=== PATIENT | female | born 1945 | race Caucasian/White ===

== ENCOUNTER 2019-11-15 11:59 | Emergency (ER) | payer MEDICARE, BC, SELFPAY ==
--- NOTE | 2019-11-15 12:00 | ED.GENADULT ---
HPI - General Adult General Chief complaint: Upper Respiratory Infection Stated complaint: COUGH/CONGESTION Time Seen by Provider: 11/15/19 12:16 Source: patient and RN notes reviewed Mode of arrival: ambulatory Limitations: no limitations History of Present Illness HPI narrative: This patient had onset of a cough which is been nonproductive that began last night on 11/14/2019. She has had a slight sore throat. She has had purulent rhinorrhea postnasal drip sensation. She was around her nephew who had flu over the past weekend this was at a wedding. She like to be tested for influenza today. She has had the flu vaccine this season. She has seen her strand buncher fine wire on this past Monday 4 days ago when she was well at that time. She has not had any ear pain or drainage from the ears. She has had no chest pain no shortness of breath. There is been no nausea, no vomiting, no diarrhea. She has had no hematuria, no dysuria, no pyuria. She has had no rashes. No known exposure to anyone with strep throat, mono, influenza except her nephew, or bronchitis, pneumonia. Related Data Home Medications Medication Instructions Recorded Confirmed eszopiclone [Lunesta] 1 mg PO HS 11/15/19 11/15/19 Allergies Allergy/AdvReac Type Severity Reaction Status Date / Time Bumble Bee Allergy Intermediate Other Uncoded 06/18/19 08:21 Review of Systems Review of Systems: Narrative: CONSTITUTIONAL: Denies fever, chills, or sweats. Noncontributory except as pertains to the past medical history and history of present illness. EYES: Denies visual changes, redness, or discharge. ENT: Denies rhinorrhea, congestion, sore throat, or otalgia. CARDIOVASCULAR: Denies chest pain, palpitations, or edema. RESPIRATORY: Denies cough or dyspnea. GASTROINTESTINAL: Denies abdominal pain, nausea, vomiting, or diarrhea. GENITOURINARY: Denies dysuria or hematuria. SKIN: Denies rash or itching. MUSCULOSKELETAL: Denies back pain, joint pain, or myalgia. NEUROLOGIC: Denies headache, numbness, or weakness. PSYCHIATRIC: Denies anxiety or depression. PMFSH Comments At time of signature, I have reviewed and agree with nursing past medical, surgical, social, and family history.Please see nursing chart for further information. There is no relevant family history pertinent to the presenting complaint. Exam Narrative: Exam Narrative: GENERAL: Well-appearing, well-nourished, and in no acute distress. HEAD: Normocephalic, atraumatic. There is no palpation tenderness over the frontal, maxillary, mastoid sinus areas. EYES: PERRLA and EOMI. EARS: TM's clear bilaterally and the canals are clear. NOSE: Nares have edematous mucosa with purulent rhinorrhea and postnasal drip. THROAT:Mucous membranes moist.Oropharynx normal without erythema or exudates. NECK: Supple.No adenopathy of the neck, axillary, or inguinal areas. RESPIRATORY: No respiratory distress. Airway patent. Respirations non-labored. The lungs have rhonchi in the upper, but not the mid or lower lung archer. There are no wheezes, no rales, no retractions, and no use of accessory muscles of respirations. She is not dyspneic and not cyanotic. HEART: Regular rate and rhythm. No murmur heard. Normal peripheral pulses. ABDOMEN: Soft, nontender, nondistended, normal active bowel sounds.No masses. No rebound or guarding, No organomegaly.There is no CVA pain, no pain at McBurney's point. She has a negative celeste's and Rovsing's signs. There are no pulsatile masses or bruits. EXTREMITIES: No clubbing/cyanosis/ edema. Normal strength & range of motion. SKIN: Warm, dry.Normal color.No rashes or lesions. Patient is well nourished and well hydrated with moist mucous membranes and no tenting of the skin. NEURO: Alert and oriented. CN 2-12 grossly intact. No focal deficits. PSYCH: Normal mood and affect. Course Vital Signs Vital signs: Afebrile and the other vital signs are normal, except the blood pressure is elevated at 148/57 should be rechecke
[2019-11-15 12:04] VITALS: BP 148/57; PULSE 80; RESP 20; TEMP 37.2; O2SAT 99
== END 2019-11-15 12:34 | disposition home or self-care (01) ==
PROVIDERS: Emergency Provider Family Medicine; PCP Internal Medicine
DX: J40 Bronchitis, not specified as acute or chronic (principal); J01.10 Acute frontal sinusitis, unspecified
CPT/HCPCS: 87804; 99213; G0463

== ENCOUNTER 2020-01-03 14:01 | Outpatient (CLI) | payer MEDICARE, BC, SELFPAY ==
[2020-01-03 15:14] LABS: Add Urine Microscopic? YES; Appearance Urine Cloudy (Clear); Bacteria Urine Trace /hpf; Bilirubin Urine Negative (Negative); Blood Urine 3+ (Negative); Color Urine Red (Yellow); Glucose Urine UA Negative (Negative); Ketones Urine Negative (Negative); Leukocyte Esterase Ur Trace LEU/UL (NEGATIVE); Nitrate Urine Negative (Negative); Protein Urine 2+ mg/dL (Negative); RBC Urine >75 /hpf (0-2); Specific Grav Ur 1.012 (1.001-1.035); Squamous Epithelial Cell Urine Occasional /hpf (Few); Urobilinogen Urine Negative mg/dL (<2.0)
== END 2020-01-03 14:02 | disposition home or self-care (01) ==
LOC: ANHLAB 14:07
PROVIDERS: PCP Internal Medicine; Visit Provider Physician Assistant
DX: R30.0 Dysuria (principal)
CPT/HCPCS: 81001; 87086; 87088

== ENCOUNTER 2020-01-13 09:57 | Outpatient (CLI) | payer MEDICARE, BC, SELFPAY ==
--- NOTE | ~2020-01-13 | CT_ITS ---
EXAMINATION: CT abdomen pelvis wo/w con EXAM DATE: 01/13/2020 10:52 INDICATION: Bladder tumor. Hematuria. TECHNIQUE: Spiral CT of the abdomen and pelvis was performed without contrast. The patient was then injected with small bolus intravenous Omnipaque 350, followed by delay of approximately 10 minutes to allow collecting system to opacify. A post contrast scan abdomen and pelvis was performed during inj ection of remaining contrast. A total of 130 cc intravenous contrast was administered. The dose-rochelle th product (DLP) for this examination was 1256.42 mGy-cm. The exposure was tailored according to pat ient size (auto mA exposure control), and iterative reconstruction (ASIR) was used as additional dose reduction technique. There is no prior study for comparison. FINDINGS: There is no hydronephrosis or nephrolithiasis. There is a 3 cm left renal cyst, a 2 cm rig ht renal cyst and several smaller renal cysts The kidneys enhance symmetrically. There are no suspi cious renal lesions. The calyces and opacified portions of ureters are unremarkable, without filling defects or focal suspicious strictures. There is a focal masslike density along the right posterola teral bladder wall just above the UVJ measuring up to 1.6 cm. Region is actually better visualized on the noncontrast portion of exam, could be enhancing to same density as the surrounding contrast/urin e. Small focus of bladder gas could be from cystoscopy or other recent instrumentation. The uterus is not identified and has likely been surgically resected. The liver, spleen, adrenal glands and pancreas are unremarkable. Gallbladder not identified, patient likely has had cholecystectomy. There is no retroperitoneal or pelvic lymphadenopathy. There is m ild scattered arteriosclerotic disease. There are surgical changes consistent with appendectomy. The stomach and small bowel are unremarkab le. There is expected amount of colonic stool. There is mild sigmoid colonic diverticulosis. There is no adjacent inflammatory change to suggest diverticulitis. No free intraperitoneal gas. The hea rt is normal in size. There are no pericardial or pleural effusions. The lung bases are unremarkabl e. There are no osteoblastic or osteolytic lesions identified. IMPRESSION: 1. Small right posterolateral bladder mass. 2. Mild sigmoid predominant diverticulosis. Reviewed, dictated and finalized at location B.
[2020-01-13 10:39] LABS: Estimated Glomerular Filt Rate 40
== END 2020-01-13 09:58 | disposition home or self-care (01) ==
PROVIDERS: PCP Internal Medicine; Visit Provider Urology
DX: R31.0 Gross hematuria (principal); K57.30 Diverticulosis of large intestine without perforation or abscess without bleeding
CPT/HCPCS: 36415; 74178; Q9967

== ENCOUNTER 2020-01-16 02:27 | Day surgery (SDC) | payer MEDICARE, BC, SELFPAY ==
[2020-01-15 10:44] VITALS: BMI 32.8
--- NOTE | 2020-01-16 07:34 | WPDHPUPDATE1 ---
History and Physical Update Update Date/Time: 01/16/20 07:34 History and Physical has been reviewed, including an updated exam of the patient. There are NO changes in the patient's condition. Risks, benefits, and alternatives have been discussed and questions answered. Patient agrees to proceed with procedure.
[2020-01-16 13:55] VITALS: BP 145/87; PULSE 61; RESP 18; TEMP 37; O2SAT 97
--- NOTE | 2020-01-16 14:15 | ECG_ITS ---
Measurements Intervals [place] Rate: 62 P: 47 OK: 222 QRS: -17 QRSD: 119 T: 23 QT: 394 QTc: 402 Interpretive Statements SINUS RHYTHM WITH FIRST DEGREE AV BLOCK INCOMPLETE RIGHT BUNDLE BRANCH BLOCK ABNORMAL ECG Electronically Signed On 01-16-2020 16:47:52 CDT by Jesus Wilson D.O.
[2020-01-16] MEDS: LACTATED RINGERS 1,000 ML 30 ML IV CONT (15:00)
--- NOTE | 2020-01-16 15:11 | WPDANESEPPF ---
Anes - Initial Pre Proc Eval Procedure: Operation Date: 01/16/20 16:00 Proposed Procedures p Transurethral Resection Bladder Tumor - Herman Nur MD Date/Time: 01/16/20 15:11 Surgeon: Herman Nur MD Pre Op Diagnosis: Recurring Bladder Tumor/ Gross Hematuria Patient Data Age: 75 Gender: F Height: 1.6 m Weight: 84 kg Allergies Allergy/AdvReac Type Severity Reaction Status Date / Time Bumble Bee Allergy Mild Drowsy, Uncoded 01/15/20 10:58 nausea Home Medications Medication Instructions Recorded Confirmed Type olmesartan 40 mg tablet 40 mg PO DAILY #90 tablet 10/28/19 01/15/20 Rx hydrochlorothiazide 12.5 mg capsule 12.5 mg PO DAILY #90 cap 10/29/19 01/15/20 Rx multivitamin 1 tablet PO DAILY 01/03/20 01/15/20 History modafinil 200 mg PO QAM 01/15/20 01/15/20 History nabumetone 1,000 mg PO DAILY PRN 01/15/20 01/15/20 History omega-3 fatty acids-fish oil [Fish 1 cap PO DAILY 01/15/20 01/15/20 History Oil] Laboratory Tests 01/16/20 14:28 Sodium Pending Potassium Pending Chloride Pending Carbon Dioxide Pending BUN Pending Creatinine Pending Estim Creat Clear Calc Pending Estimated GFR Pending Glucose Pending Calcium Pending ECG: sr, 1st degree avb, incomplete rbbb Patient hx anesthesia problems: post op nausea/vomiting Family hx anesthesia problems: none PMFSH Past Medical History Medical History (Updated 01/16/20 @ 15:14 by Wally Ramesh MD) Bladder tumor Hematuria HTN (hypertension) Obesity LARA (obstructive sleep apnea) Family History Family History (System 12/17/19 @ 12:12 by Gayle Purcell) Father Family history of cardiovascular disease Cerebrovascular accident Mother Cerebrovascular accident Sibling Patient's sister is in good health Family history of malignant neoplasm of breast in first degree relative Social History Social History (System 12/17/19 @ 12:12 by Gayle Purcell) Smoking status: Former smoker Second hand tobacco smoke exposure: No Smoking end date: 10/09/72 Alcohol intake: current Anes - Eval Final PreProcedure Day of Procedure 01/16/20 15:11 Patient weight: obese Heart: regular rate and rhythm Lungs: clear to auscultation and normal air movement Airway: Mallampati scale class II Neurological: alert and oriented Last oral intake: >/= 8 hours ASA classification: III Emergent: no Anesthetic plan: proceed Anesthesia type and monitoring: general GIVS and LMA Informed Consent: The patient's anesthetic plan and its attendant risks and benefits were discussed with the patient/family/POA. Questions were solicited and answers provided to the satisfaction of the patient/family/POA.
[2020-01-16 15:16] LABS: Blood Urea Nitrogen 22 mg/dL (7-17); Calcium 9.5 mg/dL (8.4-10.2); Carbon Dioxide 25 mmol/L (22-30); Chloride 102 mmol/L (98-107); Estimated CRCL calculation 43 ml/min; Estimated Glomerular Filt Rate 54; Glucose 92 mg/dL (65-105); Potassium 4.3 mmol/L (3.4-5.0); Sodium 132 mmol/L (137-145)
[2020-01-16] MEDS: ceFAZolin 2 GM/D5W 50 ML 2 GM/50 ML BAG IVPB (15:48)
[2020-01-16 16:23] VITALS: BP 136/56; PULSE 88; RESP 15; TEMP 36.8; O2SAT 99
[2020-01-16 16:35] VITALS: BP 138/59; PULSE 75; RESP 18; O2SAT 96
[2020-01-16 16:50] VITALS: BP 132/74; PULSE 71; RESP 14; O2SAT 96
[2020-01-16 16:55] VITALS: BP 121/68; PULSE 67; RESP 16
--- NOTE | 2020-01-16 17:03 | PM.PROC ---
Procedure Note - Detailed Date of procedure: 01/16/20 Pre-op diagnosis: Recurring Bladder Tumor/ Gross Hematuria Post-op diagnosis: same Procedure performed: 1. TURBT (medium, 4cm). 2. Bladder biopsy. Description of procedure: The patient was brought to the operative suite where she is prepped and draped in a routine sterile fashion while in the dorsal lithotomy position. This is done after the uneventful administration of systemic sedation. 2% Xylocaine jelly is introduced intraurethrally and allowed to stand for an appropriate period of time. A 24F resectoscope sheath was placed in the bladder and the bladder is circumferentially inspected carefully. She has a a somewhat sessile-appearing neoplasm in the right posterior lateral bladder wall, just lateral to the ureteral orifice. This area is resected in its entirety with an attempt made to include detrusor muscle for pathological evaluation of invasion. I was able to avoid resecting the right urerteral orifice. The was also one minimally atypical spot in the tribone that I biopsies but think unlikely it's neoplastic. The remainder of the bladder was endoscopically normal. The base and periphery of this resected side is cauterized with a loop electrode. The bladder is emptied and the resectoscope was removed. The patient is taken to the recovery room having tolerated this procedure well. Anesthesia: GLMA Surgeon: Herman Nur MD Estimated blood loss (mL): 0 Drains: No Packing: No Pathology: yes (1. Bladder tumor 2. Bladder tumor base 3. Trigone bx. ) Complications: No immediate complications Condition: stable Disposition: PACU
[2020-01-16 17:25] VITALS: BP 157/66; PULSE 54; RESP 16
== END 2020-01-16 17:49 | disposition home or self-care (01) ==
PROVIDERS: Anesthesiology; PCP Internal Medicine; Visit Provider Urology
PROC: 0TBB8ZZ Excision of Bladder, Via Natural or Artificial Opening Endoscopic (ICD-10-PCS; CPT 52235; principal; 2020-01-16 16:00)
DX: C67.8 Malignant neoplasm of overlapping sites of bladder (principal); C67.0 Malignant neoplasm of trigone of bladder; I10 Essential (primary) hypertension; G47.33 Obstructive sleep apnea (adult) (pediatric); E66.9 Obesity, unspecified; Z68.34 Body mass index [BMI] 34.0-34.9, adult; Z87.891 Personal history of nicotine dependence
CPT/HCPCS: 52235; 52204; 36415; 80048; 88305; 88307; 93005; A9270; J0690; J1100; J2405; J2704; J3010; J7120

== ENCOUNTER 2020-02-18 05:37 | Outpatient (CLI) | payer MEDICARE, BC, SELFPAY ==
[2020-02-18 18:34] LABS: SARS-CoV-2 RNA PCR Negative
== END 2020-02-18 05:38 | disposition home or self-care (01) ==
LOC: ANHCOVIDDT 05:38
PROVIDERS: PCP Internal Medicine; Visit Provider Urology
DX: Z01.818 Encounter for other preprocedural examination (principal); D49.4 Neoplasm of unspecified behavior of bladder; Z11.59 Encounter for screening for other viral diseases
CPT/HCPCS: 87635; C9803; U0003

== ENCOUNTER 2020-02-20 02:31 | Day surgery (SDC) | payer MEDICARE, BC, SELFPAY ==
[2020-02-17 13:02] VITALS: BMI 32.8
--- NOTE | 2020-02-18 09:48 | P.HP_ITS ---
History of Present Illness History of Present Illness Consent: Risks, benefits, and alternatives have been discussed and questions answered. Patient agrees to proceed with procedure. Chief complaint: bladder tumor Narrative: Mariposa Brown is a 75 year old female originally evaluated for gross hematuria in January 2020. Upper tract imaging with CT scan abdomen and pelvis with and without contrast was normal but cystoscopy showed bladder neoplasm. In mid January she underwent TURBT showing high-grade T1 urothelial carcinoma. We discussed intravesical BCG but opted 1st to proceed with re-resection of bladder tumor base. She presents today for that procedure. Review of Systems Cardiovascular: Cardiovascular: Denies chest pain, Denies lightheadedness, Denies palpitations and Denies dyspnea Respiratory: Respiratory: Denies dyspnea Gastrointestinal: Gastrointestinal: Denies diarrhea, Denies nausea and Denies vomiting Genitourinary: Genitourinary: Denies hematuria and Denies dysuria Endocrine: Endocrine: Denies palpitations PMF Past Medical History Medical History Bladder tumor Hematuria HTN (hypertension) Obesity LARA (obstructive sleep apnea) Family History Family History Father Family history of cardiovascular disease Cerebrovascular accident Mother Cerebrovascular accident Sibling Patient's sister is in good health Family history of malignant neoplasm of breast in first degree relative Social History Social History (System 12/17/19 @ 12:12 by Gayle Purcell) Smoking status: Former smoker Second hand tobacco smoke exposure: No Smoking end date: 10/09/72 Alcohol intake: current Meds Home Medications and Allergies Home Medications Medication Instructions Recorded Confirmed Type olmesartan 40 mg tablet 40 mg PO DAILY #90 tablet 10/28/19 02/17/20 Rx hydrochlorothiazide 12.5 mg capsule 12.5 mg PO DAILY #90 cap 10/29/19 02/17/20 Rx multivitamin 1 tablet PO DAILY 01/03/20 02/17/20 History modafinil 200 mg PO QAM 01/15/20 02/17/20 History nabumetone 1,000 mg PO DAILY PRN 01/15/20 02/17/20 History omega-3 fatty acids-fish oil [Fish 1 cap PO DAILY 01/15/20 02/17/20 History Oil] hydrocodone-acetaminophen 1 - 2 tablet PO Q6H PRN #20 tablet 01/16/20 02/17/20 Rx Allergies Allergy/AdvReac Type Severity Reaction Status Date / Time Bumble Bee Allergy Mild Drowsy, Uncoded 02/17/20 12:45 nausea Exam Const: General: no acute distress Resp: Effort & Inspection: normal respiratory effort GI: Inspection: non-distended GI Palp: No abdominal tenderness and No Guarding due to palpation present (GI) Auscultation: normal bowel sounds Assessment and Plan Assessment and plan (1) Bladder tumor: Code(s): D49.4 - Neoplasm of unspecified behavior of bladder Status: Acute Assessment and Plan: * Recection 01/2020 initial bladder tumor -> T1, high-grade urothelial ca. * Presents for re-resection bladder tumor base.
[2020-02-20] VITALS (8 sets, daily range): BP systolic 121–147; BP diastolic 56–78; PULSE 51–78; RESP 12–20; TEMP 36.6–37.4; O2SAT 94–100
--- NOTE | 2020-02-20 07:05 | WPDHPUPDATE1 ---
History and Physical Update Update Date/Time: 02/20/20 07:05 History and Physical has been reviewed, including an updated exam of the patient. There are NO changes in the patient's condition. Risks, benefits, and alternatives have been discussed and questions answered. Patient agrees to proceed with procedure.
[2020-02-20] MEDS: LACTATED RINGERS 1,000 ML 30 ML IV CONT ×2 (07:10→09:10)
--- NOTE | 2020-02-20 07:57 | WPDANESEPPF ---
Anes - Initial Pre Proc Eval Procedure: Operation Date: 02/20/20 08:30 Proposed Procedures p Re-Resection Bladder Tumor at the Base - Herman Nur MD Date/Time: 02/20/20 07:57 Surgeon: Herman Nur MD Pre Op Diagnosis: bladder tumor Patient Data Age: 75 Gender: F Height: 5 ft 3 in Weight: 88.1 kg Last Vital Signs Temp 37.4 C 02/20/20 07:10 Pulse 78 02/20/20 07:10 Resp 16 02/20/20 07:10 BP 135/58 L 02/20/20 07:10 Pulse Ox 94 02/20/20 07:10 Allergies Allergy/AdvReac Type Severity Reaction Status Date / Time Bumble Bee Allergy Mild Drowsy, Uncoded 02/20/20 06:51 nausea Home Medications Medication Instructions Recorded Confirmed Type olmesartan 40 mg tablet 40 mg PO DAILY #90 tablet 10/28/19 02/20/20 Rx hydrochlorothiazide 12.5 mg capsule 12.5 mg PO DAILY #90 cap 10/29/19 02/20/20 Rx multivitamin 1 tablet PO DAILY 01/03/20 02/20/20 History modafinil 200 mg PO QAM 01/15/20 02/20/20 History nabumetone 1,000 mg PO DAILY PRN 01/15/20 02/20/20 History omega-3 fatty acids-fish oil [Fish 1 cap PO DAILY 01/15/20 02/20/20 History Oil] hydrocodone-acetaminophen 1 - 2 tablet PO Q6H PRN #20 tablet 01/16/20 02/20/20 Rx Patient hx anesthesia problems: post op nausea/vomiting Family hx anesthesia problems: none PMFSH Past Medical History Medical History Bladder tumor Hematuria HTN (hypertension) Obesity LARA (obstructive sleep apnea) Family History Family History Father Family history of cardiovascular disease Cerebrovascular accident Mother Cerebrovascular accident Sibling Patient's sister is in good health Family history of malignant neoplasm of breast in first degree relative Social History Social History Smoking status: Former smoker Second hand tobacco smoke exposure: No Smoking end date: 10/09/72 Alcohol intake: current Anes - Eval Final PreProcedure Day of Procedure 02/20/20 07:57 Patient weight: obese Heart: regular rate and rhythm Lungs: decreased breath sounds Airway: Mallampati scale class II Neurological: alert and oriented Last oral intake: >/= 8 hours ASA classification: III Emergent: no Anesthetic plan: proceed Anesthesia type and monitoring: general LMA and standard monitoring Informed Consent: The patient's anesthetic plan and its attendant risks and benefits were discussed with the patient/family/POA. Questions were solicited and answers provided to the satisfaction of the patient/family/POA.
[2020-02-20] MEDS: ceFAZolin 2 GM/D5W 50 ML 2 GM/50 ML BAG IVPB (08:20)
[2020-02-20] MEDS: LIDOCAINE HCL 2% GEL UROJET 10 ML PKG MUCOUS MEM (08:35)
--- NOTE | 2020-02-20 08:52 | PM.PROC ---
Procedure Note - Detailed Date of procedure: 02/20/20 Pre-op diagnosis: bladder tumor Post-op diagnosis: same Procedure performed: TURBT (medium, 4cm) / re-resection bladder tumor base Description of procedure: Patient is brought to the operative suite where she was prepped and draped in routine sterile fashion while in a dorsal lithotomy position. Cystoscopy was 1st undertaken with a 19 F rigid cystoscope. Urine was collected for cytology. I can clearly see the area of prior, recent resection in the right posterior lateral bladder wall, lateral to the right ureteral orifice. The remainder of the bladder mucosa appears unremarkable without worrisome hyperemia or kelvin neoplasm. Using a loop electrode and a 24 F resectoscope I resected the base and periphery of the prior resection site. This was done with great care to avoid injury to the right ureteral orifice. Resected site is cauterized with the loop for hemostasis. The bladder was emptied and patient was taken to recovery in good condition. Anesthesia: GLMA Surgeon: Herman Nur MD Estimated blood loss (mL): 0 Drains: No Packing: No Pathology: yes (Bladder tumor base) Complications: No immediate complications Condition: stable Disposition: PACU
--- NOTE | 2020-02-20 09:15 | SUR.PHASEI ---
0905; PT C/O URGE TO VOID. PLACED ON BEDPAN. UNABLE TO VOID. 0910; PT ANXIOUS. C/O PAIN TO BLADDER REGION, LOW, CENTER ABDOMEN, 10. ABDOMEN SOFT. FENTANYL GIVEN PRN
--- NOTE | 2020-02-20 09:31 | SUR.PHASEI ---
0920; PT AWAKE AND ALERT. STATES PAIN IMPROVING NOW. TALKATIVE. SMILING.
--- NOTE | 2020-02-20 09:41 | SUR.PHASEI ---
0940; PT AWAKE AND ALERT. TALKATIVE. STATES PAIN MUCH BETTER NOW AND MILD/TOLERABLE.
== END 2020-02-20 10:45 | disposition home or self-care (01) ==
PROVIDERS: PCP Internal Medicine; Visit Provider Urology
PROC: 0TBB8ZZ Excision of Bladder, Via Natural or Artificial Opening Endoscopic (ICD-10-PCS; CPT 52235; principal; 2020-02-20 08:30)
DX: C67.8 Malignant neoplasm of overlapping sites of bladder (principal); I10 Essential (primary) hypertension; G47.33 Obstructive sleep apnea (adult) (pediatric); E66.9 Obesity, unspecified; Z68.34 Body mass index [BMI] 34.0-34.9, adult; Z87.891 Personal history of nicotine dependence
CPT/HCPCS: 52235; 88104; 88108; 88305; 88307; A9270; J0690; J1100; J2405; J2704; J3010; J7120

== ENCOUNTER 2021-09-21 09:16 | Outpatient (CLI) | payer MEDICARE, BC, SELFPAY ==
[2021-09-21 10:19] LABS: Alanine Aminotransferase 56 U/L (4-35); Albumin Level 4.2 g/dL (3.5-5.1); Alkaline Phosphatase 84 U/L (38-126); Anion Gap 7 mmol/L (8-16); Aspartate Amino Transferase 42 U/L (14-36); Bilirubin,Total 0.7 mg/dL (0.2-1.3); Blood Urea Nitrogen 30 mg/dL (7-17); Calcium 10.9 mg/dL (8.4-10.2); Carbon Dioxide 28 mmol/L (22-30); Chloride 103 mmol/L (98-107); Cholesterol 157 mg/dL (0-200); Estimated Glomerular Filt Rate 36; Glucose 113 mg/dL (65-110); HDL Direct 58 mg/dL; Potassium 4.3 mmol/L (3.4-5.0); Sodium 138 mmol/L (137-145); Triglycerides 85 mg/dL (<150)
[2021-09-21 10:30] LABS: LDL Cholesterol Direct 68 mg/dL
[2021-09-21 10:31] LABS: Basophils Absolute Auto 0.1 K/mm3 (0.0-0.1); Eosinophils Absolute Auto 0.7 K/mm3 (0-0.3); Eosinophils Percent Auto 10.1 % (0-4.4); Hematocrit 37.7 % (37.0-47.0); Hemoglobin 12.2 g/dL (12.0-15.0); Immature Granulocyte Absolute 0.02 K/mm3 (0.00-0.031); Immature Granulocyte Percent A 0.3 % (0-0.5); Lymphocytes Absolute Auto 1.53 K/mm3 (0.9-3.2); Lymphocytes Percent Auto 22.6 % (18.3-44.2); Mean Corpuscular HGB Conc 32.4 g/dl (32-36); Mean Corpuscular Hemoglobin 33.5 pg (26-34); Mean Corpuscular Volume 103.6 fl (80-100); Mean Platelet Volume 10.2 fl (7.4-10.4); Monocytes Absolute Auto 0.5 K/mm3 (0.1-0.6); Monocytes Percent Auto 7.7 % (2.6-8.5); Neutrophils Absolute Auto 3.9 K/mm3 (1.3-6.7); Neutrophils Percent Auto 58.3 % (45.5-73.1); Platelet Count Result 255 k/mm3 (150-375); Red Blood Count 3.64 M/mm3 (4.2-5.4); Red Cell Distribution Width 12.2 % (11.5-14.5); White Blood Count 6.8 K/mm3 (4.5-10.0)
[2021-09-25 18:11] LABS: Folic Acid > 20.0 ng/mL (2.76->20)
== END 2021-09-21 09:17 | disposition home or self-care (01) ==
LOC: ANHLAB 09:19
PROVIDERS: PCP Internal Medicine; Visit Provider Internal Medicine
DX: R53.83 Other fatigue (principal); I10 Essential (primary) hypertension; R79.89 Other specified abnormal findings of blood chemistry
CPT/HCPCS: 36415; 80053; 80061; 82607; 82746; 84443; 85025

== ENCOUNTER 2021-11-16 10:43 | Inpatient (IN) | payer MEDICARE, BC, SELFPAY ==
[2021-11-16] VITALS (25 sets, daily range): BP systolic 97–137; BP diastolic 35–107; PULSE 54–110; RESP 9–20; TEMP 35.7–36.7; O2SAT 94–100; BMI 30.2
--- NOTE | ~2021-11-16 | XR_ITS ---
EXAMINATION: XR retrograde pyelo w/stent RT DATE: 11/16/2021 15:43 INDICATION: Right hydronephrosis. TECHNIQUE: 6 intraoperative fluoroscopic views of the abdomen and pelvis were obtained. I was not pre sent. Fluoroscopy exposure time was 33 seconds. COMPARISON: CT abdomen and pelvis 11/16/2021 FINDINGS: The right-sided retrograde pyelogram demonstrates moderate hydronephrosis and hydroureter. The final images demonstrate a right internal ureteral stent in expected position. There are changes of anterior and posterior fusion procedures in lumbosacral spine. Surgical clips in the right upper q uadrant are likely from cholecystectomy. IMPRESSION: 1. Moderate right hydronephrosis and hydroureter with right internal ureteral stent in expected posit ion. Reviewed, dictated and finalized at location A. E GENETICS RESEARCHER IMPRESSION: 1. Moderate right hydronephrosis and hydroureter with right internal ureteral s tent in expected position.
--- NOTE | ~2021-11-16 | XR_ITS ---
EXAMINATION: XR chest 1V portable EXAM DATE: 11/16/2021 11:33 INDICATION: Dizziness. TECHNIQUE: Portable AP frontal chest x-ray was obtained. Comparison is made to prior examination from 02/14/2019. FINDINGS: The lungs are clear. There are no pleural effusions. Cardiac silhouette is prominent but magnified on this AP technique. There is no pneumothorax suspected. Left shoulder replacement. Cer vical fusion hardware. IMPRESSION: No acute cardiopulmonary findings. Reviewed, dictated and finalized at location B. ORIAL ARTIST
--- NOTE | ~2021-11-16 | CT_ITS ---
EXAMINATION: CT abdomen pelvis wo con EXAM DATE: 11/16/2021 11:59 INDICATION: L abd pain. Known bladder cancer. TECHNIQUE: Spiral CT of the abdomen and pelvis was performed without contrast. Axial, coronal and s agittal images of the abdomen and pelvis were reviewed. The dose-length product (DLP) for this exami nation was 840.50 mGy-cm. The exposure was tailored according to patient size (auto mA exposure cont rol), and iterative reconstruction (ASIR) was used as additional dose reduction technique. Comparison is made to prior examination from 01/13/2020. FINDINGS: There is thickening of the right posterolateral aspect of the bladder including the region of the ureterovesicular junction. There is mild to moderate right-sided hydronephrosis. Appearance co nsistent with transitional cell cancer. The liver, spleen, adrenal glands and pancreas are unremarkab le. Gallbladder is unremarkable. No biliary obstruction. The uterus is not identified and has like ly been surgically resected. There is no retroperitoneal or pelvic lymphadenopathy. There is mil d scattered arteriosclerotic disease. The appendix is not positively visualized. There is no pericecal inflammatory change to suggest appe ndicitis. There is mild scattered colonic diverticulosis. There is no adjacent inflammatory change t o suggest diverticulitis. The stomach and small bowel are unremarkable. There is expected amount of colonic stool. No free intraperitoneal gas. The heart is normal in size. There are no pericardi al or pleural effusions. The lung bases are unremarkable. L3-L5 fusion hardware. L5 laminectomies, L4 laminotomies. Moderate to severe thoracolumbar spondylosis. IMPRESSION: 1. No acute intra-abdominal findings. 2. Bladder mass, probably causing mild to moderate right hydronephrosis. Reviewed, dictated and finalized at location B. RMATION ASSURANCE
--- NOTE | ~2021-11-16 | XR_ITS ---
EXAMINATION: XR barium swallow modified DATE: 11/18/2021 11:38 INDICATION: Dysphagia. TECHNIQUE: The patient was given barium-containing material of multiple consistencies to swallow by gonzález puga speech pathologist while I performed fluoroscopy. Dose-area product was 1.135 Gy-cm2. 2.5 minutes fluoroscopy time FINDINGS: Status post lower anterior cervical spine surgical fusion. Oral Stage: Within functional limits Pharyngeal Phase: Within functional limits Cervical/Esophageal Stage: Cricopharyngeus muscle dysfunction IMPRESSION: Modified esophagram findings as above. Please refer to the speech therapy report [facility]. Reviewed, dictated and finalized at Location A. Reviewed, dictated and finalized at location A. RCYCLE MECHANIC IMPRESSION: Modified esophagram findings as above. Please refer to the speech t herapy report for specific recommendations.
--- NOTE | ~2021-11-16 | CT_ITS ---
EXAMINATION: CT brain wo con EXAM DATE: 11/16/2021 11:59 INDICATION: Dizziness. Left-sided abdominal pain. His to bladder tumor. TECHNIQUE: Spiral CT of the head was performed without contrast. Axial, coronal and sagittal images were reviewed. The dose-length product (DLP) for this examination was 605.33 mGy-cm. The exposure w as tailored according to patient size, and iterative reconstruction (ASIR) was used as additional dos e reduction technique. There is no prior study for comparison. FINDINGS: There is no acute intraparenchymal hemorrhage. No evidence of intraparenchymal brain mass lesion. No evidence of acute infarction. Please note that initial head CT has limited sensitivity f or small or acute infarctions. There is mild periventricular and subcortical hypodensity, nonspecific but probably related to small vessel ischemic disease. There is mild prominence of the sulci and v entricles related to cerebral atrophy. There is intracranial carotid arteriosclerosis. There are n o extra-axial collections. There is no mass effect or midline shift. Patient has had bilateral ocul ar lens surgery. Soft tissue is unremarkable. The visualized sinuses and mastoid air cells are well aerated. IMPRESSION: 1. No acute intracranial findings. 2. Chronic age related findings. Reviewed, dictated and finalized at location B. ETED SPRING ASSEMBLER
--- NOTE | 2021-11-16 11:01 | ECG_ITS ---
Rate 93 MO 180 QRSd 108 QT 313 QTc 390 --[place]-- P 30 QRS -24 T 16 SINUS RHYTHM INCOMPLETE RIGHT BUNDLE BRANCH BLOCK DELAYED PRECORDIAL R/S TRANSITION BASELINE ARTIFACT- I, II, III, AVR, AVF, V2-V6 BORDERLINE ECG Electronically Signed On 11-17-2021 13:16:36 MOLD CAPPER by Jesus FERNANDEZ
[2021-11-16 11:12] LABS: Basophils Percent Auto 0.4 % (0.2-1.2); Eosinophils Absolute Auto 0.4 K/mm3 (0-0.3); Hematocrit 33.9 % (37.0-47.0); Hemoglobin 10.9 g/dL (12.0-15.0); Immature Granulocyte Absolute 0.02 K/mm3 (0.00-0.031); Immature Granulocyte Percent A 0.3 % (0-0.5); Lymphocytes Absolute Auto 0.84 K/mm3 (0.9-3.2); Lymphocytes Percent Auto 11.7 % (18.3-44.2); Mean Corpuscular HGB Conc 32.2 g/dl (32-36); Mean Corpuscular Hemoglobin 33.4 pg (26-34); Mean Platelet Volume 10.1 fl (7.4-10.4); Monocytes Absolute Auto 0.7 K/mm3 (0.1-0.6); Monocytes Percent Auto 9.2 % (2.6-8.5); Neutrophils Absolute Auto 5.3 K/mm3 (1.3-6.7); Neutrophils Percent Auto 73.4 % (45.5-73.1); Platelet Count Result 207 k/mm3 (150-375); Red Blood Count 3.26 M/mm3 (4.2-5.4); Red Cell Distribution Width 12.5 % (11.5-14.5); White Blood Count 7.2 K/mm3 (4.5-10.0)
[2021-11-16 11:23] LABS: Alanine Aminotransferase 12 U/L (4-35); Albumin Level 3.7 g/dL (3.5-5.1); Alkaline Phosphatase 60 U/L (38-126); Anion Gap 7 mmol/L (8-16); Aspartate Amino Transferase 21 U/L (14-36); Bilirubin,Total 0.5 mg/dL (0.2-1.3); Blood Urea Nitrogen 44 mg/dL (7-17); Calcium 10.8 mg/dL (8.4-10.2); Carbon Dioxide 19 mmol/L (22-30); Chloride 106 mmol/L (98-107); Estimated Glomerular Filt Rate 21; Glucose 115 mg/dL (65-110); Potassium 5.3 mmol/L (3.4-5.0); Sodium 132 mmol/L (137-145)
[2021-11-16] MEDS: SODIUM CHLORIDE 0.9% IV 1,000 ML 999 ML IV CONT (11:41)
[2021-11-16 11:46] LABS: Lactic Acid Reflex 1.3 mmol/L (0.7-2.1)
[2021-11-16 12:30] LABS: Lipase 133 U/L (23-300)
[2021-11-16 12:43] LABS: Troponin I < 0.012 ng/mL (0.000-0.034)
--- NOTE | 2021-11-16 12:59 | ED.DIZZY ---
HPI - Dizziness General Chief Complaint: Dizziness Stated Complaint: DIZZINESS Time Seen by Provider: 11/16/21 11:03 Source: RN notes reviewed History of Present Illness HPI Narrative: Patient presents emergency room from home for dizziness. Patient states that this morning she had dizziness that was worse with getting up and better with laying down she states that with that she had had increased lower back pain patient states she has been having some intermittent dizziness over the past week she she has been having increasing lower back pain over the past 1 month states that with this back pain she has been having increasing creatinine level is been seen by her PCP is post to be seen a kidney specialist she states she is having no definitive imaging of her abdomen she denies any fevers or chills vision changes, chest pain, shortness of breath, nausea vomiting diarrhea or any other symptoms. She denies any history of known kidney stones states she has been taking oral marijuana for the pain Related Data Home Medications Medication Instructions Recorded Confirmed multivitamin 1 tablet PO DAILY 01/03/20 11/08/21 modafinil 200 mg PO QAM 01/15/20 11/08/21 CBD 2.5 mg PO DAILY 11/05/21 11/09/21 Allergies Allergy/AdvReac Type Severity Reaction Status Date / Time cat dander Allergy Intermediate Sneezing Verified 11/05/21 14:54 Sulfa (Sulfonamide Allergy Hives Verified 11/05/21 14:54 Antibiotics) Bumble Bee Allergy Mild Drowsy, Uncoded 11/05/21 14:54 nausea Review of Systems Review of Systems: Gen.: Denies fevers or chills Eyes: Denies eye pain or visual change ENT: Denies congestion Respiratory: Denies shortness of breath or cough CV: Denies chest pain or palpitations GI: Reports less abdominal pain and flank pain denies vomiting or diarrhea denies burning, urgency, frequency or hematuria Musculoskeletal: Denies back pain or muscle pain Neuro: See HPI Skin: Denies rash Except as documented, all other systems reviewed and negative PMFSH Past Medical History Medical History Bladder tumor Hematuria HTN (hypertension) Obesity LARA (obstructive sleep apnea) Surgical History Surgical History History of hysterectomy History of knee replacement Family History Family History Father Family history of cardiovascular disease Cerebrovascular accident Mother Cerebrovascular accident Sibling Patient's sister is in good health Family history of malignant neoplasm of breast in first degree relative Social History Social History Years smoked: 3 Smoking status: Former smoker Tobacco type: cigarettes Second hand tobacco smoke exposure: No Smoking end date: 10/09/72 Alcohol intake: former Drinks per week: 1 Substance use: current Substance use type: marijuana Other substance usage details: THC/CBD gummies Spiritual care concerns: No Exam Narrative: APPEARANCE: No acute distress, nontoxic, resting in bed EYES: EOMI, PERRL HEENT: Normocephalic, atraumatic, OMM RESPIRATORY: No respiratory distress Clear to auscultation bilaterally with no rhonchi wheezing or rales. CARDIOVASCULAR: Regular rate and rhythm without murmurs rubs or gallops. ABDOMINAL: Soft, nondistended, diffusely tender to palpation no rebound or guarding tender palpation left flank with positive percussion tenderness MUSCULOSKELETAl: Moves all extremities. No clubbing, cyanosis or edema. NEURO: Awake and alert x 4. Following commands, speech normal, no focal deficits SKIN:: Warm, dry. No rashes lesions or abrasions PSYCHIATRIC: Normal affect/mood, Course Course Emergency Course: Called discussed with Dr. Lang patient with a cystoscopy showing no mass by Dr. Nur and Liborio vilchis
--- NOTE | 2021-11-16 13:00 | PM.IMHP ---
H&P: HPI History of Present Illness Date/Time: 11/16/21 13:00 Chief Complaint: Back pain and dizziness. Narrative: This is a very pleasant 76-year-old female with history of bladder cancer, hypertension, and sleep apnea who presented to the emergency department from home for evaluation of back pain and dizziness. She reports mid to low back and left flank pain for nearly 1 month that she has a difficult time describing. She initially had been taking nabumetone though she was told to stop taking that after she was found to have an increase in creatinine from baseline. Since then she has been taking THC/CBD cocktail which seems to help somewhat. The last 2 days her pain has been severe enough that she is unable to sleep much as she is constantly trying to find a position to make it feel better. Her appetite has not been great and she has not been eating or drinking well either. Additionally she has had episodes of dizziness over the past 1 week, further clarified as lightheadedness. Today her creatinine was approximately twice what it typically runs and a CT of the abdomen and pelvis showed findings of a bladder mass causing [id number] right hydronephrosis. After discussions with Urology, the patient is awaiting transport to OR for cystoscopy and stent placement. Of note the patient last had a surveillance cystoscopy in office on 08/16/2021 which was reportedly normal, with normal cytology as well. She denies fever, chills, sweats, syncope, chest pain, shortness of breath, pleuritic pain, nausea, vomiting, diarrhea, dysuria, and hematuria. Review of Systems Review of Systems: Twelve systems were reviewed and are negative except for as per HPI. 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 Surgical History Surgical History (Updated 11/16/21 @ 19:32 by Katarzyna Galvez PA-C) History of appendectomy History of bilateral knee replacement History of bladder surgery (01/2020) Transurethral resection bladder tumor. History of cataract extraction History of cholecystectomy History of cystoscopy History of hysterectomy History of left shoulder replacement History of spinal surgery Family History Family History Father Family history of cardiovascular disease Cerebrovascular accident Mother Cerebrovascular accident Sibling Patient's sister is in good health Family history of malignant neoplasm of breast in first degree relative Social History Social History (Updated 11/16/21 @ 19:21 by Katarzyna Galvez PA-C) Social History: Healthcare power of cafeteria clerk: Angelique Balta, niece. Code status: Full code. Smoking packs per day: 0.1 Smoking cigarettes per day: 2.0 Years smoked: 20 Smoking pack-years: 2.00 Smoking status: Former smoker Tobacco type: cigarettes Second hand tobacco smoke exposure: No Smoking end date: 10/09/72 Alcohol intake: current Drinks per week: 3 Substance use: current Substance use type: marijuana Other substance usage details: CBD/THC gummies, 1 to 2 times per day. Living arrangements: alone Occupation/Education: retired Meds Home Medications and Allergies Home Medications Medication Instructions Recorded Confirmed Type modafinil 200 mg PO QAM 01/15/20 11/16/21 History olmesartan 40 mg tablet 40 mg PO DAILY #90 tablet 11/09/20 11/16/21 Rx CBD 2.5 mg PO DAILY 11/05/21 11/16/21 History pantoprazole 40 mg tablet,delayed 40 mg PO QAM #90 tablet 11/05/21 11/16/21 Rx release Allergies Allergy/AdvReac Type Severity Reaction Status Date / Time cat dander Allergy Intermediate Sneezing Verified 11/16/21 17:47 Sulfa (Sulfonamide Allergy
[2021-11-16 13:07] LABS: Add Urine Microscopic? YES; Appearance Urine Clear (Clear); Bilirubin Urine Negative (Negative); Blood Urine Negative (Negative); Color Urine Yellow (Yellow); Glucose Urine UA Negative (Negative); Ketones Urine Negative (Negative); Leukocyte Esterase Ur 2+ LEU/UL (Negative); Mucus Urine Rare /lpf; Nitrate Urine Negative (Negative); Protein Urine Negative (Negative); Specific Grav Ur 1.011 (1.001-1.035); Squamous Epithelial Cell Urine Few /hpf (Few); Urobilinogen Urine Negative mg/dL (<2.0)
--- NOTE | 2021-11-16 13:52 | WPDANESEPPF ---
Anes - Initial Pre Proc Eval Procedure: Operation Date: 11/16/21 15:30 Proposed Procedures p Cystoscopy,Right Retrograde Pyelogram,Right Stent Placement - Lambert Lang MD s Trans Urethral Resection Bladder Tumor - Lambert Lang MD Date/Time: 11/16/21 13:52 Surgeon: Ray Pelletier MD Pre Op Diagnosis: Bladder CA w hydroephrosis/acute renal insufficien Patient Data Age: 76 Gender: F Height: Weight: 83 kg Last Vital Signs Temp 36.3 C L 11/16/21 10:43 Pulse 78 11/16/21 13:15 Resp 18 11/16/21 13:15 BP 136/107 H 11/16/21 11:38 Pulse Ox 96 11/16/21 13:15 Allergies Allergy/AdvReac Type Severity Reaction Status Date / Time cat dander Allergy Intermediate Sneezing Verified 11/16/21 14:07 Sulfa (Sulfonamide Allergy Hives Verified 11/16/21 14:07 Antibiotics) Bumble Bee Allergy Mild Drowsy, Uncoded 11/16/21 14:07 nausea Home Medications Medication Instructions Recorded Confirmed Type multivitamin 1 tablet PO DAILY 01/03/20 11/08/21 History modafinil 200 mg PO QAM 01/15/20 11/08/21 History olmesartan 40 mg tablet 40 mg PO DAILY #90 tablet 11/09/20 11/09/21 Rx fluticasone propionate 50 2 spray INTRANASAL DAILY #16 g 04/21/21 11/08/21 Rx mcg/actuation nasal spray,suspension hydrochlorothiazide 12.5 mg capsule 12.5 mg PO DAILY #90 cap 05/20/21 11/08/21 Rx CBD 2.5 mg PO DAILY 11/05/21 11/09/21 History pantoprazole 40 mg tablet,delayed 40 mg PO QAM #90 tablet 11/05/21 11/09/21 Rx release Laboratory Tests 11/16/21 11/16/21 11/16/21 11:03 11:03 11:25 WBC 7.2 K/mm3 K/mm3 (4.5-10.0) RBC 3.26 M/mm3 L M/mm3 (4.2-5.4) Hgb 10.9 g/dL L g/dL (12.0-15.0) Hct 33.9 % L % (37.0-47.0) MCV 104.0 fl H fl (80-100) MCH 33.4 pg pg (26-34) MCHC 32.2 g/dl g/dl (32-36) RDW 12.5 % % (11.5-14.5) Plt Count 207 k/mm3 k/mm3 (150-375) MPV 10.1 fl fl (7.4-10.4) Immature Gran % (Auto) 0.3 % % (0-0.5) Neut % (Auto) 73.4 % H % (45.5-73.1) Lymph % (Auto) 11.7 % L % (18.3-44.2) [place] % (Auto) 9.2 % H % (2.6-8.5) Eos % (Auto) 5.0 % H % (0-4.4) Baso % (Auto) 0.4 % % (0.2-1.2) Lymph # (Auto) 0.84 K/mm3 L K/mm3 (0.9-3.2) [place] # (Auto) 0.7 K/mm3 H K/mm3 (0.1-0.6) Eos # (Auto) 0.4 K/mm3 H K/mm3 (0-0.3) Baso # (Auto) 0.0 K/mm3 K/mm3 (0.0-0.1) Abs Immat Gran (auto) 0.02 K/mm3 K/mm3 (0.00-0.031) Absolute Neuts (auto) 5.3 K/mm3 K/mm3 (1.3-6.7) Absolute Nucleated RBC 0.0 K/mm3 K/mm3 (0.0-0.012) Nucleated RBC % 0.0 % % (0.0-0.2) Sodium 132 mmol/L L mmol/L (137-145) Potassium 5.3 mmol/L H mmol/L (3.4-5.0) Chloride 106 mmol/L mmol/L (98-107) Carbon Dioxide 19 mmol/L L mmol/L (22-30) Anion Gap 7 mmol/L L mmol/L (8-16) BUN 44 mg/dL H D mg/dL (7-17) Creatinine 2.30 mg/dL H mg/dL (0.7-1.0) Estim Creat Clear Calc Not Reportable Estimated GFR 21 L (59 - ) Glucose 115 mg/dL H mg/dL (65-110) Lactic Acid 1.3 mmol/L mmol/L (0.7-2.1) Calcium 10.8 mg/dL H mg/dL (8.4-10.2) Total Bilirubin 0.5 mg/dL mg/dL (0.2-1.3) AST 21 U/L U/L (14-36) ALT 12 U/L U/L (4-35) Alkaline Phosphatase 60 U/L U/L (38-126) Troponin I Total Protein 7.0 g/dL g/dL (6.3-8.2) Albumin 3.7 g/dL g/dL (3.5-5.1) Lipase Urine Color Urine Appearance Urine pH Ur Specific [place] Urine Protein Urine Glucose (UA) Urine Ketones Ur Blood (Man) Urine Nitrate Urine Bilirubin Urine Urobilinogen Leukocyte E
--- NOTE | 2021-11-16 13:57 | WPDURCON ---
Assessment and Plan Assessment and plan (1) Bladder cancer: Code(s): C67.9 - Malignant neoplasm of bladder, unspecified Status: Acute Assessment and Plan: History of: TURBT 01/2020 (2) Left flank pain: Code(s): R10.9 - Unspecified abdominal pain Status: Acute Assessment and Plan: Secondary to hydronephrosis, however it is referred pain to opposite side. (3) Hydronephrosis, right: Code(s): N13.30 - Unspecified hydronephrosis Status: Acute Assessment and Plan: Will plan to go to the OR today with Dr. Lang for Cysotscopy, right ureteroscopy with stent placement, right retrograde pyelogram possible TURBT. Keep NPO. Admit to medicine. (4) Bladder mass: Code(s): N32.89 - Other specified disorders of bladder Status: Acute Assessment and Plan: UA shows some leukocytes, WBC is normal, urine culture is pending. Dr. Lang to determine if TURBT will be done. Urology Consult Note HPI Date Seen: 11/16/21 Requesting Physician: Ray Pelletier MD Primary Care Provider: Justin Ramírez DO Consult Narrative Narrative: Mariposa Andrade is a 76 year old female who presents to the ER with worsening nausea, vomiting, LLQ pain, left flank pain that developed a month ago but worsened this morning. She denies dysuria, hematuria, frequency or urgency. She has a known history of bladder cancer and is a patient of Dr. Nur'. She initiallly had a TURBT in 01/2020 with a pathology showing high grade urothelial carcinoma invading subepithelial connective tissue. She was then treated with BCG in 03/2020 and has had normal surveillance cystoscopies since. Her most recent cysto in the office was 08/16/[address] Nur and was normal as well as a normal cytology. WBC is 7.2, creatinine is 2.[address] today shows a bladder mass with moderate right hydronephrosis secondary to thickening of the bladder wall near the UVJ. Review of Systems Cardiovascular: Cardiovascular: Denies chest pain Respiratory: Respiratory: Reports no additional respiratory complaints Gastrointestinal: Gastrointestinal: Reports abdominal pain, Reports nausea and Reports vomiting Genitourinary: Genitourinary: Denies hematuria, Denies dysuria, Denies pelvic pain, Reports flank pain and Denies urinary urgency PMF Past Medical History Medical History Bladder tumor Hematuria HTN (hypertension) Obesity LARA (obstructive sleep apnea) Surgical History Surgical History History of hysterectomy History of knee replacement Family History Family History Father Family history of cardiovascular disease Cerebrovascular accident Mother Cerebrovascular accident Sibling Patient's sister is in good health Family history of malignant neoplasm of breast in first degree relative Social History Social History Years smoked: 3 Smoking status: Former smoker Tobacco type: cigarettes Second hand tobacco smoke exposure: No Smoking end date: 10/09/72 Alcohol intake: former Drinks per week: 1 Substance use: current Substance use type: marijuana Other substance usage details: THC/CBD gummies Spiritual care concerns: No Meds Home Medications and Allergies Home Medications Medication Instructions Recorded Confirmed Type multivitamin 1 tablet PO DAILY 01/03/20 11/08/21 History modafinil 200 mg PO QAM 01/15/20 11/08/21 History olmesartan 40 mg tablet 40 mg PO DAILY #90 tablet 11/09/20 11/09/21 Rx fluticasone propionate 50 2 spray INTRANASAL DAILY #16 g 04/21/21 11/08/21 Rx mcg/actuation nasal spray,suspension hydrochlorothiazide 12.5 mg capsule 12.5 mg PO DAILY #90 cap 05/20/21 11/08/21 Rx CBD 2.5 mg PO DAILY 11/05/21
[2021-11-16] MEDS: LACTATED RINGERS 1,000 ML 30 ML IV CONT (14:00)
--- NOTE | 2021-11-16 15:40 | W.PM.PROC2 ---
Procedure Note - Detailed Date of Procedure 11/16/21 Pre-op Diagnosis Bladder CA w hydroephrosis/acute renal insufficien Post-op Diagnosis same Procedure Performed Cystoscopy, right retrograde pyelogram, right distal ureteroscopy, right ureteral stent placement 6 [place] contour stent Surgeon Lambert Lang MD Anesthesia general Findings Trauma prominent right brianna trigone was some mild irregularity of mucosa in the intramural ureter. No discrete papillary tumor noted. Description of Procedure Patient is taken the operative suite correctly identified. Once anesthesia was obtained she was placed in dorsal lithotomy position and prepped and draped usual sterile fashion. Twenty-two [place]e scope inserted in the bladder. There was no discrete papillary tumors noted. It is somewhat unusual as the right brianna trigone ureteral orifices very raised and prominent. It appears if there was been a prior resection along the right floor lateral wall just lateral and posterior to the right ureteral orifice. At this point time a guidewire was able to be manipulated into the orifice. It required angled guidewire to do this. We then dilated with an 810 dilator and placed a mini rigid ureteral scope into the intramural ureter. No discrete papillary tumors noted other than there is some mild irregularity of the mucosa. Given the possibility of her having infected urine we did not decide to resect any of this area. Pyelogram was then performed and a 6 [place]e contour stent was then placed with the proximal end coiled in the renal pelvis and the distal in the bladder. 2% viscous lidocaine was inserted urethra. She is taken recovery stable condition. She will need to get over her acute problems. Will notify Dr. Nur of for admission is he has operated on this patient for bladder cancer in the recent past Estimated Blood Loss 0 Drains Yes Packing No Pathology none sent Complications No immediate complications Condition stable Disposition PACU
[2021-11-16] MEDS: fentaNYL CITRATE INJ (*CRX) 100 MCG/2 ML VIAL 25 MCG IV PUSH ×2 (16:20→16:25)
[2021-11-16] MEDS: OXYBUTYNIN CHLORIDE 5 MG TABLET PO (17:05)
--- NOTE | 2021-11-16 17:20 | ADMGEN ---
This patient, Mariposa Andrade, was admitted to Medical Room 250-01. Patient/family oriented to hospital policies and general routines including ID bracelet, bed and alarms, visiting hours, pain management, procedures, bathroom and other care routines, personal items, smoking policy, room service/diet, and visiting hours. Information on how to activate the Rapid Response Team has been discussed. Patient/Family are encouraged to report perceived risks to care and to ask questions if they do not understand what they are told or what they should do.
[2021-11-16] MEDS: SODIUM CHLORIDE 0.9% IV 1,000 ML 80 ML IV CONT (18:11)
[2021-11-16 20:19] LABS: Anion Gap 4 mmol/L (8-16); Blood Urea Nitrogen 39 mg/dL (7-17); Carbon Dioxide 21 mmol/L (22-30); Chloride 109 mmol/L (98-107); Estimated CRCL calculation 21 ml/min; Estimated Glomerular Filt Rate 24; Glucose 106 mg/dL (65-110); Magnesium 1.7 mg/dL (1.6-2.3); Potassium 5.2 mmol/L (3.4-5.0); Sodium 134 mmol/L (137-145)
[2021-11-16] MEDS: MORPHINE SULFATE (*CRX) 2 MG/ML INJ IV PUSH (20:39)
[2021-11-16 20:54] LABS: Iron 26 ug/dL (37-170)
[2021-11-16 21:03] LABS: Percent Iron Saturation 14 % (20-50)
[2021-11-16 21:24] LABS: Folic Acid 10.5 ng/mL (2.76->20)
[2021-11-16] MEDS: traMADol HCL (*CRX) 25 MG TABLET PO (23:22)
[2021-11-17] VITALS (15 sets, daily range): BP systolic 108–120; BP diastolic 40–54; PULSE 66–92; RESP 12–20; TEMP 36.6–38.2; O2SAT 94–100; BMI 31.2
[2021-11-17] MEDS: HYOSCYAMINE SULFATE 0.125 MG TABLET PO (00:51)
[2021-11-17] MEDS: WATER FOR IRRIGATION, STERILE 1,000 ML BOTTLE 1000 ML (03:38)
[2021-11-17 05:41] LABS: Basophils Percent Auto 0.3 % (0.2-1.2); Eosinophils Absolute Auto 0.3 K/mm3 (0-0.3); Eosinophils Percent Auto 4.9 % (0-4.4); Hematocrit 28.5 % (37.0-47.0); Hemoglobin 9.1 g/dL (12.0-15.0); Immature Granulocyte Absolute 0.01 K/mm3 (0.00-0.031); Immature Granulocyte Percent A 0.2 % (0-0.5); Lymphocytes Absolute Auto 0.87 K/mm3 (0.9-3.2); Lymphocytes Percent Auto 15.2 % (18.3-44.2); Mean Corpuscular HGB Conc 31.9 g/dl (32-36); Mean Corpuscular Hemoglobin 32.9 pg (26-34); Mean Corpuscular Volume 102.9 fl (80-100); Mean Platelet Volume 10.2 fl (7.4-10.4); Monocytes Absolute Auto 0.6 K/mm3 (0.1-0.6); Monocytes Percent Auto 9.6 % (2.6-8.5); Neutrophils Percent Auto 69.8 % (45.5-73.1); Platelet Count Result 179 k/mm3 (150-375); Red Blood Count 2.77 M/mm3 (4.2-5.4); Red Cell Distribution Width 12.3 % (11.5-14.5); White Blood Count 5.7 K/mm3 (4.5-10.0)
[2021-11-17 05:54] LABS: Alanine Aminotransferase 9 U/L (4-35); Albumin Level 2.8 g/dL (3.5-5.1); Alkaline Phosphatase 45 U/L (38-126); Anion Gap 4 mmol/L (8-16); Aspartate Amino Transferase 17 U/L (14-36); Bilirubin,Total 0.3 mg/dL (0.2-1.3); Blood Urea Nitrogen 33 mg/dL (7-17); Calcium 9.7 mg/dL (8.4-10.2); Carbon Dioxide 22 mmol/L (22-30); Chloride 110 mmol/L (98-107); Estimated CRCL calculation 23 ml/min; Estimated Glomerular Filt Rate 27; Glucose 91 mg/dL (65-110); Potassium 5.9 mmol/L (3.4-5.0); Sodium 136 mmol/L (137-145)
[2021-11-17] MEDS: SODIUM CHLORIDE 0.9% IV 1,000 ML 80 ML IV CONT ×2 (06:02→20:07)
[2021-11-17] MEDS: HYOSCYAMINE SULFATE SOLN 0.125 MG/ML ORAL SYRINGE PO ×2 (07:38→20:09)
[2021-11-17] MEDS: traMADol HCL (*CRX) 25 MG TABLET PO ×2 (11:55→20:08)
--- NOTE | 2021-11-17 12:37 | PM.IMPN ---
Progress Note: A&P Assessment and Plan (1) Macrocytic anemia: Code(s): D53.9 - Nutritional anemia, unspecified Status: Acute (2) Obstructive sleep apnea: Code(s): G47.33 - Obstructive sleep apnea (adult) (pediatric) Status: Acute (3) HTN (hypertension): Code(s): I10 - Essential (primary) hypertension Status: Acute (4) Electrolyte abnormality: Code(s): E87.8 - Other disorders of electrolyte and fluid balance, not elsewhere classified Status: Acute (5) Hydronephrosis of right kidney: Code(s): N13.30 - Unspecified hydronephrosis Status: Acute (6) Acute kidney injury: Code(s): N17.9 - Acute kidney failure, unspecified Status: Acute (7) Bladder mass: Code(s): N32.89 - Other specified disorders of bladder Status: Acute (8) Urothelial carcinoma of bladder: Code(s): C67.9 - Malignant neoplasm of bladder, unspecified Status: Acute (9) Left flank pain: Code(s): R10.9 - Unspecified abdominal pain Status: Acute Assessment and Plan: 11/17/21 History of: TURBT 01/2020 s/p Cystoscopy, right retrograde pyelogram, right distal ureteroscopy, right ureteral stent placement POD1 elevated K and rising one dose of Kayexalate given dysphagia c/s ST MBS ordered tylenol rocephin urine culture Subjective Date/time seen: 11/17/21 12:37 pt doing ok complains of fever and pain and dysphagia has been putting her foods in a psychologist engineering at home for the last 2 weeks because unable to eat solids Exam Narrative: General: Well-developed female supine in bed in moderate pain. HEENT: Wearing glasses. EOMI. Sclerae anicteric. . Neck: Supple. Respiratory: Lungs are clear to auscultation bilaterally. Cardiovascular: Regular rate and rhythm with S1-S2. Gastrointestinal: Abdomen is soft and nondistended with positive bowel sounds. L CVA tenderness She is tender to palpation and the left flank and mid and lower quadrant. No guarding or rebound tenderness. Skin: Warm and dry. No rash or lesions on limited exam. Extremities: No cyanosis, clubbing, or significant edema. Neurological: Alert. Cranial nerves 2-12 are grossly intact. No gross focal deficits to casual conversation. Psychiatric: Appropriate mood and affect. Objective Data Vital Signs Vital Signs: Vital Signs - 24 hr 11/16/21 12:47 11/16/21 13:00 11/16/21 13:15 Temperature Pulse Rate 74 84 78 Respiratory Rate 13 19 18 Blood Pressure Pulse Oximetry 96 97 96 11/16/21 14:11 11/16/21 15:44 11/16/21 16:00 Temperature 97.8 F 97.7 F Pulse Rate 67 70 60 Respiratory Rate 16 12 12 Blood Pressure 109/39 L 97/38 L 109/44 L Pulse Oximetry 98 95 100 11/16/21 16:15 11/16/21 16:30 11/16/21 16:52 Temperature 98.1 F Pulse Rate 60 61 62 Respiratory Rate 10 L 12 12 Blood Pressure 120/40 L 116/93 H 124/75 Pulse Oximetry 95 99 94 11/16/21 17:15 11/16/21 17:30 11/16/21 17:31 Temperature 97.3 F L 97.2 F L Pulse Rate 65 54 L 59 L Respiratory Rate 14 14 Blood Pressure 124/60 120/60 Pulse Oximetry 97 99 11/16/21 18:00 11/16/21 19:00 11/16/21 20:00 Temperature 97.6 F 97.7 F Pulse Rate 56 L 54 L 67 Respiratory Rate 14 16 Blood Pressure 126/54 L 118/52 L Pulse Oximetry 99 100 11/16/21 21:04 11/17/21 00:00 11/17/21 03:21 Temperature 96.3 F L 98.9 F Pulse Rate 69 70 73 Respiratory Rate 20 20 Blood Pressure 110/56 L 120/52 L Pulse Oximetry 99 98 11/17/21 04:00 11/17/21 07:34 11/17/21 08:00 Temperature Pulse Rate 70 70 89 Respiratory Rate Blood Pressure Pulse Oximetry 97 11/17/21 10:25 Temperature 98.4 F Pulse Rate 69 Respiratory Rate 12 Blood Pressure 108/52 L Pulse Oximetry 96 Intake/Output Intake/Output: Intake & Output 11/14/21 11/15/21 11/16/21 11/17/21 23:59 23:59 23:59 23:59 Intake Total 2220 1650 Output Total 100 800 Balance 2120 850 Meds/Results Medications: Active Medications
[2021-11-17] MEDS: SODIUM POLYSTYRENE SULFONONATE 15 GM/60 ML BTL PO (13:10)
[2021-11-17] MEDS: ACETAMINOPHEN 325 MG TABLET 650 MG PO (15:39)
--- NOTE | 2021-11-17 16:25 | WPDUROPN2 ---
Progress Note: A&P Assessment and Plan (1) Left flank pain: Code(s): R10.9 - Unspecified abdominal pain Status: Acute Assessment and Plan: Improved s/p stent placement (2) Acute kidney injury: Code(s): N17.9 - Acute kidney failure, unspecified Status: Acute Assessment and Plan: Improved s/p stent placement from >3 to 1.80. (3) UTI (urinary tract infection): Code(s): N39.0 - Urinary tract infection, site not specified Status: Acute Assessment and Plan: Continue IV antibiotics, tailor to culture results. Culture pending. (4) Bladder mass: Code(s): N32.89 - Other specified disorders of bladder Status: Acute Assessment and Plan: Unable to remove yesterday d/t possible infection. Will plan to see Parres as an outpatient and determine a plan for outpatient TURBT. Stent will stay in until then. No further surgical planning at this time. Subjective Subjective Date/Time Seen: 11/17/21 16:25 POD #1 Cystoscopy with right stent placement, right retrograde pyelogram. DR. Lang was unable to do the TURBT d/t infected appearing urine. She is tolerating her diet today, stent and sitting up at the bedside eating lunch. She is aware that the bladder mass will need to be removed through another surgery at some point outpatient when urine is not infected or unlesss urine cutlure comes back negative. She is also febrile today. Flank pain is significantly improved. Review of Systems Cardiovascular: Cardiovascular: Denies chest pain Respiratory: Respiratory: Reports no additional respiratory complaints Gastrointestinal: Gastrointestinal: Denies abdominal pain, Denies nausea and Denies vomiting Genitourinary: Genitourinary: Denies hematuria, Denies dysuria, Denies pelvic pain and Reports flank pain Exam Resp: Effort & Inspection: normal respiratory effort Cardio: Rate: regular rate GI: GI Palp: Yes Soft to palpation and No Tenderness to palpation present (GI) : General: Yes no CVA tenderness Extrem: General: no edema Objective Data Vital Signs Vital Signs: Vital Signs - 24 hr 11/16/21 16:30 11/16/21 16:52 11/16/21 17:15 Temperature 98.1 F 97.3 F L Pulse Rate 61 62 65 Respiratory Rate 12 12 14 Blood Pressure 116/93 H 124/75 124/60 Pulse Oximetry 99 94 97 02/08/22 17:30 11/16/21 17:31 11/16/21 18:00 Temperature 97.2 F L 97.6 F Pulse Rate 54 L 59 L 56 L Respiratory Rate 14 14 Blood Pressure 120/60 126/54 L Pulse Oximetry 99 99 11/16/21 19:00 11/16/21 20:00 11/16/21 21:04 Temperature 97.7 F 96.3 F L Pulse Rate 54 L 67 69 Respiratory Rate 16 20 Blood Pressure 118/52 L 110/56 L Pulse Oximetry 100 99 11/17/21 00:00 11/17/21 03:21 11/17/21 04:00 Temperature 98.9 F Pulse Rate 70 73 70 Respiratory Rate 20 Blood Pressure 120/52 L Pulse Oximetry 98 11/17/21 07:34 11/17/21 08:00 11/17/21 10:25 Temperature 98.4 F Pulse Rate 70 89 69 Respiratory Rate 12 Blood Pressure 108/52 L Pulse Oximetry 97 96 11/17/21 12:00 11/17/21 15:10 11/17/21 15:39 Temperature 100.7 F H 100.7 F H Pulse Rate 80 82 Respiratory Rate 18 Blood Pressure 110/54 L Pulse Oximetry 100 Intake/Output Intake/Output: Intake & Output 11/14/21 11/15/21 11/16/21 11/17/21 23:59 23:59 23:59 23:59 Intake Total 2220 1820 Output Total 100 800 Balance 2120 1020 Meds/Results Medications: Active Medications Generic Name Dose Route Start Last Admin Trade Name Ismael PRN Reason Stop Dose Admin Acetaminophen 650 mg 11/16/21 19:36 11/17/21 15:39 Acetaminophen 325 Mg Tablet PO 650 mg Q6H PRN Administration Mild Pain (1-3) or Fever Albuterol 2.5 mg 11/17/21 16:00 Albuterol Sulfate Neb 2.5 Mg/0.5 Ml Inh INHALATION Q4HRT VIOLET Hyoscyamine 0.125 mg 11/17/21 00:57 11/17/21 07:38 Hyoscyamine Sulfate Soln 0.125 Mg/Ml Oral Syringe PO 0.125 mg Q6HR PRN Administration Bladder
--- NOTE | 2021-11-17 17:42 | PCSTNOTE ---
Please refer to the Bedside Swallow Evaluation in the EMR. Please note, silent aspiration cannot be ruled out at bedside.
[2021-11-17] MEDS: ALBUTEROL SULFATE NEB 2.5 MG/0.5 ML INH INHALATION ×2 (17:55→20:19)
--- NOTE | 2021-11-17 20:26 | PCRCNOTE ---
Pt states that she does wear CPAP at home but has not been wearing it lately because she has been feeling like she's suffocating when she wears it. She does not want to wear our CPAP while here. The machine is in the room and the pt was advised to let her nurse know if she changes her mind and wants to use it.
[2021-11-17] MEDS: MORPHINE SULFATE (*CRX) 2 MG/ML INJ IV PUSH (23:37)
[2021-11-18] VITALS (22 sets, daily range): BP systolic 110–120; BP diastolic 54–60; PULSE 67–101; RESP 12–18; TEMP 36.8–37.2; O2SAT 93–96
[2021-11-18] MEDS: ALBUTEROL SULFATE NEB 2.5 MG/0.5 ML INH INHALATION ×6 (00:30→20:02)
[2021-11-18] MEDS: HYOSCYAMINE SULFATE SOLN 0.125 MG/ML ORAL SYRINGE PO (02:58)
[2021-11-18] MEDS: traMADol HCL (*CRX) 25 MG TABLET PO (05:10)
[2021-11-18] MEDS: SODIUM CHLORIDE 0.9% IV 1,000 ML 80 ML IV CONT ×2 (09:01→22:59)
[2021-11-18 09:08] LABS: Anion Gap 1 mmol/L (8-16); Blood Urea Nitrogen 23 mg/dL (7-17); Calcium 9.6 mg/dL (8.4-10.2); Carbon Dioxide 24 mmol/L (22-30); Chloride 109 mmol/L (98-107); Estimated CRCL calculation 32 ml/min; Estimated Glomerular Filt Rate 40; Glucose 102 mg/dL (65-110); Magnesium 1.5 mg/dL (1.6-2.3); Potassium 4.8 mmol/L (3.4-5.0); Sodium 134 mmol/L (137-145)
[2021-11-18] MEDS: oxyCODONE/ACETAMINOPHEN (*CRX) 5-325 MG TABLET 1 TABLET PO ×2 (10:35→22:58)
[2021-11-18] MEDS: PANTOPRAZOLE 40 MG TABLET PO (12:55)
--- NOTE | 2021-11-18 14:43 | PM.IMPN ---
Progress Note: A&P Assessment and Plan (1) UTI (urinary tract infection): Code(s): N39.0 - Urinary tract infection, site not specified Status: Acute (2) Macrocytic anemia: Code(s): D53.9 - Nutritional anemia, unspecified Status: Acute (3) Electrolyte abnormality: Code(s): E87.8 - Other disorders of electrolyte and fluid balance, not elsewhere classified Status: Acute (4) Hydronephrosis of right kidney: Code(s): N13.30 - Unspecified hydronephrosis Status: Acute (5) Left flank pain: Code(s): R10.9 - Unspecified abdominal pain Status: Acute (6) Acute kidney injury: Code(s): N17.9 - Acute kidney failure, unspecified Status: Acute (7) Obstructive sleep apnea: Code(s): G47.33 - Obstructive sleep apnea (adult) (pediatric) Status: Acute (8) Hypertension: Code(s): I10 - Essential (primary) hypertension Status: Acute (9) Urothelial carcinoma of bladder: Code(s): C67.9 - Malignant neoplasm of bladder, unspecified Status: Acute (10) Bladder mass: Code(s): N32.89 - Other specified disorders of bladder Status: Acute (11) Hydronephrosis, right: Code(s): N13.30 - Unspecified hydronephrosis Status: Acute (12) Bladder cancer: Code(s): C67.9 - Malignant neoplasm of bladder, unspecified Status: Acute Additional Plan 11/17/21 History of: TURBT 01/2020 s/p Cystoscopy, right retrograde pyelogram, right distal ureteroscopy, right ureteral stent placement POD1 elevated K and rising one dose of Kayexalate given dysphagia c/s ST MBS ordered Tylenol Rocephin urine culture 11/18/21 pt doing ok morphine -> Percocet urine culture pending afebrile since yesterday 4pm cont Rocephin creatinine down trending hypomagnesemia MgSO4 ordered Subjective Date/time seen: 11/18/21 14:43 pt doing ok sitting up at side of bed states she is feeling a little better, change in morphine discussed w pt and she is in agreement to try control with PO Percocet and morphine discontinued Exam Narrative: General: Well-developed female sitting up at side of b ed HEENT: Wearing glasses. EOMI. Sclerae anicteric. . Neck: Supple. Respiratory: Lungs are clear to auscultation bilaterally. Cardiovascular: Regular rate and rhythm with S1-S2. Gastrointestinal: Abdomen is soft and nondistended with positive bowel sounds. No guarding or rebound tenderness. Skin: Warm and dry. No rash or lesions on limited exam. Extremities: No cyanosis, clubbing, or significant edema. Neurological: Alert. Cranial nerves 2-12 are grossly intact. No gross focal deficits to casual conversation. Psychiatric: Appropriate mood and affect. Objective Data Vital Signs Vital Signs: Vital Signs - 24 hr 11/17/21 15:10 11/17/21 15:39 11/17/21 16:00 Temperature 100.7 F H 100.7 F H Pulse Rate 82 80 Respiratory Rate 18 Blood Pressure 110/54 L Pulse Oximetry 100 11/17/21 16:39 11/17/21 20:00 11/17/21 20:22 Temperature 99.5 F Pulse Rate 92 68 Respiratory Rate 12 12 Blood Pressure Pulse Oximetry 96 96 11/17/21 20:30 11/17/21 22:00 11/18/21 00:00 Temperature 97.8 F Pulse Rate 66 75 69 Respiratory Rate 12 16 Blood Pressure 118/40 L Pulse Oximetry 94 11/18/21 00:30 11/18/21 00:39 11/18/21 04:00 Temperature Pulse Rate 72 70 76 Respiratory Rate 12 12 Blood Pressure Pulse Oximetry 11/18/21 04:50 11/18/21 05:02 11/18/21 06:00 Temperature 98.7 F Pulse Rate 67 70 83 Respiratory Rate 14 Blood Pressure 110/60 Pulse Oximetry 96 11/18/21 08:00 11/18/21 08:10 11/18/21 08:17 Temperature Pulse Rate 77 68 Respiratory Rate Blood Pressure Pulse Oximetry 96 11/18/21 08:22 11/18/21 12:00 11/18/21 12:20 Temperature Pulse Rate 72 83 70 Respiratory Rate Blood Pressure Pulse Oximetry 11/18/21 12:28 11/18/21 14:15 Temperature 98.3 F
[2021-11-18] MEDS: MAGNESIUM SULF 2 GM/WATER 50ML 2 GM/50 ML BAG IVPB (15:36)
[2021-11-18 21:02] LABS: Basophils Percent Auto 0.4 % (0.2-1.2); Eosinophils Absolute Auto 0.3 K/mm3 (0-0.3); Eosinophils Percent Auto 5.5 % (0-4.4); Hematocrit 29.2 % (37.0-47.0); Immature Granulocyte Absolute 0.02 K/mm3 (0.00-0.031); Immature Granulocyte Percent A 0.4 % (0-0.5); Lymphocytes Absolute Auto 0.69 K/mm3 (0.9-3.2); Lymphocytes Percent Auto 12.7 % (18.3-44.2); Mean Corpuscular HGB Conc 30.8 g/dl (32-36); Mean Corpuscular Hemoglobin 33.3 pg (26-34); Mean Corpuscular Volume 108.1 fl (80-100); Mean Platelet Volume 10.5 fl (7.4-10.4); Monocytes Absolute Auto 0.5 K/mm3 (0.1-0.6); Monocytes Percent Auto 9.8 % (2.6-8.5); Neutrophils Absolute Auto 3.9 K/mm3 (1.3-6.7); Neutrophils Percent Auto 71.2 % (45.5-73.1); Platelet Count Result 177 k/mm3 (150-375); Red Cell Distribution Width 12.5 % (11.5-14.5); White Blood Count 5.4 K/mm3 (4.5-10.0)
[2021-11-19] VITALS (20 sets, daily range): BP systolic 102–131; BP diastolic 40–80; PULSE 69–94; RESP 14–18; TEMP 36.2–36.6; O2SAT 94–100
[2021-11-19] MEDS: ALBUTEROL SULFATE NEB 2.5 MG/0.5 ML INH INHALATION ×5 (00:52→20:55)
[2021-11-19 06:11] LABS: Basophils Percent Auto 0.2 % (0.2-1.2); Eosinophils Absolute Auto 0.4 K/mm3 (0-0.3); Eosinophils Percent Auto 6.5 % (0-4.4); Hematocrit 25.8 % (37.0-47.0); Hemoglobin 8.1 g/dL (12.0-15.0); Immature Granulocyte Absolute 0.02 K/mm3 (0.00-0.031); Immature Granulocyte Percent A 0.4 % (0-0.5); Lymphocytes Absolute Auto 1.03 K/mm3 (0.9-3.2); Lymphocytes Percent Auto 18.7 % (18.3-44.2); Mean Corpuscular HGB Conc 31.4 g/dl (32-36); Mean Corpuscular Hemoglobin 32.8 pg (26-34); Mean Corpuscular Volume 104.5 fl (80-100); Mean Platelet Volume 10.1 fl (7.4-10.4); Monocytes Absolute Auto 0.5 K/mm3 (0.1-0.6); Monocytes Percent Auto 8.3 % (2.6-8.5); Neutrophils Absolute Auto 3.6 K/mm3 (1.3-6.7); Neutrophils Percent Auto 65.9 % (45.5-73.1); Platelet Count Result 168 k/mm3 (150-375); Red Blood Count 2.47 M/mm3 (4.2-5.4); Red Cell Distribution Width 12.2 % (11.5-14.5); White Blood Count 5.5 K/mm3 (4.5-10.0)
[2021-11-19 06:20] LABS: Anion Gap 3 mmol/L (8-16); Blood Urea Nitrogen 17 mg/dL (7-17); Calcium 8.8 mg/dL (8.4-10.2); Carbon Dioxide 22 mmol/L (22-30); Chloride 109 mmol/L (98-107); Estimated CRCL calculation 38 ml/min; Estimated Glomerular Filt Rate 48; Glucose 106 mg/dL (65-110); Magnesium 1.8 mg/dL (1.6-2.3); Potassium 4.6 mmol/L (3.4-5.0); Sodium 134 mmol/L (137-145)
[2021-11-19] MEDS: oxyCODONE/ACETAMINOPHEN (*CRX) 5-325 MG TABLET 1 TABLET PO ×3 (08:08→20:13)
[2021-11-19] MEDS: PANTOPRAZOLE 40 MG TABLET PO (08:09)
[2021-11-19] MEDS: SODIUM CHLORIDE 0.9% IV 1,000 ML 50 ML IV CONT ×2 (08:09→18:47)
--- NOTE | 2021-11-19 10:58 | PCNFU ---
Nutrition Follow-Up Complete: Inadequate Oral Intake as related to swallowing difficulties as evidenced by poor po intake reported and weight loss of 20 ibs in the past 1 month. goal; Adequate Intake of at least 75% of meals/supplements Patient is progress towards goal. We will continue current goal. Pt current nutrition is Regular with Ensure Compact BID. Last recorded weight is 81 kg, up from 80 kg on admit. Bowel Motility:+BM reported 11/19 Labs Reviewed:Cr 1.10,BUN 48, Na 134, Hct 25.8,Hgb 8.1 Meds Noted:Rocephin, Percocet, NS Skin: WNL Additional Notes: Patient remains on a regular diet with Ensure compact BID. She had MBS on 11/18-recommending a regular diet. Discussed soft foods today with patient. She is drinking her ensure at lunch and dinner meals, providing an additional 220 kcals and 9 gms protein. Agree with diet orders. Monitoring: RD will monitor every 5 days.
--- NOTE | 2021-11-19 11:30 | PM.IMPN ---
Progress Note: A&P Assessment and Plan (1) UTI (urinary tract infection): Code(s): N39.0 - Urinary tract infection, site not specified Status: Acute (2) Macrocytic anemia: Code(s): D53.9 - Nutritional anemia, unspecified Status: Acute (3) Electrolyte abnormality: Code(s): E87.8 - Other disorders of electrolyte and fluid balance, not elsewhere classified Status: Acute (4) Hydronephrosis of right kidney: Code(s): N13.30 - Unspecified hydronephrosis Status: Acute (5) Left flank pain: Code(s): R10.9 - Unspecified abdominal pain Status: Acute Assessment and Plan: (6) Acute kidney injury: Code(s): N17.9 - Acute kidney failure, unspecified Status: Acute (7) Obstructive sleep apnea: Code(s): G47.33 - Obstructive sleep apnea (adult) (pediatric) Status: Acute (8) Hypertension: Code(s): I10 - Essential (primary) hypertension Status: Acute (9) Urothelial carcinoma of bladder: Code(s): C67.9 - Malignant neoplasm of bladder, unspecified Status: Acute (10) Bladder mass: Code(s): N32.89 - Other specified disorders of bladder Status: Acute (11) Bladder cancer: Code(s): C67.9 - Malignant neoplasm of bladder, unspecified Status: Acute Additional Plan 11/17/21 History of: TURBT 01/2020 s/p Cystoscopy, right retrograde pyelogram, right distal ureteroscopy, right ureteral stent placement POD1 elevated K and rising one dose of Kayexalate given dysphagia c/s ST MBS ordered Tylenol Rocephin urine culture 11/18/21 pt doing ok morphine -> Percocet urine culture pending afebrile since yesterday 4pm cont Rocephin creatinine down trending hypomagnesemia MgSO4 ordered 11/19/21 final cx urine NGTD will cont empirical tx w 3 gen cephalosporin repeat UA renal fxn recovering pt lives alone does not feel safe to go home yet still to weak anticipate dc to SNF in 24-48hrs (PT at her facility) c/s care coordination for dc planning Subjective Date/time seen: 11/19/21 11:30 pt feeling better today, upset that she was diagnosed w kidney failure or kidney injury advised that this is common and her renal fxn is recovering Exam Narrative: General: Well-developed female sitting up at side of b ed HEENT: Wearing glasses. EOMI. Sclerae anicteric. . Neck: Supple. Respiratory: Lungs are clear to auscultation bilaterally. Cardiovascular: Regular rate and rhythm with S1-S2. Gastrointestinal: Abdomen is soft and nondistended with positive bowel sounds. No guarding or rebound tenderness. Skin: Warm and dry. No rash or lesions on limited exam. Extremities: No cyanosis, clubbing, or significant edema. Neurological: Alert. Cranial nerves 2-12 are grossly intact. No gross focal deficits to casual conversation. Psychiatric: Appropriate mood and affect. Objective Data Vital Signs Vital Signs: Vital Signs - 24 hr 11/18/21 12:00 11/18/21 12:20 11/18/21 12:28 Temperature Pulse Rate 83 70 73 Respiratory Rate Blood Pressure Pulse Oximetry 11/18/21 14:15 11/18/21 16:03 11/18/21 16:45 Temperature 98.3 F Pulse Rate 82 81 71 Respiratory Rate 16 Blood Pressure 118/54 L Pulse Oximetry 93 11/18/21 16:54 11/18/21 20:00 11/18/21 20:08 Temperature 99 F Pulse Rate 74 93 101 H Respiratory Rate 12 18 Blood Pressure 120/54 L Pulse Oximetry 96 94 11/18/21 20:15 11/18/21 20:26 11/19/21 00:00 Temperature Pulse Rate 86 74 94 Respiratory Rate 12 12 Blood Pressure Pulse Oximetry 96 11/19/21 00:53 11/19/21 01:04 11/19/21 03:54 Temperature 97.8 F Pulse Rate 76 78 79 Respiratory Rate 16 14 16 Blood Pressure 104/40 L Pulse Oximetry 94 11/19/21 04:23 11/19/21 04:30 11/19/21 09:04 Temperature Pulse Rate 75 75 69 Respiratory Rate 16 16 16 Blood Pressure Pulse Oximetry 11/19/21 09:09 11/19/21 09:17 Temperature Pul
[2021-11-19 14:22] LABS: Add Urine Microscopic? YES; Appearance Urine Clear (Clear); Bilirubin Urine Negative (Negative); Blood Urine 3+ (Negative); Color Urine Straw (Yellow); Glucose Urine UA Negative (Negative); Ketones Urine Negative (Negative); Leukocyte Esterase Ur Negative LEU/UL (NEGATIVE); Nitrate Urine Negative (Negative); Protein Urine 1+ mg/dL (Negative); RBC Urine >75 /hpf (0-2); Specific Grav Ur 1.005 (1.001-1.035); Squamous Epithelial Cell Urine Rare /hpf (Few); Urobilinogen Urine Negative mg/dL (<2.0)
--- NOTE | 2021-11-19 16:46 | PCRCNOTE ---
Window of time for administration has passed. See next scheduled administration.1200 [place]
[2021-11-20] VITALS (17 sets, daily range): BP systolic 126–136; BP diastolic 37–67; PULSE 72–93; RESP 17–20; TEMP 36.6–37; O2SAT 98
[2021-11-20] MEDS: ALBUTEROL SULFATE NEB 2.5 MG/0.5 ML INH INHALATION ×4 (00:53→12:32)
[2021-11-20] MEDS: oxyCODONE/ACETAMINOPHEN (*CRX) 5-325 MG TABLET 1 TABLET PO ×2 (02:35→09:07)
[2021-11-20] MEDS: PANTOPRAZOLE 40 MG TABLET PO (08:06)
[2021-11-20 10:54] LABS: Hematocrit 27.4 % (37.0-47.0); Hemoglobin 8.7 g/dL (12.0-15.0); Mean Corpuscular HGB Conc 31.8 g/dl (32-36); Mean Corpuscular Hemoglobin 33.2 pg (26-34); Mean Corpuscular Volume 104.6 fl (80-100); Mean Platelet Volume 9.7 fl (7.4-10.4); Platelet Count Result 186 k/mm3 (150-375); Red Blood Count 2.62 M/mm3 (4.2-5.4); Red Cell Distribution Width 12.3 % (11.5-14.5); White Blood Count 5.8 K/mm3 (4.5-10.0)
[2021-11-20 11:08] LABS: Sodium 133 mmol/L (137-145)
[2021-11-20 11:11] LABS: Anion Gap 7 mmol/L (8-16); Blood Urea Nitrogen 14 mg/dL (7-17); Calcium 9.7 mg/dL (8.4-10.2); Carbon Dioxide 24 mmol/L (22-30); Chloride 102 mmol/L (98-107); Estimated CRCL calculation 38 ml/min; Estimated Glomerular Filt Rate 48; Glucose 116 mg/dL (65-110); Magnesium 1.5 mg/dL (1.6-2.3); Potassium 4.3 mmol/L (3.4-5.0)
--- NOTE | 2021-11-20 11:39 | PCPTNOTE ---
Attempted to see patient for Physical Therapy. Patient declined at this time due to feeling dizzy and having pain. RN notified of patient's complaints.
[2021-11-20] MEDS: MAGNESIUM SULF 2 GM/WATER 50ML 2 GM/50 ML BAG IVPB (12:13)
--- NOTE | 2021-11-20 12:24 | PM.DS ---
DS: Admitting Diagnosis Discharge Date 11/20/21 Admitting Diagnosis (1) Left flank pain: Code(s): R10.9 - Unspecified abdominal pain Status: Acute Assessment and Plan: Likely due to referred pain from hydronephrosis though may have a musculoskeletal component. Analgesics available as needed. (2) Bladder tumor: Code(s): D49.4 - Neoplasm of unspecified behavior of bladder Status: Acute Assessment and Plan: Mass noted on CT causing [id number] right hydronephrosis. Awaiting transfer to OR for cystoscopy and stent placement. (3) Acute kidney injury: Code(s): N17.9 - Acute kidney failure, unspecified Status: Acute Assessment and Plan: Related to bladder tumor causing hydronephrosis and a component of dehydration as well. Hopefully this will improve was stent placement and cautious IV fluid rehydration. Avoid nephrotoxic agents. (4) Hydronephrosis of right kidney: Code(s): N13.30 - Unspecified hydronephrosis Status: Acute Assessment and Plan: Plan is as detailed above. (5) Electrolyte abnormality: Code(s): E87.8 - Other disorders of electrolyte and fluid balance, not elsewhere classified Status: Acute Assessment and Plan: Including hyponatremia (132), hyperkalemia (5.3, and hypercalcemia (10.8). Secondary to dehydration and acute kidney injury. Repeat BMP this evening to ensure these numbers are correcting appropriately. (6) Macrocytic anemia: Code(s): D53.9 - Nutritional anemia, unspecified Status: Acute Assessment and Plan: Check iron studies as well as B12 and folates. (7) Hypertension: Code(s): I10 - Essential (primary) hypertension Status: Acute Assessment and Plan: Blood pressures were reviewed. Olmesartan currently on hold given acute kidney injury. (8) Obstructive sleep apnea: Code(s): G47.33 - Obstructive sleep apnea (adult) (pediatric) Status: Acute Assessment and Plan: CPAP will be provided for the patient to use while hospitalized. DS: Discharge Diagnosis Discharge Diagnosis (1) UTI (urinary tract infection): Code(s): N39.0 - Urinary tract infection, site not specified Status: Acute (2) Macrocytic anemia: Code(s): D53.9 - Nutritional anemia, unspecified Status: Acute (3) Electrolyte abnormality: Code(s): E87.8 - Other disorders of electrolyte and fluid balance, not elsewhere classified Status: Acute (4) Hydronephrosis of right kidney: Code(s): N13.30 - Unspecified hydronephrosis Status: Acute (5) Acute kidney injury: Code(s): N17.9 - Acute kidney failure, unspecified Status: Acute (6) Left flank pain: Code(s): R10.9 - Unspecified abdominal pain Status: Acute (7) Obstructive sleep apnea: Code(s): G47.33 - Obstructive sleep apnea (adult) (pediatric) Status: Acute (8) Hypertension: Code(s): I10 - Essential (primary) hypertension Status: Acute (9) Urothelial carcinoma of bladder: Code(s): C67.9 - Malignant neoplasm of bladder, unspecified Status: Acute (10) Bladder mass: Code(s): N32.89 - Other specified disorders of bladder Status: Acute (11) Left flank pain: Code(s): R10.9 - Unspecified abdominal pain Status: Acute (12) Bladder cancer: Code(s): C67.9 - Malignant neoplasm of bladder, unspecified Status: Acute (13) Hydronephrosis, right: Code(s): N13.30 - Unspecified hydronephrosis Status: Acute (14) LARA (obstructive sleep apnea): Code(s): G47.33 - Obstructive sleep apnea (adult) (pediatric) Status: Acute (15) Obesity: Code(s): E66.9 - Obesity, unspecified Status: Acute (16) Bladder tumor: Code(s): D49.4 - Neoplasm of unspecified behavior of bladder Status: Acute (17) Bladder cancer: Code(s): C67.9 - Malignant neopla
== END 2021-11-20 15:45 | disposition home health service (06) | DRG 660 ==
LOC: ANHED 13:19 → ANH2MED 13:20
PROVIDERS: Nurse Practitioner; Physician Assistant; Urology; Admitting Provider Internal Medicine; Emergency Provider Emergency Medicine; PCP Internal Medicine; Visit Provider Hospitalist
PROC: 0T768DZ Dilation of Right Ureter with Intraluminal Device, Via Natural or Artificial Opening Endoscopic (ICD-10-PCS; CPT 52352; principal; 2021-11-16 15:30)
DX: N13.6 Pyonephrosis (principal); E87.1 Hypo-osmolality and hyponatremia; C67.9 Malignant neoplasm of bladder, unspecified; N17.9 Acute kidney failure, unspecified; N32.89 Other specified disorders of bladder; R10.9 Unspecified abdominal pain; R13.10 Dysphagia, unspecified; K21.9 Gastro-esophageal reflux disease without esophagitis; E87.5 Hyperkalemia; E83.52 Hypercalcemia; E86.0 Dehydration; E83.42 Hypomagnesemia; D53.9 Nutritional anemia, unspecified; I10 Essential (primary) hypertension; G47.33 Obstructive sleep apnea (adult) (pediatric); E66.9 Obesity, unspecified; Z68.30 Body mass index [BMI] 30.0-30.9, adult; Z87.891 Personal history of nicotine dependence
CPT/HCPCS: 36415; 70450; 71045; 74176; 74420; 80048; 80053; 81001; 82607; 82728; 82746; 83540; 83550; 83605; 83690; 83735; 84484; 85025; 85027; 87086; 87088; 92610; 92611; 93005; 94640; 96361; 96365; 96366; 96375; 97110; 97116; 97161; 97165; 97530; 99285; A9270; C1758; C1769; C2617; G0378; J0131; J0696; J2270; J2405; J2704; J3010; J3475; J7030; J7120; Q9966

== ENCOUNTER 2022-01-04 10:07 | Outpatient (CLI) | payer MEDICARE, BC, SELFPAY ==
--- NOTE | 2022-01-04 10:30 | ECG_ITS ---
Measurements Intervals [place] Rate: 83 P: 25 NE: 194 QRS: -9 QRSD: 116 T: 29 QT: 341 QTc: 401 Interpretive Statements SINUS RHYTHM LOW QRS VOLTAGE IN PRECORDIAL LEADS [QRS DEFLECTION < 1.0 mV IN CHEST LEADS] INCOMPLETE RIGHT BUNDLE BRANCH BLOCK [90+ ms QRS DURATION, TERMINAL R IN V1/V2, 40+ ms S IN I/aVL/V4/V5/V6] COMPARED TO ECG 11/16/2021 10:47:05 NO SIGNIFICANT CHANGES Electronically Signed On 01-04-2022 17:28:51 CDT by Roberto Wallis M.D.
== END 2022-01-04 10:08 | disposition home or self-care (01) ==
LOC: ANHSURGERY 10:13
PROVIDERS: PCP Internal Medicine; Visit Provider Urology
DX: I10 Essential (primary) hypertension (principal); Z01.818 Encounter for other preprocedural examination
CPT/HCPCS: 93005

== ENCOUNTER 2022-01-13 01:33 | Day surgery (SDC) | payer MEDICARE, BC, SELFPAY ==
--- NOTE | 2021-12-27 15:57 | PC.NURSE ---
Report to the Outpatient Waiting Room, entrance under the green pavilion located off [facility], at time _0600 on date __01/06/22 . OR Time: __729 . - You and your visitor will be asked a series of questions to screen for COVID 19 for your protection. - A mask is required within the hospital. Preoperative COVID Testing Requirements: No COVID Test needed if: (proof is required; if not received patient will have Rapid Test prior to entry) - Patient has received COVID Vaccine at least 14 days prior to procedure date or - Patient has positive COVID test result within last 90 days of surgery date. COVID Test needed if above criteria is not met If not COVID vaccinated a COVID test must be conducted within 72 hours of surgery and patient is asked to isolate self from time of testing until procedure. You will go to the [facility] for your COVID testing. The [facility] is located at the corner of [address] [facility]. You will only be called if COVID results are positive and your surgeon may reschedule your elective surgery date. Patients may have clear liquids (water, carbonated beverages, clear teas, apple juice) until 3 hours prior to surgery with a maximum of 20 ounces. - No food from midnight until time of surgery - Infants may have breast milk until 4 hours before surgery, infant formula 6 hours prior to surgery. - Children will be allowed to drink immediately following surgery. If applicable, please bring a bottle or sippy cup to assist with drinking. Juice, water, soda, and popsicles are readily available. For infants on formula, please bring formula the day of surgery. Pacifiers are allowed. Take the following medications with a SIP of water the morning of surgery: __NONE Medications to discontinue per physician ___NONE Date to take last dose Please no make-up, nail [place], hairspray, perfume, deodorant, or body powder the day of surgery. No jewelry (including any body piercings) or valuables the day of surgery, leave them at home. Please take a shower or bath the night before, or the morning of, surgery with an antibacterial soap. Wear comfortable, loose fitting clothing. Children are encouraged to wear pajamas. - Jewelry must be removed prior to entering the operating room. Rings and piercings that are not removed may be cut off. - The hospital will not accept responsibility for valuables. - Please leave all valuables, including medications, at home the day of surgery. If you are going home after surgery, a licensed [employer] aut[employer] delivery driver must drive you home. - NO public transportation without another adult. - We recommend that an adult stay with you for 24 hours following discharge. - We also recommend that you do not drive, make important decision, drink alcoholic beverages, or take any drugs that were not prescribed by your health care provider for at least 24 hours after your discharge time. For Pediatric surgeries, we recommend two adults accompany the child home (only one inside the building at this time). One visitor will be allowed to accompany the patient into the hospital. Patients visitor will be instructed to remain with patient at all times or leave the building. We will allow the visitor to come back to the postoperative area when patient is ready. Follow any additional instructions given to you from your surgeon. Telephone instructions given to __PATIENT and asked if any additional questions and then verbalized understanding. Patient advised to call surgeon office or pre surgery nurse liaison [phone] if any additional questions.
[2021-12-27 15:59] VITALS: BMI 28.0
--- NOTE | 2022-01-03 08:38 | PC.NURSE ---
Report to the Outpatient Waiting Room, entrance under the green pavilion located off [facility], at time __0915 on date ___01/13/22____. OR Time: __111 . - You and your visitor will be asked a series of questions to screen for COVID 19 for your protection. - A mask is required within the hospital. Preoperative COVID Testing Requirements: No COVID Test needed if: (proof is required; if not received patient will have Rapid Test prior to entry) - Patient has received COVID Vaccine at least 14 days prior to procedure date or - Patient has positive COVID test result within last 90 days of surgery date. COVID Test needed if above criteria is not met If not COVID vaccinated a COVID test must be conducted within 72 hours of surgery and patient is asked to isolate self from time of testing until procedure. You will go to the [facility] for your COVID testing. The [facility] is located at the corner of [address] [facility]. You will only be called if COVID results are positive and your surgeon may reschedule your elective surgery date. Patients may have clear liquids (water, carbonated beverages, clear teas, apple juice) until 3 hours prior to surgery with a maximum of 20 ounces. - No food from midnight until time of surgery - Infants may have breast milk until 4 hours before surgery, formula 6 hours prior to surgery. - Children will be allowed to drink immediately following surgery. If applicable, please bring a bottle or sippy cup to assist with drinking. Juice, water, soda, and popsicles are readily available. For infants on formula, please bring formula the day of surgery. Pacifiers are allowed. Take the following medications with a SIP of water the morning of surgery: NONE Medications to discontinue per physician NONE Date to take last dose Please no make-up, nail english, hairspray, perfume, deodorant, or body powder the day of surgery. No jewelry (including any body piercings) or valuables the day of surgery, leave them at home. Please take a shower or bath the night before, or the morning of, surgery with an antibacterial soap. Wear comfortable, loose fitting clothing. Children are encouraged to wear pajamas. - Jewelry must be removed prior to entering the operating room. Rings and piercings that are not removed may be cut off. - The hospital will not accept responsibility for valuables. - Please leave all valuables, including medications, at home the day of surgery. If you are going home after surgery, a licensed wagon driver salesperson must drive you home. - NO public transportation without another adult. - We recommend that an adult stay with you for 24 hours following discharge. - We also recommend that you do not drive, make important decision, drink alcoholic beverages, or take any drugs that were not prescribed by your health care provider for at least 24 hours after your discharge time. For Pediatric surgeries, we recommend two adults accompany the child home (only one inside the building at this time). One visitor will be allowed to accompany the patient into the hospital. Patients visitor will be instructed to remain with patient at all times or leave the building. We will allow the visitor to come back to the postoperative area when patient is ready. Follow any additional instructions given to you from your surgeon. Telephone instructions given to ___PATIENT and asked if any additional questions and then verbalized understanding. Patient advised to call surgeon office or pre surgery nurse liaison [phone] if any additional questions.
--- NOTE | 2022-01-03 08:40 | PC.NURSE ---
PT STATES NO CHANGE IN HEALTH HX SINCE LAST INTERVIEW ON 12/27/21
[2022-01-13] VITALS (7 sets, daily range): BP systolic 109–125; BP diastolic 47–81; PULSE 71–95; RESP 16; TEMP 36.4–37.2; O2SAT 98–100
--- NOTE | ~2022-01-13 | XR_ITS ---
EXAMINATION: XR retrograde pyelogram RT EXAM DATE: 01/13/2022 09:38 INDICATION: Right stent removal, retrograde pyelogram. TECHNIQUE: Fluoroscopy used during XR retrograde pyelogram RT performed by Dr. Herman Nur MD , urologist. The radiologist Jeronimo Cox M.D. dictating this report of the image(s) available was no t present for the procedure. Total fluoroscopic time of 47 seconds. The DAP for this procedure was 0.57 mGym2. A total of 22 images sent to PACS from the exam. Cine run(s) available for review. Com parison is made to prior examination from 11/16/2021. FINDINGS: The right ureter was cannulated, injected. There is moderate right hydroureteronephrosis. Lumbar fusion hardware. Cholecystectomy clips. Correlate with procedure note. IMPRESSION: Moderate right hydroureteronephrosis. Reviewed, dictated and finalized at location A.
--- NOTE | 2022-01-13 06:59 | WPDHPUPDATE1 ---
History and Physical Update Update Date/Time: 01/13/22 06:59 History and Physical has been reviewed, including an updated exam of the patient. There are NO changes in the patient's condition. Risks, benefits, and alternatives have been discussed and questions answered. Patient agrees to proceed with procedure.
[2022-01-13] MEDS: LACTATED RINGERS 1,000 ML 30 ML IV CONT (08:15)
--- NOTE | 2022-01-13 08:37 | WPDANESEPPF ---
Anes - Initial Pre Proc Eval Procedure: Operation Date: 01/13/22 09:45 Proposed Procedures p Cystoscopy, Right Ureteroscopy, Right Ureteral Stent Removal, Right Retrograde Pyelogram - Herman Nur MD Date/Time: 01/13/22 08:37 Surgeon: Herman Nur MD Pre Op Diagnosis: Bladder Ca Patient Data Age: 77 Gender: F Height: 1.6 m Weight: 71.8 kg Last Vital Signs Temp 37.2 C 01/13/22 08:30 Pulse 95 01/13/22 08:30 Resp 16 01/13/22 08:30 BP 113/81 01/13/22 08:30 Pulse Ox 98 01/13/22 08:30 Allergies Allergy/AdvReac Type Severity Reaction Status Date / Time cat dander Allergy Intermediate Sneezing Verified 01/13/22 08:29 Sulfa (Sulfonamide Allergy Hives Verified 01/13/22 08:29 Antibiotics) Bumble Bee Allergy Mild Drowsy, Uncoded 01/13/22 08:29 nausea Home Medications Medication Instructions Recorded Confirmed Type olmesartan 40 mg tablet 40 mg PO DAILY #90 tablet 11/09/20 01/13/22 Rx CBD 2.5 mg PO DAILY 11/05/21 01/13/22 History pantoprazole 40 mg tablet,delayed 40 mg PO QAM #90 tablet 11/20/21 01/13/22 Rx release Patient hx anesthesia problems: none Family hx anesthesia problems: none Results Review: All pre-operative results and documents have been reviewed as part of the pre-operative evaluation. 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 Surgical History Surgical History History of appendectomy History of bilateral knee replacement History of bladder surgery (01/2020) Transurethral resection bladder tumor. History of cataract extraction History of cholecystectomy History of cystoscopy History of hysterectomy History of left shoulder replacement History of spinal surgery Family History Family History Father Family history of cardiovascular disease Cerebrovascular accident Mother Cerebrovascular accident Sibling Patient's sister is in good health Family history of malignant neoplasm of breast in first degree relative Social History Social History Social History: Healthcare power of shadowgraph scale operator: Angelique Gifford, niece. Code status: Full code. Smoking packs per day: 0.25 Smoking cigarettes per day: 5.0 Years smoked: 20 Smoking pack-years: 5.00 Smoking status: Former smoker Tobacco type: cigarettes Second hand tobacco smoke exposure: No Smoking end date: 10/09/72 Alcohol intake: current Drinks per week: 3 Substance use: current Substance use type: marijuana Other substance usage details: CBD/THC gummies, 1 to 2 times per day. Living arrangements: alone Spiritual care concerns: No Anes - Eval Final PreProcedure Day of Procedure 01/13/22 08:37 Patient weight: overweight Heart: regular rate and rhythm Lungs: clear to auscultation Airway: Mallampati scale class II Neurological: alert and oriented ASA classification: III Emergent: no Anesthetic plan: proceed Anesthesia type and monitoring: general LMA and standard monitoring Results Review: All pre-operative results and documents have been reviewed as part of the pre-operative evaluation. Informed Consent: The patient's anesthetic plan and its attendant risks and benefits were discussed with the patient/family/POA. Questions were solicited and answers provided to the satisfaction of the patient/family/POA.
[2022-01-13] MEDS: ceFAZolin 2 GM/D5W 50 ML 2 GM/50 ML BAG IVPB (09:07)
--- NOTE | 2022-01-13 09:48 | W.PM.PROC2 ---
Procedure Note - Detailed Date of Procedure 01/13/22 Pre-op Diagnosis History of bladder Ca Post-op Diagnosis Same Procedure Performed Cystoscopy, right ureteral stent removal, right retrograde pyelogram, right ureteroscopy Surgeon Herman Nur MD Anesthesia General Description of Procedure Patient brought to the operative suite where she was prepped and draped in routine sterile fashion while in a dorsal lithotomy position after the uneventful induction of a general LMA anesthetic. 2% lidocaine jelly was introduced intraurethrally and allowed to stand for an appropriate period of time. Cystoscopy was undertaken with a 21 F rigid cystoscope. The bladder neck and urethra were endoscopically normal. The bladder was carefully inspected and found to be without evidence of recurrent neoplasm. Additional unusual intravesical mucosal hyperemia. She has an indwelling right ureteral stent which was grasped and removed with ease. A 0.035 in glidewire was advanced into the right renal pelvis and a retrograde pyelogram was obtained with an angiographic catheter. The distal ureter is inspected with a short tapered semi-rigid ureteral scope and found to be with without evidence of pathology, specifically without obvious neoplasms were area of hyperemia. The entire collecting system more proximal ureter was inspected with a digital flexible ureteral scope. Estimated Blood Loss 0 Drains No Packing No Pathology None sent Complications No immediate complications Condition Stable Disposition PACU
== END 2022-01-13 11:10 | disposition home or self-care (01) ==
PROVIDERS: PCP Internal Medicine; Visit Provider Urology
PROC: (CPT 52352; principal; 2022-01-13 09:45)
DX: Z08 Encounter for follow-up examination after completed treatment for malignant neoplasm (principal); N13.30 Unspecified hydronephrosis; I10 Essential (primary) hypertension; G47.33 Obstructive sleep apnea (adult) (pediatric); K21.9 Gastro-esophageal reflux disease without esophagitis; Z85.51 Personal history of malignant neoplasm of bladder; Z87.891 Personal history of nicotine dependence; F12.90 Cannabis use, unspecified, uncomplicated
CPT/HCPCS: 52005; 74420; A9270; C1769; C1887; J0690; J2405; J2704; J3010; J7120; Q9966

== ENCOUNTER 2022-03-28 10:40 | Outpatient (CLI) | payer MEDICARE, BC, SELFPAY ==
[2022-03-28 11:10] LABS: Basophils Absolute Auto 0.1 K/mm3 (0.0-0.1); Basophils Percent Auto 1.1 % (0.2-1.2); Eosinophils Absolute Auto 0.4 K/mm3 (0-0.3); Eosinophils Percent Auto 4.4 % (0-4.4); Hematocrit 35.3 % (37.0-47.0); Immature Granulocyte Absolute 0.05 K/mm3 (0.00-0.031); Immature Granulocyte Percent A 0.5 % (0-0.5); Lymphocytes Absolute Auto 2.12 K/mm3 (0.9-3.2); Lymphocytes Percent Auto 21.4 % (18.3-44.2); Mean Corpuscular HGB Conc 31.2 g/dl (32-36); Mean Corpuscular Hemoglobin 30.6 pg (26-34); Mean Corpuscular Volume 98.3 fl (80-100); Mean Platelet Volume 10.4 fl (7.4-10.4); Monocytes Absolute Auto 0.8 K/mm3 (0.1-0.6); Neutrophils Absolute Auto 6.4 K/mm3 (1.3-6.7); Neutrophils Percent Auto 64.6 % (45.5-73.1); Platelet Count Result 333 k/mm3 (150-375); Red Blood Count 3.59 M/mm3 (4.2-5.4); Red Cell Distribution Width 14.9 % (11.5-14.5); White Blood Count 9.9 K/mm3 (4.5-10.0)
[2022-03-28 11:41] LABS: Alanine Aminotransferase 13 U/L (6-35); Albumin Level 3.7 g/dL (3.5-5.1); Alkaline Phosphatase 71 U/L (38-126); Anion Gap 7 mmol/L (8-16); Aspartate Amino Transferase 24 U/L (14-36); Bilirubin,Total 0.2 mg/dL (0.2-1.3); Blood Urea Nitrogen 30 mg/dL (7-17); Calcium 11.1 mg/dL (8.4-10.2); Carbon Dioxide 26 mmol/L (22-30); Chloride 106 mmol/L (98-107); Cholesterol 183 mg/dL (0-200); Estimated Glomerular Filt Rate 27; Glucose 115 mg/dL (65-110); HDL Direct 39 mg/dL; Potassium 4.2 mmol/L (3.4-5.0); Sodium 139 mmol/L (137-145); Triglycerides 147 mg/dL (<150)
[2022-03-28 11:55] LABS: LDL Cholesterol Direct 101 mg/dL
[2022-03-28 12:44] LABS: Folic Acid 4.5 ng/mL (2.76->20)
[2022-03-28 13:06] LABS: Iron 47 ug/dL (37-170)
[2022-03-28 13:16] LABS: Percent Iron Saturation 22 % (20-50)
== END 2022-03-28 10:41 | disposition home or self-care (01) ==
LOC: ANHLAB 10:45
PROVIDERS: PCP Internal Medicine; Visit Provider Internal Medicine
DX: D53.9 Nutritional anemia, unspecified (principal); R53.83 Other fatigue; I12.9 Hypertensive chronic kidney disease with stage 1 through stage 4 chronic kidney disease, or unspecified chronic kidney disease; N18.9 Chronic kidney disease, unspecified
CPT/HCPCS: 36415; 80053; 80061; 82607; 82746; 83540; 83550; 84443; 85025

== ENCOUNTER 2022-04-25 12:56 | Outpatient (CLI) | payer MEDICARE, BC, SELFPAY ==
[2022-04-25 13:39] LABS: Alanine Aminotransferase 9 U/L (6-35); Albumin Level 3.7 g/dL (3.5-5.1); Alkaline Phosphatase 68 U/L (38-126); Anion Gap 6 mmol/L (8-16); Aspartate Amino Transferase 18 U/L (14-36); Bilirubin,Total 0.5 mg/dL (0.2-1.3); Blood Urea Nitrogen 15 mg/dL (7-17); Calcium 10.3 mg/dL (8.4-10.2); Carbon Dioxide 26 mmol/L (22-30); Chloride 105 mmol/L (98-107); Estimated Glomerular Filt Rate 36; Glucose 121 mg/dL (65-110); Potassium 3.7 mmol/L (3.4-5.0); Sodium 137 mmol/L (137-145)
[2022-04-25 13:50] LABS: Parathyroid Intact 16.6 pg/mL (7.5-53.5)
== END 2022-04-25 12:57 | disposition home or self-care (01) ==
PROVIDERS: PCP Internal Medicine; Visit Provider Internal Medicine
DX: E83.52 Hypercalcemia (principal)
CPT/HCPCS: 36415; 80053; 83970

== ENCOUNTER 2022-05-23 14:54 | Outpatient (NON) | payer MEDICARE, BC, SELFPAY ==
[2022-05-29 14:33] LABS: Albumin 44 %; Measured Kappa Chains 1.28 mg/dL (<2.00); Measured Lambda Chains <1.00 mg/dL (<2.00); Pro/Creat Ratio 462 mg/g creat (<=114); Total Kappa Chains 12.8 mg/24 h
[2022-06-09 16:11] LABS: Protein,total, 24 Hr Ur 330 mg/24h
== END 2022-05-23 14:55 | disposition home or self-care (01) ==
LOC: ANHLAB 14:58
PROVIDERS: PCP Internal Medicine; Visit Provider Internal Medicine Nephrology
DX: I12.9 Hypertensive chronic kidney disease with stage 1 through stage 4 chronic kidney disease, or unspecified chronic kidney disease (principal); N18.32 Chronic kidney disease, stage 3b
CPT/HCPCS: 86335

== ENCOUNTER 2022-07-21 13:36 | Outpatient (CLI) | payer MEDICARE, BC, SELFPAY ==
[2022-07-21 15:06] LABS: Hematocrit 33.4 % (37.0-47.0); Hemoglobin 10.6 g/dL (12.0-15.0); Mean Corpuscular HGB Conc 31.7 g/dl (32-36); Mean Corpuscular Hemoglobin 31.1 pg (26-34); Mean Corpuscular Volume 97.9 fl (80-100); Mean Platelet Volume 10.7 fl (7.4-10.4); Platelet Count Result 227 k/mm3 (150-375); Red Blood Count 3.41 M/mm3 (4.2-5.4); White Blood Count 5.9 K/mm3 (4.5-10.0)
[2022-07-21 15:09] LABS: Add Urine Microscopic? YES; Appearance Urine Cloudy (Clear); Bilirubin Urine Negative (Negative); Blood Urine Negative (Negative); Color Urine Yellow (Yellow); Glucose Urine UA Negative (Negative); Ketones Urine Negative (Negative); Leukocyte Esterase Ur 3+ LEU/UL (Negative); Mucus Urine Rare /lpf; Nitrate Urine Negative (Negative); Protein Urine Negative (Negative); Specific Grav Ur 1.013 (1.001-1.035); Squamous Epithelial Cell Urine Rare /hpf (Few); Urobilinogen Urine Negative mg/dL (<2.0)
[2022-07-21 15:14] LABS: Albumin Level 3.7 g/dL (3.5-5.1); Anion Gap 10 mmol/L (8-16); Blood Urea Nitrogen 13 mg/dL (7-17); Carbon Dioxide 25 mmol/L (22-30); Chloride 104 mmol/L (98-107); Estimated Glomerular Filt Rate 48; Glucose 98 mg/dL (65-110); Phosphorus 3.4 mg/dL (2.5-4.5); Potassium 3.7 mmol/L (3.4-5.0); Sodium 139 mmol/L (137-145)
[2022-07-21 15:22] LABS: Creatinine Urine 93.5 mg/dL; Total Protein Urine Random 18 mg/dL; Ur Ttl Prot Creatinine Ratio 0.19 mg/mg (0-0.20)
[2022-07-21 15:23] LABS: Complement C3 89 mg/dL (88-165); Rheumatoid Factor < 12.0 IU/ML (<12)
[2022-07-21 15:33] LABS: Parathyroid Intact 25.6 pg/mL (7.5-53.5)
[2022-07-21 15:52] LABS: Erythrocyte Sedimentation Rate 29 mm/hr (0-20)
[2022-07-24 08:47] LABS: Kappa\\Lambda Light Chains 1.73 (0.26-1.65); Lambda Light Chain 37.3 mg/L (5.7-26.3)
[2022-07-25 12:40] LABS: Complement Total CH50 59 U/mL (31-60)
[2022-07-28 07:55] LABS: Anti Nuclear Antibody Titer >=1:1280 (Negative)
== END 2022-07-21 13:37 | disposition home or self-care (01) ==
PROVIDERS: PCP Internal Medicine; Visit Provider Internal Medicine Nephrology
DX: I12.9 Hypertensive chronic kidney disease with stage 1 through stage 4 chronic kidney disease, or unspecified chronic kidney disease (principal); N18.32 Chronic kidney disease, stage 3b; M13.0 Polyarthritis, unspecified
CPT/HCPCS: 36415; 80069; 81001; 82570; 83883; 83970; 84156; 85027; 85652; 86038; 86039; 86160; 86162; 86334; 86430; 87086; 87088

== ENCOUNTER 2022-08-18 09:28 | Outpatient (CLI) | payer MEDICARE, BC, SELFPAY ==
[2022-08-18 10:19] LABS: Rheumatoid Factor < 8.6 IU/ML (<12)
[2022-08-24 02:09] LABS: ANCA Screen Negative (Negative)
[2022-08-24 22:09] LABS: Anti Glomerular Basement Memb <1.0 AI (<1.0)
[2022-08-25 13:47] LABS: SM Antibody <1.0; SM/RNP Antibody <1.0; SS-A <1.0; SS-B <1.0
[2022-08-25 18:47] LABS: Cryoglobulin, QL Negative (Negative)
== END 2022-08-18 09:29 | disposition home or self-care (01) ==
LOC: ANHLAB 09:32
PROVIDERS: PCP Internal Medicine; Visit Provider Internal Medicine Nephrology
DX: N18.31 Chronic kidney disease, stage 3a (principal); R76.0 Raised antibody titer
CPT/HCPCS: 36415; 82595; 83520; 86036; 86225; 86235; 86430

== ENCOUNTER 2022-09-06 07:55 | Inpatient (IN) | payer MEDICARE, BC, SELFPAY ==
[2022-09-06] VITALS (9 sets, daily range): BP systolic 131–176; BP diastolic 48–70; PULSE 69–85; RESP 15–18; TEMP 36.4–36.9; O2SAT 94–99; BMI 25.2
--- NOTE | ~2022-09-06 | CT_ITS ---
EXAMINATION:CT diagnostic chest wo con DATE: 09/07/2022 20:01 INDICATION: Pleural effusion. Shortness of breath. TECHNIQUE: Computed tomography (CT) of the chest was performed without intravenous contrast. Automate d exposure control and iterative reconstruction technique were employed. The dose-length product (DLP ) was 115.87 mGy-cm. COMPARISON: CT abdomen and pelvis 11/16/2021 FINDINGS: There is mild emphysema. There is smooth septal thickening in the lungs, consistent with mi ld pulmonary edema. There are small pleural effusions. There is mild atelectasis bilaterally. Cardiom egaly is noted. There is a small pericardial effusion. Partially visualized is a 2.7 cm cyst in left kidney. There are changes of anterior fusion procedure in cervical spine. There is a left shoulder ar throplasty. There is severe thoracic spondylosis. There is mild chronic anterior wedging of multiple thoracic vertebral bodies. IMPRESSION: 1. Mild pulmonary edema. 2. Small pleural effusions. 3. Mild emphysema. 4. Cardiomegaly. 5. Small pericardial effusion. Reviewed, dictated and finalized at location A. T METAL OPERATOR
--- NOTE | ~2022-09-06 | XR_ITS ---
EXAMINATION: XR chest 2V DATE: 09/06/2022 08:34 INDICATION: Chest pain. TECHNIQUE: Frontal and lateral views of the chest were obtained. COMPARISON: Chest single view 11/16/2021, CT abdomen and pelvis 11/16/2021 FINDINGS: There are small pleural effusions. There are interstitial opacities in the inferior lungs. No pneumothorax. The heart size is normal. There is a left shoulder arthroplasty. There are changes o f anterior fusion procedure in cervical spine. IMPRESSION: 1. Small pleural effusions. 2. Interstitial opacities in the lower lung zones, consistent with mild pulmonary edema and/or mild c hronic interstitial lung disease. Reviewed, dictated and finalized at location A. O RECORDER IMPRESSION: 1. Small pleural effusions. 2. Interstitial opacities in the lower lung zones, consistent with mild pulmona ry edema and/or mild chronic interstitial lung disease.
--- NOTE | ~2022-09-06 | NM_ITS ---
NM pulmonary perfusion INDICATION: Shortness of breath TECHNIQUE: 5.5 mCi Tc 99m MAA was injected intravenously for perfusion images. Multiple images were then acquired. COMPARISON: Chest x-ray dated 09/06/2022 FINDINGS: The comparison chest radiograph demonstrates bibasilar interstitial infiltrates with small effusions. There are small areas of decreased perfusion in the lower lungs responding to small effusi ons.. Otherwise, the perfusion scan is normal. The aerosol in images show uniform deposition through out the lungs. IMPRESSION: 1: Small areas of decreased perfusion corresponding to bilateral effusions seen on chest x-ray. Other hameed, unremarkable perfusion scan. Reviewed, dictated and finalized at location A. ONAL CARE SERVICE PROVIDER IMPRESSION: 1: Small areas of decreased perfusion corresponding to bilateral effusions seen on chest x-ray. Otherwise, unremarkable perfusion scan.
--- NOTE | ~2022-09-06 | US_ITS ---
EXAMINATION: US venous doppler [facility] DATE: 09/07/2022 10:58 INDICATION: Lower limb edema. TECHNIQUE: Grayscale ultrasound images without and with compression and Doppler ultrasound images of the bilateral lower extremity veins were obtained. COMPARISON: None. FINDINGS: The visualized portions of right common femoral vein, profunda (deep) femoral vein, femoral vein, pop liteal vein, peroneal veins, posterior tibial veins, and greater saphenous vein outflow are patent. The visualized portions of left common femoral vein, profunda femoral vein, femoral vein, popliteal v ein, peroneal veins, posterior tibial veins, and greater saphenous vein outflow are patent. IMPRESSION: 1. No deep venous thrombosis. Reviewed, dictated and finalized at location A. OOM HOST
--- NOTE | 2022-09-06 08:12 | ECG_ITS ---
Measurements Intervals [place] Rate: 77 P: 3 IN: 171 QRS: -17 QRSD: 117 T: 16 QT: 372 QTc: 421 Interpretive Statements SINUS RHYTHM FREQUENT VENTRICULAR PREMATURE COMPLEXES INCOMPLETE RIGHT BUNDLE BRANCH BLOCK BORDERLINE T WAVE ABNORMALITY- ANT/INF LEADS BASELINE ARTIFACT- I, III, AVL, V3 ABNORMAL ECG COMPARED TO ECG 01/04/2022 10:24:06 NO SIGNIFICANT CHANGES Electronically Signed On 09-06-2022 10:32:14 RN WOUND by Jesus Wilson D.O.
[2022-09-06 08:20] LABS: Basophils Percent Auto 0.2 % (0.2-1.2); Eosinophils Absolute Auto 1.2 K/mm3 (0-0.3); Eosinophils Percent Auto 9.2 % (0-4.4); Hematocrit 31.7 % (37.0-47.0); Hemoglobin 10.1 g/dL (12.0-15.0); Immature Granulocyte Absolute 0.05 K/mm3 (0.00-0.031); Immature Granulocyte Percent A 0.4 % (0-0.5); Lymphocytes Absolute Auto 0.53 K/mm3 (0.9-3.2); Lymphocytes Percent Auto 4.2 % (18.3-44.2); Mean Corpuscular HGB Conc 31.9 g/dl (32-36); Mean Corpuscular Hemoglobin 32.4 pg (26-34); Mean Corpuscular Volume 101.6 fl (80-100); Mean Platelet Volume 11.3 fl (7.4-10.4); Monocytes Absolute Auto 0.4 K/mm3 (0.1-0.6); Monocytes Percent Auto 3.1 % (2.6-8.5); Neutrophils Absolute Auto 10.6 K/mm3 (1.3-6.7); Neutrophils Percent Auto 82.9 % (45.5-73.1); Platelet Count Result 154 k/mm3 (150-375); Red Blood Count 3.12 M/mm3 (4.2-5.4); Red Cell Distribution Width 14.6 % (11.5-14.5); White Blood Count 12.8 K/mm3 (4.5-10.0)
[2022-09-06 08:29] LABS: Alanine Aminotransferase 29 U/L (6-35); Albumin Level 2.9 g/dL (3.5-5.1); Alkaline Phosphatase 103 U/L (38-126); Anion Gap 11 mmol/L (8-16); Aspartate Amino Transferase 49 U/L (14-36); Blood Urea Nitrogen 20 mg/dL (7-17); Calcium 8.8 mg/dL (8.4-10.2); Carbon Dioxide 21 mmol/L (22-30); Chloride 106 mmol/L (98-107); Estimated CRCL calculation 25 ml/min; Estimated Glomerular Filt Rate 40; Glucose 86 mg/dL (65-110); Lipase 18 U/L (23-300); Potassium 3.2 mmol/L (3.4-5.0); Sodium 138 mmol/L (137-145)
--- NOTE | 2022-09-06 08:31 | ED.CHESTPAIN ---
HPI - Chest Pain General Chief Complaint: Chest Pain Stated Complaint: Chest Pain Time Seen by Provider: 09/06/22 08:14 History of Present Illness HPI narrative: Pt presents with substernal sharp CP continuously since 1999 last night. Pt says the pain radiates across chest and through to back. Pt says the pain is worse with deep breath and cough. Pt denies productive cough. Pt recently diagnosed with UTI at [facility] on macrobid and now has itchy rash on her forearms. Related Data Home Medications Medication Instructions Recorded Confirmed CBD 2.5 mg PO DAILY 11/05/21 09/06/22 nitrofurantoin 09/06/22 09/06/22 monohydrate/macrocrystals 100 mg capsule phenazopyridine 95 mg tablet 95 mg PO 09/06/22 Allergies Allergy/AdvReac Type Severity Reaction Status Date / Time cat dander Allergy Intermediate Sneezing Verified 09/06/22 17:38 Sulfa (Sulfonamide Allergy Hives Verified 09/06/22 07:54 Antibiotics) morphine AdvReac Intermediate Other Verified 09/06/22 17:38 Bumble Bee Allergy Mild Drowsy, Uncoded 04/25/22 13:31 nausea Review of Systems Review of Systems: All systems reviewed & are unremarkable except as noted in HPI and below Cardiovascular: Cardiovascular: Reports chest pain Respiratory: Respiratory: Denies dyspnea PMFSH Past Medical History Medical History Gastroesophageal reflux disease Hypertension Obstructive sleep apnea 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 Surgical History Surgical History History of appendectomy History of bilateral knee replacement History of bladder surgery (01/2020) Transurethral resection bladder tumor. History of cataract extraction History of cholecystectomy History of cystoscopy History of hysterectomy History of left shoulder replacement History of spinal surgery Family History Family History Father Family history of cardiovascular disease Cerebrovascular accident Mother Cerebrovascular accident Sibling Patient's sister is in good health Family history of malignant neoplasm of breast in first degree relative Social History Social History Social History: Healthcare power of loading rack supervisor: Angelique Gifford, nimaricel. Code status: Full code. Smoking packs per day: 0.25 Smoking cigarettes per day: 5.0 Years smoked: 20 Smoking pack-years: 5.00 Smoking status: Former smoker Tobacco type: cigarettes Second hand tobacco smoke exposure: No Smoking end date: 10/09/72 Alcohol intake: current Drinks per week: 3 Substance use: current Substance use type: marijuana Other substance usage details: CBD/THC gummies, 1 to 2 times per day. Spiritual care concerns: No Exam Const: General: healthy appearing and no acute distress Nutritional Appearance: well nourished Orientation/consciousness: patient oriented x3 Limitations: no limitations Eyes: EOM: EOMs intact bilaterally Neck: Neck: normal visual inspection and no lymphadenopathy Chest: Chest palpation & inspection: normal inspection of the chest and no tenderness Resp: Effort & Inspection: normal respiratory effort Auscultation: clear to auscultation bilaterally Cardio: Rate: regular rate Rhythm: regular rhythm GI: Auscultation: normal bowel sounds Back/Spine/Pelvis: Back: no CVA tenderness Skin: Other: erythematous blanchable macular rash to forearms Neuro: General: patient oriented x3, moves all extremities, no meningeal signs and no focal motor deficits Cranial nerves: Yes Nystagmus not present Speech: normal speech Extrem: General: normal to inspection and no clubbing, cyanosis or edema Psych: Mental Status: mental status khang
[2022-09-06 08:45] LABS: INR 1.3; Partial Thromboplastin Time 33.2 SECONDS (22.3-36.8); Prothrombin Time 15.7 Seconds (11.1-14.7)
[2022-09-06 08:47] LABS: Troponin I 0.037 ng/mL (0.000-0.034)
[2022-09-06 08:53] LABS: Anisocytosis 2+ (NORMAL); Hypochromasia 1+ (NORMAL); Ovalocytes 1+ (NORMAL); Platelet Estimate Adequate (Adequate); Schistocytes 1+ (NORMAL)
[2022-09-06] MEDS: ASPIRIN 81 MG CHEWABLE TABLET 324 MG PO (09:14)
[2022-09-06] MEDS: MORPHINE SULFATE (*CRX) 2 MG/ML INJ IV PUSH ×2 (09:14→17:32)
[2022-09-06] MEDS: ONDANSETRON INJ 4 MG/2 ML VIAL IV PUSH (09:14)
[2022-09-06 09:52] LABS: D Dimer 7.18 ug/mL (<0.48)
[2022-09-06 11:13] LABS: Influenza A QL RT-PCR Negative (Negative); Influenza B QL RT-PCR Negative (Negative); SARS-CoV-2 RNA PCR Negative
[2022-09-06] MEDS: ENOXAPARIN 80 MG/0.8 ML SYRINGE 65 MG SUB-Q (11:45)
[2022-09-06 12:14] LABS: Troponin I 0.029 ng/mL (0.000-0.034)
--- NOTE | 2022-09-06 14:45 | PM.IMHP ---
H&P: HPI History of Present Illness Date/Time: 09/06/22 14:45 Chief Complaint: Chest pain. Narrative: This is a very pleasant 77-year-old female with history of bladder cancer, hypertension, anemia, chronic kidney disease, and sleep apnea who presented to the emergency department for evaluation of chest pain. Last week she had a urinary tract infection and was prescribed nitrofurantoin which thyroid of her symptoms however left her with a diffuse, erythematous rash on her extremities. Last evening she developed a ?heavy and aching? pain diffusely across her chest which ventrally settled into the left chest with some radiation through to the scapula. The discomfort is made worse with deep inspiration and cough and she has not noticed any significant alleviating factors. She denies associated nausea, vomiting, shortness of breath, and sweats. Chest x-ray in the ED showed small pleural effusions and interstitial opacities in the lower lung zones consistent with mild pulmonary edema and/or mild chronic interstitial lung disease. V/Q scan was ordered due to elevated D-dimer and it showed small areas of decreased perfusion corresponding to the bilateral effusions on chest x-ray and was otherwise unremarkable. Her initial troponin was a bit elevated 0.037 and she is being admitted in this setting to rule out acute coronary syndrome. Review of Systems Review of Systems: Twelve systems were reviewed. No fever, chills, or sweats. Mild rhinorrhea. No sore throat. No sick contacts. She has not had exertional chest pain. No sensations of racing heart or palpitations. No orthopnea, PND, or significant lower extremity edema. Appetite has been a bit decreased but no nausea or vomiting. No significant GERD symptoms. Urinary symptoms have resolved. Except as documented, all other systems were reviewed and are negative. 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 Surgical History Surgical History History of appendectomy History of bilateral knee replacement History of bladder surgery (01/2020) Transurethral resection bladder tumor. History of cataract extraction History of cholecystectomy History of cystoscopy History of hysterectomy History of left shoulder replacement History of spinal surgery Family History Family History Father Family history of cardiovascular disease Cerebrovascular accident Mother Cerebrovascular accident Sibling Patient's sister is in good health Family history of malignant neoplasm of breast in first degree relative Social History Social History Social History: Healthcare power of senior trial attorney: Angelique Gifford, niece. Code status: Full code. Smoking packs per day: 0.25 Smoking cigarettes per day: 5.0 Years smoked: 20 Smoking pack-years: 5.00 Smoking status: Never smoker Tobacco type: cigarettes Second hand tobacco smoke exposure: No Smoking end date: 10/09/72 Alcohol intake: current Drinks per week: 3 Substance use: current Substance use type: marijuana Other substance usage details: CBD/THC gummies, 1 to 2 times per day. Lack of Transportation: No Lack of Food: Never True Current Housing: I Have Housing Concerned About Future Housing: No Difficulty Paying Gas/Electric Bills: No Difficulty Paying for Meds: No Currently Unemployed: No Education: High School Diploma/GED Difficulty w/ Childcare or Family Care: No Spiritual care concerns: No Meds Home Medications and Allerg
[2022-09-06 15:10] LABS: Troponin I 0.028 ng/mL (0.000-0.034)
--- NOTE | 2022-09-06 18:14 | ADMGEN ---
This patient, Mariposa Andrade, was admitted to IMU Room 206-01. Patient/family oriented to hospital policies and general routines including ID bracelet, bed and alarms, visiting hours, pain management, procedures, bathroom and other care routines, personal items, smoking policy, room service/diet, and visiting hours. Information on how to activate the Rapid Response Team has been discussed. Patient/Family are encouraged to report perceived risks to care and to ask questions if they do not understand what they are told or what they should do.
[2022-09-06 21:34] LABS: Troponin I 0.023 ng/mL (0.000-0.034)
[2022-09-06] MEDS: POTASSIUM CHLORIDE 20 MEQ PACKET (FOR LIQUID) 40 MEQ PO (23:03)
[2022-09-07] VITALS (11 sets, daily range): BP systolic 118–155; BP diastolic 32–64; PULSE 75–97; RESP 12–174; TEMP 36.2–36.6; O2SAT 93–97
[2022-09-07 05:03] LABS: Basophils Percent Auto 0.3 % (0.2-1.2); Eosinophils Absolute Auto 1.4 K/mm3 (0-0.3); Eosinophils Percent Auto 13.3 % (0-4.4); Hematocrit 28.3 % (37.0-47.0); Immature Granulocyte Absolute 0.03 K/mm3 (0.00-0.031); Immature Granulocyte Percent A 0.3 % (0-0.5); Lymphocytes Absolute Auto 0.72 K/mm3 (0.9-3.2); Lymphocytes Percent Auto 6.8 % (18.3-44.2); Mean Corpuscular HGB Conc 31.8 g/dl (32-36); Mean Corpuscular Hemoglobin 31.7 pg (26-34); Mean Corpuscular Volume 99.6 fl (80-100); Mean Platelet Volume 11.4 fl (7.4-10.4); Monocytes Absolute Auto 0.4 K/mm3 (0.1-0.6); Monocytes Percent Auto 4.2 % (2.6-8.5); Neutrophils Absolute Auto 7.9 K/mm3 (1.3-6.7); Neutrophils Percent Auto 75.1 % (45.5-73.1); Platelet Count Result 162 k/mm3 (150-375); Red Blood Count 2.84 M/mm3 (4.2-5.4); Red Cell Distribution Width 14.6 % (11.5-14.5); White Blood Count 10.5 K/mm3 (4.5-10.0)
[2022-09-07 05:11] LABS: Anion Gap 6 mmol/L (8-16); Blood Urea Nitrogen 20 mg/dL (7-17); CRP 5.5 mg/dL (<1.0); Calcium 8.8 mg/dL (8.4-10.2); Carbon Dioxide 22 mmol/L (22-30); Chloride 106 mmol/L (98-107); Estimated CRCL calculation 24 ml/min; Estimated Glomerular Filt Rate 36; Glucose 80 mg/dL (65-110); Magnesium 1.9 mg/dL (1.6-2.3); Sodium 134 mmol/L (137-145)
[2022-09-07 05:42] LABS: Procalcitonin 0.3 ng/mL
[2022-09-07] MEDS: ENOXAPARIN 80 MG/0.8 ML SYRINGE 65 MG SUB-Q (11:59)
--- NOTE | 2022-09-07 15:57 | PM.IMPN ---
Progress Note: A&P Assessment and Plan (1) Chest pain: Code(s): R07.9 - Chest pain, unspecified Status: Acute (2) Abnormal chest xray: Code(s): R93.89 - Abnormal findings on diagnostic imaging of other specified body structures Status: Acute (3) Chronic kidney disease, stage 3: Code(s): N18.30 - Chronic kidney disease, stage 3 unspecified Status: Acute (4) Drug rash: Code(s): L27.0 - Generalized skin eruption due to drugs and medicaments taken internally Status: Acute (5) Macrocytic anemia: Code(s): D53.9 - Nutritional anemia, unspecified Status: Acute Plan The patient presented to the emergency department today for evaluation of a heavy aching pain which initially was diffusely across her chest but subtle more so into the left side. # atypical chest pain pleuritic in nature. V/Q scan low probability for PE. small areas of decreased perfusion corresponding to bilateral effusions seeen on chest xray,. D-dimer was elevated. EKG with nonspecific ST-T changes with no significant change. Serial troponins negative Chest x-ray with small pleural effusin, interstitialoapcities in the lwoer lung zones, consistent with mild pulmoanry edema and/or mild chroni interstitial lung disease wbc count mildly elevated venous duplex; negative for dvt echocardiogram:EF > 70%, grade I diastolic dysfunction. severe LAE, mild CLEMENTINE, moderate pulmonary hypertension ; small pericardial effusion. pleural effusion as well as thickening withint the pleural space noted. recommend ct chest Procalcitonin low Will get CT chest Also treat for atypical pneumonia with some pleurisy with antibiotic # drug rasrH: likely from recent nitrofurantoin. start steroid cream # Chronic anemia # CKD stage III Obstructive sleep apnea on CPAP Chronic insomnia History of bladder cancer status post TURBT in January 2020 DVT Prophylaxis Lovenox Subjective Date/time seen: 09/07/22 15:57 Interval history: This is a very pleasant 77-year-old female with history of bladder cancer, hypertension, anemia, chronic kidney disease, and sleep apnea who presented to the emergency department for evaluation of chest pain. Last week she had a urinary tract infection and was prescribed nitrofurantoin which thyroid of her symptoms however left her with a diffuse, erythematous rash on her extremities. Last evening she developed a ?heavy and aching? pain diffusely across her chest which ventrally settled into the left chest with some radiation through to the scapula. The discomfort is made worse with deep inspiration and cough and she has not noticed any significant alleviating factors. She denies associated nausea, vomiting, shortness of breath, and sweats. Chest x-ray in the ED showed small pleural effusions and interstitial opacities in the lower lung zones consistent with mild pulmonary edema and/or mild chronic interstitial lung disease. V/Q scan was ordered due to elevated D-dimer and it showed small areas of decreased perfusion corresponding to the bilateral effusions on chest x-ray and was otherwise unremarkable. Her initial troponin was a bit elevated 0.037 and she is being admitted in this setting to rule out acute coronary syndrome. 09/07/2022: Reports chest pain has resolved. She still has cough whenever she takes deep breaths. She denies any fever chills. She denies any expectoration. Review of Systems Review of Systems: All systems reviewed & are unremarkable except as noted in HPI and below Exam Narrative: GENERAL: The patient is well developed, not in acute distress HEENT: Nonicteric sclerae, PERRLA, EOMI. Oropharynx clear. Moist mucous membranes. Conjunctivae appear well perfused. CHEST: Chest wall is nontender. HEART: Regular rate and rhythm without murmur, rubs, or gallops LUNGS: Diminished sounds bilaterally no respiratory distress ABDOMEN: Soft, positive bowel sounds, non-tender, no organomegaly. SKIN: erythamtous sc
[2022-09-07] MEDS: TRIAMCINOLONE ACET 0.1% OINT 80 GM TUBE 1 APPLIC TOPICAL (21:31)
--- NOTE | 2022-09-07 22:29 | ECHO_ITS ---
Patient Info Name: Mariposa Andrade Age: 77 years : 1945 Gender: Female Ht: 63 in Wt: 142 lbs BSA: 1.70 m2 HR: 82 bpm BP: 135 / 32 mmHg Heart Rhythm: Sinus Rhythm Technical Quality: Fair Exam Date: 09/07/2022 8:40 AM Exam Location: [facility] Patient Status: Inpatient Admit Date: 09/06/2022 Staff Ordering Physician: Katarzyna Galvez PA-C Banana Expert: Anabella Robledo RDCS Attending Provider: Maria Elena Cheema MD Referring Physician: Leonor LAEN; Exam Type: CA echo doppler color flow Study Info Indications - elevated troponin R07.9 - Chest pain, unspecified Complete two-dimensional, color flow and Doppler transthoracic echocardiogram is performed. Summary 1. Complete two-dimensional, color flow and Doppler transthoracic echocardiogram is performed. 2. Left ventricular chamber dimension is normal. 3. Left ventricular systolic function is hyperdynamic, estimated at >70%. 4. There is moderately increased left ventricular wall thickness. 5. The left ventricular diastolic function is grade I diastolic dysfunction. 6. Right ventricular chamber dimension is mildly enlarged. 7. Left atrial chamber dimension is severely enlarged. 8. Right atrial chamber dimension is mildly enlarged. 9. There is mild mitral valve regurgitation. 10. The mitral valve annulus is mildly calcified. 11. There is mild tricuspid valve regurgitation. 12. Moderate pulmonary hypertension, estimated pulmonary arterial systolic pressure is 49 mmHg. 13. There is small pericardial effusion. 14. Pleural effusion is also seen as well as thickening within the pleural space. Recommend CT scan of the chest if not already performed for further evaluation. Left Ventricle Left ventricular chamber dimension is normal. Left ventricular systolic function is hyperdynamic, estimated at >70%. There is moderately increased left ventricular wall thickness. The left ventricular diastolic function is grade I diastolic dysfunction. Right Ventricle Right ventricular chamber dimension is mildly enlarged. Right ventricular systolic function is normal. Left Atria Left atrial chamber dimension is severely enlarged. Right Atria Right atrial chamber dimension is mildly enlarged. Atrial Septum Intact interatrial septum visualized by color flow imaging. Aortic Valve The aortic valve is trileaflet. There is mild aortic valve sclerosis. There is no aortic valve stenosis. There is trace aortic valve regurgitation. Pulmonic Valve The pulmonic valve is normal. There is no pulmonic valve stenosis. There is trace pulmonic regurgitation. Mitral Valve The mitral valve has normal leaflets. There is no mitral valve stenosis. There is mild mitral valve regurgitation. The mitral valve annulus is mildly calcified. Tricuspid Valve The tricuspid valve leaflets are normal. There is no significant tricuspid valve stenosis. There is mild tricuspid valve regurgitation. Moderate pulmonary hypertension, estimated pulmonary arterial systolic pressure is 49 mmHg. Pericardium/Pleural The pericardium appears normal. There is small pericardial effusion. Pleural effusion is also seen as well as thickening within the pleural space. Recommend CT scan of the chest if not already performed for further evaluation. Inferior Vena Cava Dilated inferior vena cava with <50% collapse upon inspiration consistent with elevated right atrial pressure, 15 mmHg. Aorta The aortic root size
[2022-09-08 05:14] LABS: Basophils Percent Auto 0.3 % (0.2-1.2); Eosinophils Absolute Auto 1.2 K/mm3 (0-0.3); Hematocrit 27.9 % (37.0-47.0); Hemoglobin 8.6 g/dL (12.0-15.0); Immature Granulocyte Absolute 0.04 K/mm3 (0.00-0.031); Immature Granulocyte Percent A 0.5 % (0-0.5); Lymphocytes Absolute Auto 1.08 K/mm3 (0.9-3.2); Lymphocytes Percent Auto 14.4 % (18.3-44.2); Mean Corpuscular HGB Conc 30.8 g/dl (32-36); Mean Corpuscular Hemoglobin 31.7 pg (26-34); Mean Platelet Volume 11.2 fl (7.4-10.4); Monocytes Absolute Auto 0.5 K/mm3 (0.1-0.6); Monocytes Percent Auto 6.4 % (2.6-8.5); Neutrophils Absolute Auto 4.7 K/mm3 (1.3-6.7); Neutrophils Percent Auto 62.4 % (45.5-73.1); Platelet Count Result 157 k/mm3 (150-375); Red Blood Count 2.71 M/mm3 (4.2-5.4); Red Cell Distribution Width 14.6 % (11.5-14.5); White Blood Count 7.5 K/mm3 (4.5-10.0)
[2022-09-08 05:26] LABS: Alanine Aminotransferase 16 U/L (6-35); Albumin Level 2.5 g/dL (3.5-5.1); Alkaline Phosphatase 77 U/L (38-126); Anion Gap 4 mmol/L (8-16); Aspartate Amino Transferase 18 U/L (14-36); Bilirubin,Total 0.4 mg/dL (0.2-1.3); Blood Urea Nitrogen 20 mg/dL (7-17); Calcium 8.9 mg/dL (8.4-10.2); Carbon Dioxide 26 mmol/L (22-30); Chloride 107 mmol/L (98-107); Estimated CRCL calculation 23 ml/min; Estimated Glomerular Filt Rate 33; Glucose 86 mg/dL (65-110); Magnesium 1.9 mg/dL (1.6-2.3); Potassium 3.6 mmol/L (3.4-5.0); Sodium 137 mmol/L (137-145)
[2022-09-08 08:00] VITALS: BP 159/62; PULSE 74; RESP 16; TEMP 36.7; O2SAT 97
[2022-09-08 09:53] LABS: NT Pro B Type Natriuretic Pept 2830 pg/mL (5-100)
[2022-09-08] MEDS: ENOXAPARIN 80 MG/0.8 ML SYRINGE 65 MG SUB-Q (11:23)
[2022-09-08] MEDS: TRIAMCINOLONE ACET 0.1% OINT 80 GM TUBE 1 APPLIC TOPICAL ×2 (11:24→20:35)
[2022-09-08] MEDS: FUROSEMIDE INJ 40 MG/4 ML VIAL 20 MG IV PUSH (11:26)
[2022-09-08 12:42] VITALS: BP 170/64; PULSE 67; RESP 16; TEMP 36.8; O2SAT 97
[2022-09-08 16:00] VITALS: BP 164/69; PULSE 87; RESP 16; TEMP 36.9; O2SAT 97
--- NOTE | 2022-09-08 16:47 | PM.IMPN ---
Progress Note: A&P Assessment and Plan (1) Chest pain: Code(s): R07.9 - Chest pain, unspecified Status: Acute (2) Abnormal chest xray: Code(s): R93.89 - Abnormal findings on diagnostic imaging of other specified body structures Status: Acute (3) Chronic kidney disease, stage 3: Code(s): N18.30 - Chronic kidney disease, stage 3 unspecified Status: Acute (4) Drug rash: Code(s): L27.0 - Generalized skin eruption due to drugs and medicaments taken internally Status: Acute (5) Macrocytic anemia: Code(s): D53.9 - Nutritional anemia, unspecified Status: Acute Plan The patient presented to the emergency department today for evaluation of a heavy aching pain which initially was diffusely across her chest but subtle more so into the left side. # atypical chest pain pleuritic in nature. V/Q scan low probability for PE. small areas of decreased perfusion corresponding to bilateral effusions seeen on chest xray,. D-dimer was elevated. EKG with nonspecific ST-T changes with no significant change. Serial troponins negative Chest x-ray with small pleural effusin, interstitialoapcities in the lwoer lung zones, consistent with mild pulmoanry edema and/or mild chroni interstitial lung disease wbc count mildly elevated venous duplex; negative for dvt echocardiogram:EF > 70%, grade I diastolic dysfunction. severe LAE, mild CLEMENTINE, moderate pulmonary hypertension ; small pericardial effusion. pleural effusion as well as thickening withint the pleural space noted. recommend ct chest Procalcitonin low CT chest with bilateral pleural effusion findings of mild pulmonary edema. Also treat for atypical pneumonia with some pleurisy with antibiotic Give IV Lasix 20 mg today recheck labs in a.m. # drug rasrH: likely from recent nitrofurantoin. start steroid cream improving # Chronic anemia # CKD stage III Obstructive sleep apnea on CPAP Chronic insomnia History of bladder cancer status post TURBT in January 2020 DVT Prophylaxis Lovenox Subjective Date/time seen: 09/08/22 16:47 Interval history: This is a very pleasant 77-year-old female with history of bladder cancer, hypertension, anemia, chronic kidney disease, and sleep apnea who presented to the emergency department for evaluation of chest pain. Last week she had a urinary tract infection and was prescribed nitrofurantoin which thyroid of her symptoms however left her with a diffuse, erythematous rash on her extremities. Last evening she developed a ?heavy and aching? pain diffusely across her chest which ventrally settled into the left chest with some radiation through to the scapula. The discomfort is made worse with deep inspiration and cough and she has not noticed any significant alleviating factors. She denies associated nausea, vomiting, shortness of breath, and sweats. Chest x-ray in the ED showed small pleural effusions and interstitial opacities in the lower lung zones consistent with mild pulmonary edema and/or mild chronic interstitial lung disease. V/Q scan was ordered due to elevated D-dimer and it showed small areas of decreased perfusion corresponding to the bilateral effusions on chest x-ray and was otherwise unremarkable. Her initial troponin was a bit elevated 0.037 and she is being admitted in this setting to rule out acute coronary syndrome. 09/07/2022: Reports chest pain has resolved. She still has cough whenever she takes deep breaths. She denies any fever chills. She denies any expectoration. 09/08/2022: no overnight events. patient reports he still has chest pain upon deep breathing. Minimal cough Review of Systems Review of Systems: All systems reviewed & are unremarkable except as noted in HPI and below Exam Narrative: GENERAL: The patient is well developed, not in acute distress HEENT: Nonicteric sclerae, PERRLA, EOMI. Oropharynx clear. Moist mucous membranes. Conjunctivae appear well perfused. CHEST: Chest wall is
[2022-09-08 20:00] VITALS: BP 157/84; PULSE 75; RESP 16; TEMP 37.2; O2SAT 99
--- NOTE | 2022-09-08 21:45 | PC.NURSE ---
This patient, Mariposa Andrade, was transferred to [facility] on 09/08/22 at 2146. Personal belongings sent with patient. Report given to SHILO Holloway. Appropriate documentation sent with patient.
[2022-09-08 22:10] VITALS: BP 181/87; PULSE 88; RESP 16; TEMP 36.8; O2SAT 97
--- NOTE | 2022-09-08 22:13 | PC.NURSE ---
Recieved from IMU per wheel chair.
[2022-09-09 06:10] VITALS: BP 181/54; PULSE 79; RESP 16; TEMP 36.8; O2SAT 97
[2022-09-09 06:36] LABS: Basophils Percent Auto 0.3 % (0.2-1.2); Eosinophils Absolute Auto 1.1 K/mm3 (0-0.3); Eosinophils Percent Auto 17.8 % (0-4.4); Hematocrit 27.9 % (37.0-47.0); Immature Granulocyte Absolute 0.02 K/mm3 (0.00-0.031); Immature Granulocyte Percent A 0.3 % (0-0.5); Lymphocytes Absolute Auto 1.17 K/mm3 (0.9-3.2); Lymphocytes Percent Auto 18.6 % (18.3-44.2); Mean Corpuscular HGB Conc 32.3 g/dl (32-36); Mean Corpuscular Hemoglobin 32.7 pg (26-34); Mean Corpuscular Volume 101.5 fl (80-100); Monocytes Absolute Auto 0.4 K/mm3 (0.1-0.6); Monocytes Percent Auto 6.3 % (2.6-8.5); Neutrophils Absolute Auto 3.6 K/mm3 (1.3-6.7); Neutrophils Percent Auto 56.7 % (45.5-73.1); Platelet Count Result 189 k/mm3 (150-375); Red Blood Count 2.75 M/mm3 (4.2-5.4); Red Cell Distribution Width 14.4 % (11.5-14.5); White Blood Count 6.3 K/mm3 (4.5-10.0)
[2022-09-09 06:52] LABS: Alanine Aminotransferase 16 U/L (6-35); Albumin Level 2.6 g/dL (3.5-5.1); Alkaline Phosphatase 72 U/L (38-126); Anion Gap 3 mmol/L (8-16); Aspartate Amino Transferase 24 U/L (14-36); Bilirubin,Total 0.4 mg/dL (0.2-1.3); Blood Urea Nitrogen 19 mg/dL (7-17); Calcium 9.2 mg/dL (8.4-10.2); Carbon Dioxide 27 mmol/L (22-30); Chloride 107 mmol/L (98-107); Estimated CRCL calculation 24 ml/min; Estimated Glomerular Filt Rate 36; Glucose 86 mg/dL (65-110); Magnesium 1.8 mg/dL (1.6-2.3); Potassium 3.4 mmol/L (3.4-5.0); Sodium 137 mmol/L (137-145)
[2022-09-09] MEDS: TRIAMCINOLONE ACET 0.1% OINT 80 GM TUBE 1 APPLIC TOPICAL ×2 (08:57→20:21)
--- NOTE | 2022-09-09 10:56 | PM.IMPN ---
Progress Note: A&P Assessment and Plan (1) Chest pain: Code(s): R07.9 - Chest pain, unspecified Status: Acute (2) Abnormal chest xray: Code(s): R93.89 - Abnormal findings on diagnostic imaging of other specified body structures Status: Acute (3) Chronic kidney disease, stage 3: Code(s): N18.30 - Chronic kidney disease, stage 3 unspecified Status: Acute (4) Drug rash: Code(s): L27.0 - Generalized skin eruption due to drugs and medicaments taken internally Status: Acute (5) Macrocytic anemia: Code(s): D53.9 - Nutritional anemia, unspecified Status: Acute Plan The patient presented to the emergency department today for evaluation of a heavy aching pain which initially was diffusely across her chest but subtle more so into the left side. # atypical chest pain pleuritic in nature. V/Q scan low probability for PE. small areas of decreased perfusion corresponding to bilateral effusions seeen on chest xray,. D-dimer was elevated. EKG with nonspecific ST-T changes with no significant change. Serial troponins negative Chest x-ray with small pleural effusin, interstitialoapcities in the lwoer lung zones, consistent with mild pulmoanry edema and/or mild chroni interstitial lung disease wbc count mildly elevated venous duplex; negative for dvt echocardiogram:EF > 70%, grade I diastolic dysfunction. severe LAE, mild CLEMENTINE, moderate pulmonary hypertension ; small pericardial effusion. pleural effusion as well as thickening withint the pleural space noted. recommend ct chest Procalcitonin low CT chest with bilateral pleural effusion findings of mild pulmonary edema. Also treat for atypical pneumonia with some pleurisy with antibiotic Give IV Lasix 20 mg 09/08/2022 Will restart Lasix 40 mg daily today # drug rasrH: likely from recent nitrofurantoin. start steroid cream improving # hypertension not on any medication at home. Restart Lasix she states she used to be on Lasix in the past. # Chronic anemia # CKD stage III #Obstructive sleep apnea on CPAP #Chronic insomnia #History of bladder cancer status post TURBT in January 2020 # DVT Prophylaxis Lovenox Subjective Date/time seen: 09/09/22 10:56 Interval history: This is a very pleasant 77-year-old female with history of bladder cancer, hypertension, anemia, chronic kidney disease, and sleep apnea who presented to the emergency department for evaluation of chest pain. Last week she had a urinary tract infection and was prescribed nitrofurantoin which thyroid of her symptoms however left her with a diffuse, erythematous rash on her extremities. Last evening she developed a ?heavy and aching? pain diffusely across her chest which ventrally settled into the left chest with some radiation through to the scapula. The discomfort is made worse with deep inspiration and cough and she has not noticed any significant alleviating factors. She denies associated nausea, vomiting, shortness of breath, and sweats. Chest x-ray in the ED showed small pleural effusions and interstitial opacities in the lower lung zones consistent with mild pulmonary edema and/or mild chronic interstitial lung disease. V/Q scan was ordered due to elevated D-dimer and it showed small areas of decreased perfusion corresponding to the bilateral effusions on chest x-ray and was otherwise unremarkable. Her initial troponin was a bit elevated 0.037 and she is being admitted in this setting to rule out acute coronary syndrome. 09/07/2022: Reports chest pain has resolved. She still has cough whenever she takes deep breaths. She denies any fever chills. She denies any expectoration. 09/08/2022: no overnight events. patient reports he still has chest pain upon deep breathing. Minimal cough 11/2021: No overnight events. Patient was feeling better later yesterday but this morning feels like bit short of breath. Still has minimal cough. Denies any chest pain. Review of Sys
[2022-09-09] MEDS: ENOXAPARIN 80 MG/0.8 ML SYRINGE 65 MG SUB-Q (12:01)
[2022-09-09] MEDS: FUROSEMIDE 40 MG TABLET PO (12:01)
[2022-09-09 12:26] LABS: EDCOVIDSCREEN Negative (Negative)
[2022-09-09 14:00] VITALS: BP 163/58; PULSE 87; RESP 18; TEMP 36.7; O2SAT 98
[2022-09-09] MEDS: SACCHAROMYCES BOULARDII 250 MG CAPSULE PO (20:21)
[2022-09-09 22:00] VITALS: BP 162/46; PULSE 76; RESP 16; TEMP 36.7; O2SAT 96
[2022-09-10 05:47] VITALS: BP 158/59; PULSE 79; RESP 14; TEMP 36.4; O2SAT 96
[2022-09-10 07:32] LABS: Basophils Percent Auto 0.5 % (0.2-1.2); Eosinophils Absolute Auto 1.3 K/mm3 (0-0.3); Eosinophils Percent Auto 21.9 % (0-4.4); Hematocrit 27.9 % (37.0-47.0); Hemoglobin 8.9 g/dL (12.0-15.0); Immature Granulocyte Absolute 0.03 K/mm3 (0.00-0.031); Immature Granulocyte Percent A 0.5 % (0-0.5); Lymphocytes Absolute Auto 1.48 K/mm3 (0.9-3.2); Lymphocytes Percent Auto 24.2 % (18.3-44.2); Mean Corpuscular HGB Conc 31.9 g/dl (32-36); Mean Corpuscular Hemoglobin 32.1 pg (26-34); Mean Corpuscular Volume 100.7 fl (80-100); Mean Platelet Volume 10.9 fl (7.4-10.4); Monocytes Absolute Auto 0.4 K/mm3 (0.1-0.6); Monocytes Percent Auto 5.7 % (2.6-8.5); Neutrophils Absolute Auto 2.9 K/mm3 (1.3-6.7); Neutrophils Percent Auto 47.2 % (45.5-73.1); Platelet Count Result 205 k/mm3 (150-375); Red Blood Count 2.77 M/mm3 (4.2-5.4); Red Cell Distribution Width 14.4 % (11.5-14.5); White Blood Count 6.1 K/mm3 (4.5-10.0)
[2022-09-10 07:44] LABS: Alanine Aminotransferase 17 U/L (6-35); Albumin Level 2.5 g/dL (3.5-5.1); Alkaline Phosphatase 67 U/L (38-126); Anion Gap 4 mmol/L (8-16); Aspartate Amino Transferase 29 U/L (14-36); Bilirubin,Total 0.4 mg/dL (0.2-1.3); Blood Urea Nitrogen 20 mg/dL (7-17); Calcium 8.8 mg/dL (8.4-10.2); Carbon Dioxide 26 mmol/L (22-30); Chloride 107 mmol/L (98-107); Estimated CRCL calculation 23 ml/min; Estimated Glomerular Filt Rate 33; Glucose 82 mg/dL (65-110); Magnesium 1.9 mg/dL (1.6-2.3); Potassium 3.5 mmol/L (3.4-5.0); Sodium 137 mmol/L (137-145)
[2022-09-10] MEDS: SACCHAROMYCES BOULARDII 250 MG CAPSULE PO (09:32)
[2022-09-10] MEDS: FUROSEMIDE 40 MG TABLET PO (09:32)
[2022-09-10] MEDS: TRIAMCINOLONE ACET 0.1% OINT 80 GM TUBE 1 APPLIC TOPICAL (09:33)
--- NOTE | 2022-09-10 11:10 | PM.DS ---
DS: Admitting Diagnosis Discharge Date 09/10/2022 Admitting Diagnosis shortness of breath DS: Discharge Diagnosis Discharge Diagnosis (1) Chest pain: Code(s): R07.9 - Chest pain, unspecified Status: Acute (2) Abnormal chest xray: Code(s): R93.89 - Abnormal findings on diagnostic imaging of other specified body structures Status: Acute (3) Chronic kidney disease, stage 3: Code(s): N18.30 - Chronic kidney disease, stage 3 unspecified Status: Acute (4) Drug rash: Code(s): L27.0 - Generalized skin eruption due to drugs and medicaments taken internally Status: Acute (5) Macrocytic anemia: Code(s): D53.9 - Nutritional anemia, unspecified Status: Acute DS: Summary Hospital Course Hospital Course: The patient presented to the emergency department today for evaluation of a heavy aching pain which initially was diffusely across her chest but subtle more so into the left side. # atypical chest pain pleuritic in nature.? V/Q scan low probability for PE. small areas of decreased perfusion corresponding to bilateral effusions seeen on chest xray,.? D-dimer was elevated.? EKG with nonspecific ST-T changes with no significant change.? Serial troponins negative Chest x-ray with small pleural effusin, interstitialoapcities in the lwoer lung zones, consistent with mild pulmoanry edema and/or mild chroni interstitial lung disease wbc count mildly elevated venous duplex; negative for dvt echocardiogram:EF > 70%, grade I diastolic dysfunction. severe LAE, mild CLEMENTINE, moderate pulmonary hypertension ; small pericardial effusion. pleural effusion as well as thickening withint the pleural space noted. recommend ct chest Procalcitonin low ?CT chest with bilateral pleural effusion findings of mild pulmonary edema. Also started on treatment for atypical pneumonia with some pleurisy with antibiotic Given IV Lasix 20 mg ? 09/08/2022 switched to oral Lasix 40 mg daily with potassium supplement. Will diuretic for her diastolic congestive heart failure # drug rasrH: likely from recent nitrofurantoin. start steroid cream improving # hypertension not on any medication at home.? Restart Lasix she states she used to be on Lasix in the past. blood pressure slightly elevated but improved with diuretics # Chronic anemia stable counts # CKD stage III remained stable with diuresis. Recheck in 1 week and follow up with PCP ?#Obstructive sleep apnea on CPAP ?#Chronic insomnia ?#History of bladder cancer status post TURBT in January 2020 ?# DVT Prophylaxis Lovenox Time Spent with Patient Time attestation: Total time spent providing and/or coordinating discharge services: 45 minutes Exam Narrative: GENERAL: The patient is well developed, not in acute distress HEENT: Nonicteric sclerae, PERRLA, EOMI. Oropharynx clear. Moist mucous membranes. Conjunctivae appear well perfused. CHEST: Chest wall is nontender. HEART: Regular rate and rhythm without murmur, rubs, or gallops LUNGS: Diminished sounds bilaterally no respiratory distress ABDOMEN: Soft, positive bowel sounds, non-tender, no organomegaly. SKIN: erythamtous scally rash on her upper arms and thighs, no excessive bruising, petechiae, or purpura. improving NEUROLOGIC: Cranial nerves II-XII intact, alert and oriented x 3, no gross motor deficits EXTREMITIES: trace edema bilateral lower extremities, no cyanosis or clubbing DS: Data Data Completed and Pending Completed studies during hospitalization: Exam Type: ? ? CA echo doppler color flow Study Info Indications ?? ? - elevated troponin ? ? R07.9 - Chest pain,? unspecified Complete two-dimensional, color flow and Doppler transthoracic echocardiogram is performed. Account #: ? ? [id number] Summary ? 1. Complete two-dimensional, color flow and Doppler transthoracic echocardiogram is performed. ? 2. Left ventricular chamber dimension is normal. ? 3. Left ventricular systolic function is hyperdynamic
== END 2022-09-10 12:20 | DRG 313 ==
LOC: ANHED 11:52 → ANHIMU 14:32 → ANH3MEDSUR 09-08 22:20
PROVIDERS: Physician Assistant; Admitting Provider Family Medicine; Emergency Provider Emergency Medicine; PCP Internal Medicine; Visit Provider Internal Medicine
DX: R07.89 Other chest pain (principal); J90 Pleural effusion, not elsewhere classified; R77.8 Other specified abnormalities of plasma proteins; I12.9 Hypertensive chronic kidney disease with stage 1 through stage 4 chronic kidney disease, or unspecified chronic kidney disease; N18.9 Chronic kidney disease, unspecified; D64.9 Anemia, unspecified; K21.9 Gastro-esophageal reflux disease without esophagitis; L27.0 Generalized skin eruption due to drugs and medicaments taken internally; T37.8X5A Adverse effect of other specified systemic anti-infectives and antiparasitics, initial encounter; R93.89 Abnormal findings on diagnostic imaging of other specified body structures; G47.33 Obstructive sleep apnea (adult) (pediatric); Z20.822 Contact with and (suspected) exposure to COVID-19; Z96.653 Presence of artificial knee joint, bilateral; Z96.612 Presence of left artificial shoulder joint; Z87.891 Personal history of nicotine dependence; Z85.51 Personal history of malignant neoplasm of bladder; Z90.49 Acquired absence of other specified parts of digestive tract
CPT/HCPCS: 36415; 71046; 71250; 78580; 80048; 80053; 83690; 83735; 83880; 84145; 84484; 85025; 85380; 85610; 85730; 86140; 87426; 87636; 93005; 93306; 93970; 96365; 96372; 96374; 96375; 96376; 97161; 97165; 99285; A9270; A9540; C9803; G0378; J0456; J1650; J1940; J2270; J2405

== ENCOUNTER 2022-09-24 02:32 | Inpatient (IN) | payer MEDICARE, BC, SELFPAY ==
[2022-09-24] VITALS (24 sets, daily range): BP systolic 136–168; BP diastolic 42–90; PULSE 56–82; RESP 12–18; TEMP 36.5–36.6; O2SAT 94–100
--- NOTE | ~2022-09-24 | XR_ITS ---
EXAMINATION: XR retrograde pyelo w/stent RT INDICATION: Right-sided stone TECHNIQUE: 27 intraoperative fluoroscopic images are submitted for review. Total fluoroscopic time is 21.9 seconds COMPARISON: 01/13/2022 FINDINGS: Fluoroscopic images demonstrate marked right hydroureteronephrosis. A right internal ureter al stent is placed in expected position. Surgical changes are noted in the lower lumbar spine and rig ht upper quadrant. IMPRESSION: 1. Right internal ureteral stent in expected position. Please refer to procedure note for full detail s. Reviewed, dictated and finalized at location A. S PROMOTER IMPRESSION: 1. Right internal ureteral stent in expected position. Please refer to procedur e note for full details.
--- NOTE | ~2022-09-24 | NM_ITS ---
EXAMINATION: NM renal flow and function DATE: 09/30/2022 15:03 INDICATION: Acute renal insufficiency TECHNIQUE: 9 mCi Tc-99m MAG3 was administered IV. 40 mg furosemide was administered IV immediately a fterward. The patient was scanned in the supine position. A posterior abdominal radionuclide angiogra m was obtained. A subsequent time course of static images of the kidneys, ureters, and bladder was ob tained. COMPARISON: None FINDINGS: The posterior abdominal radionuclide angiogram and sequential static images show normal size, positio n, and morphology of the kidneys. Peak renal parenchymal uptake was 1.8 min in left kidney and 7.5 mi n in right kidney (normal peak 3-5 minutes). The relative early renal uptake was 52% on the left and 48% on the right (<40% is abnormal). There is right hydronephrosis and hydroureter. T1/2 for clearance of activity from the left kidney and proximal collecting system was 13.7 minutes. T1/2 for clearance of activity from the right kidney and proximal collecting system was 28.2 minutes. Notes on interpretation: T1/2 <10 minutes is normal, 10-15 minutes is low grade obstruction of questi onable clinical significance, 15-20 minutes is partial obstruction that is likely clinically signific ant, >20 minutes is high grade obstruction. Note that false positives may be seen with supine positio dudley, dehydration, severely dilated nonobstructed kidney, atonic collecting system, poor renal functi on, and chronic furosemide use. IMPRESSION: 1. Symmetric kidney function. 2. Right hydroureteronephrosis with markedly delayed activity clearance from the right kidney with T 1/2 of 28.2 minutes consistent with high-grade obstruction. 3. Mildly delayed activity clearance from the left kidney with T1/2 of 13.7 minutes consistent with l ow-grade obstruction of questionable clinical significance. Reviewed, dictated and finalized at location A. HT CREW ORDNANCEMAN IMPRESSION: 1. Symmetric kidney function. 2. Right hydroureteronephrosis with markedly delayed activity clearance from t he right kidney with T1/2 of 28.2 minutes consistent with high-grade obstructio n. 3. Mildly delayed activity clearance from the left kidney with T1/2 of 13.7 min utes consistent with low-grade obstruction of questionable clinical significanc e.
--- NOTE | ~2022-09-24 | CT_ITS ---
EXAMINATION: CT abdomen pelvis wo con DATE: 09/24/2022 03:48 INDICATION: Right lower quadrant abdominal pain radiating to back. Nausea and vomiting. TECHNIQUE: Computed tomography (CT) of the abdomen and pelvis was performed without intravenous contr ast. Automated exposure control and iterative reconstruction technique were employed. The dose-length product was 390.08 mGy-cm. COMPARISON: 11/16/2021 FINDINGS: Mild bibasilar atelectasis. No pleural effusion. Heart size is normal. Small pericardial effusion. Sm all amount of aortic valve and mitral annular calcification. Cholecystectomy clips the gallbladder fo ssa. Liver, pancreas and bilateral adrenal glands are normal. A few scattered splenic calcific lesion s consistent with old granulomatous disease. Bilateral renal cysts the larger on the left measuring 3 .0 cm. 3 mm nonobstructing stone in a lower pole calyx of the right kidney. Is interval progression o f now moderate to severe right hydronephrosis with no distal obstructing stone. There is increase in the degree of focal wall thickening with smooth lobular margins at the right trigonal region of the b ladder with soft tissue density extending into the distalmost right ureter concerning for an obstruct ing transitional cell carcinoma. Appendix is not visualized and there is a suture line at the tip the cecum suggesting prior appendectomy. Bowels are otherwise unremarkable with no obstruction. The uter us is not identified and has likely been surgically resected. No free intraperitoneal gas or fluid. N o pathologically enlarged abdominal or pelvic lymphadenopathy. Severe bilateral hip osteoarthritis. M oderate to severe thoracolumbar spondylosis. L5 laminectomy, partial L4 laminectomy and combined inst rumented anterior and posterior spinal fusion at L5-S1 IMPRESSION: 1. Worsening moderate to severe right hydroureteronephrosis which appears secondary to enlarging foca l mass at the right trigonal region of the bladder extending to the distalmost right ureter which is consistent with the provided history of bladder cancer. 2. Small pericardial effusion. Reviewed, dictated and finalized at location A. T HEATER IMPRESSION: 1. Worsening moderate to severe right hydroureteronephrosis which appears secon noreen to enlarging focal mass at the right trigonal region of the bladder extend ing to the distalmost right ureter which is consistent with the provided histor y of bladder cancer. 2. Small pericardial effusion.
--- NOTE | ~2022-09-24 | XR_ITS ---
EXAMINATION: XR chest 1V portable INDICATION: Epigastric abdominal pain TECHNIQUE: Portable AP chest at 0315 hours COMPARISON: 09/06/2022 FINDINGS: The lungs are free of acute opacities. No pleural effusion or pneumothorax. The cardiomedia stinal silhouette is normal. There is a left shoulder arthroplasty. Changes of anterior fusion proced ure are noted in the cervical spine. IMPRESSION: 1. No acute cardiopulmonary abnormality. Reviewed, dictated and finalized at location A. ESSIONAL SKATER
--- NOTE | ~2022-09-24 | CT_ITS ---
EXAMINATION: CT brain wo con DATE: 09/30/2022 17:01 INDICATION: Blurred vision TECHNIQUE: Computed tomography (CT) of the head was performed without intravenous contrast. The mA wa s adjusted according to patient size. Iterative reconstruction technique was employed. Exam dose: 60 5.33 mGy-cm total exam DLP. COMPARISON: November 16, 2021 CT brain FINDINGS: Bilateral vertebral artery and carotid siphon internal carotid artery calcifications. Nonsp ecific diminished attenuation of the cerebral white matter, likely due to chronic small vessel ischem ic changes. No intracranial mass lesion or hemorrhage or cerebrovascular accident. No midline shift or mass effec t. No subdural or epidural hematoma. The mastoid air cells and paranasal sinuses are normally developed and aerated. No fracture or bone destruction of the cranial vault. Bilateral hyperostosis frontalis interna, not l ikely of any clinical significance. IMPRESSION: Cerebral atherosclerosis and chronic small vessel ischemic changes of the cerebral white matter No acute intracranial finding Reviewed, dictated and finalized at Location A. Reviewed, dictated and finalized at location A. GER CONFIGURATION
[2022-09-24 02:49] LABS: Basophils Absolute Auto 0.1 K/mm3 (0.0-0.1); Basophils Percent Auto 1.6 % (0.2-1.2); Eosinophils Absolute Auto 0.5 K/mm3 (0-0.3); Eosinophils Percent Auto 6.4 % (0-4.4); Hematocrit 31.9 % (37.0-47.0); Immature Granulocyte Absolute 0.03 K/mm3 (0.00-0.031); Immature Granulocyte Percent A 0.4 % (0-0.5); Mean Corpuscular HGB Conc 31.3 g/dl (32-36); Mean Corpuscular Hemoglobin 32.5 pg (26-34); Mean Corpuscular Volume 103.6 fl (80-100); Mean Platelet Volume 10.7 fl (7.4-10.4); Monocytes Absolute Auto 0.5 K/mm3 (0.1-0.6); Monocytes Percent Auto 6.3 % (2.6-8.5); Neutrophils Absolute Auto 5.2 K/mm3 (1.3-6.7); Neutrophils Percent Auto 68.3 % (45.5-73.1); Platelet Count Result 280 k/mm3 (150-375); Red Blood Count 3.08 M/mm3 (4.2-5.4); Red Cell Distribution Width 15.5 % (11.5-14.5); White Blood Count 7.6 K/mm3 (4.5-10.0)
[2022-09-24 03:00] LABS: Add Urine Microscopic? YES; Appearance Urine Clear (Clear); Bilirubin Urine Negative (Negative); Blood Urine Trace-Intact (Negative); Color Urine Light Yellow (Yellow); Glucose Urine UA Negative (Negative); Ketones Urine Negative (Negative); Leukocyte Esterase Ur Negative LEU/UL (Negative); Nitrate Urine Negative (Negative); Protein Urine 1+ mg/dL (Negative); Urobilinogen Urine 0.2 mg/dL (<2.0); pH Urine 6.5 (5.0-9.0)
[2022-09-24 03:02] LABS: Alanine Aminotransferase 12 U/L (6-35); Albumin Level 3.7 g/dL (3.5-5.1); Alkaline Phosphatase 70 U/L (38-126); Anion Gap 7 mmol/L (8-16); Aspartate Amino Transferase 22 U/L (14-36); Bilirubin,Total 0.3 mg/dL (0.2-1.3); Blood Urea Nitrogen 37 mg/dL (7-17); Calcium 9.6 mg/dL (8.4-10.2); Carbon Dioxide 23 mmol/L (22-30); Chloride 106 mmol/L (98-107); Estimated CRCL calculation 13 ml/min; Estimated Glomerular Filt Rate 18; Glucose 124 mg/dL (65-110); Lipase 106 U/L (23-300); Potassium 4.4 mmol/L (3.4-5.0); Sodium 136 mmol/L (137-145)
[2022-09-24 03:08] LABS: RBC Urine 0-2 /hpf (0-2); Squamous Epithelial Cell Urine Rare /hpf (Few); WBC Urine 0-3 /hpf
[2022-09-24 03:25] LABS: Influenza A QL RT-PCR Negative (Negative); Influenza B QL RT-PCR Negative (Negative); RSV RNA, RT-PCR Negative (Negative); SARS-CoV-2 RNA PCR Negative
--- NOTE | 2022-09-24 03:27 | PC.NURSE ---
Report given to SHILO Ayala
[2022-09-24] MEDS: HYDROmorphone HCL INJ (*CRX) 1 MG/ML SYR 0.5 MG IV PUSH ×3 (03:49→09:31)
[2022-09-24] MEDS: SODIUM CHLORIDE 0.9% IV 1,000 ML 999 ML IV CONT (03:50)
[2022-09-24] MEDS: ONDANSETRON INJ 4 MG/2 ML VIAL IV PUSH (03:50)
--- NOTE | 2022-09-24 04:58 | ED.GENADULT ---
HPI - General Adult General Chief complaint: Abdominal Pain Stated complaint: RLQ PAIN Time Seen by Provider: 09/24/22 02:59 History of Present Illness HPI narrative: this is a 77-year-old female presenting to ED with acute onset of lower abdominal pain. Patient states the pain started at 1:30 a.m.. She was sleeping. It is a sharp pain in the right lower quadrant that radiates to her back. It is 10/10 intensity constant. She has never experienced pain like this before and symptoms were relieved by pulling her knees to her chest. Patient notes that she has had nausea and vomiting but denies diarrhea, fever chills. Last bowel movement was several days ago. Patient says this pain is not consistent with pain she has had some constipation in the past. Related Data Home Medications Medication Instructions Recorded Confirmed CBD 2.5 mg PO DAILY 11/05/21 09/06/22 Allergies Allergy/AdvReac Type Severity Reaction Status Date / Time cat dander Allergy Intermediate Sneezing Verified 09/24/22 02:41 nitrofurantoin Allergy Rash Verified 09/24/22 02:41 [From Macrobid] Sulfa (Sulfonamide Allergy Hives Verified 09/24/22 02:41 Antibiotics) morphine AdvReac Intermediate Other Verified 09/24/22 02:41 Bumble Bee Allergy Mild Drowsy, Uncoded 09/24/22 02:41 nausea Review of Systems Review of Systems: CONSTITUTIONAL: Denies night sweats. EYES: No eye pain ENT: Denies rhinorrhea CARDIOVASCULAR: Denies palpitations RESPIRATORY: Denies hemoptysis GASTROINTESTINAL: Denies hematemesis GENITOURINARY: Denies hematuria. SKIN: Denies rash MUSCULOSKELETAL: Denies myalgia. NEUROLOGIC: Denies weakness. 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 Surgical History Surgical History History of appendectomy History of bilateral knee replacement History of bladder surgery (01/2020) Transurethral resection bladder tumor. History of cataract extraction History of cholecystectomy History of cystoscopy History of hysterectomy History of left shoulder replacement History of spinal surgery Family History Family History Father Family history of cardiovascular disease Cerebrovascular accident Mother Cerebrovascular accident Sibling Patient's sister is in good health Family history of malignant neoplasm of breast in first degree relative Social History Social History Social History: Healthcare power of finance attorney: Angelique Gifford, niece. Code status: Full code. Smoking packs per day: 0.25 Smoking cigarettes per day: 5.0 Years smoked: 20 Smoking pack-years: 5.00 Smoking status: Never smoker Tobacco type: cigarettes Second hand tobacco smoke exposure: No Smoking end date: 10/09/72 Alcohol intake: current Drinks per week: 3 Substance use: current Substance use type: marijuana Other substance usage details: CBD/THC gummies, 1 to 2 times per day. Lack of Transportation: No Lack of Food: Never True Current Housing: I Have Housing Concerned About Future Housing: No Difficulty Paying Gas/Electric Bills: No Difficulty Paying for Meds: No Currently Unemployed: No Education: High School Diploma/GED Difficulty w/ Childcare or Family Care: No Spiritual care concerns: No Exam Narrative: APPEARANCE: No apparent distress. Head: atraumatic. EYES: EOMI, NOSE: Atraumatic NECK: Trachea midline RESPIRATORY: No increased rate of breathing Clear to auscultation bilaterally
--- NOTE | 2022-09-24 05:47 | ECG_ITS ---
Measurements Intervals [place] Rate: 67 P: 42 CA: 201 QRS: -22 QRSD: 113 T: 17 QT: 389 QTc: 413 Interpretive Statements SINUS RHYTHM WITH OCCASIONAL VENTRICULAR PREMATURE COMPLEXES BORDERLINE LEFT AXIS DEVIATION [QRS AXIS < -20] INCOMPLETE RIGHT BUNDLE BRANCH BLOCK [90+ ms QRS DURATION, TERMINAL R IN V1/V2, 40+ ms S IN I/aVL/V4/V5/V6] COMPARED TO ECG 09/06/2022 07:59:16 NO SIGNIFICANT CHANGES Electronically Signed On 09-24-2022 8:43:52 [employer]GER [employer] by Carly Rios M.D.
--- NOTE | 2022-09-24 11:12 | WPDURCON ---
Assessment and Plan Assessment and plan (1) History of bladder cancer: Code(s): Z85.51 - Personal history of malignant neoplasm of bladder Status: Acute (2) Hydronephrosis of right kidney: Code(s): N13.30 - Unspecified hydronephrosis Status: Acute Plan To OR for cystoscopy and right ureteral stent placement, right retrograde pyelogram, possible TURBT. Patient denies blood thinners. Risks and benefits discussed with patient. Discussed risks of infection, need for further surgery, need for nephrostomy, postoperative pain, injury to urethra/bladder/ureter/kidney, perforation of bladder requiring open repair, stent discomfort, anesthetic complication, she understands and would like to proceed. Ceftriaxone 1 g IV Urology Consult Note HPI Date Seen: 09/24/22 Requesting Physician: Jesus Braun MD Primary Care Provider: Justin Ramírez DO Consult Narrative Narrative: Mariposa Andrade is a 77 year old female with history of bladder cancer and right ureteral stricture who presents to [facility] ER for intense sudden onset right flank pain that started at 1:30 am. She reports her pain is relieved with dilaudid. She required a ureteral stent in Nov 2021 which was subsequently removed by Dr. Nur in January 2022. No tumor was noted during either of these procedures. Review of Systems Constitutional: Constitutional: Reports no additional constitutional complaints Eyes: Eyes: Reports no additional eye complaints ENT: Reports system reviewed and no additional complaints, except as documented Cardiovascular: Cardiovascular: Reports no additional cardiovascular complaints Respiratory: Respiratory: Reports no additional respiratory complaints Gastrointestinal: Gastrointestinal: Reports no additional gastrointestinal complaints Genitourinary: Genitourinary: Reports no additional female genitourinary complaints Integumentary/Breasts: Skin/Breast: Reports system reviewed and no additional complaints, except as docu Neurologic: Reports system reviewed and no additional complaints, except as documented Psychiatric: Psychiatric: Reports no additional psychiatric complaints PMFSH Past Medical History Medical History Chronic kidney disease, stage 3 Gastroesophageal reflux disease Hypertension Macrocytic anemia Obstructive sleep apnea 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 Surgical History Surgical History History of appendectomy History of bilateral knee replacement History of bladder surgery (01/2020) Transurethral resection bladder tumor. History of cataract extraction History of cholecystectomy History of cystoscopy History of hysterectomy History of left shoulder replacement History of spinal surgery Family History Family History Father Family history of cardiovascular disease Cerebrovascular accident Mother Cerebrovascular accident Sibling Patient's sister is in good health Family history of malignant neoplasm of breast in first degree relative Social History Social History Social History: Healthcare power of deputy commonwealth's attorney: Angelique Gifford, niece. Code status: Full code. Smoking packs per day: 0.25 Smoking cigarettes per day: 5.0 Years smoked: 20 Smoking pack-years: 5.00 Smoking status: Never smoker Tobacco type: cigarettes Second hand tobacco smoke exposure: No Smoking end date: 10/09/72 Alcohol intake: current Drinks per week: 3 Substance use: current Substance use type: marijuana Other substance usage details: CBD/THC gummies, 1 to 2 times per day. Lack of Transportation: No Lack of Food: Never True Current Housing: I Have Housing
--- NOTE | 2022-09-24 11:20 | WPDHPUPDATE1 ---
History and Physical Update Update Date/Time: 09/24/22 11:20 History and Physical has been reviewed, including an updated exam of the patient. There are NO changes in the patient's condition. Risks, benefits, and alternatives have been discussed and questions answered. Patient agrees to proceed with procedure.
[2022-09-24] MEDS: LACTATED RINGERS 1,000 ML 30 ML IV CONT (12:00)
--- NOTE | 2022-09-24 12:20 | WPDANESEPPF ---
Anes - Initial Pre Proc Eval Procedure: Operation Date: 09/24/22 12:30 Proposed Procedures p Cysto, RPG, Stone Ext, Stent Placement(Right) - Mateusz Jaramillo MD Date/Time: 09/24/22 12:20 Surgeon: Jesus Braun MD Pre Op Diagnosis: Hydronephrosis Patient Data Age: 77 Gender: F Height: 1.57 m Weight: 62.7 kg Last Vital Signs Temp 36.6 C 09/24/22 02:34 Pulse 67 09/24/22 10:19 Resp 15 09/24/22 10:19 BP 150/57 H 09/24/22 10:19 Pulse Ox 96 09/24/22 10:19 O2 Del Method Room Air 09/24/22 02:34 Allergies Allergy/AdvReac Type Severity Reaction Status Date / Time cat dander Allergy Intermediate Sneezing Verified 09/24/22 02:41 nitrofurantoin Allergy Rash Verified 09/24/22 02:41 [From Macrobid] Sulfa (Sulfonamide Allergy Hives Verified 09/24/22 02:41 Antibiotics) morphine AdvReac Intermediate Other Verified 09/24/22 02:41 Bumble Bee Allergy Mild Drowsy, Uncoded 09/24/22 02:41 nausea Home Medications Medication Instructions Recorded Confirmed Type CBD 2.5 mg PO DAILY 11/05/21 09/06/22 History Saccharomyces boulardii 250 mg 250 mg PO TID #90 caps 09/10/22 Rx capsule (Florastor) acetaminophen 325 mg tablet (Mapap 650 mg PO Q6H PRN Mild Pain (1-3) 09/10/22 Rx (acetaminophen)) Or Fever #30 tabs furosemide 40 mg tablet 40 mg PO DAILY #30 tabs 09/10/22 Rx potassium chloride 10 mEq 10 meq PO DAILY #30 caps 09/10/22 Rx capsule,extended release triamcinolone acetonide 0.1 % 1 applic topical Q12HR #60 grams 09/10/22 Rx topical ointment Laboratory Tests 09/24/22 09/24/22 09/24/22 02:45 02:45 02:45 WBC 7.6 K/mm3 K/mm3 (4.5-10.0) RBC 3.08 M/mm3 L M/mm3 (4.2-5.4) Hgb 10.0 g/dL L g/dL (12.0-15.0) Hct 31.9 % L % (37.0-47.0) MCV 103.6 fl H fl (80-100) MCH 32.5 pg pg (26-34) MCHC 31.3 g/dl L g/dl (32-36) RDW 15.5 % H % (11.5-14.5) Plt Count 280 k/mm3 k/mm3 (150-375) MPV 10.7 fl H fl (7.4-10.4) Immature Gran % (Auto) 0.4 % % (0-0.5) Neut % (Auto) 68.3 % % (45.5-73.1) Lymph % (Auto) 17.0 % L % (18.3-44.2) [place] % (Auto) 6.3 % % (2.6-8.5) Eos % (Auto) 6.4 % H % (0-4.4) Baso % (Auto) 1.6 % H % (0.2-1.2) Lymph # (Auto) 1.30 K/mm3 K/mm3 (0.9-3.2) [place] # (Auto) 0.5 K/mm3 K/mm3 (0.1-0.6) Eos # (Auto) 0.5 K/mm3 H K/mm3 (0-0.3) Baso # (Auto) 0.1 K/mm3 K/mm3 (0.0-0.1) Abs Immat Gran (auto) 0.03 K/mm3 K/mm3 (0.00-0.031) Absolute Neuts (auto) 5.2 K/mm3 K/mm3 (1.3-6.7) Absolute Nucleated RBC 0.0 K/mm3 K/mm3 (0.0-0.012) Nucleated RBC % 0.0 % % (0.0-0.2) Sodium 136 mmol/L L mmol/L (137-145) Potassium 4.4 mmol/L mmol/L (3.4-5.0) Chloride 106 mmol/L mmol/L (98-107) Carbon Dioxide 23 mmol/L mmol/L (22-30) Anion Gap 7 mmol/L L mmol/L (8-16) BUN 37 mg/dL H D mg/dL (7-17) Creatinine 2.60 mg/dL H mg/dL (0.7-1.0) Estim Creat Clear Calc 13 ml/min ml/min Estimated GFR 18 L (59 - ) Glucose 124 mg/dL H mg/dL (65-110) Calcium 9.6 mg/dL mg/dL (8.4-10.2) Total Bilirubin 0.3 mg/dL mg/dL (0.2-1.3) AST 22 U/L U/L (14-36) ALT 12 U/L U/L (6-35) Alkaline Phosphatase 70 U/L U/L (38-126) Total Protein 7.0 g/dL g/dL (6.3-8.2) Albumin 3.7 g/dL g/dL (3.5-5.1) Lipase 106 U/L U/L (23-300) Urine Color Urine Appearance Urine pH Ur Specific [place] Urine Protein Urine Glucose (UA) Urine Ketones Ur Blood (Man) Urine Nitrate Urine Bilirubin Urine Urobilinogen Leukocyte Esterase
--- NOTE | 2022-09-24 13:06 | W.PM.PROC2 ---
Procedure Note - Detailed Date of Procedure 09/24/22 Pre-op Diagnosis Right Hydronephrosis Post-op Diagnosis Same Procedure Performed 1. Cystoscopy and right ureteral stent placement. 2. Right retrograde pyelogram 3. Fluoroscopy with interpretation of images, less than 1 hour Surgeon Mateusz Jaramillo MD Anesthesia General (LMA) Indications This is a 77 year old woman who presents to the [facility] ER with severe right flank pain and hydronephrosis with elevated SCr. She has required stent placement in the past for similar problems in November of this year. After discussion of risks and benefits she agrees to proceed with ureteral stent placement. Findings 1. No papillary bladder tumor or apparent lesion. 2. Left Ureteral orifice not visualized. 3. Right ureteral orifice very difficult to access and scarred, suspect from previous resection. Description of Procedure After offering informed written consent the patient was brought to the operating room and placed on the cystoscopy table. Anesthesia was induced and she was transferred to the dorsal lithotomy position and prepped and draped. A call to order was performed to confirm patient and procedure. A 22F cystoscope was placed atraumatically and pancysto performed with no apparent lesions noted. The right ureteral orifice was difficult to find, I did not visualize the left orifice. Methylene blue was administered IV to assist. A mound of scar tissue was probed with the 5F ureteral catheter and after many attempts with a straight and then a glide wire, the ureter was accessed. The 5F catheter was used to perform a retrograde pyelogram which demonstrated no filling defect and a tortuous ureter with moderate to severe hydronpehrosis noted. The wire was replaced and a 6F stent advanced over the wire to the renal pelvis and deployed forming an excellent curl in the renal pelvis under fluoroscopy and in the bladder by direct vision. The bladder was drained and a 16F Duff placed. The patient was awoken from anesthesia and transferred to the PACU having suffered no apparent complication. Implants 6F variable length right ureteral stent. Estimated Blood Loss 5 Drains Yes (6F variable length stent) Complications No immediate complications Condition Stable Disposition PACU
--- NOTE | 2022-09-24 15:03 | PM.IMHP ---
H&P: HPI History of Present Illness Date/Time: 09/24/22 15:03 Chief Complaint: Abdominal pain Narrative: This is a 77-year-old female who presented with acute onset lower abdominal pain that started last night while she was sleeping. He was severe and sharp radiated to her back. She had not had her pain like this before. There was associated nausea and vomiting no diarrhea. She denies any fever chills. She denies any urinary complaints small. she reports that last few days she was noted to have worsened renal function creatinine of 2.9 daughter on have the report of this. She was given some IV fluids. She denies any urinary symptoms no burning urination No frequency or urgency. She was found to have right-sided hydronephrosis and is admitted for further evaluation and management. She has been taken to the OR and had underwent cystoscopy with ureteral stent placement. She does have history of bladder cancer in the past and had removal in 2019. She did have hydronephrosis earlier this year or last year with stent placement which has since then been removed. Review of Systems Review of Systems: - CONSTITUTIONAL: Denies weight loss, fever and chills. - HEENT: Denies changes in vision and hearing - RESPIRATORY: Denies SOB and cough. - CV: Denies palpitations and CP. - GI: Reports abdominal pain, nausea, vomiting and denies diarrhea. - : Denies dysuria and urinary frequency. - MSK: Denies myalgia and joint pain. - SKIN: Denies rash and pruritus. - NEUROLOGICAL: Denies headache and syncope. - PSYCHIATRIC: Denies recent changes in mood. Denies anxiety and depression. 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 Surgical History Surgical History History of appendectomy History of bilateral knee replacement History of bladder surgery (01/2020) Transurethral resection bladder tumor. History of cataract extraction History of cholecystectomy History of cystoscopy History of hysterectomy History of left shoulder replacement History of spinal surgery Family History Family History Father Family history of cardiovascular disease Cerebrovascular accident Mother Cerebrovascular accident Sibling Patient's sister is in good health Family history of malignant neoplasm of breast in first degree relative Social History Social History Social History: Healthcare power of bankruptcy attorney: Angelique Balta, niece. Code status: Full code. Smoking packs per day: 0.25 Smoking cigarettes per day: 5.0 Years smoked: 20 Smoking pack-years: 5.00 Smoking status: Never smoker Tobacco type: cigarettes Second hand tobacco smoke exposure: No Smoking end date: 10/09/72 Alcohol intake: current Drinks per week: 3 Substance use: current Substance use type: marijuana Other substance usage details: CBD/THC gummies, 1 to 2 times per day. Lack of Transportation: No Lack of Food: Never True Current Housing: I Have Housing Concerned About Future Housing: No Difficulty Paying Gas/Electric Bills: No Difficulty Paying for Meds: No Currently Unemployed: No Education: High School Diploma/GED Difficulty w/ Childcare or Family Care: No Spiritual care concerns: No Meds Home Medications and Allergies Home Medications Medication Instructions Recorded Confirmed Type CBD 2.5 mg PO DAILY 11/05/21 09/06/22 History Saccharomyces boulardii 250 mg 250 mg PO TID #90 caps 09/10/22 Rx capsule (Florastor) acetaminoph
--- NOTE | 2022-09-24 17:30 | PC.NURSE ---
This patient, Mariposa Andrade, was admitted to Medical Room 346-01. Patient/family oriented to hospital policies and general routines including ID bracelet, bed and alarms, visiting hours, pain management, procedures, bathroom and other care routines, personal items, smoking policy, room service/diet, and visiting hours. Valuables list has been completed. Information on how to activate the Rapid Response Team has been discussed. Patient/Family are encouraged to report perceived risks to care and to ask questions if they do not understand what they are told or what they should do.
[2022-09-24] MEDS: HEPARIN SODIUM 5,000 UNITS/ML VIAL 5000 UNITS SUB-Q (20:46)
[2022-09-25] VITALS (9 sets, daily range): BP systolic 126–168; BP diastolic 55–86; PULSE 45–94; RESP 16–18; TEMP 36.6–36.8; O2SAT 98–99
[2022-09-25 06:09] LABS: Basophils Absolute Auto 0.1 K/mm3 (0.0-0.1); Basophils Percent Auto 1.6 % (0.2-1.2); Eosinophils Absolute Auto 0.7 K/mm3 (0-0.3); Eosinophils Percent Auto 15.3 % (0-4.4); Hematocrit 28.6 % (37.0-47.0); Hemoglobin 8.5 g/dL (12.0-15.0); Immature Granulocyte Absolute 0.01 K/mm3 (0.00-0.031); Immature Granulocyte Percent A 0.2 % (0-0.5); Lymphocytes Absolute Auto 1.31 K/mm3 (0.9-3.2); Lymphocytes Percent Auto 29.4 % (18.3-44.2); Mean Corpuscular HGB Conc 29.7 g/dl (32-36); Mean Corpuscular Hemoglobin 32.8 pg (26-34); Mean Corpuscular Volume 110.4 fl (80-100); Monocytes Absolute Auto 0.4 K/mm3 (0.1-0.6); Monocytes Percent Auto 8.3 % (2.6-8.5); Neutrophils Percent Auto 45.2 % (45.5-73.1); Platelet Count Result 190 k/mm3 (150-375); Red Blood Count 2.59 M/mm3 (4.2-5.4); Red Cell Distribution Width 15.6 % (11.5-14.5); White Blood Count 4.5 K/mm3 (4.5-10.0)
[2022-09-25 06:21] LABS: Alanine Aminotransferase 11 U/L (6-35); Alkaline Phosphatase 50 U/L (38-126); Anion Gap 6 mmol/L (8-16); Aspartate Amino Transferase 17 U/L (14-36); Bilirubin,Total 0.3 mg/dL (0.2-1.3); Blood Urea Nitrogen 34 mg/dL (7-17); Calcium 9.3 mg/dL (8.4-10.2); Carbon Dioxide 22 mmol/L (22-30); Chloride 112 mmol/L (98-107); Estimated CRCL calculation 13 ml/min; Estimated Glomerular Filt Rate 18; Glucose 83 mg/dL (65-110); Magnesium 2.4 mg/dL (1.6-2.3); Potassium 4.7 mmol/L (3.4-5.0); Sodium 140 mmol/L (137-145)
[2022-09-25 07:28] LABS: Platelet Estimate Adequate (Adequate)
[2022-09-25 07:29] LABS: Burr Cells 1+ (NORMAL); Ovalocytes 1+ (NORMAL); Schistocytes Rare (NORMAL)
--- NOTE | 2022-09-25 08:31 | PM.IMPN ---
Progress Note: A&P Assessment and Plan (1) Hydronephrosis of right kidney: Code(s): N13.30 - Unspecified hydronephrosis Status: Acute (2) Acute kidney injury: Code(s): N17.9 - Acute kidney failure, unspecified Status: Acute (3) Obstructive sleep apnea: Code(s): G47.33 - Obstructive sleep apnea (adult) (pediatric) Status: Acute (4) Hypertension: Code(s): I10 - Essential (primary) hypertension Status: Acute (5) Urothelial carcinoma of bladder: Code(s): C67.9 - Malignant neoplasm of bladder, unspecified Status: Acute Plan The patient presented to the emergency department For evaluation of acute onset abdominal pain. # abdominal pain: Found to have PABLO and worsening moderate to severe right-sided hydro ureteraonephrosis. peer to secondary to enlarging focal mass right trigone of bladder extending to the distal most right ureter. History of bladder cancer in the past. Urology has been consulted. Status post cystoscopy With right ureteral stent placement. No papillary bladder tumor apparently visualized. Urinalysis performed in the ER negative for infection the there is some trace blood noted. She received 1 dose of ceftriaxone prior to OR. # PABLO on CKD stage 3:creatinine 2.6 baseline around 1.4-1.5. Likely due to hydronephrosis. Hold diuretic. Gentle IV fluid as ordered. creatinine remains the same today. encourage oral fluid intake. recheck in am. await renal improvement. may need ivf if not improving. continue to hold diureic. blanchard in place. removal instruction per Urology # diastolic congestive heart failure:echocardiogram:EF > 70%, grade I diastolic dysfunction. severe LAE, mild CLEMENTINE, moderate pulmonary hypertension ; small pericardial effusion. # hypertension Medication # Chronic anemia stable counts ?#Obstructive sleep apnea on CPAP ?#Chronic insomnia ?#History of bladder cancer status post TURBT in January 2020 # DVT prophylaxis heparin subQ # code status full code Subjective Date/time seen: 09/25/22 08:31 Interval history: feels well. no abdominal pain nausea, vomting. blanchard in place, no hematuria, no fever, chills . Review of Systems Review of Systems: All systems reviewed & are unremarkable except as noted in HPI and below Exam Narrative: APPEARANCE: No apparent distress. alert and oriented x3 Head: atraumatic. EYES:? EOMI, PERRLA NOSE: Atraumatic NECK: Trachea midline RESPIRATORY: No increased rate of breathing? Clear to auscultation bilaterally CARDIOVASCULAR: RRR, pulses are +2 in all extremities ABDOMINAL:? Soft, nontender MUSCULOSKELETAl: No obvious deformities NEURO: Alert. Moving 4/4 extremities SKIN:: Warm, dry. Normal color PSYCHIATRIC: Normal affect blanchard in place with clear urine in bag Objective Data Vital Signs Vital Signs: Vital Signs - 24 hr 09/24/22 09:27 09/24/22 10:19 09/24/22 13:09 Temperature 97.7 F Pulse Rate 71 67 82 Respiratory Rate 13 15 16 Blood Pressure 143/58 H 150/57 H 168/74 H Pulse Oximetry 97 96 100 Oxygen Delivery Simple Face Mask Oxygen Flow Rate 6 09/24/22 13:25 09/24/22 13:44 09/24/22 14:03 Temperature Pulse Rate 74 74 73 Respiratory Rate 14 16 14 Blood Pressure 152/90 H 152/90 H 152/90 H Pulse Oximetry 98 99 100 Oxygen Delivery Room Air Room Air Room Air Oxygen Flow Rate 09/24/22 12:19 09/24/22 16:37 09/24/22 16:50 Temperature 97.9 F Pulse Rate 65 66 Respiratory Rate 16 Blood Pressure 146/82 H Pulse Oximetry 99 Oxygen Delivery Room Air Oxygen Flow Rate 09/24/22 20:00 09/24/22 20:00 09/24/22 21:35 Temperature 98 F Pulse Rate 61 56 L Respiratory Rate 12 Blood Pressure 139/42 L Pulse Oximetry 97 Oxygen Delivery Room Air Oxygen Flow Rate 09/25/22 00:00 09/25/22 04:00 09/25/22 05:14 Temperature 97.8 F Pulse Rate 64 64 65 Respiratory Rate 16 Blood Pressure 126/86 Pulse Oximetry 98 Oxygen Delivery Oxygen Yo
[2022-09-25] MEDS: HEPARIN SODIUM 5,000 UNITS/ML VIAL 5000 UNITS SUB-Q ×2 (08:35→23:10)
--- NOTE | 2022-09-25 09:47 | WPDUROPN2 ---
Progress Note: A&P Assessment and Plan (1) Chronic kidney disease, stage 3: Code(s): N18.30 - Chronic kidney disease, stage 3 unspecified Status: Acute (2) History of bladder cancer: Code(s): Z85.51 - Personal history of malignant neoplasm of bladder Status: Acute (3) Hydronephrosis of right kidney: Code(s): N13.30 - Unspecified hydronephrosis Status: Acute Plan 1. Maintain Duff cathete for today for maximal urinar drainage, if no improvement in SCr may remove tomorrow, continue to trend SCr. 2. Will discuss stent with Dr. Nur, patient may require chronic stent with exchanges. Subjective Subjective Date/Time Seen: 09/25/22 09:47 Review of Systems Review of Systems: NATHANAEL, patient reports significant improvement in pain with the stent. SCr stable. Exam Narrative: KAL, A&Ox3, resting comfortably in bed. RRR eWOB S/NT/ND Duff in place. Objective Data Vital Signs Vital Signs: Vital Signs - 24 hr 09/24/22 10:19 09/24/22 13:09 09/24/22 13:25 Temperature 97.7 F Pulse Rate 67 82 74 Respiratory Rate 15 16 14 Blood Pressure 150/57 H 168/74 H 152/90 H Pulse Oximetry 96 100 98 Oxygen Delivery Simple Face Mask Room Air Oxygen Flow Rate 6 09/24/22 13:44 09/24/22 14:03 09/24/22 12:19 Temperature 97.9 F Pulse Rate 74 73 65 Respiratory Rate 16 14 16 Blood Pressure 152/90 H 152/90 H 146/82 H Pulse Oximetry 99 100 99 Oxygen Delivery Room Air Room Air Oxygen Flow Rate 09/24/22 16:37 09/24/22 16:50 09/24/22 20:00 Temperature Pulse Rate 66 Respiratory Rate Blood Pressure Pulse Oximetry Oxygen Delivery Room Air Room Air Oxygen Flow Rate 09/24/22 20:00 09/24/22 21:35 09/25/22 00:00 Temperature 98 F Pulse Rate 61 56 L 64 Respiratory Rate 12 Blood Pressure 139/42 L Pulse Oximetry 97 Oxygen Delivery Oxygen Flow Rate 09/25/22 04:00 09/25/22 05:14 Temperature 97.8 F Pulse Rate 64 65 Respiratory Rate 16 Blood Pressure 126/86 Pulse Oximetry 98 Oxygen Delivery Oxygen Flow Rate Intake/Output Intake/Output: Intake & Output 09/22/22 09/23/22 09/24/22 09/25/22 23:59 23:59 23:59 23:59 Intake Total 1450 Output Total 950 Balance 1450 -950 Meds/Results Medications: Active Medications Generic Name Dose Route Start Last Admin Trade Name Freq PRN Reason Stop Dose Admin Heparin Sodium (Porcine) 5,000 units 09/24/22 21:00 09/25/22 08:35 Heparin Sodium 5,000 Units/Ml Vial SUB-Q 5,000 units Q12HR VIOLET Administration Hydromorphone HCl 0.5 mg 09/24/22 06:00 09/24/22 09:31 Hydromorphone Hcl Inj (*Crx) 1 Mg/Ml Syr IV PUSH 0.5 mg Q4H PRN Administration Pain Rated 7-10 Non-Formulary Medication 2.5 mg 09/25/22 09:00 Cbd PO 10/25/22 08:59 DAILY VIOLET Ondansetron HCl 4 mg 09/24/22 06:00 Ondansetron Inj 4 Mg/2 Ml Vial IV PUSH Q4H PRN Nausea Saccharomyces Boulardii 250 mg 09/25/22 09:00 Saccharomyces Boulardii 250 Mg Capsule PO TID VIOLET Triamcinolone Acetonide 1 applic 09/25/22 08:33 Triamcinolone Acet 0.1% Oint 15 Gm Tube TOPICAL Q12HR PRN Rash Radiology Results: ITS Impressions Chest X-Ray 09/24/22 11:50 IMPRESSION: 1. No acute cardiopulmonary abnormality. Retrograde Pyelogram 09/24/22 14:38 IMPRESSION: 1. Right internal ureteral stent in expected position. Please refer to procedure note for full details. Abdomen/Pelvis CT 09/24/22 14:49 IMPRESSION: 1. Worsening moderate to severe right hydroureteronephrosis which appears secondary to enlarging focal mass at the right trigonal region of the bladder extending to the distalmost right ureter which is consistent with the provided history of bladder cancer. 2. Small pericardial effusion. Labs Labs: Laboratory Results - last 24 hr 09/25/22 09/25/22 06:04 06:04 WBC 4.5 RBC 2.59 L Hgb 8.5 L Hct 28.6 L MCV 110.
[2022-09-25] MEDS: SACCHAROMYCES BOULARDII 250 MG CAPSULE PO ×3 (11:06→16:56)
[2022-09-26] VITALS (10 sets, daily range): BP systolic 150–162; BP diastolic 49–63; PULSE 65–75; RESP 16–18; TEMP 36.5–37.1; O2SAT 97–100
[2022-09-26 05:53] LABS: Basophils Absolute Auto 0.1 K/mm3 (0.0-0.1); Basophils Percent Auto 1.4 % (0.2-1.2); Eosinophils Absolute Auto 0.8 K/mm3 (0-0.3); Eosinophils Percent Auto 16.8 % (0-4.4); Hematocrit 28.3 % (37.0-47.0); Hemoglobin 9.1 g/dL (12.0-15.0); Immature Granulocyte Absolute 0.01 K/mm3 (0.00-0.031); Immature Granulocyte Percent A 0.2 % (0-0.5); Lymphocytes Absolute Auto 1.42 K/mm3 (0.9-3.2); Lymphocytes Percent Auto 28.4 % (18.3-44.2); Mean Corpuscular HGB Conc 32.2 g/dl (32-36); Mean Corpuscular Hemoglobin 32.9 pg (26-34); Mean Corpuscular Volume 102.2 fl (80-100); Mean Platelet Volume 11.1 fl (7.4-10.4); Monocytes Absolute Auto 0.4 K/mm3 (0.1-0.6); Monocytes Percent Auto 7.6 % (2.6-8.5); Neutrophils Absolute Auto 2.3 K/mm3 (1.3-6.7); Neutrophils Percent Auto 45.6 % (45.5-73.1); Platelet Count Result 219 k/mm3 (150-375); Red Blood Count 2.77 M/mm3 (4.2-5.4); Red Cell Distribution Width 15.3 % (11.5-14.5)
[2022-09-26 06:07] LABS: Alanine Aminotransferase 10 U/L (6-35); Alkaline Phosphatase 49 U/L (38-126); Anion Gap 3 mmol/L (8-16); Aspartate Amino Transferase 20 U/L (14-36); Bilirubin,Total 0.2 mg/dL (0.2-1.3); Blood Urea Nitrogen 30 mg/dL (7-17); Calcium 9.2 mg/dL (8.4-10.2); Carbon Dioxide 24 mmol/L (22-30); Chloride 109 mmol/L (98-107); Estimated CRCL calculation 14 ml/min; Estimated Glomerular Filt Rate 20; Glucose 84 mg/dL (65-110); Magnesium 2.3 mg/dL (1.6-2.3); Potassium 4.2 mmol/L (3.4-5.0); Sodium 136 mmol/L (137-145)
--- NOTE | 2022-09-26 08:40 | WPDUROPN2 ---
Progress Note: A&P Assessment and Plan (1) Hydronephrosis of right kidney: Code(s): N13.30 - Unspecified hydronephrosis Status: Acute Assessment and Plan: ureteral stent in place. outpatient urologic follow-up with (2) History of bladder cancer: Code(s): Z85.51 - Personal history of malignant neoplasm of bladder Status: Acute (3) Chronic kidney disease, stage 3: Code(s): N18.30 - Chronic kidney disease, stage 3 unspecified Status: Acute Assessment and Plan: Follow creatinine Subjective Subjective Date/Time Seen: 09/26/22 08:40 tolerating stent without discomfort. urinary catheter in place Exam Narrative: resting comfortably urine slightly pink normal breathing Objective Data Vital Signs Vital Signs: Vital Signs - 24 hr 09/25/22 12:00 09/25/22 16:00 09/25/22 14:00 Temperature 98.3 F Pulse Rate 94 70 71 Respiratory Rate 18 Blood Pressure 154/64 H Pulse Oximetry 98 Oxygen Delivery 09/25/22 20:48 09/25/22 20:00 09/25/22 20:00 Temperature 98.2 F Pulse Rate 78 71 Respiratory Rate 16 Blood Pressure 168/55 H Pulse Oximetry 99 Oxygen Delivery Room Air 09/26/22 00:00 09/26/22 04:00 09/26/22 06:00 Temperature 97.7 F Pulse Rate 72 67 69 Respiratory Rate 16 Blood Pressure 150/49 H Pulse Oximetry 97 Oxygen Delivery Intake/Output Intake/Output: Intake & Output 09/23/22 09/24/22 09/25/22 09/26/22 23:59 23:59 23:59 23:59 Intake Total 1450 720 350 Output Total 2200 Balance 1450 -1480 350 Meds/Results Medications: Active Medications Generic Name Dose Route Start Last Admin Trade Name Freq PRN Reason Stop Dose Admin Heparin Sodium (Porcine) 5,000 units 09/24/22 21:00 09/25/22 23:10 Heparin Sodium 5,000 Units/Ml Vial SUB-Q 5,000 units Q12HR VIOLET Administration Hydromorphone HCl 0.5 mg 09/24/22 06:00 09/24/22 09:31 Hydromorphone Hcl Inj (*Crx) 1 Mg/Ml Syr IV PUSH 0.5 mg Q4H PRN Administration Pain Rated 7-10 Non-Formulary Medication 2.5 mg 09/25/22 09:00 Cbd PO 10/25/22 08:59 DAILY VIOLET Ondansetron HCl 4 mg 09/24/22 06:00 Ondansetron Inj 4 Mg/2 Ml Vial IV PUSH Q4H PRN Nausea Saccharomyces Boulardii 250 mg 09/25/22 09:00 09/25/22 16:56 Saccharomyces Boulardii 250 Mg Capsule PO 250 mg TID VIOLET Administration Triamcinolone Acetonide 1 applic 09/25/22 08:33 Triamcinolone Acet 0.1% Oint 15 Gm Tube TOPICAL Q12HR PRN Rash Radiology Results: ITS Impressions Chest X-Ray 09/24/22 11:50 IMPRESSION: 1. No acute cardiopulmonary abnormality. Retrograde Pyelogram 09/24/22 14:38 IMPRESSION: 1. Right internal ureteral stent in expected position. Please refer to procedure note for full details. Abdomen/Pelvis CT 09/24/22 14:49 IMPRESSION: 1. Worsening moderate to severe right hydroureteronephrosis which appears secondary to enlarging focal mass at the right trigonal region of the bladder extending to the distalmost right ureter which is consistent with the provided history of bladder cancer. 2. Small pericardial effusion. Labs Labs: Laboratory Results - last 24 hr 09/26/22 09/26/22 05:23 05:23 WBC 5.0 RBC 2.77 L Hgb 9.1 L Hct 28.3 L MCV 102.2 H D MCH 32.9 MCHC 32.2 RDW 15.3 H Plt Count 219 MPV 11.1 H Immature Gran % (Auto) 0.2 Neut % (Auto) 45.6 Lymph % (Auto) 28.4 Hughes % (Auto) 7.6 Eos % (Auto) 16.8 H Baso % (Auto) 1.4 H Lymph # (Auto) 1.42 Hughes # (Auto) 0.4 Eos # (Auto) 0.8 H Baso # (Auto) 0.1 Abs Immat Gran (auto) 0.01 Absolute Neuts (auto) 2.3 Absolute Nucleated RBC 0.0 Nucleated RBC % 0.0 Sodium 136 L Potassium 4.2 Chloride 109 H Carbon Dioxide 24 Anion Gap 3 L BUN 30 H Creatinine 2.30 H Estim Creat Clear Calc 14 Estimated GFR 20 L Glucose 84 Calcium 9.2 Magnesium 2.3
[2022-09-26] MEDS: SACCHAROMYCES BOULARDII 250 MG CAPSULE PO ×3 (09:36→17:25)
[2022-09-26] MEDS: HEPARIN SODIUM 5,000 UNITS/ML VIAL 5000 UNITS SUB-Q ×2 (09:36→21:04)
[2022-09-26] MEDS: SODIUM CHLORIDE 0.9% IV 500 ML 50 ML IV CONT (15:11)
--- NOTE | 2022-09-26 18:20 | PM.IMPN ---
Progress Note: A&P Assessment and Plan (1) Hydronephrosis of right kidney: Code(s): N13.30 - Unspecified hydronephrosis Status: Acute (2) Acute kidney injury: Code(s): N17.9 - Acute kidney failure, unspecified Status: Acute (3) Obstructive sleep apnea: Code(s): G47.33 - Obstructive sleep apnea (adult) (pediatric) Status: Acute (4) Hypertension: Code(s): I10 - Essential (primary) hypertension Status: Acute (5) Urothelial carcinoma of bladder: Code(s): C67.9 - Malignant neoplasm of bladder, unspecified Status: Acute Plan The patient presented to the emergency department For evaluation of acute onset abdominal pain. # abdominal pain: Found to have PABLO and worsening moderate to severe right-sided hydro ureteraonephrosis. peer to secondary to enlarging focal mass right trigone of bladder extending to the distal most right ureter. History of bladder cancer in the past. Urology has been consulted. Status post cystoscopy With right ureteral stent placement. No papillary bladder tumor apparently visualized. Urinalysis performed in the ER negative for infection the there is some trace blood noted. She received 1 dose of ceftriaxone prior to OR. # PABLO on CKD stage 3:creatinine 2.6 baseline around 1.4-1.5. Likely due to hydronephrosis. Hold diuretic. Gentle IV fluid as ordered. creatinine remains the same today. encourage oral fluid intake. recheck in am. await renal improvement. may need ivf if not improving. continue to hold diureic. blanchard in place. removal instruction per Urology Creatinine improved to 2.3 today. Will give gentle fluids today recheck in a.m. # diastolic congestive heart failure:echocardiogram:EF > 70%, grade I diastolic dysfunction. severe LAE, mild CLEMENTINE, moderate pulmonary hypertension ; small pericardial effusion. # hypertension Medication # Chronic anemia stable counts ?#Obstructive sleep apnea on CPAP ?#Chronic insomnia ?#History of bladder cancer status post TURBT in January 2020 # DVT prophylaxis heparin subQ # code status full code Subjective Date/time seen: 09/26/22 18:20 Interval history: No in complaints. Feels well. Eating and drinking well. Blanchard with pancreas urine in bag. No fever chills. Review of Systems Review of Systems: All systems reviewed & are unremarkable except as noted in HPI and below Exam Narrative: APPEARANCE: No apparent distress. alert and oriented x3 Head: atraumatic. EYES:? EOMI, PERRLA NOSE: Atraumatic NECK: Trachea midline RESPIRATORY: No increased rate of breathing? Clear to auscultation bilaterally CARDIOVASCULAR: RRR, pulses are +2 in all extremities ABDOMINAL:? Soft, nontender MUSCULOSKELETAl: No obvious deformities NEURO: Alert. Moving 4/4 extremities SKIN:: Warm, dry. Normal color PSYCHIATRIC: Normal affect blanchard in place with Pinkish urine in bag Objective Data Vital Signs Vital Signs: Vital Signs - 24 hr 09/25/22 20:48 09/25/22 20:00 09/25/22 20:00 Temperature 98.2 F Pulse Rate 78 71 Respiratory Rate 16 Blood Pressure 168/55 H Pulse Oximetry 99 Oxygen Delivery Room Air 09/26/22 00:00 09/26/22 04:00 09/26/22 06:00 Temperature 97.7 F Pulse Rate 72 67 69 Respiratory Rate 16 Blood Pressure 150/49 H Pulse Oximetry 97 Oxygen Delivery 09/26/22 08:00 09/26/22 12:00 09/26/22 13:50 Temperature Pulse Rate 65 75 Respiratory Rate Blood Pressure Pulse Oximetry 97 Oxygen Delivery Room Air 09/26/22 14:00 Temperature 97.9 F Pulse Rate 73 Respiratory Rate 18 Blood Pressure 162/63 H Pulse Oximetry 100 Oxygen Delivery Intake/Output Intake/Output: Intake & Output 09/23/22 09/24/22 09/25/22 09/26/22 23:59 23:59 23:59 23:59 Intake Total 1450 720 710 Output Total 2200 1400 Balance 1450 1480 -395 Meds/Results Medications: Active Medications Generic Name Dose Route Start Last Admin Trade Name Freq PRN Reaso
[2022-09-26] MEDS: MELATONIN 5 MG TABLET PO (23:14)
[2022-09-27] VITALS (9 sets, daily range): BP systolic 134–150; BP diastolic 42–70; PULSE 64–78; RESP 16–20; TEMP 36.4–36.7; O2SAT 98–99
[2022-09-27 05:39] LABS: Basophils Absolute Auto 0.1 K/mm3 (0.0-0.1); Eosinophils Absolute Auto 0.8 K/mm3 (0-0.3); Eosinophils Percent Auto 16.7 % (0-4.4); Hematocrit 28.7 % (37.0-47.0); Hemoglobin 9.2 g/dL (12.0-15.0); Immature Granulocyte Absolute 0.01 K/mm3 (0.00-0.031); Immature Granulocyte Percent A 0.2 % (0-0.5); Lymphocytes Percent Auto 29.8 % (18.3-44.2); Mean Corpuscular HGB Conc 32.1 g/dl (32-36); Mean Corpuscular Hemoglobin 32.7 pg (26-34); Mean Corpuscular Volume 102.1 fl (80-100); Mean Platelet Volume 11.1 fl (7.4-10.4); Monocytes Absolute Auto 0.4 K/mm3 (0.1-0.6); Monocytes Percent Auto 8.5 % (2.6-8.5); Neutrophils Absolute Auto 2.2 K/mm3 (1.3-6.7); Neutrophils Percent Auto 43.8 % (45.5-73.1); Platelet Count Result 207 k/mm3 (150-375); Red Blood Count 2.81 M/mm3 (4.2-5.4)
[2022-09-27 05:56] LABS: Alanine Aminotransferase 10 U/L (6-35); Albumin Level 2.9 g/dL (3.5-5.1); Alkaline Phosphatase 48 U/L (38-126); Anion Gap 5 mmol/L (8-16); Aspartate Amino Transferase 17 U/L (14-36); Bilirubin,Total 0.3 mg/dL (0.2-1.3); Blood Urea Nitrogen 30 mg/dL (7-17); Calcium 9.1 mg/dL (8.4-10.2); Carbon Dioxide 24 mmol/L (22-30); Chloride 110 mmol/L (98-107); Estimated CRCL calculation 16 ml/min; Estimated Glomerular Filt Rate 23; Glucose 87 mg/dL (65-110); Potassium 4.7 mmol/L (3.4-5.0); Sodium 139 mmol/L (137-145)
--- NOTE | 2022-09-27 09:30 | PM.IMPN ---
Progress Note: A&P Assessment and Plan (1) Hydronephrosis of right kidney: Code(s): N13.30 - Unspecified hydronephrosis Status: Acute (2) Acute kidney injury: Code(s): N17.9 - Acute kidney failure, unspecified Status: Acute (3) Obstructive sleep apnea: Code(s): G47.33 - Obstructive sleep apnea (adult) (pediatric) Status: Acute (4) Hypertension: Code(s): I10 - Essential (primary) hypertension Status: Acute (5) Urothelial carcinoma of bladder: Code(s): C67.9 - Malignant neoplasm of bladder, unspecified Status: Acute Plan The patient presented to the emergency department For evaluation of acute onset abdominal pain. # abdominal pain: Found to have PABLO and worsening moderate to severe right-sided hydro ureteraonephrosis. peer to secondary to enlarging focal mass right trigone of bladder extending to the distal most right ureter. History of bladder cancer in the past. Urology has been consulted. Status post cystoscopy With right ureteral stent placement. No papillary bladder tumor apparently visualized. Urinalysis performed in the ER negative for infection the there is some trace blood noted. She received 1 dose of ceftriaxone prior to OR. Still has right lower quadrant discomfort post cystoscopy and stent placement be related to the stents but also having hematuria which is persistent. Will hold her heparin subQ DVT problem. will check urine culture. Will start ceftriaxone given recent stent placement. # post cystoscopy hematuria: Urology to re-evaluate. Could be from recent stent placement. Will stop heparin subQ check urinalysis start antibiotics continue Blanchard for now # PABLO on CKD stage 3:creatinine 2.6 baseline around 1.4-1.5. Likely due to hydronephrosis. Hold diuretic. Gentle IV fluid as ordered. creatinine remains the same today. encourage oral fluid intake. recheck in am. await renal improvement. may need ivf if not improving. continue to hold diureic. blanchard in place. removal instruction per Urology. Creatinine Continues to improve with gentle IV fluid. We reorder 500 cc back again today. Recheck creatinine in a.m.. currently 2.1. Not back to baseline. # diastolic congestive heart failure:echocardiogram:EF > 70%, grade I diastolic dysfunction. severe LAE, mild CLEMENTINE, moderate pulmonary hypertension ; small pericardial effusion. # hypertension Medication # Chronic anemia stable counts ?#Obstructive sleep apnea on CPAP ?#Chronic insomnia ?#History of bladder cancer status post TURBT in January 2020 # DVT prophylaxis heparin subQ Will hold due to hematuria # code status full code Subjective Date/time seen: 09/27/22 09:30 Interval history: feeling better. no abdominal pain, nausea, vomiting. urine is pinkish no other compalints. some mild discomfort in her right lower abdomen Review of Systems Review of Systems: All systems reviewed & are unremarkable except as noted in HPI and below Exam Narrative: APPEARANCE: No apparent distress. alert and oriented x3 Head: atraumatic. EYES:? EOMI, PERRLA NOSE: Atraumatic NECK: Trachea midline RESPIRATORY: No increased rate of breathing? Clear to auscultation bilaterally CARDIOVASCULAR: RRR, pulses are +2 in all extremities ABDOMINAL:? Soft,Mildly tender right lower quadrant MUSCULOSKELETAl: No obvious deformities NEURO: Alert. Moving 4/4 extremities SKIN:: Warm, dry. Normal color PSYCHIATRIC: Normal affect blanchard in place with Pinkish urine in bag Objective Data Vital Signs Vital Signs: Vital Signs - 24 hr 09/26/22 12:00 09/26/22 13:50 09/26/22 14:00 Temperature 97.9 F Pulse Rate 75 73 Respiratory Rate 18 Blood Pressure 162/63 H Pulse Oximetry 97 100 Oxygen Delivery Room Air 09/26/22 16:00 09/26/22 20:35 09/26/22 20:00 Temperature 98.8 F Pulse Rate 73 71 75 Respiratory Rate 16 Blood Pressure 151/63 H Pulse Oximetry 98 Oxygen Delivery 09/26/22 20:00
[2022-09-27] MEDS: SODIUM CHLORIDE 0.9% IV 500 ML 50 ML IV CONT (09:42)
[2022-09-27] MEDS: SACCHAROMYCES BOULARDII 250 MG CAPSULE PO ×3 (09:42→17:35)
[2022-09-27 11:15] LABS: Appearance Urine Cloudy (Clear); Bilirubin Urine Negative (Negative); Blood Urine 3+ (Negative); Glucose Urine UA Negative (Negative); Ketones Urine Negative (Negative); Leukocyte Esterase Ur 2+ LEU/UL (NEGATIVE); Nitrate Urine Positive (Negative); Protein Urine 1+ mg/dL (Negative); Specific Grav Ur 1.015 (1.001-1.035); Urobilinogen Urine 0.2 mg/dL (<2.0)
[2022-09-27 11:18] LABS: Add Urine Microscopic? YES; Color Urine Light Red (Yellow)
[2022-09-27 11:22] LABS: Bacteria Urine Trace /hpf; Mucus Urine Rare /lpf; RBC Urine >75 /hpf (0-2); WBC Urine 31-50 /hpf (0-3)
[2022-09-27] MEDS: diphenhydrAMINE HCl INJ 50 MG/ML VIAL 25 MG IV PUSH (13:41)
[2022-09-27] MEDS: MELATONIN 5 MG TABLET PO (20:36)
[2022-09-28] VITALS (8 sets, daily range): BP systolic 100–156; BP diastolic 57–71; PULSE 67–80; RESP 16–18; TEMP 36.3–36.5; O2SAT 98–99
[2022-09-28 06:43] LABS: Basophils Absolute Auto 0.1 K/mm3 (0.0-0.1); Eosinophils Absolute Auto 0.8 K/mm3 (0-0.3); Eosinophils Percent Auto 16.1 % (0-4.4); Hematocrit 29.6 % (37.0-47.0); Hemoglobin 9.2 g/dL (12.0-15.0); Immature Granulocyte Absolute 0.01 K/mm3 (0.00-0.031); Immature Granulocyte Percent A 0.2 % (0-0.5); Lymphocytes Absolute Auto 1.48 K/mm3 (0.9-3.2); Lymphocytes Percent Auto 28.8 % (18.3-44.2); Mean Corpuscular HGB Conc 31.1 g/dl (32-36); Mean Corpuscular Hemoglobin 31.8 pg (26-34); Mean Corpuscular Volume 102.4 fl (80-100); Mean Platelet Volume 10.9 fl (7.4-10.4); Monocytes Absolute Auto 0.5 K/mm3 (0.1-0.6); Monocytes Percent Auto 9.3 % (2.6-8.5); Neutrophils Absolute Auto 2.3 K/mm3 (1.3-6.7); Neutrophils Percent Auto 44.6 % (45.5-73.1); Platelet Count Result 199 k/mm3 (150-375); Red Blood Count 2.89 M/mm3 (4.2-5.4); Red Cell Distribution Width 15.2 % (11.5-14.5); White Blood Count 5.1 K/mm3 (4.5-10.0)
[2022-09-28 06:54] LABS: Alanine Aminotransferase 9 U/L (6-35); Albumin Level 2.9 g/dL (3.5-5.1); Alkaline Phosphatase 46 U/L (38-126); Anion Gap 1 mmol/L (8-16); Aspartate Amino Transferase 20 U/L (14-36); Bilirubin,Total 0.2 mg/dL (0.2-1.3); Blood Urea Nitrogen 27 mg/dL (7-17); Calcium 9.2 mg/dL (8.4-10.2); Carbon Dioxide 25 mmol/L (22-30); Chloride 109 mmol/L (98-107); Estimated CRCL calculation 17 ml/min; Estimated Glomerular Filt Rate 26; Glucose 81 mg/dL (65-110); Magnesium 2.1 mg/dL (1.6-2.3); Potassium 4.6 mmol/L (3.4-5.0); Sodium 135 mmol/L (137-145)
[2022-09-28] MEDS: SACCHAROMYCES BOULARDII 250 MG CAPSULE PO ×3 (09:09→17:03)
[2022-09-28 11:02] LABS: Basophils Absolute Auto 0.1 K/mm3 (0.0-0.1); Basophils Percent Auto 1.4 % (0.2-1.2); Eosinophils Absolute Auto 0.9 K/mm3 (0-0.3); Eosinophils Percent Auto 15.7 % (0-4.4); Hematocrit 33.1 % (37.0-47.0); Hemoglobin 10.2 g/dL (12.0-15.0); Immature Granulocyte Absolute 0.01 K/mm3 (0.00-0.031); Immature Granulocyte Percent A 0.2 % (0-0.5); Lymphocytes Absolute Auto 1.62 K/mm3 (0.9-3.2); Lymphocytes Percent Auto 27.9 % (18.3-44.2); Mean Corpuscular HGB Conc 30.8 g/dl (32-36); Mean Corpuscular Volume 103.8 fl (80-100); Mean Platelet Volume 11.2 fl (7.4-10.4); Monocytes Absolute Auto 0.4 K/mm3 (0.1-0.6); Monocytes Percent Auto 6.2 % (2.6-8.5); Neutrophils Absolute Auto 2.8 K/mm3 (1.3-6.7); Neutrophils Percent Auto 48.6 % (45.5-73.1); Platelet Count Result 248 k/mm3 (150-375); Red Blood Count 3.19 M/mm3 (4.2-5.4); Red Cell Distribution Width 15.2 % (11.5-14.5); White Blood Count 5.8 K/mm3 (4.5-10.0)
[2022-09-28 11:07] LABS: Alanine Aminotransferase 12 U/L (6-35); Albumin Level 3.5 g/dL (3.5-5.1); Alkaline Phosphatase 54 U/L (38-126); Anion Gap 4 mmol/L (8-16); Aspartate Amino Transferase 20 U/L (14-36); Bilirubin,Total 0.4 mg/dL (0.2-1.3); Blood Urea Nitrogen 27 mg/dL (7-17); Calcium 9.5 mg/dL (8.4-10.2); Carbon Dioxide 26 mmol/L (22-30); Chloride 108 mmol/L (98-107); Estimated CRCL calculation 17 ml/min; Estimated Glomerular Filt Rate 26; Glucose 112 mg/dL (65-110); Potassium 4.8 mmol/L (3.4-5.0); Sodium 138 mmol/L (137-145)
--- NOTE | 2022-09-28 17:16 | PM.IMPN ---
Progress Note: A&P Assessment and Plan (1) Hydronephrosis of right kidney: Code(s): N13.30 - Unspecified hydronephrosis Status: Acute Assessment and Plan: Found to have PABLO and worsening moderate to severe right-sided hydro ureteraonephrosis. peer to secondary to enlarging focal mass right trigone of bladder extending to the distal most right ureter. History of bladder cancer in the past. Urology has been consulted. Status post cystoscopy With right ureteral stent placement. No papillary bladder tumor apparently visualized. Urinalysis performed in the ER negative for infection the there is some trace blood noted. She received 1 dose of ceftriaxone prior to OR. Still has right lower quadrant discomfort post cystoscopy and stent placement be related to the stents but also having hematuria which is persistent. Will hold her heparin subQ DVT problem. will check urine culture. Will start ceftriaxone given recent stent placement. (2) Acute kidney injury: Code(s): N17.9 - Acute kidney failure, unspecified Status: Acute Assessment and Plan: CKD stage 3: creatinine 2.6 baseline around 1.4-1.5. Likely due to hydronephrosis. Hold diuretic. Gentle IV fluid as ordered. creatinine remains the same today. encourage oral fluid intake. recheck in am. await renal improvement. may need ivf if not improving. continue to hold diureic. blanchard in place. removal instruction per Urology. Creatinine Continues to improve with gentle IV fluid. We reorder 500 cc back again today. Recheck creatinine in a.m.. currently 2.1. Not back to baseline. 09/28: down to 1.9 today, cont to monitor, improving (3) Obstructive sleep apnea: Code(s): G47.33 - Obstructive sleep apnea (adult) (pediatric) Status: Acute (4) Hypertension: Code(s): I10 - Essential (primary) hypertension Status: Acute (5) Urothelial carcinoma of bladder: Code(s): C67.9 - Malignant neoplasm of bladder, unspecified Status: Acute (6) Diastolic heart failure: Code(s): I50.30 - Unspecified diastolic (congestive) heart failure Status: Acute Assessment and Plan: echocardiogram:EF > 70%, grade I diastolic dysfunction. severe LAE, mild CLEMENTINE, moderate pulmonary hypertension ; small pericardial effusion. (7) Hematuria: Qualifiers: Hematuria type: gross Qualified Code(s): R31.0 - Gross hematuria Code(s): R31.9 - Hematuria, unspecified Status: Acute Assessment and Plan: post cystoscopy hematuria: Urology to re-evaluate. Could be from recent stent placement. Will stop heparin subQ check urinalysis start antibiotics continue Blanchard for now Plan Hypertension, stable Chronic anemia stable counts Obstructive sleep apnea on CPAP Chronic insomnia History of bladder cancer status post TURBT in January 2020 DVT prophylaxis heparin subQ, will hold due to hematuria code status full code Subjective Date/time seen: 09/28/22 17:16 Interval history: No overnight events noted. No chest pain or shortness of breath. No nausea, vomiting or diarrhea. No fevers or chills. Patient concerned about having reactions to antibiotics. She states she recently had a reaction to Bactrim and she also states that she couple hours after receiving 1 of her Rocephin infusions, she had some itching. Review of Systems Review of Systems: 12 point review of systems was assessed and was negative except as noted in the HPI Exam Narrative: General: No acute distress, alert and oriented per baseline HEENT: Atraumatic, normocephalic, mucous membranes moist CV: Regular rate and rhythm, S1, S2 Lungs: Clear to auscultation bilaterally, no rales or crackles noted, no wheezes, good air entry Abdomen: Soft, nontender, nondistended Extremities: Normal to inspection Skin: No rashes noted, no lesions or wounds seen Psych: Euthymic, normal affect Objective Data Vital Signs Vital Signs: Vital
[2022-09-28] MEDS: TEMAZEPAM (*CRX) 15 MG CAPSULE PO (20:12)
[2022-09-29] VITALS (9 sets, daily range): BP systolic 122–147; BP diastolic 48–71; PULSE 60–83; RESP 16–22; TEMP 36.4–37.1; O2SAT 97–100
[2022-09-29] MEDS: MELATONIN 5 MG TABLET PO (01:21)
[2022-09-29 05:41] LABS: Basophils Percent Auto 0.8 % (0.2-1.2); Eosinophils Absolute Auto 0.9 K/mm3 (0-0.3); Hematocrit 29.9 % (37.0-47.0); Hemoglobin 9.3 g/dL (12.0-15.0); Immature Granulocyte Absolute 0.01 K/mm3 (0.00-0.031); Immature Granulocyte Percent A 0.2 % (0-0.5); Lymphocytes Absolute Auto 1.42 K/mm3 (0.9-3.2); Lymphocytes Percent Auto 28.1 % (18.3-44.2); Mean Corpuscular HGB Conc 31.1 g/dl (32-36); Mean Corpuscular Hemoglobin 32.7 pg (26-34); Mean Corpuscular Volume 105.3 fl (80-100); Mean Platelet Volume 10.8 fl (7.4-10.4); Monocytes Absolute Auto 0.5 K/mm3 (0.1-0.6); Monocytes Percent Auto 10.5 % (2.6-8.5); Neutrophils Absolute Auto 2.2 K/mm3 (1.3-6.7); Platelet Count Result 199 k/mm3 (150-375); Red Blood Count 2.84 M/mm3 (4.2-5.4); Red Cell Distribution Width 15.3 % (11.5-14.5); White Blood Count 5.1 K/mm3 (4.5-10.0)
[2022-09-29 05:58] LABS: Alanine Aminotransferase 11 U/L (6-35); Albumin Level 2.9 g/dL (3.5-5.1); Alkaline Phosphatase 50 U/L (38-126); Anion Gap 3 mmol/L (8-16); Aspartate Amino Transferase 17 U/L (14-36); Bilirubin,Total 0.2 mg/dL (0.2-1.3); Blood Urea Nitrogen 28 mg/dL (7-17); Calcium 9.3 mg/dL (8.4-10.2); Carbon Dioxide 24 mmol/L (22-30); Chloride 111 mmol/L (98-107); Estimated CRCL calculation 16 ml/min; Estimated Glomerular Filt Rate 24; Glucose 85 mg/dL (65-110); Sodium 138 mmol/L (137-145)
[2022-09-29 07:37] LABS: Platelet Estimate Adequate (Adequate)
[2022-09-29 07:38] LABS: Anisocytosis 1+ (NORMAL); Helmet Cells 1+ (NORMAL); Ovalocytes 1+ (NORMAL); Poikilocytosis 2+ (NORMAL); Schistocytes Rare (NORMAL)
[2022-09-29 07:39] LABS: Acanthocytes 1+ (NORMAL)
[2022-09-29] MEDS: SACCHAROMYCES BOULARDII 250 MG CAPSULE PO ×3 (08:44→17:26)
[2022-09-29 08:47] LABS: Eosinophils Percent Auto 17.4 % (0-4.4)
--- NOTE | 2022-09-29 09:20 | WPDUROPN2 ---
Progress Note: A&P Assessment and Plan (1) Hydronephrosis of right kidney: Code(s): N13.30 - Unspecified hydronephrosis Status: Acute (2) Acute kidney injury: Code(s): N17.9 - Acute kidney failure, unspecified Status: Acute Assessment and Plan: Long discussion with patient about management for her recurrent/chronic right hydronephrosis. We're in agreement that a chronic indwelling ureteral stent may be most appropriate Acute kidney injury with chronic kidney disease is likely multifactorial. I doubt, at this point, that obstructive uropathy is contributing. Subjective Subjective Date/Time Seen: 09/29/22 09:20 Tolerating indwelling stent Review of Systems Cardiovascular: Cardiovascular: Denies chest pain, Denies lightheadedness, Denies palpitations and Denies dyspnea Respiratory: Respiratory: Denies dyspnea Gastrointestinal: Gastrointestinal: Denies diarrhea, Denies nausea and Denies vomiting Genitourinary: Genitourinary: Denies hematuria and Denies dysuria Endocrine: Endocrine: Denies palpitations Exam Const: General: no acute distress Resp: Effort & Inspection: normal respiratory effort GI: Inspection: non-distended GI Palp: No abdominal tenderness and No Guarding due to palpation present (GI) Auscultation: normal bowel sounds Objective Data Vital Signs Vital Signs: Vital Signs - 24 hr 09/28/22 14:00 09/28/22 16:00 09/28/22 20:00 Temperature 97.4 F L Pulse Rate 69 80 79 Respiratory Rate 18 Blood Pressure 156/59 H Pulse Oximetry 99 09/28/22 22:00 09/29/22 00:00 09/29/22 04:00 Temperature 97.7 F Pulse Rate 70 76 68 Respiratory Rate 18 Blood Pressure 100/57 L Pulse Oximetry 99 09/29/22 06:00 Temperature 98.7 F Pulse Rate 71 Respiratory Rate 20 Blood Pressure 122/71 Pulse Oximetry 97 Intake/Output Intake/Output: Intake & Output 09/26/22 09/27/22 09/28/22 09/29/22 23:59 23:59 23:59 23:59 Intake Total 2450 1090 1330 Output Total 3350 2600 1125 Balance -900 -1510 205 Meds/Results Medications: Active Medications Generic Name Dose Route Start Last Admin Trade Name Freq PRN Reason Stop Dose Admin Heparin Sodium (Porcine) 5,000 units 09/24/22 21:00 09/27/22 09:46 Heparin Sodium 5,000 Units/Ml Vial SUB-Q Not Given Q12HR VIOLET Hydromorphone HCl 0.5 mg 09/24/22 06:00 09/24/22 09:31 Hydromorphone Hcl Inj (*Crx) 1 Mg/Ml Syr IV PUSH 0.5 mg Q4H PRN Administration Pain Rated 7-10 Levofloxacin/Dextrose 500 mg in 100 mls @ 100 mls/hr 09/30/22 14:00 Levaquin 500 Mg/D5w 100 Ml IVPB Q48HR@1400 VIOLET Melatonin 5 mg 09/26/22 21:40 09/29/22 01:21 Melatonin 5 Mg Tablet PO 5 mg HS PRN Administration insomnia Non-Formulary Medication 2.5 mg 09/25/22 09:00 Cbd PO 10/25/22 08:59 DAILY VIOLET Ondansetron HCl 4 mg 09/24/22 06:00 Ondansetron Inj 4 Mg/2 Ml Vial IV PUSH Q4H PRN Nausea Saccharomyces Boulardii 250 mg 09/25/22 09:00 09/29/22 08:44 Saccharomyces Boulardii 250 Mg Capsule PO 250 mg TID VIOLET Administration Temazepam 15 mg 09/28/22 21:00 09/28/22 20:12 Temazepam (*Crx) 15 Mg Capsule PO 15 mg HS VIOLET Administration Triamcinolone Acetonide 1 applic 09/25/22 08:33 Triamcinolone Acet 0.1% Oint 15 Gm Tube TOPICAL Q12HR PRN Rash Radiology Results: ITS Impressions Chest X-Ray 09/24/22 11:50 IMPRESSION: 1. No acute cardiopulmonary abnormality. Retrograde Pyelogram 09/24/22 14:38 IMPRESSION: 1. Right internal ureteral stent in expected position. Please refer to procedure note for full details. Abdomen/Pelvis CT 09/24/22 14:49 IMPRESSION: 1. Worsening moderate to severe right hydroureteronephrosis which appears secondary to enlarging focal mass at the right trigonal region of the bladder extending to the distalmost right ureter which is consistent with the provided history of bladder cancer. 2.
--- NOTE | 2022-09-29 12:07 | PM.IMPN ---
Progress Note: A&P Assessment and Plan (1) Hydronephrosis of right kidney: Code(s): N13.30 - Unspecified hydronephrosis Status: Acute Assessment and Plan: Appreciate urology consultation, due to the presence of the indwelling stent, they do not think this is contributing to her current acute kidney injury (2) Acute kidney injury: Code(s): N17.9 - Acute kidney failure, unspecified Status: Acute Assessment and Plan: CKD stage 3: creatinine 2.6 baseline around 1.4-1.5. 09/28: down to 1.9 today, cont to monitor, improving slowly, thought to be secondary to hydronephrosis 09/29: worsening again, consult to nephrology pending, urology does not think PABLO is 2/2 hydronephrosis (3) Obstructive sleep apnea: Code(s): G47.33 - Obstructive sleep apnea (adult) (pediatric) Status: Acute Assessment and Plan: on nocturnal CPAP (4) Hypertension: Code(s): I10 - Essential (primary) hypertension Status: Acute Assessment and Plan: stable (5) Urothelial carcinoma of bladder: Code(s): C67.9 - Malignant neoplasm of bladder, unspecified Status: Acute Assessment and Plan: Enlarging focal mass right trigone of bladder extending to the distal most right ureter. History of bladder cancer in the past. Hematuria is persistent, will hold her heparin subQ DVT problem. Will check urine culture. Will start ceftriaxone given recent stent placement. (6) Diastolic heart failure: Code(s): I50.30 - Unspecified diastolic (congestive) heart failure Status: Acute Assessment and Plan: Echocardiogram: EF > 70%, grade I diastolic dysfunction. Severe LAE, mild CLEMENTINE, moderate pulmonary hypertension; small pericardial effusion. (7) Hematuria: Qualifiers: Hematuria type: gross Qualified Code(s): R31.0 - Gross hematuria Code(s): R31.9 - Hematuria, unspecified Status: Acute Assessment and Plan: Could be 2/2 h/o bladder cancer (8) Cough: Code(s): R05.9 - Cough, unspecified Status: Acute Assessment and Plan: check flu and COVID and RSV, nebulizers ordered as needed due to history of asthma, Mucinex and Robitussin available (9) Oral herpes simplex infection: Code(s): B00.2 - Herpesviral gingivostomatitis and pharyngotonsillitis Status: Acute Assessment and Plan: started on Valtrex 2 g q.12 x2 days to prevent progression Plan Urine culture negative for infection, will d/c abx after 6 day course DVT prophylaxis heparin subQ, will hold due to hematuria GI prophylaxis not indicated Code status full code Subjective Date/time seen: 09/29/22 12:07 Interval history: No overnight events noted. No chest pain or shortness of breath. No nausea, vomiting or diarrhea. No fevers or chills. Patient is eager to go home. she is admitting to a cough that is productive of yellow sputum for the last few days, worsening. She denies any other associated URI symptoms. No sore throat, runny nose, wheeze. She states she has a distant history of asthma in her 40s, but she has not had any symptoms or need for inhaler since then. Review of Systems Review of Systems: 12 point review of systems was assessed and was negative except as noted in the HPI All systems reviewed & are unremarkable except as noted in HPI and below Exam Narrative: General: No acute distress, alert and oriented per baseline HEENT: Atraumatic, normocephalic, mucous membranes moist CV: Regular rate and rhythm, S1, S2 Lungs: Clear to auscultation bilaterally, no rales or crackles noted, no wheezes, good air entry Abdomen: Soft, nontender, nondistended Extremities: Normal to inspection Skin: No rashes noted, no lesions or wounds seen Psych: Euthymic, normal affect Objective Data Vital Signs Vital Signs: Vital Signs - 24 hr 09/28/22 14:00 09/28/22 16:00 09/28/22 20:00 Temperature 97.4 F L Pulse Rate
--- NOTE | 2022-09-29 15:48 | PM.CNNEP ---
Assessment and Plan Assessment and plan (1) Chronic kidney disease, stage 3b: Code(s): N18.32 - Chronic kidney disease, stage 3b Status: Acute Assessment and Plan: patient has chronic kidney disease. This is probably due to hypertension. She does have a positive CATERINA which is quite a high titer but the DNA is negative and the other serology is negative as well. Her urine shows a little protein and trace amounts of blood admission. This is probably urine made by the left kidney. Will repeat the serologic analysis. She also has eosinophilia and I am not sure where that fits in. Looking back in the records the eosinophilia has been going on since 2020. The rise in the creatinine seems to be time to with the obstruction. However when the urologist's put a stent in the kidney function improved a small amount but not all the way back to her former baseline. It is unclear how long the obstruction has been going on. Perhaps she has some chronic damage to that kidney the obstruction had been going on for a while. I am going to order renal scan to see where we are with how much function is in each kidney. If it is dramatically lower on the right than will know she probably just has chronic kidney disease in the right kidney from obstruction and in both kidneys from hypertension. I will order urine electrolytes as well. Will order other tests to be complete. (2) Acute kidney injury: Code(s): N17.9 - Acute kidney failure, unspecified Status: Acute Assessment and Plan: The patient has acute kidney injury. This is probably initially related to the obstruction. This has been relieved however. Creatinine baseline was 1.5 and peaked at around 3 and came down to around to after the stents. I think the stents did some good but possibly there some leftover CKD in that 1 kidney. Other possibilities include rhabdomyolysis, interstitial nephritis ( she has eosinophils), etcetera. (3) Eosinophilia: Code(s): D72.10 - Eosinophilia, unspecified Status: Acute Assessment and Plan: The patient has eosinophilia. This is been going on for at least 2 years. We have no labs going back before that. She had a rash at the end of August felt to be due to her nitrofurantoin. She has multiple other allergies as well. she is only on 4 medications at home and when she was in the office in April her only medicine was diphenhydramine. She has had CT scans showing no lymph nodes splenomegaly or hepatomegaly and she has no lymph nodes in her neck her under her arms so I doubt if she has lymphoma. She has not traveled so I doubt if she has a parasitic infection she does not have asthma. She does seem to have frequent rashes. will check a cortisol level She has a positive CATERINA. I wonder if this is a clue to some sort of collagen vascular disease involving eosinophilia Like eosinophilic granuloma Perhaps a heme consult might be appropriate. (4) History of bladder cancer: Code(s): Z85.51 - Personal history of malignant neoplasm of bladder Status: Acute Assessment and Plan: Urology is on the case. She has a stent. Status post TURBT in 2019. (5) Obstructive sleep apnea: Code(s): G47.33 - Obstructive sleep apnea (adult) (pediatric) Status: Acute (6) HTN (hypertension): Code(s): I10 - Essential (primary) hypertension Status: Acute Assessment and Plan: The patient has high blood pressure but she is not on any medicine for this. History of Present Illness Reason for Consult Consult date: 09/29/22 Chief Complaint Chief complaint: Hydronephrosis History of Present Illness Narrative: Mariposa is a very pleasant lady with multiple medical problems including chronic kidney disease stage 3 with a baseline creatinine of about 1.4, arthritis, bilateral knee replacements, in line for a hip replacement, bladder cancer, hypertensi
[2022-09-29] MEDS: TRIAMCINOLONE ACET 0.1% OINT 15 GM TUBE 1 APPLIC TOPICAL (17:25)
[2022-09-29] MEDS: valACYclovir HCL 500 MG TABLET 2000 MG PO ×2 (17:25→20:31)
[2022-09-29 17:44] LABS: Creatine Kinase 21 U/L (30-135)
[2022-09-29 17:49] LABS: Creatinine Urine 31.7 mg/dL; Total Protein Urine Random 76 mg/dL
[2022-09-29 17:51] LABS: Sodium Urine Random 99 meq/L
[2022-09-29 18:15] LABS: Cortisol Random 9.33 ug/dL
[2022-09-29] MEDS: guaiFENesin 600 MG/DEXTROMETHORPHAN 30 MG SR TAB 12 HR 1 TAB PO (20:31)
[2022-09-29] MEDS: TEMAZEPAM (*CRX) 15 MG CAPSULE PO (20:33)
[2022-09-30] VITALS: PULSE 82
[2022-09-30 04:00] VITALS: PULSE 73
[2022-09-30 06:00] VITALS: BP 101/61; PULSE 61; RESP 20; TEMP 36.4; O2SAT 98
[2022-09-30 07:12] LABS: Basophils Absolute Auto 0.1 K/mm3 (0.0-0.1); Basophils Percent Auto 0.8 % (0.2-1.2); Eosinophils Percent Auto 17.2 % (0-4.4); Hematocrit 30.5 % (37.0-47.0); Hemoglobin 9.4 g/dL (12.0-15.0); Immature Granulocyte Absolute 0.01 K/mm3 (0.00-0.031); Immature Granulocyte Percent A 0.2 % (0-0.5); Lymphocytes Absolute Auto 1.25 K/mm3 (0.9-3.2); Mean Corpuscular HGB Conc 30.8 g/dl (32-36); Mean Corpuscular Volume 103.7 fl (80-100); Mean Platelet Volume 10.7 fl (7.4-10.4); Monocytes Absolute Auto 0.4 K/mm3 (0.1-0.6); Monocytes Percent Auto 7.4 % (2.6-8.5); Neutrophils Absolute Auto 3.2 K/mm3 (1.3-6.7); Neutrophils Percent Auto 53.4 % (45.5-73.1); Platelet Count Result 200 k/mm3 (150-375); Red Blood Count 2.94 M/mm3 (4.2-5.4); Red Cell Distribution Width 15.2 % (11.5-14.5); White Blood Count 5.9 K/mm3 (4.5-10.0)
--- NOTE | 2022-09-30 08:04 | PCNWS ---
Weekly nutritional screen. Patient is tolerating current diet with adequate intake. No weight loss reported. No nutritional needs at this time.
[2022-09-30 08:30] VITALS: PULSE 70
[2022-09-30] MEDS: valACYclovir HCL 500 MG TABLET 2000 MG PO (09:17)
[2022-09-30] MEDS: SACCHAROMYCES BOULARDII 250 MG CAPSULE PO ×3 (09:17→17:14)
[2022-09-30] MEDS: guaiFENesin 600 MG/DEXTROMETHORPHAN 30 MG SR TAB 12 HR 1 TAB PO (09:17)
[2022-09-30 09:59] LABS: Erythrocyte Sedimentation Rate 53 mm/hr (0-20)
--- NOTE | 2022-09-30 10:58 | PM.DS ---
DS: Admitting Diagnosis Discharge Date 09/30/22 Admitting Diagnosis Abdominal pain DS: Summary Hospital Course Hospital Course: 77-year-old female who presented with acute onset lower abdominal pain that started last night while she was sleeping.? He was severe and sharp radiated to her back.? She had? not had her pain like this before.? There was associated nausea and vomiting no diarrhea.? She denies any fever chills.? She denies any urinary complaints small.? she reports that last few days she was noted to have worsened renal function creatinine of 2.9 daughter on have the report of this.? She was given some IV fluids.? She denies any urinary symptoms no burning urination? No frequency or urgency.? She was found to have right-sided hydronephrosis and is admitted for further evaluation and management.? She has been taken to the OR and had underwent cystoscopy with ureteral stent placement.? She does have history of bladder cancer in the past and had removal in 2019.? She did have hydronephrosis earlier this year or last year with stent placement which has since then been removed. Urology and Nephrology were consulted. Urology recommended outpatient f/u for stent management. Antibiotics given for 6 day course due to possible underlying infection. Enlarging focal mass right trigone of bladder extending to the distal most right ureter. History of bladder cancer in the past. Hematuria is persistent, will hold her heparin subQ Patient also had a cold sore while she was in this was treated with Valtrex 2 g q.12. Nephrology was consulted for possible underlying etiology to her kidney failure. They will follow up outpatient. Time Spent with Patient Time attestation: Total time spent providing and/or coordinating discharge services: DS: Data Data Completed and Pending Labs on day of discharge: Labs from last 24 hours 09/30/22 09/30/22 09/30/22 07:01 07:01 07:00 WBC 5.9 RBC 2.94 L Hgb 9.4 L Hct 30.5 L MCV 103.7 H MCH 32.0 MCHC 30.8 L RDW 15.2 H Plt Count 200 MPV 10.7 H Immature Gran % (Auto) 0.2 Neut % (Auto) 53.4 Lymph % (Auto) 21.0 [place] % (Auto) 7.4 Eos % (Auto) 17.2 H Baso % (Auto) 0.8 Lymph # (Auto) 1.25 [place] # (Auto) 0.4 Eos # (Auto) 1.0 H Baso # (Auto) 0.1 Abs Immat Gran (auto) 0.01 Absolute Neuts (auto) 3.2 Absolute Nucleated RBC 0.0 Nucleated RBC % 0.0 ESR 53 H Sodium Pending Potassium Pending Chloride Pending Carbon Dioxide Pending Anion Gap Pending BUN Pending Creatinine Pending Estim Creat Clear Calc Pending Estimated GFR Pending Glucose Pending Calcium Pending Phosphorus Pending Total Bilirubin Pending AST Pending ALT Pending Alkaline Phosphatase Pending Total Creatine Kinase Total Protein Pending Albumin Pending Random Cortisol U Random Total Protein Ur Random Sodium Urine Creatinine Protein/Creat Ratio 2 CATERINA Screen ANCA Screen Anti-DNA Antibody Glomerular Base Memb Ab 09/29/22 09/29/22 09/29/22 17:34 17:20 17:20 WBC RBC Hgb Hct MCV MCH MCHC RDW Plt Count MPV Immature Gran % (Auto) Neut % (Auto) Lymph % (Auto) [place] % (Auto) Eos % (Auto) Baso % (Auto) Lymph # (Auto) [place] # (Auto) Eos # (Auto) Baso # (Auto) Abs Immat Gran (auto) Absolute Neuts (auto) Absolute Nucleated RBC Nucleated RBC % ESR Sodium Potassium Chloride Carbon Dioxide Anion Gap BUN Creatinine Estim Creat Clear Calc Estimated GFR Glucose Calcium Phosphorus Total Bilirubin AST ALT Alkaline Phosphatase Total Creatine Kinase 21 L Total Protein Albumin Random Cortisol 9.33 U Random Total Protein 76 Ur Random Sodium 99 Urine Creatinine 31.7 Protein/Creat Ratio 2 2.40 H CATERINA Screen ANCA Screen An
--- NOTE | 2022-09-30 11:09 | PM.PNNEP ---
Progress Note: A&P Assessment and Plan (1) Chronic kidney disease, stage 3b: Code(s): N18.32 - Chronic kidney disease, stage 3b Status: Acute Assessment and Plan: patient has chronic kidney disease. This is probably due to hypertension. She does have a positive CATERINA which is quite a high titer but the DNA is negative and the other serology is negative as well. Her urine shows a little protein and trace amounts of blood admission. Sed rate 53 CK is normal urine electrolytes are non pre renal she is spilling some protein Discharge is planned for her today. if today's creatinine comes back the same then I think she could be discharged but she will need to follow-up with me in the clinic in October. (2) Acute kidney injury: Code(s): N17.9 - Acute kidney failure, unspecified Status: Acute Assessment and Plan: The patient has acute kidney injury. Renal scan has not been done yet. See above (3) Eosinophilia: Code(s): D72.10 - Eosinophilia, unspecified Status: Acute Assessment and Plan: The patient has eosinophilia. This is been going on for at least 2 years. patient has never heard that this has been an issue. Possibly heme consult could be considered as an outpatient. (4) History of bladder cancer: Code(s): Z85.51 - Personal history of malignant neoplasm of bladder Status: Acute Assessment and Plan: Urology is on the case. She has a stent. Status post TURBT in 2019. (5) Obstructive sleep apnea: Code(s): G47.33 - Obstructive sleep apnea (adult) (pediatric) Status: Acute (6) HTN (hypertension): Code(s): I10 - Essential (primary) hypertension Status: Acute Assessment and Plan: The patient has high blood pressure but she is not on any medicine for this. Subjective Date/time seen: 09/30/22 11:09 Interval history: Mariposa is feeling okay this morning. She did have a strange episode where her right eye is blurry. When she moves her eye the imaged wiggles. I had nursing notify Dr. Hartley. Review of Systems Cardiovascular: Cardiovascular: Reports no additional cardiovascular complaints Respiratory: Respiratory: Reports no additional respiratory complaints Gastrointestinal: Gastrointestinal: Reports no additional gastrointestinal complaints Genitourinary: Genitourinary: Reports no additional female genitourinary complaints Exam Narrative: WDWN in NAD skin no rash head ncat lungs clear cor reg no rub abd BS+ nontender and soft ext no edema. Objective Data Vital Signs Vital Signs: Vital Signs - 24 hr 09/29/22 13:53 09/29/22 13:56 09/29/22 12:00 Temperature 97.8 F Pulse Rate 62 66 Respiratory Rate 16 Blood Pressure 147/48 H Pulse Oximetry 100 Oxygen Delivery Room Air 09/29/22 16:00 09/29/22 21:26 09/29/22 20:00 Temperature 97.5 F L Pulse Rate 73 60 83 Respiratory Rate 22 H Blood Pressure 141/58 H Pulse Oximetry 97 Oxygen Delivery 09/30/22 06:00 09/30/22 04:00 09/30/22 00:00 Temperature 97.6 F Pulse Rate 61 73 82 Respiratory Rate 20 Blood Pressure 101/61 Pulse Oximetry 98 Oxygen Delivery Intake/Output Intake/Output: Intake & Output 09/27/22 09/28/22 09/29/22 09/30/22 23:59 23:59 23:59 23:59 Intake Total 1090 1330 1000 Output Total 2600 1125 1500 Balance -1510 205 -500 Meds/Results Medications: Active Medications Generic Name Dose Route Start Last Admin Trade Name Freq PRN Reason Stop Dose Admin Albuterol 2.5 mg 09/29/22 15:16 Albuterol Sulfate Neb 2.5 Mg/3 Ml Inh INHALATION Q4HRT PRN Shortness Of Breath Guaifenesin/Dextromethorphan 1 tab 09/29/22 21:00 09/30/22 09:17 Guaifenesin 600 Mg/Dextromethorphan 30 Mg Sr Tab 12 Hr PO 1 tab Q12HR VIOLET Administration Heparin Sodium (Porcine) 5,000 units 09/24/22 21:00 09/27/22 09:46 Heparin Sodium 5
[2022-09-30 11:34] LABS: Alanine Aminotransferase 13 U/L (6-35); Alkaline Phosphatase 44 U/L (38-126); Anion Gap 5 mmol/L (8-16); Aspartate Amino Transferase 22 U/L (14-36); Bilirubin,Total 0.2 mg/dL (0.2-1.3); Blood Urea Nitrogen 28 mg/dL (7-17); Calcium 9.5 mg/dL (8.4-10.2); Carbon Dioxide 22 mmol/L (22-30); Chloride 107 mmol/L (98-107); Estimated CRCL calculation 16 ml/min; Estimated Glomerular Filt Rate 24; Glucose 110 mg/dL (65-110); Potassium 4.9 mmol/L (3.4-5.0); Sodium 134 mmol/L (137-145)
[2022-09-30 12:00] VITALS: PULSE 80
[2022-09-30] MEDS: levoFLOXacin 500 MG/D5W 100 ML 500 MG/100 ML BAG 100 MG IVPB (13:41)
[2022-09-30 14:00] VITALS: BP 157/61; PULSE 70; RESP 18; TEMP 36.6; O2SAT 100
[2022-09-30 17:34] LABS: EDCOVIDSCREEN Negative (Negative)
[2022-10-03 06:44] LABS: ANCA Screen Negative (Negative)
[2022-10-03 11:25] LABS: Anti Glomerular Basement Memb <1.0 AI (<1.0)
--- NOTE | 2022-10-19 07:27 | PM.DS ---
DS: Admitting Diagnosis Discharge Date 09/30/22 Admitting Diagnosis abdominal pain DS: Discharge Diagnosis Discharge Diagnosis (1) Hydronephrosis of right kidney: Code(s): N13.30 - Unspecified hydronephrosis Status: Acute Assessment and Plan: Appreciate urology consultation, due to the presence of the indwelling stent, they do not think this is contributing to her current acute kidney injury (2) Acute kidney injury: Code(s): N17.9 - Acute kidney failure, unspecified Status: Acute Assessment and Plan: CKD stage 3: creatinine 2.6 baseline around 1.4-1.5. 09/28: down to 1.9 today, cont to monitor, improving slowly, thought to be secondary to hydronephrosis 09/29: worsening again, consult to nephrology pending, urology does not think PABLO is 2/2 hydronephrosis (3) Obstructive sleep apnea: Code(s): G47.33 - Obstructive sleep apnea (adult) (pediatric) Status: Acute Assessment and Plan: on nocturnal CPAP (4) Hypertension: Code(s): I10 - Essential (primary) hypertension Status: Acute Assessment and Plan: stable (5) Urothelial carcinoma of bladder: Code(s): C67.9 - Malignant neoplasm of bladder, unspecified Status: Acute Assessment and Plan: Enlarging focal mass right trigone of bladder extending to the distal most right ureter. History of bladder cancer in the past. Hematuria is persistent, will hold her heparin subQ DVT problem. Will check urine culture. Will start ceftriaxone given recent stent placement. (6) Diastolic heart failure: Code(s): I50.30 - Unspecified diastolic (congestive) heart failure Status: Acute Assessment and Plan: Echocardiogram: EF > 70%, grade I diastolic dysfunction. Severe LAE, mild CLEMENTINE, moderate pulmonary hypertension; small pericardial effusion. (7) Hematuria: Qualifiers: Hematuria type: gross Qualified Code(s): R31.0 - Gross hematuria Code(s): R31.9 - Hematuria, unspecified Status: Acute Assessment and Plan: Could be 2/2 h/o bladder cancer (8) Cough: Code(s): R05.9 - Cough, unspecified Status: Acute Assessment and Plan: check flu and COVID and RSV, nebulizers ordered as needed due to history of asthma, Mucinex and Robitussin available (9) Oral herpes simplex infection: Code(s): B00.2 - Herpesviral gingivostomatitis and pharyngotonsillitis Status: Acute Assessment and Plan: started on Valtrex 2 g q.12 x2 days to prevent progression Plan Urine culture negative for infection, will d/c abx after 6 day course DVT prophylaxis heparin subQ, will hold due to hematuria GI prophylaxis not indicated Code status full code DS: Summary Hospital Course Hospital Course: 77-year-old female who presented with acute onset lower abdominal pain that started last night while she was sleeping.? He was severe and sharp radiated to her back.? She had? not had her pain like this before.? There was associated nausea and vomiting no diarrhea.? She denies any fever chills.? She denies any urinary complaints small.? she reports that last few days she was noted to have worsened renal function creatinine of 2.9 daughter on have the report of this.? She was given some IV fluids.? She denies any urinary symptoms no burning urination? No frequency or urgency.? She was found to have right-sided hydronephrosis and is admitted for further evaluation and management.? She has been taken to the OR and had underwent cystoscopy with ureteral stent placement.? She does have history of bladder cancer in the past and had removal in 2019.? She did have hydronephrosis earlier this year or last year with stent placement which has since then been removed. Urology and Nephrology were consulted. Urology recommended outpatient f/u for stent management.? Antibiotics given for 6 day course due to possible underlying infection. Enlarging focal mass right trigone of
== END 2022-09-30 18:34 | disposition home or self-care (01) | DRG 659 ==
LOC: ANHED 03:29 → ANH2MED 12:57 → ANH3MED 09-25 07:27
PROVIDERS: Internal Medicine Nephrology; Student in an Organized Health Care Education/Training Program; Urology; Admitting Provider Internal Medicine; Emergency Provider Emergency Medicine; PCP Internal Medicine; Visit Provider Internal Medicine
PROC: 0T768DZ Dilation of Right Ureter with Intraluminal Device, Via Natural or Artificial Opening Endoscopic (ICD-10-PCS; CPT 52352; principal; 2022-09-24 12:30)
DX: N17.9 Acute kidney failure, unspecified (principal); I50.33 Acute on chronic diastolic (congestive) heart failure; I13.0 Hypertensive heart and chronic kidney disease with heart failure and stage 1 through stage 4 chronic kidney disease, or unspecified chronic kidney disease; N13.1 Hydronephrosis with ureteral stricture, not elsewhere classified; R31.0 Gross hematuria; N18.32 Chronic kidney disease, stage 3b; D72.10 Eosinophilia, unspecified; G47.33 Obstructive sleep apnea (adult) (pediatric); Z20.822 Contact with and (suspected) exposure to COVID-19; K21.9 Gastro-esophageal reflux disease without esophagitis; D53.9 Nutritional anemia, unspecified; M19.90 Unspecified osteoarthritis, unspecified site; B00.1 Herpesviral vesicular dermatitis; Z96.653 Presence of artificial knee joint, bilateral; Z96.612 Presence of left artificial shoulder joint; Z85.51 Personal history of malignant neoplasm of bladder; Z90.49 Acquired absence of other specified parts of digestive tract; Z90.710 Acquired absence of both cervix and uterus
CPT/HCPCS: 36415; 51701; 70450; 71045; 74176; 74420; 78707; 80053; 80069; 81001; 82533; 82550; 82570; 83520; 83690; 83735; 84156; 84300; 85025; 85652; 86036; 86038; 86039; 86225; 87086; 87426; 87637; 93005; 96361; 96374; 96375; 96376; 97161; 97165; 97530; 99285; A9270; A9562; C1758; C1769; C2617; C9803; J0131; J0696; J1170; J1200; J1644; J1956; J2405; J2704; J7030; J7040; J7120; Q9968

== ENCOUNTER 2023-01-16 14:29 | Outpatient (CLI) | payer MEDICARE, BC, SELFPAY ==
--- NOTE | ~2023-01-16 | CT_ITS ---
Non-contrast CT scan of the Abdomen and Pelvis Clinical indication: Hematuria Technique: 2.5 mm axial scans were obtained through the abdomen and pelvis without intravenous or or al contrast. Dose reduction technique was used on this scan by utilizing automated exposure control a nd iterative reconstruction technique. The dose-length product (DLP) was 466.84 mGy-cm. COMPARISON: 09/24/2022 Findings: Images through the lung bases reveal minimal pericardial effusion. Right ureteral stent in place. There are bilateral renal cysts. Probable tiny nonobstructing right re nal stones present. No ureteral stone or hydronephrosis on either side. The liver, spleen, pancreas, and adrenals appear normal. Cholecystectomy clips noted. There is no aor tic aneurysm. There is no evidence of bowel obstruction. Images through the pelvis were performed. There is no evidence of ascites. Stable soft tissue mass at the region of the right posterior bladder base, measuring approximately 3.3 cm in maximum diameter, similar to minimally increased in size from prior exam. Impression: 3.3 cm soft tissue mass at the posterior right bladder base region, compatible with bladder carcinoma . This is similar to minimally increased in size from prior exam. Right ureteral stent in place. No hydronephrosis. Probable tiny nonobstructing right renal stones. Reviewed, dictated and finalized at location . Impression: 3.3 cm soft tissue mass at the posterior right bladder base region, compatible with bladder carcinoma. This is similar to minimally increased in size from dorian or exam. Right ureteral stent in place. No hydronephrosis. Probable tiny nonobstructing right renal stones.
== END 2023-01-16 14:30 | disposition home or self-care (01) ==
LOC: ANHIMG 14:34
PROVIDERS: PCP Internal Medicine
DX: R31.0 Gross hematuria (principal)
CPT/HCPCS: 74176

== ENCOUNTER 2023-02-22 09:04 | Outpatient (CLI) | payer MEDICARE, BC, SELFPAY ==
[2023-02-22 10:31] LABS: Anion Gap 8 mmol/L (8-16); Blood Urea Nitrogen 24 mg/dL (7-17); Calcium 9.6 mg/dL (8.4-10.2); Carbon Dioxide 22 mmol/L (22-30); Chloride 107 mmol/L (98-107); Estimated Glomerular Filt Rate 36; Glucose 89 mg/dL (65-110); Potassium 3.9 mmol/L (3.4-5.0); Sodium 137 mmol/L (137-145)
[2023-02-22 10:37] LABS: INR 1.1; Prothrombin Time 14.6 Seconds (11.1-14.7)
[2023-02-22 10:38] LABS: Partial Thromboplastin Time 33.9 SECONDS (22.3-36.8)
== END 2023-02-22 09:05 | disposition home or self-care (01) ==
LOC: ANHSURGERY 09:08
PROVIDERS: Anesthesiology; PCP Internal Medicine; Visit Provider Urology
DX: N18.9 Chronic kidney disease, unspecified (principal); Z01.818 Encounter for other preprocedural examination
CPT/HCPCS: 36415; 80048; 85610; 85730

== ENCOUNTER 2023-03-02 00:56 | Day surgery (SDC) | payer MEDICARE, BC, SELFPAY ==
[2023-02-20 12:52] VITALS: BMI 22.6
--- NOTE | 2023-02-20 13:25 | PC.NURSE ---
Report to the Outpatient Waiting Room, entrance under the green pavilion located off [facility], at time __11:00AM on date __02/23/23 . Planned Procedure Time: __1:00PM . Time changes happen often and if your time is changed the preop area will call you the afternoon before. - You and your visitor will be asked to self-screen and do not enter if you have any COVID symptoms. - A mask is optional within the hospital at this time. Patients may have clear liquids (water, carbonated beverages, clear teas, apple juice) until 3 hours prior to surgery with a maximum of 20 ounces. - No food from midnight until time of surgery Take the following medications with a SIP of water the morning of surgery: NONE DO NOT STOP ANY OF YOUR OTHER PRESCRIPTION MEDICATIONS PRIOR TO SURGERY ?EXCEPT THE FOLLOWING Medications to discontinue per physician NONE Date to take last dose Please no make-up, nail nauruan, hairspray, perfume, deodorant, or body powder the day of surgery. No jewelry (including any body piercings) or valuables the day of surgery, leave them at home. Please take a shower or bath the night before, or the morning of, surgery with an antibacterial soap. Wear comfortable, loose fitting clothing. Children are encouraged to wear pajamas. - Jewelry must be removed prior to entering the operating room. Rings and piercings that are not removed may be cut off. - The hospital will not accept responsibility for valuables. - Please leave all valuables, including medications, at home the day of surgery. If you are going home after surgery, a licensed auto driver must drive you home. - NO public transportation without another adult if you receive anesthesia. - We recommend that an adult stay with you for 24 hours following discharge. - We also recommend that you do not drive, make important decision, drink alcoholic beverages, or take any drugs that were not prescribed by your health care provider for at least 24 hours after your discharge time. Follow any additional instructions given to you from your surgeon. If you or anyone in your household have experienced Covid symptoms in the past week, please notify your surgeon or the nurse liaison at the phone number below for possible testing. Telephone instructions given to __PATIENT and asked if any additional questions and then verbalized understanding. Patient advised to call surgeon office or pre surgery nurse liaison [phone] if any additional questions.
--- NOTE | 2023-02-27 07:49 | PM.HPGS ---
History of Present Illness History of Present Illness Consent: Risks, benefits, and alternatives have been discussed and questions answered. Patient agrees to proceed with procedure. Chief complaint: hx of gross hematuria, bladder CA Narrative: Mariposa Andrade is a 78 year old female with a a remote history of bladder tumors and recurrent problems with right ureteral stricture. We made attempts to dilate this without success. Eventually she has made a decision some managed for recurrent right ureteral obstruction with a chronic indwelling ureteral stent. This was last changed in September 2022. She presents today for stent exchange. She is aware the risk including, but not limited to, urinary tract infection, hematuria. 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 Surgical History Surgical History History of appendectomy History of bilateral knee replacement History of bladder surgery (01/2020) Transurethral resection bladder tumor. History of cataract extraction History of cholecystectomy History of cystoscopy History of hysterectomy History of left shoulder replacement History of spinal surgery Family History Family History Father Family history of cardiovascular disease Cerebrovascular accident Mother Cerebrovascular accident Sibling Patient's sister is in good health Family history of malignant neoplasm of breast in first degree relative Social History Social History Social History: Healthcare power of health care attorney: Angelique Gifford, niece. Code status: Full code. Smoking packs per day: 0.25 Smoking cigarettes per day: 5.0 Years smoked: 10 Smoking pack-years: 2.50 Smoking status: Former smoker Tobacco type: cigarettes Second hand tobacco smoke exposure: No Smoking end date: 04/08/88 Alcohol intake: current Drinks per week: 3 Substance use: current Substance use type: marijuana Other substance usage details: CBD/THC gummies, 1 to 2 times per day. Lack of Transportation: No Lack of Food: Never True Current Housing: I Have Housing Concerned About Future Housing: No Difficulty Paying Gas/Electric Bills: No Difficulty Paying for Meds: No Currently Unemployed: No Education: High School Diploma/GED Difficulty w/ Childcare or Family Care: No Living arrangements: [facility] [place] Additional living arrangements comments: IN RESIDENTIAL APARTMENT ALONE Occupation/Education: retired Gender identity (if verbalized by the patient): Female Spiritual care concerns: No Meds Home Medications and Allergies Home Medications Medication Instructions Recorded Confirmed Type nystatin 100,000 unit/mL oral 5 ml PO DAILY #473 mL 01/17/23 02/20/23 Rx suspension acetaminophen 500 mg capsule 1,000 mg PO Q6H PRN Pain 02/20/23 02/20/23 History furosemide 20 mg tablet 20 mg PO QAM PRN SWELLING 02/20/23 02/20/23 History triamcinolone acetonide 0.1 % 1 applic topical BID PRN Itching 02/20/23 02/20/23 History topical ointment Allergies Allergy/AdvReac Type Severity Reaction Status Date / Time morphine Allergy Intermediate Itching Verified 02/20/23 12:44 nitrofurantoin Allergy Rash Verified 02/20/23 12:44 [From Macrobid] Sulfa (Sulfonamide Allergy Hives, Verified 02/20/23 12:44 Antibiotics) itching Exam Const:
[2023-03-02] VITALS (8 sets, daily range): BP systolic 105–167; BP diastolic 52–89; PULSE 53–72; RESP 13–25; TEMP 36.2–36.5; O2SAT 95–100
--- NOTE | ~2023-03-02 | XR_ITS ---
EXAMINATION: XR retrograde pyelo w/stent RT DATE: 03/02/2023 13:57 INDICATION: Right internal ureteral stent exchange TECHNIQUE: Fluoroscopic images from a right internal ureteral stent placement are submitted for ankur wLuis Armando 25 fluoroscopic images. FINDINGS: There is a right double-J internal ureteral stent projecting in expected position, with proximal [place] loop at the level of the renal pelvis and distal loop in the pelvis within the bladder lumen. IMPRESSION: 1. Right internal ureteral stent exchange. Please refer to real-time procedural findings for detail s. Reviewed, dictated and finalized at location L. IMPRESSION: 1. Right internal ureteral stent exchange. Please refer to real-time procedur al findings for details.
--- NOTE | 2023-03-02 06:26 | WPDHPUPDATE1 ---
History and Physical Update Update Date/Time: 03/02/23 06:26 History and Physical has been reviewed, including an updated exam of the patient. There are NO changes in the patient's condition. Risks, benefits, and alternatives have been discussed and questions answered. Patient agrees to proceed with procedure.
[2023-03-02] MEDS: LACTATED RINGERS 1,000 ML 30 ML IV CONT (12:00)
--- NOTE | 2023-03-02 13:01 | WPDANESEPPF ---
Anes - Initial Pre Proc Eval Procedure: Operation Date: 03/02/23 13:00 Proposed Procedures p Cystoscopy with Right Stent Exchange, - Herman Nur MD s and Possible Trans Urethral Resection Bladder Tumor - Herman Nur MD Date/Time: 03/02/23 13:01 Surgeon: Herman Nur MD Pre Op Diagnosis: hx of gross hematuria, bladder CA Patient Data Age: 78 Gender: F Height: 1.59 m Weight: 57 kg Last Vital Signs Temp 97.7 F 03/02/23 12:02 Pulse 62 03/02/23 12:02 Resp 20 03/02/23 12:02 BP 159/62 H 03/02/23 12:02 Pulse Ox 100 03/02/23 12:02 O2 Del Method Room Air 03/02/23 12:02 Allergies Allergy/AdvReac Type Severity Reaction Status Date / Time morphine Allergy Severe Itching/throat Verified 03/02/23 11:35 tightness Sulfa (Sulfonamide Allergy Intermediate Hives, Verified 03/02/23 11:35 Antibiotics) itching nitrofurantoin AdvReac Mild Rash Verified 03/02/23 11:35 [From Macrobid] Home Medications Medication Instructions Recorded Confirmed Type nystatin 100,000 unit/mL oral 5 ml PO DAILY #473 mL 01/17/23 03/02/23 Rx suspension acetaminophen 500 mg capsule 1,000 mg PO Q6H PRN Pain 02/20/23 03/02/23 History furosemide 20 mg tablet 20 mg PO QAM PRN SWELLING 02/20/23 03/02/23 History triamcinolone acetonide 0.1 % 1 applic topical BID PRN Itching 02/20/23 03/02/23 History topical ointment Patient hx anesthesia problems: none Family hx anesthesia problems: none Results Review: All pre-operative results and documents have been reviewed as part of the pre-operative evaluation. 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 Surgical History Surgical History History of appendectomy History of bilateral knee replacement History of bladder surgery (01/2020) Transurethral resection bladder tumor. History of cataract extraction History of cholecystectomy History of cystoscopy History of hysterectomy History of left shoulder replacement History of spinal surgery Family History Family History Father Family history of cardiovascular disease Cerebrovascular accident Mother Cerebrovascular accident Sibling Patient's sister is in good health Family history of malignant neoplasm of breast in first degree relative Social History Social History Social History: Healthcare power of field sales manager: Angelique Gifford, niece. Code status: Full code. Smoking packs per day: 0.25 Smoking cigarettes per day: 5.0 Years smoked: 10 Smoking pack-years: 2.50 Smoking status: Former smoker Tobacco type: cigarettes Second hand tobacco smoke exposure: No Smoking end date: 04/08/88 Alcohol intake: current Drinks per week: 3 Substance use: current Substance use type: marijuana Other substance usage details: CBD/THC gummies, 1 to 2 times per day. Lack of Transportation: No Lack of Food: Never True Current Housing: I Have Housing Concerned About Future Housing: No Difficulty Paying Gas/Electric Bills: No Difficulty Paying for Meds: No Currently Unemployed: No Education: High School Diploma/GED Difficulty w/ Childcare or Family Care: No Living arrangements: [facility] [place] Additional living arrangements comments: IN CUSTODIAL APARTMENT ALONE Occupation/Education: retired Gender identity (if verbalized by the patient): Female Spiritual care concerns: No Anes - Eval Final PreProcedure Day of Proc
[2023-03-02] MEDS: ceFAZolin 2 GM/D5W 50 ML 2 GM/50 ML BAG IVPB (13:18)
--- NOTE | 2023-03-02 14:42 | P.OP_ITS ---
Procedure Note - Detailed Date of Procedure 03/02/23 Pre-op Diagnosis hx of gross hematuria, bladder CA, chronic right UPJ obstruction Post-op Diagnosis Same Procedure Performed Cystoscopy, right ureteral stent exchange, small TURBT (2 cm) Surgeon Herman Nur MD Anesthesia General Description of Procedure patient is brought the op suite she has prepped draped in routine sterile fashion while in dorsal lithotomy position after the uneventful induction of a general anesthetic. Cystoscopy is undertaken with a 21 F rigid cystoscope. The indwelling stent is grasped and removed with ease. There was minimal incrustation. Retrograde pyelogram was obtained with [place] catheter to ensure appropriate placement of the new stent. A new 6 F variable length double-J ureteral stent is positioned with the proximal coil in the renal pelvis and distal coil in the bladder. 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 She does have a small somewhat solid neoplastic looking growth in the right posterior lateral bladder wall. Using a loop brought road this is resected in its entirety with an attempt made to include some detrusor muscle for pathological evaluation of invasion. The base and periphery is cauterized. Scopes and wires removed she was taken recovery room good condition. Drains Yes Pathology None sent Complications No immediate complications Condition Stable
[2023-03-02 14:57] LABS: Hematocrit 29.3 % (37.0-47.0); Hemoglobin 9.2 g/dL (12.0-15.0)
== END 2023-03-02 16:06 | disposition home or self-care (01) ==
PROVIDERS: PCP Internal Medicine; Visit Provider Urology
PROC: (CPT 52310; principal; 2023-03-02 13:00)
PROC: 0TBB8ZZ Excision of Bladder, Via Natural or Artificial Opening Endoscopic (ICD-10-PCS; CPT 52234; 2023-03-02 13:00)
DX: C67.2 Malignant neoplasm of lateral wall of bladder (principal); N13.1 Hydronephrosis with ureteral stricture, not elsewhere classified; N18.32 Chronic kidney disease, stage 3b; K21.9 Gastro-esophageal reflux disease without esophagitis; G47.33 Obstructive sleep apnea (adult) (pediatric); Z87.891 Personal history of nicotine dependence
CPT/HCPCS: 52234; 52332; 36415; 74420; 85014; 85018; 88305; 88331; C1758; C1769; C2617; J0690; J1100; J2405; J2704; J7120

== ENCOUNTER 2023-04-18 11:55 | Outpatient (CLI) | payer MEDICARE, BC, SELFPAY ==
--- NOTE | ~2023-04-18 | PE_ITS ---
EXAMINATION: PET skull to mid thigh DATE: 04/18/2023 14:42 INDICATION: Bladder cancer TECHNIQUE: Blood glucose level was 79 mg/dL. 10.381 mCi of 18-fluorodeoxyglucose (18-FDG) was adminis tered i.v. Low dose computed tomography (CT) images were acquired from the base of the brain to the p roximal thighs for attenuation correction and anatomic localization. Positron emission tomography (PE T) images were acquired in the same distribution beginning 66 minutes after injection. Images includi ng fused PET/CT images were reconstructed in axial, coronal, and sagittal planes. Automated exposure control technique was employed. The dose-length product was 417.28mGy-cm. COMPARISON: CT abdomen pelvis dated 01/16/2023 FINDINGS: Head/neck: There is symmetric increased activity in the oral cavity, palatine tonsils, parotid glands, submandi bular glands, laryngeal muscles and ocular muscles without CT correlate, likely physiologic small foc us of mild uptake in the soft tissues posterior to the right mastoid with maximal SUV of 4.4 mm witho ut evident radiologic correlate, potentially physiologic muscular uptake along the posterior paraspin al musculature. No pathologically enlarged or abnormally FDG avid cervical lymphadenopathy. Chest: Scattered mild dependent and discoid atelectasis in the bilateral lower lobes and additional mild dis coid atelectasis in the right middle lobe. No suspicious pulmonary nodules, pneumonia, pulmonary tejas a, pleural effusion or FDG avid lung lesions. And mild cardiomegaly. Small pericardial effusion. Ecta tic proximal descending thoracic aorta which measures up to 3.9 cm in maximal diameter. Lipomatous hy pertrophy of the atrial septum with prominent associated FDG uptake. No pathologically enlarged or FD G avid thoracic lymphadenopathy. Abdomen/pelvis/proximal thighs: Physiologic renal accumulation and excretion of FDG activity in the kidneys, bladder and along portio ns of ureters. Right internal ureteral stent with loops formed at the right renal pelvis and in the b ladder. Mild right hydroureter extending proximally from a soft tissue density mass centered at the r ight ureterovesicular junction. There appears to be mild associated FDG uptake with a mass which appe ars to extend further from the ureteral stent in the lumen of the bladder but would be expected for e xcreted urinary activity and likely reflects to reported malignant bladder cancer. Photopenic defects associated with low-attenuation bilateral renal cysts the larger on the left measuring up to 2.8 cm. Normal degree and heterogenous pattern of increased uptake throughout the liver without radiologic c orrelate or dominant FDG avid lesion. Cholecystectomy clips the gallbladder fossa. The pancreas, sple en and bilateral adrenal glands are normal. Mild to moderate uptake scattered throughout the bowels w ithout radiologic correlate, also likely physiologic. Likely ileocolic anastomotic suture line in the anterior right pelvis. Scattered colonic diverticula without adjacent inflammatory stranding to sugg est diverticulitis. No free intraperitoneal gas or fluid. No pathologically enlarged or FDG avid abdo cb or pelvic lymphadenopathy. Musculoskeletal: Postoperative change including left shoulder arthroplasty, anterior spinal fusion with plate and scre w fixation the lower cervical spine and a combined instrumented L4-S1 anterior and posterior spinal f usion with interbody bone graft cages and bilateral vertical [place] and pedicle screw fixation. There is extensive joint centered increased FDG uptake most prominent at the bilateral glenohumeral, sternocl avicular and hip joints, at multiple facet joints primarily in the cervical and lumbar spine and tristan rity of the costovertebral articulations. There is additional increased FDG uptake in the soft tissue s between the spinous processes in the upper lumbar spine and along the interspinous ligament at the low
[2023-04-18 12:25] LABS: Glucose Point of Care 79 mg/dl (65-105)
== END 2023-04-18 11:56 | disposition home or self-care (01) ==
PROVIDERS: PCP Family Medicine; Visit Provider Urology
DX: C67.2 Malignant neoplasm of lateral wall of bladder (principal)
CPT/HCPCS: 78815; A9552

== ENCOUNTER 2023-06-06 11:43 | Inpatient (IN) | payer MEDICARE, BC, SELFPAY ==
[2023-06-06] VITALS (11 sets, daily range): BP systolic 110–155; BP diastolic 46–60; PULSE 62–91; RESP 14–18; TEMP 36.3–36.6; O2SAT 97–100; BMI 19.3
--- NOTE | ~2023-06-06 | CT_ITS ---
EXAMINATION: CT abdomen pelvis wo con DATE: 06/06/2023 14:43 INDICATION: Abdominal pain, back pain. History of bladder cancer. TECHNIQUE: Computed tomography (CT) of the abdomen and pelvis was performed without intravenous contr ast. Automated exposure control and iterative reconstruction technique were employed. Exam dose: 350 .81 mGy-cm total exam DLP. COMPARISON: 04/18/2023 PET/CT scan 01/16/2023 CT abdomen pelvis FINDINGS: Minimal bibasilar dependent lower lobe atelectasis. Heart size is within normal range. No p leural effusion. Status post cholecystectomy. No hepatic, splenic, pancreatic or adrenal space-occupying mass lesion i s detected. Bilateral renal cysts. There are bilateral internal urinary stents but prominent bilateral hydronephr osis and prominent distention of the urinary bladder, with bladder air-fluid level. There appears to be a soft tissue mass at the posterior base of the urinary bladder and both ureterovesical junction a reas, right greater than left; history of bladder cancer. There is atherosclerotic calcification of the abdominal aorta and prominent calcifications at the jaja gin of the renal arteries. No abdominal aortic aneurysm. No intraperitoneal or retroperitoneal or pelvic lymphadenopathy is evident. There is a prominent amount of fecal material throughout the colon. Status post appendectomy. Status post posterior spinal fusion by pedicle screws and rods at L4-S1. There is flattening of the left femoral head suggesting avascular necrosis with prominent secondary o steoarthritis. There is prominent osteoarthritis at the right hip joint. IMPRESSION: Soft tissue mass, likely malignant tumor, at posterior bladder base, extending to the ur eterovesical junctions, right greater than left, with prominent distention of the urinary bladder and bilateral hydronephrosis despite bilateral internal stents Reviewed, dictated and finalized at [facility]. Reviewed, dictated and finalized at location L. IMPRESSION: Soft tissue mass, likely malignant tumor, at posterior bladder bas e, extending to the ureterovesical junctions, right greater than left, with pro minent distention of the urinary bladder and bilateral hydronephrosis despite b ilateral internal stents
--- NOTE | ~2023-06-06 | CT_ITS ---
EXAMINATION: CT brain wo con DATE: 06/06/2023 14:43 INDICATION: Headache. History of bladder cancer. TECHNIQUE: Computed tomography (CT) of the head was performed without intravenous contrast. The mA wa s adjusted according to patient size. Iterative reconstruction technique was employed. Exam dose: 60 5.33 mGy-cm total exam DLP. COMPARISON: 09/30/2022 CT brain FINDINGS: No intracranial mass lesion or hemorrhage or cerebrovascular accident. No midline shift or mass effect. Cerebral atherosclerosis and chronic small vessel ischemic changes of the cerebral white matter. No subdural or epidural hematoma. The mastoid air cells and paranasal sinuses are normally developed and aerated. No fracture or bone destruction of the cranial vault. IMPRESSION: No acute intracranial finding Reviewed, dictated and finalized at [facility]. Reviewed, dictated and finalized at location L.
--- NOTE | ~2023-06-06 | XR_ITS ---
EXAMINATION: XR chest 1V Exam Date/Time: 06/06/2023 14:35 CDT HISTORY: weakness Comparison: 09/24/2022. RESULT: Lines, tubes, and devices: Cervical fusion hardware. Left shoulder arthroplasty. Cholecystectomy cli ps. Bilateral ureteral stents. Lungs and pleura: Senescent change with bibasilar scar/atelectasis, otherwise clear. Cardiomediastinal silhouette: Stable. Other: No acute osseous or upper abdominal finding. IMPRESSION: No acute cardiopulmonary process. Reviewed, dictated and finalized at location K.
--- NOTE | ~2023-06-06 | US_ITS ---
EXAMINATION: US renal BI DATE: 06/09/2023 08:46 INDICATION: Hydronephrosis TECHNIQUE: Multiple ultrasound grayscale images of the kidneys were obtained. COMPARISON: None. FINDINGS: The right kidney measures 11.0 x 6.0 x 4.8 cm. The left kidney measures 10.2 x 4.9 x 4.8 cm. The kidn eys demonstrate normal echogenicity. Suboptimally visualized 2.6 cm hypoechoic/anechoic region with p oorly delineated margins and with internal thin echogenic line at the right kidney suggesting a compl ex cyst. Alternatively this could represent artifactual appearance of a larger lesion resulting from combination of a smaller simple cyst along side a hypoechoic renal pyramid. There is no hydronephrosi s in either kidney. No stones identified. The bladder is decompressed around a Duff catheter which limits evaluation. IMPRESSION: 1. No hydronephrosis in either kidney. 2. Indeterminate suboptimally visualized 2.6 cm lesion at the right kidney and would recommend furthe r evaluation with pre and postcontrast MRI or CT. Reviewed, dictated and finalized at location A. IMPRESSION: 1. No hydronephrosis in either kidney. 2. Indeterminate suboptimally visualized 2.6 cm lesion at the right kidney and would recommend further evaluation with pre and postcontrast MRI or CT.
--- NOTE | ~2023-06-06 | CT_ITS ---
EXAMINATION: CT abdomen pelvis wo con DATE: 06/13/2023 13:18 INDICATION: Worsening kidney function TECHNIQUE: Computed tomography (CT) of the abdomen and pelvis was performed without intravenous contr ast. Automated exposure control and iterative reconstruction technique were employed. The dose-length product was 797.22 mGy-cm. COMPARISON: 06/06/2023 FINDINGS: Small bilateral posterior layering pleural effusions with basilar and dependent compressive atelectas is in the bilateral lower lobes. Heart size is normal. Atherosclerotic coronary artery calcification. Small pericardial effusion. Post cystectomy clips the gallbladder fossa. Liver, pancreas and bilater al adrenal glands are normal. Several splenic calcification consistent with old granulomatous disease . There are bilateral renal cysts, the largest on the left measuring 3.4 cm. 2 mm nonobstructing ston e in the inferior calyx of the right kidney. Bilateral internal ureteral stents with loops formed in the bilateral renal pelvises and in the bladder. No hydronephrosis. There is also a Duff catheter wi thin the decompressed bladder. Large amount of stool scattered throughout the colon. No dilated bowel to suggest obstruction. Suture line along the tip the cecum suggesting prior appendectomy. Extensive soft tissue edema throughout the body wall, mesentery and retroperitoneum. Small amount of ascites p rimarily in the pelvis. No abscess or free intraperitoneal gas. Small amount of subcutaneous gas at t he anterolateral left pelvis which may relate to subcutaneous injection. Bilateral hip osteoarthritis , severe on the right and advanced with remodeling of the femoral head and acetabulum on the left. Se tristen thoracic and lumbar spondylosis with combined instrumented L4-S1 anterior and posterior spinal f usion with interbody bone graft cages at both levels and bilateral vertical everton and pedicle screw fix ation. IMPRESSION: 1. Duff catheter and bilateral internal ureteral stents, all in expected positions. No hydronephrosi s. 2. 2 mm nonobstructing right renal stone. 3. Anasarca with extensive body wall, mesenteric and retroperitoneal edema, small bilateral pleural e ffusions, small pericardial effusion and small amount of ascites. Reviewed, dictated and finalized at location A. IMPRESSION: 1. Duff catheter and bilateral internal ureteral stents, all in expected posit ions. No hydronephrosis. 2. 2 mm nonobstructing right renal stone. 3. Anasarca with extensive body wall, mesenteric and retroperitoneal edema, sma ll bilateral pleural effusions, small pericardial effusion and small amount of ascites.
--- NOTE | ~2023-06-06 | XR_ITS ---
EXAMINATION: XR chest 1V portable INDICATION: Shortness of breath TECHNIQUE: Portable AP chest at 0838 hours COMPARISON: 06/06/2023 FINDINGS: There are minimal airspace opacities of the left lung base. No definite pleural effusion or pneumothorax. The cardiomediastinal silhouette is stable. There are changes of left shoulder arthrop lasty. Changes of cervical fusion are also noted. IMPRESSION: 1. Left basilar airspace opacity, consistent with atelectasis versus pneumonia. Reviewed, dictated and finalized at location A.
--- NOTE | 2023-06-06 11:44 | ECG_ITS ---
Measurements Intervals [place] Rate: 70 P: 76 IN: 179 QRS: -30 QRSD: 100 T: 35 QT: 346 QTc: 373 Interpretive Statements SINUS RHYTHM WITH FREQUENT VENTRICULAR PREMATURE COMPLEXES OCCURRING IN A PATTERN OF TRIGEMINY BORDERLINE LEFT AXIS DEVIATION [QRS AXIS < -20] INCOMPLETE RIGHT BUNDLE BRANCH BLOCK [90+ ms QRS DURATION, TERMINAL R IN V1/V2, 40+ ms S IN I/aVL/V4/V5/V6] ABNORMAL RHYTHM ECG COMPARED TO ECG 09/24/2022 06:14:59 PVCS ARE NOW OCCURRING IN A TRIGEMINAL PATTERN Electronically Signed On 06-06-2023 12:20:10 CDT by Roberto Wallis M.D.
[2023-06-06 12:55] LABS: Basophils Absolute Auto 0.1 K/mm3 (0.0-0.1); Basophils Percent Auto 0.8 % (0.2-1.2); Eosinophils Absolute Auto 0.4 K/mm3 (0-0.3); Eosinophils Percent Auto 4.2 % (0-4.4); Hematocrit 31.7 % (37.0-47.0); Hemoglobin 9.7 g/dL (12.0-15.0); Immature Granulocyte Absolute 0.03 K/mm3 (0.00-0.031); Immature Granulocyte Percent A 0.3 % (0-0.5); Mean Corpuscular HGB Conc 30.6 g/dl (32-36); Mean Corpuscular Hemoglobin 32.1 pg (26-34); Mean Platelet Volume 9.8 fl (7.4-10.4); Monocytes Absolute Auto 0.4 K/mm3 (0.1-0.6); Monocytes Percent Auto 3.9 % (2.6-8.5); Neutrophils Absolute Auto 7.3 K/mm3 (1.3-6.7); Neutrophils Percent Auto 80.8 % (45.5-73.1); Platelet Count Result 305 k/mm3 (150-375); Red Blood Count 3.02 M/mm3 (4.2-5.4); Red Cell Distribution Width 14.1 % (11.5-14.5)
[2023-06-06 13:14] LABS: Alanine Aminotransferase 9 U/L (6-35); Albumin Level 3.4 g/dL (3.5-5.1); Alkaline Phosphatase 58 U/L (38-126); Anion Gap 8 mmol/L (8-16); Aspartate Amino Transferase 23 U/L (14-36); Bilirubin,Total 0.4 mg/dL (0.2-1.3); Blood Urea Nitrogen 58 mg/dL (7-17); Calcium 11.6 mg/dL (8.4-10.2); Carbon Dioxide 21 mmol/L (22-30); Chloride 101 mmol/L (98-107); Estimated CRCL calculation 12 ml/min; Estimated Glomerular Filt Rate 17; Glucose 69 mg/dL (65-110); Potassium 6.1 mmol/L (3.4-5.0); Sodium 130 mmol/L (137-145)
[2023-06-06] MEDS: ALBUTEROL SULFATE NEB 2.5 MG/3 ML INH 10 MG INHALATION (14:01)
[2023-06-06] MEDS: SODIUM CHLORIDE 0.9% IV 1,000 ML 999 ML IV CONT (14:09)
[2023-06-06] MEDS: SODIUM BICARBONATE 8.4% 50 MEQ/50 ML SYRINGE IV PUSH (14:09)
[2023-06-06] MEDS: CALCIUM GLUC 1,000 MG/NS 50 ML 1,000 MG/50 ML BAG 100 MG IVPB (14:09)
[2023-06-06] MEDS: DEXTROSE 50% 25 GM/50 ML SYRINGE IV PUSH (14:14)
--- NOTE | 2023-06-06 14:44 | ED.RECABL ---
HPI - Recheck/Abnormal Lab/Rx General Chief Complaint: Recheck/Abnormal Lab/Rx Stated Complaint: high K Time Seen by Provider: 06/06/23 13:14 Source: patient, family, RN notes reviewed and old records reviewed Mode of arrival: EMS History of Present Illness HPI narrative: This is an 78 year old female with history of bladder cancer who presents for evaluation of high potassium. Patient has been having nausea, vomiting, anorexia, body aches and headache for weeks so her doctor ordered labs yesterday. They were called and told to come to ER for potassium 6.2. Patient's family is at bedside helping with history. They reports patient was found to have recurrence of bladder tumor 1 month ago and she has had ureteral stone place to for blockage due to her tumor. She reports having recent PET scan to rule out widespread disease. Patient reports she is taking norco for pain and her last bowel movement was 3 days ago. Related Data Home Medications Medication Instructions Recorded Confirmed triamcinolone acetonide 0.1 % 1 applic topical BID PRN Itching 02/20/23 06/06/23 topical ointment docusate sodium 100 mg capsule 100 mg PO BID 06/06/23 06/06/23 (Colace) dronabinol 2.5 mg capsule 2.5 mg PO BID 06/06/23 06/06/23 dronabinol 2.5 mg capsule 2.5 mg PO DAILY 06/06/23 06/06/23 ferrous sulfate 325 mg (65 mg 325 mg PO BID 06/06/23 06/06/23 iron) tablet (FeroSul) furosemide 20 mg tablet 20 mg PO DAILY 06/06/23 06/06/23 hydrocodone 5 mg-acetaminophen 325 1 tablet PO Q6H PRN Pain 06/06/23 06/06/23 mg tablet nystatin 100,000 unit/mL oral 5 ml PO DAILY PRN THRUSH 06/06/23 06/06/23 suspension ondansetron 4 mg disintegrating 4 mg PO Q6H PRN Nausea And Vomiting 06/06/23 06/06/23 tablet polyethylene glycol 3350 17 gram 17 g PO DAILY 06/06/23 06/06/23 oral powder packet sennosides 8.6 mg tablet (senna) 8.6 mg PO BID 06/06/23 06/06/23 Allergies Allergy/AdvReac Type Severity Reaction Status Date / Time morphine Allergy Severe Itching/throat Verified 03/02/23 11:35 tightness Sulfa (Sulfonamide Allergy Intermediate Hives, Verified 03/02/23 11:35 Antibiotics) itching nitrofurantoin AdvReac Mild Rash Verified 03/02/23 11:35 [From Macrobid] Review of Systems Constitutional: Constitutional: Reports fatigue and Reports weakness Cardiovascular: Cardiovascular: Denies syncope, Denies rapid heart rate, Denies irregular heart rhythm, Denies leg edema and Denies dyspnea Respiratory: Respiratory: Denies chest congestion, Denies hemoptysis, Denies excessive phlegm production and Denies dyspnea Gastrointestinal: Gastrointestinal: Reports abdominal pain, Denies hematochezia, Reports constipation, Denies diarrhea, Reports nausea and Reports vomiting Genitourinary: Genitourinary: Denies hematuria, Reports dysuria and Reports urinary incontinence (chronic) Musculoskeletal: Musculoskeletal: Reports myalgias, Denies joint swelling, Denies loss of height and Reports muscle weakness Neurologic: Denies syncope, Reports headache(s), Denies focal weakness and Denies weakness PMFSH Past Medical History Medical History Chronic kidney disease, stage 3 Chronic kidney disease, stage 3b Eosinophilia Gastroesophageal reflux disease Hypertension Macrocytic anemia Obstructive sleep apnea 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 Surgical History Surgical History History of appendectomy History of bilateral knee replacement History of bladder surgery (01/2020) Transurethral resection bladder tumor. History of cataract extraction History of cholecystectomy History of cystoscopy History of hysterectomy History of left shoulder replacement History of spinal surgery Family History Family History (Reviewed 06/06/23 @ 16:04 by Natalee
--- NOTE | 2023-06-06 15:58 | WPDURCON ---
Assessment and Plan Assessment and plan (1) Hematuria: Qualifiers: Hematuria type: gross Qualified Code(s): R31.0 - Gross hematuria Code(s): R31.9 - Hematuria, unspecified Status: Acute Assessment and Plan: Expected with Stents in place, no symptoms of a UTI. (2) Bladder tumor: Code(s): D49.4 - Neoplasm of unspecified behavior of bladder Status: Acute (3) Bladder cancer: Code(s): C67.9 - Malignant neoplasm of bladder, unspecified Status: Acute Assessment and Plan: Patient to follow up outpatient with oncology to discuss radiation vs chemo options for her known recurrent bladder cancer. (4) Hydronephrosis: Code(s): N13.30 - Unspecified hydronephrosis Status: Acute Assessment and Plan: Stents are in place, no need to surgically intervene. Patient should have blanchard placed to resolve what is likely retention. A DHAVAL should be done in a few days to ensure hydro has resolved. Urology Consult Note HPI Date Seen: 06/06/23 Time Seen: 15:58 Primary Care Provider: Pj Schroeder MD Consult Narrative Reason for consult: Bilateral Hydronephrosis/Bladder Mass Narrative: Mariposa Andrade is a 78 year old female who presnted to the ER today for acute onset of nausea, vomiting, anorexia, body aches adn headaches. She also c/o difficutly with urination that started 2 weeks ago. She has the urge to go but very little comes out. This is new for her and she denies dysuria, cloudy or malodorous urine, but is experiencing hematuria from her stents and urgency/freqnuency. She is a known patient from Dr. Badillo and Dr. Nur for bladder cancer. She has bilateral stents placed with a known bladder tumor that is re-current. She saw Dr. Badillo recently in our office who determined she would need to proceed with surgical intervention for her recurrent bladder tumor or see oncology to determine if chemo/radiation would be necessary. She is to see Oncology in the next two weeks to determine if radiation or chemo is an option before proceeding with any surgery. Her CT today shows Soft tissue mass, likely malignant tumor, at posterior bladder base, extending to the ureterovesical junctions, right greater than left, with prominent distention of the urinary bladder and bilateral hydronephrosis despite bilateral internal stents. Creatinine is elevated from baseline to 2.7. WBC is 9.0, NA+ is 130 and K+ is 6.1. She is being admitted for hyperkalemia and hyponatremia. A blanchard catheter is to be placed. Review of Systems Constitutional: Constitutional: Reports fatigue and Reports weakness Cardiovascular: Cardiovascular: Denies no additional cardiovascular complaints Respiratory: Respiratory: Reports no additional respiratory complaints Gastrointestinal: Gastrointestinal: Denies abdominal pain, Reports nausea and Reports vomiting Genitourinary: Genitourinary: Reports hematuria, Reports nocturia, Denies dysuria, Reports urinary hesitancy and Reports urinary urgency [facility] Past Medical History Medical History Chronic kidney disease, stage 3 Chronic kidney disease, stage 3b Eosinophilia Gastroesophageal reflux disease Hypertension Macrocytic anemia Obstructive sleep apnea 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 Surgical History Surgical History History of appendectomy History of bilateral knee replacement History of bladder surgery (01/2020) Transurethral resection bladder tumor. History of cataract extraction History of cholecystectomy History of cystoscopy History of hysterectomy History of left shoulder replacement History of spinal surgery Family History Family History Father Family history of card
[2023-06-06 16:28] LABS: Anion Gap 8 mmol/L (8-16); Blood Urea Nitrogen 60 mg/dL (7-17); Calcium 11.1 mg/dL (8.4-10.2); Carbon Dioxide 21 mmol/L (22-30); Chloride 102 mmol/L (98-107); Estimated CRCL calculation 13 ml/min; Estimated Glomerular Filt Rate 18; Glucose 123 mg/dL (65-110); Potassium 4.6 mmol/L (3.4-5.0); Sodium 131 mmol/L (137-145)
[2023-06-06] MEDS: HYDROcodone/acetaminophen (*CRX) 5-325 MG TABLET 1 TAB PO (17:06)
--- NOTE | 2023-06-06 17:30 | PM.IMHP ---
H&P: HPI History of Present Illness Date/Time: 06/06/23 17:30 Chief Complaint: Abnormal labs dysuria Narrative: 78 years old lady with history of bladder cancer, present ED with a chief complaint of abnormal lab. Patient has been having nausea vomiting anorexia and possibly more days, and the patient has difficulty with urination in past 2 weeks, patient has urinary urgency frequency. She has bladder cancer, bilateral stents placed with a known bladder tumor that is re-current. She saw Dr. Badillo recently in our office who determined she would need to proceed with surgical intervention for her recurrent bladder tumor or see oncology to determine if chemo/radiation would be necessary. She follows with oncology in the next two weeks to determine if radiation or chemo is an option before proceeding with any surgery. Patient comes ED evaluation, CT shows s or oft tissue mass, likely malignant tumor, at posterior bladder base, extending to the ureterovesical junctions, right greater than left, with prominent distention of the urinary bladder and bilateral hydronephrosis despite bilateral internal stents. Creatinine is elevated from baseline to 2.7. WBC is 9.0, NA+ is 130 and K+ is 6.1. She is being admitted for hyperkalemia and hyponatremia. A blanchard catheter is to be placed. 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 Surgical History Surgical History History of appendectomy History of bilateral knee replacement History of bladder surgery (01/2020) Transurethral resection bladder tumor. History of cataract extraction History of cholecystectomy History of cystoscopy History of hysterectomy History of left shoulder replacement History of spinal surgery Family History Family History Father Family history of cardiovascular disease Cerebrovascular accident Mother Cerebrovascular accident Sibling Patient's sister is in good health Family history of malignant neoplasm of breast in first degree relative Social History Social History Social History: Healthcare power of commonwealth attorney: Angelique Gifford, niece. Code status: Full code. Smoking packs per day: 0.25 Smoking cigarettes per day: 5.0 Years smoked: 10 Smoking pack-years: 2.50 Smoking status: Former smoker Tobacco type: cigarettes Second hand tobacco smoke exposure: Yes Smoking end date: 04/08/88 Additional smoking assessment comments: SOCIALLY, QUIT IN 1982 Alcohol intake: current Drinks per week: 3 Substance use: current Substance use type: marijuana Other substance usage details: CBD/THC gummies, 1 to 2 times per day. Lack of Transportation: No Lack of Food: Never True Current Housing: I Have Housing Concerned About Future Housing: No Difficulty Paying Gas/Electric Bills: No Difficulty Paying for Meds: No Currently Unemployed: No Education: High School Diploma/GED Difficulty w/ Childcare or Family Care: No Living arrangements: [facility] Additional living arrangements comments: IN INTERMEDIATE APARTMENT ALONE Occupation/Education: retired Gender identity (if verbalized by the patient): Female Spiritual care concerns: No Me
--- NOTE | 2023-06-06 18:16 | ADMGEN ---
This patient, Mariposa Andrade, was admitted to IMU Room 231-01. Patient/family oriented to hospital policies and general routines including ID bracelet, bed and alarms, visiting hours, pain management, procedures, bathroom and other care routines, personal items, smoking policy, room service/diet, and visiting hours. Information on how to activate the Rapid Response Team has been discussed. Patient/Family are encouraged to report perceived risks to care and to ask questions if they do not understand what they are told or what they should do.
[2023-06-06 19:04] LABS: Appearance Urine Turbid (Clear); Bacteria Urine 1+ /hpf; Bilirubin Urine Negative (Negative); Blood Urine 3+ (Negative); Color Urine Yellow (Yellow); Glucose Urine UA Negative (Negative); Ketones Urine Negative (Negative); Leukocyte Esterase Ur 3+ LEU/UL (NEGATIVE); Nitrate Urine Negative (Negative); Protein Urine 2+ mg/dL (Negative); RBC Urine 21-50 /hpf (0-2); Squamous Epithelial Cell Urine Few /hpf (Few); Urobilinogen Urine 0.2 mg/dL (<2.0); WBC Clumps Urine Present /HPF; WBC Urine >100 /hpf (0-3)
[2023-06-06 19:06] LABS: Add Urine Microscopic? YES
[2023-06-06 19:25] LABS: Anion Gap 6 mmol/L (8-16); Basophils Absolute Auto 0.1 K/mm3 (0.0-0.1); Basophils Percent Auto 0.7 % (0.2-1.2); Blood Urea Nitrogen 55 mg/dL (7-17); Calcium 11.2 mg/dL (8.4-10.2); Carbon Dioxide 21 mmol/L (22-30); Chloride 105 mmol/L (98-107); Eosinophils Absolute Auto 0.2 K/mm3 (0-0.3); Eosinophils Percent Auto 2.6 % (0-4.4); Estimated CRCL calculation 12 ml/min; Estimated Glomerular Filt Rate 18; Glucose 77 mg/dL (65-110); Hematocrit 29.8 % (37.0-47.0); Hemoglobin 9.2 g/dL (12.0-15.0); Immature Granulocyte Absolute 0.03 K/mm3 (0.00-0.031); Immature Granulocyte Percent A 0.4 % (0-0.5); Lymphocytes Absolute Auto 1.16 K/mm3 (0.9-3.2); Lymphocytes Percent Auto 13.6 % (18.3-44.2); Mean Corpuscular HGB Conc 30.9 g/dl (32-36); Mean Corpuscular Hemoglobin 32.5 pg (26-34); Mean Corpuscular Volume 105.3 fl (80-100); Mean Platelet Volume 9.7 fl (7.4-10.4); Monocytes Absolute Auto 0.5 K/mm3 (0.1-0.6); Monocytes Percent Auto 5.5 % (2.6-8.5); Neutrophils Absolute Auto 6.6 K/mm3 (1.3-6.7); Neutrophils Percent Auto 77.2 % (45.5-73.1); Platelet Count Result 263 k/mm3 (150-375); Potassium 4.8 mmol/L (3.4-5.0); Red Blood Count 2.83 M/mm3 (4.2-5.4); Red Cell Distribution Width 14.2 % (11.5-14.5); Sodium 132 mmol/L (137-145); White Blood Count 8.5 K/mm3 (4.5-10.0)
[2023-06-06] MEDS: SODIUM CHLORIDE 0.9% IV 1,000 ML 100 ML IV CONT (20:46)
[2023-06-06 20:52] LABS: Anisocytosis 1+ (NORMAL); Platelet Estimate Adequate (Adequate); Poikilocytosis 1+ (NORMAL); Schistocytes None Seen (NORMAL)
[2023-06-06] MEDS: oxyCODONE/ACETAMINOPHEN (*CRX) 5-325 MG TABLET 1 TABLET PO (23:28)
[2023-06-07] VITALS (11 sets, daily range): BP systolic 102–143; BP diastolic 35–62; PULSE 67–82; RESP 12–20; TEMP 36.2–36.6; O2SAT 95–100; BMI 20.5
[2023-06-07 05:04] LABS: Basophils Absolute Auto 0.1 K/mm3 (0.0-0.1); Eosinophils Absolute Auto 0.5 K/mm3 (0-0.3); Eosinophils Percent Auto 6.7 % (0-4.4); Hematocrit 29.5 % (37.0-47.0); Immature Granulocyte Absolute 0.03 K/mm3 (0.00-0.031); Immature Granulocyte Percent A 0.4 % (0-0.5); Lymphocytes Absolute Auto 1.11 K/mm3 (0.9-3.2); Lymphocytes Percent Auto 13.8 % (18.3-44.2); Mean Corpuscular HGB Conc 30.5 g/dl (32-36); Mean Corpuscular Hemoglobin 31.8 pg (26-34); Mean Corpuscular Volume 104.2 fl (80-100); Mean Platelet Volume 9.8 fl (7.4-10.4); Monocytes Absolute Auto 0.5 K/mm3 (0.1-0.6); Monocytes Percent Auto 6.2 % (2.6-8.5); Neutrophils Absolute Auto 5.8 K/mm3 (1.3-6.7); Neutrophils Percent Auto 71.9 % (45.5-73.1); Platelet Count Result 255 k/mm3 (150-375); Red Blood Count 2.83 M/mm3 (4.2-5.4); Red Cell Distribution Width 13.9 % (11.5-14.5); White Blood Count 8.1 K/mm3 (4.5-10.0)
[2023-06-07 05:10] LABS: Alanine Aminotransferase 7 U/L (6-35); Albumin Level 2.6 g/dL (3.5-5.1); Alkaline Phosphatase 44 U/L (38-126); Anion Gap 5 mmol/L (8-16); Aspartate Amino Transferase 21 U/L (14-36); Bilirubin,Total 0.2 mg/dL (0.2-1.3); Blood Urea Nitrogen 52 mg/dL (7-17); Calcium 10.6 mg/dL (8.4-10.2); Carbon Dioxide 22 mmol/L (22-30); Chloride 107 mmol/L (98-107); Estimated CRCL calculation 14 ml/min; Estimated Glomerular Filt Rate 19; Glucose 75 mg/dL (65-110); Potassium 5.1 mmol/L (3.4-5.0); Sodium 134 mmol/L (137-145)
[2023-06-07] MEDS: SODIUM CHLORIDE 0.9% IV 1,000 ML 100 ML IV CONT ×2 (05:44→16:30)
[2023-06-07] MEDS: TAMSULOSIN HCL 0.4 MG CAPSULE PO (08:57)
[2023-06-07] MEDS: ENOXAPARIN 30 MG/0.3 ML SYRINGE SUB-Q (08:57)
[2023-06-07] MEDS: oxyCODONE/ACETAMINOPHEN (*CRX) 5-325 MG TABLET 1 TABLET PO ×2 (08:58→20:52)
[2023-06-07] MEDS: SODIUM ZIRCONIUM CYCLOSILICATE 10 GM POWD.PACK PO (09:05)
[2023-06-07] MEDS: ONDANSETRON INJ 4 MG/2 ML VIAL IV PUSH ×2 (09:55→17:23)
--- NOTE | 2023-06-07 15:08 | PM.IMPN ---
Progress Note: A&P Assessment and Plan (1) Hydronephrosis: Code(s): N13.30 - Unspecified hydronephrosis Status: Acute Assessment and Plan: Likely resulting from bladder cancer. Patient has difficulty with urination, your urgency frequency CT shows soft tissue mass, likely malignant tumor at posterior bladder base extending to the UVJ, right greater than left with prominent distention of the urinary bladder and bilateral hydronephrosis despite bilateral internal stents Appreciated urologist consultation, urologist considers patient does not need surgical treatment currently Urinary catheter placed Follow urologist's recommendation Repeat renal ultrasound in few days (2) Hematuria: Qualifiers: Hematuria type: gross Qualified Code(s): R31.0 - Gross hematuria Code(s): R31.9 - Hematuria, unspecified Status: Acute Assessment and Plan: Likely due to recurrent bladder cancer. (3) Bladder cancer: Code(s): C67.9 - Malignant neoplasm of bladder, unspecified Status: Acute Assessment and Plan: Patient originally diagnosed with T1 high-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 She had stent placed in September of 2022. She was recently diagnosed in February of 2023 with muscle invasive bladder cancer that was removed completely and new stents were placed. At this time there was a small somewhat solid neoplastic looking growth at the right posterior lateral bladder wall and biopsies were taken. Pathology report revealed highly atypical degenerative tumor cells. Recent scan revealing a soft tissue mass likely malignant tumor at the base of the posterior bladder extending into the UVJ right greater than left. Being treated by Dr. Aby lopez and Dr. Nur for bladder cancer. Patient scheduled to see Oncology in approximately 2 weeks to determine if she is a candidate for chemo/radiation. (4) Acute kidney injury: Code(s): N17.9 - Acute kidney failure, unspecified Status: Acute Assessment and Plan: In the ER, patient is found to have elevated BUN and creatinine above baseline with creatinine of 2.7 Likely resulting from urinary retention, obstruction of progression of bladder cancer Continue normal saline 100 mL per hour Correct electrolyte abnormality accordingly Follow urinalysis (5) Electrolyte abnormality: Code(s): E87.8 - Other disorders of electrolyte and fluid balance, not elsewhere classified Status: Acute Assessment and Plan: Patient found to have sodium of 130 with a potassium of 6.1 Patient received causing gluconate, albuterol nebulizer, normal saline in the ED, sodium bicarbonate 50 mg IV push once Lokelma p.r.n. IV fluids Sodium potassium are improving. Continue to monitor. (6) Hypercalcemia: Code(s): E83.52 - Hypercalcemia Status: Acute Assessment and Plan: Likely due to bladder cancer. (7) Acute renal insufficiency: Code(s): N28.9 - Disorder of kidney and ureter, unspecified Status: Acute Assessment and Plan: See above (8) Severe protein-calorie malnutrition: Code(s): E43 - Unspecified severe protein-calorie malnutrition Status: Acute Assessment and Plan: Related to energy intake with increased protein needs in setting of chronic disease (see cancer process the as evidence of minimal oral intake for 1-2 months and significant weight loss of 27 lb in the last 9 months. Recommend dietary supplements b.i.d. Nepro 419kcals and 19 ms protein Subjective Date/time seen: 06/07/23 15:08 Interval history: Patient continues to have nausea and what she describes sounds like a mixture between regurgitation and vomiting. She has been on p.r.n. Zofran which advised her to ask for her nausea medication because she has not been receiving it due to it being p.r.n. Started her on Protonix as well. I suspect that most of her s
[2023-06-07] MEDS: DOCUSATE SODIUM 100 MG CAPSULE PO (16:25)
[2023-06-07] MEDS: droNABinol (*CRX) 2.5 MG CAPSULE PO (16:25)
[2023-06-07] MEDS: FERROUS SULFATE 325 MG TABLET DR PO (16:25)
[2023-06-07] MEDS: SENNOSIDES 8.6 MG TABLET PO (16:25)
--- NOTE | 2023-06-07 17:35 | PC.NURSE ---
On 06/07/23, the student, Senait [facility], provided care and completed [facility] documentation on this patient. I have reviewed the student's documentation and agree with the findings.
[2023-06-07] MEDS: PANTOPRAZOLE SODIUM IV 40 MG VIAL IV PUSH (20:52)
[2023-06-08] VITALS (10 sets, daily range): BP systolic 119–134; BP diastolic 36–47; PULSE 63–88; RESP 8–16; TEMP 36–36.6; O2SAT 94–98
--- NOTE | 2023-06-08 02:16 | PC.NURSE ---
This patient, Mariposa Andrade, was transferred to [[id number] ] on 06/08/23 at 0216. Personal belongings sent with patient. Report given to [Suraj naranjo ]. Appropriate documentation sent with patient.
[2023-06-08] MEDS: SODIUM CHLORIDE 0.9% IV 1,000 ML 100 ML IV CONT ×2 (02:27→15:42)
[2023-06-08 06:42] LABS: Basophils Absolute Auto 0.1 K/mm3 (0.0-0.1); Basophils Percent Auto 0.5 % (0.2-1.2); Eosinophils Absolute Auto 0.9 K/mm3 (0-0.3); Eosinophils Percent Auto 8.2 % (0-4.4); Hematocrit 28.6 % (37.0-47.0); Hemoglobin 8.6 g/dL (12.0-15.0); Immature Granulocyte Absolute 0.03 K/mm3 (0.00-0.031); Immature Granulocyte Percent A 0.3 % (0-0.5); Lymphocytes Absolute Auto 0.95 K/mm3 (0.9-3.2); Lymphocytes Percent Auto 9.1 % (18.3-44.2); Mean Corpuscular HGB Conc 30.1 g/dl (32-36); Mean Corpuscular Hemoglobin 32.1 pg (26-34); Mean Corpuscular Volume 106.7 fl (80-100); Mean Platelet Volume 9.9 fl (7.4-10.4); Monocytes Absolute Auto 0.7 K/mm3 (0.1-0.6); Monocytes Percent Auto 6.4 % (2.6-8.5); Neutrophils Absolute Auto 7.9 K/mm3 (1.3-6.7); Neutrophils Percent Auto 75.5 % (45.5-73.1); Platelet Count Result 230 k/mm3 (150-375); Red Blood Count 2.68 M/mm3 (4.2-5.4); Red Cell Distribution Width 14.4 % (11.5-14.5); White Blood Count 10.5 K/mm3 (4.5-10.0)
[2023-06-08 07:02] LABS: Alanine Aminotransferase 7 U/L (6-35); Albumin Level 2.2 g/dL (3.5-5.1); Alkaline Phosphatase 54 U/L (38-126); Anion Gap 1 mmol/L (8-16); Aspartate Amino Transferase 20 U/L (14-36); Bilirubin,Total < 0.1 mg/dL (0.2-1.3); Blood Urea Nitrogen 40 mg/dL (7-17); Calcium 9.5 mg/dL (8.4-10.2); Carbon Dioxide 24 mmol/L (22-30); Chloride 110 mmol/L (98-107); Estimated CRCL calculation 16 ml/min; Estimated Glomerular Filt Rate 24; Glucose 93 mg/dL (65-110); Potassium 4.4 mmol/L (3.4-5.0); Sodium 135 mmol/L (137-145)
[2023-06-08 07:31] LABS: Macrocytosis 1+ (NORMAL); Platelet Estimate Adequate (Adequate); Schistocytes None Seen (NORMAL)
[2023-06-08] MEDS: ENOXAPARIN 30 MG/0.3 ML SYRINGE SUB-Q (08:28)
[2023-06-08] MEDS: PANTOPRAZOLE SODIUM IV 40 MG VIAL IV PUSH ×2 (08:28→21:01)
[2023-06-08] MEDS: TAMSULOSIN HCL 0.4 MG CAPSULE PO (08:29)
[2023-06-08] MEDS: polyethylene glycoL 3350 17 GM POWD.PACK PO (08:29)
[2023-06-08] MEDS: FERROUS SULFATE 325 MG TABLET DR PO ×2 (08:29→17:20)
[2023-06-08] MEDS: FUROSEMIDE 20 MG TABLET PO (08:29)
[2023-06-08] MEDS: DOCUSATE SODIUM 100 MG CAPSULE PO ×2 (08:29→17:15)
[2023-06-08] MEDS: SENNOSIDES 8.6 MG TABLET PO ×2 (08:29→17:20)
[2023-06-08] MEDS: droNABinol (*CRX) 2.5 MG CAPSULE PO ×2 (12:28→17:16)
--- NOTE | 2023-06-08 15:34 | PM.IMPN ---
Progress Note: A&P Assessment and Plan (1) Hydronephrosis: Code(s): N13.30 - Unspecified hydronephrosis Status: Acute Assessment and Plan: Likely resulting from bladder cancer. Patient has difficulty with urination, your urgency frequency CT shows soft tissue mass, likely malignant tumor at posterior bladder base extending to the UVJ, right greater than left with prominent distention of the urinary bladder and bilateral hydronephrosis despite bilateral internal stents Appreciated urologist consultation, urologist considers patient does not need surgical treatment currently Urinary catheter placed Follow urologist's recommendation Renal ultrasound for tomorrow. (2) Hematuria: Qualifiers: Hematuria type: gross Qualified Code(s): R31.0 - Gross hematuria Code(s): R31.9 - Hematuria, unspecified Status: Acute Assessment and Plan: Likely due to recurrent bladder cancer. (3) Bladder cancer: Code(s): C67.9 - Malignant neoplasm of bladder, unspecified Status: Acute Assessment and Plan: Patient originally diagnosed with T1 high-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 She had stent placed in September of 2022. She was recently diagnosed in February of 2023 with muscle invasive bladder cancer that was removed completely and new stents were placed. At this time there was a small somewhat solid neoplastic looking growth at the right posterior lateral bladder wall and biopsies were taken. Pathology report revealed highly atypical degenerative tumor cells. Recent scan revealing a soft tissue mass likely malignant tumor at the base of the posterior bladder extending into the UVJ right greater than left. Being treated by Dr. Aby lopez and Dr. Nur for bladder cancer. Patient scheduled to see Oncology in approximately 2 weeks to determine if she is a candidate for chemo/radiation. Discussed with Urology and they have agreed to discuss further care with the patient. Possible hospice consideration as well. (4) Acute kidney injury: Code(s): N17.9 - Acute kidney failure, unspecified Status: Acute Assessment and Plan: In the ER, patient is found to have elevated BUN and creatinine above baseline with creatinine of 2.7 Likely resulting from urinary retention, obstruction of progression of bladder cancer Continue normal saline 100 mL per hour Correct electrolyte abnormality accordingly Follow urinalysis (5) Electrolyte abnormality: Code(s): E87.8 - Other disorders of electrolyte and fluid balance, not elsewhere classified Status: Acute Assessment and Plan: Patient found to have sodium of 130 with a potassium of 6.1 Patient received causing gluconate, albuterol nebulizer, normal saline in the ED, sodium bicarbonate 50 mg IV push once Lokelma p.r.n. IV fluids Sodium potassium are improving. Continue to monitor. (6) Hypercalcemia: Code(s): E83.52 - Hypercalcemia Status: Acute Assessment and Plan: Likely due to bladder cancer. (7) Acute renal insufficiency: Code(s): N28.9 - Disorder of kidney and ureter, unspecified Status: Acute Assessment and Plan: See above (8) Severe protein-calorie malnutrition: Code(s): E43 - Unspecified severe protein-calorie malnutrition Status: Acute Assessment and Plan: Related to energy intake with increased protein needs in setting of chronic disease (see cancer process the as evidence of minimal oral intake for 1-2 months and significant weight loss of 27 lb in the last 9 months. Recommend dietary supplements b.i.d. Nepro 419kcals and 19 ms protein Subjective Date/time seen: 06/08/23 15:34 Interval history: Patient feels about the same today. I discussed care with Urology nurse practitioner and had long conversation with her about patient's condit
[2023-06-08 18:30] LABS: Basophils Absolute Auto 0.1 K/mm3 (0.0-0.1); Basophils Percent Auto 0.5 % (0.2-1.2); Eosinophils Absolute Auto 0.6 K/mm3 (0-0.3); Eosinophils Percent Auto 6.5 % (0-4.4); Hemoglobin 9.4 g/dL (12.0-15.0); Immature Granulocyte Absolute 0.03 K/mm3 (0.00-0.031); Immature Granulocyte Percent A 0.3 % (0-0.5); Lymphocytes Absolute Auto 0.67 K/mm3 (0.9-3.2); Lymphocytes Percent Auto 7.3 % (18.3-44.2); Mean Corpuscular HGB Conc 30.3 g/dl (32-36); Mean Corpuscular Hemoglobin 32.2 pg (26-34); Mean Corpuscular Volume 106.2 fl (80-100); Mean Platelet Volume 10.1 fl (7.4-10.4); Monocytes Absolute Auto 0.4 K/mm3 (0.1-0.6); Monocytes Percent Auto 4.7 % (2.6-8.5); Neutrophils Absolute Auto 7.4 K/mm3 (1.3-6.7); Neutrophils Percent Auto 80.7 % (45.5-73.1); Platelet Count Result 231 k/mm3 (150-375); Red Blood Count 2.92 M/mm3 (4.2-5.4); Red Cell Distribution Width 14.5 % (11.5-14.5); White Blood Count 9.1 K/mm3 (4.5-10.0)
[2023-06-08 18:32] LABS: Anion Gap 2 mmol/L (8-16); Blood Urea Nitrogen 36 mg/dL (7-17); Calcium 9.6 mg/dL (8.4-10.2); Carbon Dioxide 23 mmol/L (22-30); Chloride 111 mmol/L (98-107); Estimated CRCL calculation 17 ml/min; Estimated Glomerular Filt Rate 25; Glucose 98 mg/dL (65-110); Potassium 4.5 mmol/L (3.4-5.0); Sodium 136 mmol/L (137-145)
[2023-06-08 18:49] LABS: Macrocytosis 1+ (NORMAL); Ovalocytes 1+ (NORMAL); Platelet Estimate Adequate (Adequate); Schistocytes None Seen (NORMAL)
[2023-06-08] MEDS: oxyCODONE/ACETAMINOPHEN (*CRX) 5-325 MG TABLET 1 TABLET PO (21:04)
[2023-06-09] VITALS (9 sets, daily range): BP systolic 126–135; BP diastolic 39–74; PULSE 41–85; RESP 14–16; TEMP 36.7–37.2; O2SAT 96–99
[2023-06-09 06:33] LABS: Basophils Percent Auto 0.4 % (0.2-1.2); Eosinophils Absolute Auto 0.5 K/mm3 (0-0.3); Eosinophils Percent Auto 4.5 % (0-4.4); Hematocrit 27.5 % (37.0-47.0); Hemoglobin 8.3 g/dL (12.0-15.0); Immature Granulocyte Absolute 0.06 K/mm3 (0.00-0.031); Immature Granulocyte Percent A 0.5 % (0-0.5); Lymphocytes Absolute Auto 0.47 K/mm3 (0.9-3.2); Lymphocytes Percent Auto 4.1 % (18.3-44.2); Mean Corpuscular HGB Conc 30.2 g/dl (32-36); Mean Corpuscular Hemoglobin 32.9 pg (26-34); Mean Corpuscular Volume 109.1 fl (80-100); Mean Platelet Volume 10.2 fl (7.4-10.4); Monocytes Absolute Auto 0.5 K/mm3 (0.1-0.6); Monocytes Percent Auto 4.6 % (2.6-8.5); Neutrophils Absolute Auto 9.8 K/mm3 (1.3-6.7); Neutrophils Percent Auto 85.9 % (45.5-73.1); Platelet Count Result 195 k/mm3 (150-375); Red Blood Count 2.52 M/mm3 (4.2-5.4); Red Cell Distribution Width 14.6 % (11.5-14.5); White Blood Count 11.4 K/mm3 (4.5-10.0)
[2023-06-09 06:48] LABS: Anion Gap 5 mmol/L (8-16); Blood Urea Nitrogen 34 mg/dL (7-17); Calcium 9.1 mg/dL (8.4-10.2); Carbon Dioxide 21 mmol/L (22-30); Chloride 111 mmol/L (98-107); Estimated CRCL calculation 18 ml/min; Estimated Glomerular Filt Rate 27; Glucose 108 mg/dL (65-110); Potassium 4.3 mmol/L (3.4-5.0); Sodium 137 mmol/L (137-145)
[2023-06-09 07:26] LABS: Platelet Estimate Adequate (Adequate); Poikilocytosis 1+ (NORMAL); Schistocytes Rare (NORMAL)
[2023-06-09 07:27] LABS: Burr Cells 1+ (NORMAL)
[2023-06-09] MEDS: polyethylene glycoL 3350 17 GM POWD.PACK PO (09:37)
[2023-06-09] MEDS: ENOXAPARIN 30 MG/0.3 ML SYRINGE SUB-Q (09:38)
[2023-06-09] MEDS: FUROSEMIDE 20 MG TABLET PO (09:38)
[2023-06-09] MEDS: SENNOSIDES 8.6 MG TABLET PO ×2 (09:39→17:26)
[2023-06-09] MEDS: TAMSULOSIN HCL 0.4 MG CAPSULE PO (09:39)
[2023-06-09] MEDS: FERROUS SULFATE 325 MG TABLET DR PO ×2 (09:39→17:25)
[2023-06-09] MEDS: DOCUSATE SODIUM 100 MG CAPSULE PO ×2 (09:39→17:25)
[2023-06-09] MEDS: PANTOPRAZOLE SODIUM IV 40 MG VIAL IV PUSH ×2 (09:41→21:21)
--- NOTE | 2023-06-09 11:33 | PM.IMPN ---
Progress Note: A&P Assessment and Plan (1) Hydronephrosis: Code(s): N13.30 - Unspecified hydronephrosis Status: Acute Assessment and Plan: Likely resulting from bladder cancer. Patient has difficulty with urination, your urgency frequency CT shows soft tissue mass, likely malignant tumor at posterior bladder base extending to the UVJ, right greater than left with prominent distention of the urinary bladder and bilateral hydronephrosis despite bilateral internal stents Appreciated urologist consultation, urologist considers patient does not need surgical treatment currently Urinary catheter placed Follow urologist's recommendation Renal ultrasound revealing no hydronephrosis (2) Bladder cancer: Code(s): C67.9 - Malignant neoplasm of bladder, unspecified Status: Acute Assessment and Plan: Patient originally diagnosed with T1 high-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 She had stent placed in September of 2022. She was recently diagnosed in February of 2023 with muscle invasive bladder cancer that was removed completely and new stents were placed. At this time there was a small somewhat solid neoplastic looking growth at the right posterior lateral bladder wall and biopsies were taken. Pathology report revealed highly atypical degenerative tumor cells. Recent scan revealing a soft tissue mass likely malignant tumor at the base of the posterior bladder extending into the UVJ right greater than left. Being treated by Dr. Aby lopez and Dr. Nur for bladder cancer. Patient scheduled to see Oncology in approximately 2 weeks to determine if she is a candidate for chemo/radiation. Discussed with Urology and they have agreed to discuss further care with the patient. Plan for the patient to be seen by Oncology [facility]. One set up with Oncology she will be discharged. (3) Hematuria: Qualifiers: Hematuria type: gross Qualified Code(s): R31.0 - Gross hematuria Code(s): R31.9 - Hematuria, unspecified Status: Acute Assessment and Plan: Likely due to recurrent bladder cancer. (4) Acute kidney injury: Code(s): N17.9 - Acute kidney failure, unspecified Status: Acute Assessment and Plan: In the ER, patient is found to have elevated BUN and creatinine above baseline with creatinine of 2.7 Likely resulting from urinary retention, obstruction of progression of bladder cancer Continue normal saline 100 mL per hour BUN and creatinine improving after catheter placement (5) Electrolyte abnormality: Code(s): E87.8 - Other disorders of electrolyte and fluid balance, not elsewhere classified Status: Resolved Assessment and Plan: Patient found to have sodium of 130 with a potassium of 6.1 Patient received causing gluconate, albuterol nebulizer, normal saline in the ED, sodium bicarbonate 50 mg IV push once Lokelma p.r.n. IV fluids 06/09 Sodium potassium within normal limits Continue to monitor. (6) Hypercalcemia: Code(s): E83.52 - Hypercalcemia Status: Acute Assessment and Plan: Likely due to bladder cancer. (7) Acute renal insufficiency: Code(s): N28.9 - Disorder of kidney and ureter, unspecified Status: Acute Assessment and Plan: See above (8) Severe protein-calorie malnutrition: Code(s): E43 - Unspecified severe protein-calorie malnutrition Status: Acute Assessment and Plan: Related to energy intake with increased protein needs in setting of chronic disease (see cancer process the as evidence of minimal oral intake for 1-2 months and significant weight loss of 27 lb in the last 9 months. Recommend dietary supplements b.i.d. Nepro 419kcals and 19 ms protein Subjective Date/time seen: 06/09/23 11:33 Interval history: Patient continues to have nausea but is doing w
[2023-06-09] MEDS: droNABinol (*CRX) 2.5 MG CAPSULE PO (11:39)
[2023-06-09] MEDS: SODIUM CHLORIDE 0.9% IV 1,000 ML 100 ML IV CONT ×2 (14:56→23:52)
[2023-06-09] MEDS: oxyCODONE/ACETAMINOPHEN (*CRX) 5-325 MG TABLET 1 TABLET PO ×3 (15:01→23:51)
--- NOTE | 2023-06-09 18:59 | PDONCCONNOTE ---
Recommendations Patient with history of non-muscle invasive bladder cancer first diagnosed via TURBT in 01/2020. She underwent resection on 02/20/20 followed by BCG treatments by Dr. Badillo, urologist. Since then she has suffered from recurrent problems with UTI and a cystoscopy on 11/2021 showed obstruction at right ureterovesical junction due to scarring and ureteral stricture. She underwent chronic indwelling ureteral stent placement on 11/2021. The ureteral stent was replaced 09/2022 and then on 03/02/23. During the cystoscopy on 03/02/23 noted was small somewhat solid neoplastic looking growth in the right posterior lateral bladder wall. This growth was resected in its entirety and the base and periphery was cauterized. See procedure report below. 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 Detrusor muscle was absent in the resected specimen. Patient was observed. 03/02/23 Cystoscopy- Description of Procedure by Dr. Nur Patient is brought the op suite she has prepped draped in routine sterile fashion while in dorsal lithotomy position after the uneventful induction of a general anesthetic. Cystoscopy is undertaken with a 21 F rigid cystoscope. The indwelling stent is grasped and removed with ease. There was minimal incrustation. Retrograde pyelogram was obtained with [place] catheter to ensure appropriate placement of the new stent. A new 6 F variable length double-J ureteral stent is positioned with the proximal coil in the renal pelvis and distal coil in the bladder. 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 She does have a . Using a loop brought road this is resected in its entirety with an attempt made to include some detrusor muscle for pathological evaluation of invasion. The base and periphery is cauterized. Scopes and wires removed she was taken recovery room good condition. 04/18/23- A PET/CT scan-. Mild right hydroureter extending proximally from a soft tissue density mass centered at the right ureterovesicular junction. There appears to be mild associated FDG uptake with a mass which appears to extend further from the ureteral stent in the lumen of the bladder but would be expected for excreted urinary activity and likely reflects to reported malignant bladder cancer. This was recurrent Bladder cancer. Patient was evaluated by urology and bladder resection surgery was not thought to be appropriate option given patient's age and extent of the surgery needed. Patient was referred to medical and radiation oncology for further management. she was to see her oncology team at [facility] but the facility is too far from the patient's assisted living facility. Patient is admitted for acute renal failure which is improving. A CT scan of abdomen and pelvis w/o contrast done 06/06/23 shows continued soft tissue mass, likely malignant tumor, at posterior bladder base, extending to the ureterovesical junctions, right greater than left, with prominent distention of the urinary bladder and bilateral hydronephrosis despite bilateral internal stents. she is requesting medical oncology and radiation oncology referral to [facility]. Patient's renal dysfunction would not allow cisplatin use with concurrent radiation. However low dose gemcitabine at 27mg/m2 on days 1,4,8,11, 15, 18, 22, and 25 can be tried with radiation. Recommend that hospitalist team refer her to outpatient radiation oncologist at [facility] to be evaluated NAOMI. She will need to see us in outpatient clinic with Dr. Franklin after radiation oncology appointment so final plans of chemotherapy can be formulated. She will also need PORT placement for chemotherapy infusion. I talked to patient and her niece ([facility]) for about 50 minutes discussing management plan. Impression This is a 78 y/o female with recurrent bladder cancer [facility] - Date/Time Seen 06/09/23 18:59 - History of Pre
[2023-06-10] VITALS (9 sets, daily range): BP systolic 116–133; BP diastolic 45–57; PULSE 75–95; RESP 16–20; TEMP 36.2–38; O2SAT 96–97
[2023-06-10] MEDS: oxyCODONE/ACETAMINOPHEN (*CRX) 5-325 MG TABLET 1 TABLET PO ×4 (05:15→22:07)
[2023-06-10 06:57] LABS: Basophils Percent Auto 0.3 % (0.2-1.2); Eosinophils Absolute Auto 0.7 K/mm3 (0-0.3); Hematocrit 29.4 % (37.0-47.0); Hemoglobin 8.9 g/dL (12.0-15.0); Immature Granulocyte Absolute 0.09 K/mm3 (0.00-0.031); Immature Granulocyte Percent A 0.7 % (0-0.5); Lymphocytes Absolute Auto 0.45 K/mm3 (0.9-3.2); Lymphocytes Percent Auto 3.3 % (18.3-44.2); Mean Corpuscular HGB Conc 30.3 g/dl (32-36); Mean Corpuscular Hemoglobin 32.8 pg (26-34); Mean Corpuscular Volume 108.5 fl (80-100); Mean Platelet Volume 10.7 fl (7.4-10.4); Monocytes Absolute Auto 0.5 K/mm3 (0.1-0.6); Monocytes Percent Auto 3.9 % (2.6-8.5); Neutrophils Absolute Auto 11.7 K/mm3 (1.3-6.7); Neutrophils Percent Auto 86.8 % (45.5-73.1); Platelet Count Result 203 k/mm3 (150-375); Red Blood Count 2.71 M/mm3 (4.2-5.4); Red Cell Distribution Width 14.8 % (11.5-14.5); White Blood Count 13.5 K/mm3 (4.5-10.0)
[2023-06-10 07:05] LABS: Alanine Aminotransferase 8 U/L (6-35); Alkaline Phosphatase 62 U/L (38-126); Anion Gap 3 mmol/L (8-16); Aspartate Amino Transferase 14 U/L (14-36); Bilirubin,Total 0.2 mg/dL (0.2-1.3); Blood Urea Nitrogen 38 mg/dL (7-17); Calcium 8.7 mg/dL (8.4-10.2); Carbon Dioxide 21 mmol/L (22-30); Chloride 113 mmol/L (98-107); Estimated CRCL calculation 16 ml/min; Estimated Glomerular Filt Rate 24; Glucose 113 mg/dL (65-110); Potassium 4.4 mmol/L (3.4-5.0); Sodium 137 mmol/L (137-145)
[2023-06-10] MEDS: PANTOPRAZOLE SODIUM IV 40 MG VIAL IV PUSH ×2 (09:01→22:07)
[2023-06-10] MEDS: FERROUS SULFATE 325 MG TABLET DR PO ×2 (09:01→16:36)
[2023-06-10] MEDS: TAMSULOSIN HCL 0.4 MG CAPSULE PO (09:01)
[2023-06-10] MEDS: ENOXAPARIN 30 MG/0.3 ML SYRINGE SUB-Q (09:01)
[2023-06-10] MEDS: SENNOSIDES 8.6 MG TABLET PO ×2 (09:01→16:36)
[2023-06-10] MEDS: DOCUSATE SODIUM 100 MG CAPSULE PO ×2 (09:02→16:36)
[2023-06-10] MEDS: polyethylene glycoL 3350 17 GM POWD.PACK PO (09:02)
[2023-06-10] MEDS: FUROSEMIDE 20 MG TABLET PO (09:02)
[2023-06-10 09:16] LABS: Burr Cells 1+ (NORMAL); Platelet Estimate Adequate (Adequate); Schistocytes None Seen (NORMAL)
[2023-06-10] MEDS: DEXTROSE 5%/LACTATED RINGERS 1,000 ML 75 ML IV CONT ×2 (10:18→22:08)
[2023-06-10 11:27] LABS: Appearance Urine Turbid (Clear); Bacteria Urine 4+ /hpf; Bilirubin Urine Negative (Negative); Blood Urine 3+ (Negative); Color Urine Yellow (Yellow); Glucose Urine UA Negative (Negative); Ketones Urine Negative (Negative); Leukocyte Esterase Ur 3+ LEU/UL (Negative); Need Manual Microscopic Reviewed; Nitrate Urine Negative (Negative); Non Pathogenic Casts >20; Protein Urine 3+ mg/dL (Negative); RBC Urine >100 /hpf (0-2); Specific Grav Ur 1.013 (1.001-1.035); Squamous Epithelial Cell Urine Many /hpf (Few); Urobilinogen Urine 0.2 mg/dL (<2.0); WBC Urine >100 /hpf; pH Urine 6.5 (5.0-9.0)
[2023-06-10 11:59] LABS: Add Urine Microscopic? YES
[2023-06-10] MEDS: droNABinol (*CRX) 2.5 MG CAPSULE PO ×2 (12:15→16:36)
--- NOTE | 2023-06-10 13:23 | PM.IMPN ---
Progress Note: A&P Assessment and Plan (1) Hydronephrosis: Code(s): N13.30 - Unspecified hydronephrosis Status: Acute Assessment and Plan: Likely resulting from bladder cancer. Patient has difficulty with urination, your urgency frequency CT shows soft tissue mass, likely malignant tumor at posterior bladder base extending to the UVJ, right greater than left with prominent distention of the urinary bladder and bilateral hydronephrosis despite bilateral internal stents Appreciated urologist consultation, urologist considers patient does not need surgical treatment currently Urinary catheter placed Follow urologist's recommendation Renal ultrasound revealing no hydronephrosis (2) Bladder cancer: Code(s): C67.9 - Malignant neoplasm of bladder, unspecified Status: Acute Assessment and Plan: Patient originally diagnosed with T1 high-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 She had stent placed in September of 2022. She was recently diagnosed in February of 2023 with muscle invasive bladder cancer that was removed completely and new stents were placed. At this time there was a small somewhat solid neoplastic looking growth at the right posterior lateral bladder wall and biopsies were taken. Pathology report revealed highly atypical degenerative tumor cells. Recent scan revealing a soft tissue mass likely malignant tumor at the base of the posterior bladder extending into the UVJ right greater than left. Being treated by Dr. Aby lopez and Dr. Nur for bladder cancer. Patient scheduled to see Oncology in approximately 2 weeks to determine if she is a candidate for chemo/radiation. Discussed with Urology and they have agreed to discuss further care with the patient. Plan for the patient to be seen by Oncology [facility]. (3) Hematuria: Qualifiers: Hematuria type: gross Qualified Code(s): R31.0 - Gross hematuria Code(s): R31.9 - Hematuria, unspecified Status: Acute Assessment and Plan: Likely due to recurrent bladder cancer. (4) Acute kidney injury: Code(s): N17.9 - Acute kidney failure, unspecified Status: Acute Assessment and Plan: In the ER, patient is found to have elevated BUN and creatinine above baseline with creatinine of 2.7 Likely resulting from urinary retention, obstruction of progression of bladder cancer Continue normal saline 100 mL per hour BUN and creatinine improving after catheter placement (5) Electrolyte abnormality: Code(s): E87.8 - Other disorders of electrolyte and fluid balance, not elsewhere classified Status: Resolved Assessment and Plan: Patient found to have sodium of 130 with a potassium of 6.1 Patient received causing gluconate, albuterol nebulizer, normal saline in the ED, sodium bicarbonate 50 mg IV push once Lokelma p.r.n. IV fluids 06/09 Sodium potassium within normal limits Continue to monitor. (6) Hypercalcemia: Code(s): E83.52 - Hypercalcemia Status: Acute Assessment and Plan: Likely due to bladder cancer. (7) Acute renal insufficiency: Code(s): N28.9 - Disorder of kidney and ureter, unspecified Status: Acute Assessment and Plan: See above (8) Severe protein-calorie malnutrition: Code(s): E43 - Unspecified severe protein-calorie malnutrition Status: Acute Assessment and Plan: Related to energy intake with increased protein needs in setting of chronic disease (see cancer process the as evidence of minimal oral intake for 1-2 months and significant weight loss of 27 lb in the last 9 months. Recommend dietary supplements b.i.d. Nepro 419kcals and 19 ms protein (9) Nausea: Code(s): R11.0 - Nausea Status: Acute Assessment and Plan: Patient has had ongoing nausea for the past several days. Patient sta
--- NOTE | 2023-06-10 13:43 | WPDONCPN ---
Progress Note: A/P (1) Bladder cancer Code(s): C67.9 - Malignant neoplasm of bladder, unspecified Status: Acute Assessment and plan: Patient with history of non-muscle invasive bladder cancer first diagnosed via TURBT in 01/2020. She underwent resection on 02/20/20 followed by BCG treatments by Dr. Badillo, urologist. Since then she has suffered from recurrent problems with UTI and a cystoscopy on 11/2021 showed obstruction at right ureterovesical junction due to scarring and ureteral stricture. She underwent chronic indwelling ureteral stent placement on 11/2021. The ureteral stent was replaced 09/2022 and then on 03/02/23. During the cystoscopy on 03/02/23 noted was small somewhat solid neoplastic looking growth in the right posterior lateral bladder wall. This growth was resected in its entirety and the base and periphery was cauterized. See procedure report below. 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 Detrusor muscle was absent in the resected specimen. Patient was observed. 03/02/23 Cystoscopy- Description of Procedure by Dr. Nur Patient is brought the op suite she has prepped draped in routine sterile fashion while in dorsal lithotomy position after the uneventful induction of a general anesthetic. Cystoscopy is undertaken with a 21 F rigid cystoscope. The indwelling stent is grasped and removed with ease. There was minimal incrustation. Retrograde pyelogram was obtained with [place] catheter to ensure appropriate placement of the new stent. A new 6 F variable length double-J ureteral stent is positioned with the proximal coil in the renal pelvis and distal coil in the bladder. 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 She does have a . Using a loop brought road this is resected in its entirety with an attempt made to include some detrusor muscle for pathological evaluation of invasion. The base and periphery is cauterized. Scopes and wires removed she was taken recovery room good condition. 04/18/23- A PET/CT scan-. Mild right hydroureter extending proximally from a soft tissue density mass centered at the right ureterovesicular junction. There appears to be mild associated FDG uptake with a mass which appears to extend further from the ureteral stent in the lumen of the bladder but would be expected for excreted urinary activity and likely reflects to reported malignant bladder cancer. This was recurrent Bladder cancer. Patient was evaluated by urology and bladder resection surgery was not thought to be appropriate option given patient's age and extent of the surgery needed. Patient was referred to medical and radiation oncology for further management. she was to see her oncology team at [facility] but the facility is too far from the patient's assisted living facility. Patient is admitted for acute renal failure which is improving. A CT scan of abdomen and pelvis w/o contrast done 06/06/23 shows continued soft tissue mass, likely malignant tumor, at posterior bladder base, extending to the ureterovesical junctions, right greater than left, with prominent distention of the urinary bladder and bilateral hydronephrosis despite bilateral internal stents. she is requesting medical oncology and radiation oncology referral to [facility]. Patient's renal dysfunction would not allow cisplatin use with concurrent radiation. However low dose gemcitabine at 27mg/m2 on days 1,4,8,11, 15, 18, 22, and 25 can be tried with radiation. Patient's hospitalist team will need to refer her to outpatient radiation oncologist at [facility] to be evaluated NAOMI. I will talk to our nurses to get her outpatient clinic appointment with Dr. Franklin after radiation oncology appointment so final plans of chemotherapy can be formulated. She will also need PORT placement for chemotherapy infusion. I talked to patient and her niece Angelique ([facility]) for about 45 minutes discussing
--- NOTE | 2023-06-10 14:15 | PCPTNOTE ---
Patient refused therapy stating she wanted to be left alone.
[2023-06-10 15:01] LABS: Hematocrit 28.2 % (37.0-47.0); Hemoglobin 8.3 g/dL (12.0-15.0); Mean Corpuscular HGB Conc 29.4 g/dl (32-36); Mean Corpuscular Hemoglobin 31.9 pg (26-34); Mean Corpuscular Volume 108.5 fl (80-100); Mean Platelet Volume 10.5 fl (7.4-10.4); Platelet Count Result 193 k/mm3 (150-375); White Blood Count 12.7 K/mm3 (4.5-10.0)
--- NOTE | 2023-06-10 15:34 | PCOTNOTE ---
Pt requested to be left alone due to needing to sleep and being in too much pain right now. Will continue per poc duration/frequency tomorrow.
[2023-06-10] MEDS: NYSTATIN 100,000 UNITS/ML SUSP 5 ML ORAL.SUSP PO (18:58)
[2023-06-10 22:26] LABS: Glucose Point of Care 117 mg/dl (65-105)
[2023-06-11] VITALS (10 sets, daily range): BP systolic 87–122; BP diastolic 25–50; PULSE 70–90; RESP 16–18; TEMP 36.6–37.6; O2SAT 94–98
[2023-06-11] MEDS: oxyCODONE/ACETAMINOPHEN (*CRX) 5-325 MG TABLET 1 TABLET PO ×4 (03:44→17:56)
[2023-06-11 06:56] LABS: Basophils Percent Auto 0.3 % (0.2-1.2); Eosinophils Absolute Auto 1.1 K/mm3 (0-0.3); Eosinophils Percent Auto 8.1 % (0-4.4); Hematocrit 26.9 % (37.0-47.0); Hemoglobin 7.9 g/dL (12.0-15.0); Immature Granulocyte Absolute 0.07 K/mm3 (0.00-0.031); Immature Granulocyte Percent A 0.5 % (0-0.5); Lymphocytes Percent Auto 3.1 % (18.3-44.2); Mean Corpuscular HGB Conc 29.4 g/dl (32-36); Mean Corpuscular Hemoglobin 32.1 pg (26-34); Mean Corpuscular Volume 109.3 fl (80-100); Mean Platelet Volume 11.1 fl (7.4-10.4); Monocytes Absolute Auto 0.7 K/mm3 (0.1-0.6); Monocytes Percent Auto 5.3 % (2.6-8.5); Neutrophils Absolute Auto 10.8 K/mm3 (1.3-6.7); Neutrophils Percent Auto 82.7 % (45.5-73.1); Platelet Count Result 184 k/mm3 (150-375); Red Blood Count 2.46 M/mm3 (4.2-5.4); Red Cell Distribution Width 15.1 % (11.5-14.5)
[2023-06-11 07:04] LABS: Alanine Aminotransferase 7 U/L (6-35); Alkaline Phosphatase 66 U/L (38-126); Anion Gap 3 mmol/L (8-16); Aspartate Amino Transferase 14 U/L (14-36); Bilirubin,Total 0.1 mg/dL (0.2-1.3); Blood Urea Nitrogen 45 mg/dL (7-17); Carbon Dioxide 20 mmol/L (22-30); Chloride 112 mmol/L (98-107); Estimated CRCL calculation 13 ml/min; Estimated Glomerular Filt Rate 18; Glucose 114 mg/dL (65-110); Sodium 135 mmol/L (137-145)
[2023-06-11 07:52] LABS: Burr Cells 1+ (NORMAL); Hypochromasia 1+ (NORMAL); Macrocytosis 1+ (NORMAL); Platelet Estimate Adequate (Adequate)
[2023-06-11 07:53] LABS: Schistocytes None Seen (NORMAL)
[2023-06-11] MEDS: TAMSULOSIN HCL 0.4 MG CAPSULE PO (09:04)
[2023-06-11] MEDS: PANTOPRAZOLE SODIUM IV 40 MG VIAL IV PUSH ×2 (09:04→21:45)
[2023-06-11] MEDS: polyethylene glycoL 3350 17 GM POWD.PACK PO (09:04)
[2023-06-11] MEDS: SENNOSIDES 8.6 MG TABLET PO ×2 (09:04→17:43)
[2023-06-11] MEDS: ENOXAPARIN 30 MG/0.3 ML SYRINGE SUB-Q (09:04)
[2023-06-11] MEDS: DOCUSATE SODIUM 100 MG CAPSULE PO ×2 (09:05→17:43)
[2023-06-11] MEDS: FUROSEMIDE 20 MG TABLET PO (09:06)
[2023-06-11] MEDS: FERROUS SULFATE 325 MG TABLET DR PO ×2 (09:06→17:43)
[2023-06-11 09:52] LABS: Folic Acid 5.1 ng/mL (2.76->20)
--- NOTE | 2023-06-11 10:21 | WPDGICN ---
Assessment and Plan Assessment and plan (1) Nausea: Code(s): R11.0 - Nausea Status: Acute Assessment and Plan: sometimes after eating feeling that has hard time for food to get down may need egd evaluation, probably Monday (2) Dysphagia: Code(s): R13.10 - Dysphagia, unspecified Status: Acute Assessment and Plan: will assess with egd (3) Acute on chronic kidney failure: Code(s): N17.9 - Acute kidney failure, unspecified; N18.9 - Chronic kidney disease, unspecified Status: Acute Assessment and Plan: complicated with bladder cancer and hydronephrosis, also anorexia medical support and urology on board (4) Hydronephrosis: Code(s): N13.30 - Unspecified hydronephrosis Status: Acute (5) Urinary bladder cancer: Code(s): C67.9 - Malignant neoplasm of bladder, unspecified Status: Acute Assessment and Plan: evaluated by oncology (6) Severe protein-calorie malnutrition: Code(s): E43 - Unspecified severe protein-calorie malnutrition Status: Acute Assessment and Plan: decrease oral intake and malignancy monitor (7) Acute hyperkalemia: Code(s): E87.5 - Hyperkalemia Status: Acute Assessment and Plan: treated (8) Hematuria: Qualifiers: Hematuria type: gross Qualified Code(s): R31.0 - Gross hematuria Code(s): R31.9 - Hematuria, unspecified Status: Acute GI Consult Note Consult date/time: 06/11/23 10:21 Reason for consult: n/v HPI: Mariposa Andrade is a 78 year old female ?who came to the ER on 06/06/23?for almost 2 weeks of progressive nausea, vomiting. Also noted anorexia, body aches and headaches. Patient resides in a assisted living facility [facility]. Patient reports that she was experiencing difficultly with urination for about two weeks ago. She has known bladder cancer, bilateral stents placed with a known bladder tumor that is re-current. CT shows soft tissue mass, likely malignant tumor, at posterior bladder base, extending to the ureterovesical junctions, right greater than left, with prominent distention of the urinary bladder and bilateral hydronephrosis despite bilateral internal stents. Noted sydni with creatinine is elevated from baseline to 2.7. WBC is 9.0, NA+ is 130 and K+ is 6.1. Admitted for hyperkalemia and hyponatremia. Oncology also on board. No recent EGD. Review of Systems Constitutional: Constitutional: Reports lethargy Eyes: Eyes: Denies blurry vision ENT: Reports Normal hearing present Cardiovascular: Cardiovascular: Denies chest pain Respiratory: Respiratory: Denies cough Gastrointestinal: Gastrointestinal: Reports nausea and Reports vomiting Genitourinary: Genitourinary: Reports urinary urgency Musculoskeletal: Musculoskeletal: Denies neck pain Integumentary/Breasts: Skin/Breast: Denies rash Neurologic: Denies confusion Psychiatric: Psychiatric: Denies behavioral changes [facility] Past Medical History Medical History (Updated 06/11/23 @ 10:26 by Tyrese Polanco MD) Chronic kidney disease, stage 3 Chronic kidney disease, stage 3b Dysphagia Eosinophilia Gastroesophageal reflux disease Hypertension Macrocytic anemia Obstructive sleep apnea 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 Surgical History Surgical History (Updated 06/10/23 @ 13:47 by Polly Oneill MD) History of appendectomy History of bilateral knee replacement History of bladder surgery (01/2020) Transurethral resection bladder tumor. History of cataract extraction History of cholecystectomy History of cystoscopy History of hysterectomy History of left shoulder replacement History of spinal surgery Family History Family History Father Family history of cardiovascular disease C
[2023-06-11 11:17] LABS: Iron 11 ug/dL (37-170)
[2023-06-11] MEDS: droNABinol (*CRX) 2.5 MG CAPSULE PO ×2 (11:22→17:43)
[2023-06-11] MEDS: ONDANSETRON INJ 4 MG/2 ML VIAL IV PUSH ×4 (11:22→23:23)
[2023-06-11 11:27] LABS: Percent Iron Saturation 8 % (20-50)
[2023-06-11 11:28] LABS: Immature Reticulocyte Fraction 7.5 % (3.0-15.9); Reticulocyte Hemoglobin Conten 30.8 pg (28.2-35.7); Reticulocytes Absolute 0.03 M/mm3 (0.02-0.1)
--- NOTE | 2023-06-11 11:55 | PM.IMPN ---
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 She had stent placed in September of 2022. She was recently diagnosed in February of 2023 with muscle invasive bladder cancer that was removed completely and new stents were placed. At this time there was a small somewhat solid neoplastic looking growth at the right posterior lateral bladder wall and biopsies were taken. Pathology report revealed highly atypical degenerative tumor cells. Recent scan revealing a soft tissue mass likely malignant tumor at the base of the posterior bladder extending into the UVJ right greater than left. Being treated by Dr. Aby lopez and Dr. Nur for bladder cancer. Patient scheduled to see Oncology in approximately 2 weeks to determine if she is a candidate for chemo/radiation. Discussed with Urology and they have agreed to discuss further care with the patient. Plan for the patient to be seen by Oncology [facility]. (2) Nausea: Code(s): R11.0 - Nausea Status: Acute Assessment and Plan: Patient has had ongoing nausea for the past several days. Patient states she feels as if her food cannot go down and it gets stuck and then she ?vomits? it back up?. Much of what she describes sounds like regurgitation. She does well with liquids. Zofran and IV Protonix are not helping. GI consult and plan for EGD on 06/13 (3) Macrocytic anemia: Code(s): D53.9 - Nutritional anemia, unspecified Status: Acute Assessment and Plan: Patient with hemoglobin hematocrit of 7.9/26.9 and MCV of 109.3. Iron studies and B12 and folate ordered. Iron of 11, TIBC 135 and% saturation 8 Will give 3 days of 500 mg iron infusion. B12 at 260 and folate normal. B12 injection x1 then p.o. supplement daily thereafter (4) Hydronephrosis: Code(s): N13.30 - Unspecified hydronephrosis Status: Resolved Assessment and Plan: Likely resulting from bladder cancer. Patient has difficulty with urination, your urgency frequency CT shows soft tissue mass, likely malignant tumor at posterior bladder base extending to the UVJ, right greater than left with prominent distention of the urinary bladder and bilateral hydronephrosis despite bilateral internal stents Appreciated urologist consultation, urologist considers patient does not need surgical treatment currently Urinary catheter placed Follow urologist's recommendation Renal ultrasound revealing no hydronephrosis (5) Hematuria: Qualifiers: Hematuria type: gross Qualified Code(s): R31.0 - Gross hematuria Code(s): R31.9 - Hematuria, unspecified Status: Chronic Assessment and Plan: Likely due to recurrent bladder cancer. (6) Acute kidney injury: Code(s): N17.9 - Acute kidney failure, unspecified Status: Acute Assessment and Plan: In the ER, patient is found to have elevated BUN and creatinine above baseline with creatinine of 2.7 Likely resulting from urinary retention, obstruction of progression of bladder cancer Catheter placed. Normal saline discontinued 06/11 Kidney function worsening to 45/2.6. UA ordered and urine culture pending. (7) Electrolyte abnormality: Code(s): E87.8 - Other disorders of electrolyte and fluid balance, not elsewhere classified Status: Resolved Assessment and Plan: Patient found to have sodium of 130 with a potassium of 6.1 Patient received causing gluconate, albuterol nebulizer, normal saline in the ED, sodium bicarbonate 50 mg IV push once Lokelma p.r.n. IV fluids 06/09 Sodium potassium within normal limits Continue to monitor. (8) Hypercalcemia: Code(s): E83.52 - Hypercalcemia
[2023-06-11] MEDS: IRON SUCROSE COMPLEX 500 MG in SODIUM CHLORIDE 0.9% IV 250 ML 78.57 MG IVPB (13:02)
[2023-06-11] MEDS: CYANOCOBALAMIN INJ 1,000 MCG/ML VIAL 1000 MCG IM (13:02)
[2023-06-11] MEDS: FUROSEMIDE INJ 40 MG/4 ML VIAL IV PUSH (13:02)
--- NOTE | 2023-06-11 15:24 | P.PNONC_ITS ---
Progress Note: A/P (1) Bladder cancer Code(s): C67.9 - Malignant neoplasm of bladder, unspecified Status: Acute Assessment and plan: Patient with history of non-muscle invasive bladder cancer first diagnosed via TURBT in 01/2020. She underwent resection on 02/20/20 followed by BCG treatments by Dr. Badillo, urologist. Since then she has suffered from recurrent problems with UTI and a cystoscopy on 11/2021 showed obstruction at right ureterovesical junction due to scarring and ureteral stricture. She underwent chronic indwelling ureteral stent placement on 11/2021. The ureteral stent was replaced 09/2022 and then on 03/02/23. During the cystoscopy on 03/02/23 noted was small somewhat solid neoplastic looking growth in the right posterior lateral bladder wall. This growth was resected in its entirety and the base and periphery was cauterized. See procedure report below. 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 Detrusor muscle was absent in the resected specimen. Patient was observed. 03/02/23 Cystoscopy- Description of Procedure by Dr. Nur Patient is brought the op suite she has prepped draped in routine sterile fashion while in dorsal lithotomy position after the uneventful induction of a general anesthetic. Cystoscopy is undertaken with a 21 F rigid cystoscope. The indwelling stent is grasped and removed with ease. There was minimal incrustation. Retrograde pyelogram was obtained with [place] catheter to ensure appropriate placement of the new stent. A new 6 F variable length double-J uret eral stent is positioned with the proximal coil in the renal pelvis and distal coil in the bladder. 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 She does have a . Using a loop brought road this is resected in its entirety with an attempt made to include some detrusor muscle for pathological evaluation of invasion. The base and periphery is cauterized. Scopes and wires removed she was taken recovery room good condition. 04/18/23- A PET/CT scan-. Mild right hydroureter extending proximally from a soft tissue density mass centered at the right ureterovesicular junction. There appears to be mild associated FDG uptake with a mass which appears to extend further from the ureteral stent in the lumen of the bladder but would be expected for excreted urinary activity and likely reflects to reported malignant bladder cancer. This was recurrent Bladder cancer. Patient was evaluated by urology and bladder resection surgery was not thought to be appropriate option given patient's age and extent of the surgery needed. Patient was referred to medical and radiation oncology for further management. she was to see her oncology team at [facility] but the facility is too far from the patient's assisted living facility. Patient is admitted for acute renal failure which is improving. A CT scan of abdomen and pelvis w/o contrast done 06/06/23 shows continued soft tissue mass, likely malignant tumor, at posterior bladder base, extending to the ureterovesical junctions, right greater than left, with prominent distention of the urinary bladder and bilateral hydronephrosis despite bilateral internal stents. she is requesting medical oncology and radiation oncology referral to [facility]. Patient's renal dysfunction would not allow cisplatin use with concurrent radiation. However low dose gemcitabine at 27mg/m2 on days 1,4,8,11, 15, 18, 22, and 25 can be tried with radiation. Patient's hospitalist team will need to refer her to outpatient radiation oncologist at [facility] to be evaluated NAOMI. I will talk to our nurses to get her outpatient clinic appointment with Dr. Franklin after radiat
[2023-06-11] MEDS: NYSTATIN 100,000 UNITS/ML SUSP 5 ML ORAL.SUSP PO (18:39)
[2023-06-11] MEDS: LACTATED RINGERS 500 ML IV CONT (21:43)
[2023-06-11 22:21] LABS: Hematocrit 26.1 % (37.0-47.0); Hemoglobin 7.7 g/dL (12.0-15.0)
[2023-06-11 22:31] LABS: Anion Gap 2 mmol/L (8-16); Blood Urea Nitrogen 52 mg/dL (7-17); Calcium 9.3 mg/dL (8.4-10.2); Carbon Dioxide 20 mmol/L (22-30); Chloride 111 mmol/L (98-107); Estimated CRCL calculation 11 ml/min; Estimated Glomerular Filt Rate 16; Glucose 94 mg/dL (65-110); Potassium 4.6 mmol/L (3.4-5.0); Sodium 133 mmol/L (137-145)
[2023-06-11 22:40] LABS: NT Pro B Type Natriuretic Pept 11200 pg/mL (19.9-100)
[2023-06-11] MEDS: LACTATED RINGERS 1,000 ML 100 ML IV CONT (23:27)
--- NOTE | 2023-06-11 23:42 | PC.NURSE ---
pts BP at 2100 was 88/32 checked by RN manually. ARDEN Galvez ordered a one 500cc time bolus of LR.
--- NOTE | 2023-06-11 23:45 | PC.NURSE ---
pt reported feeling tired and looked lethargic at 2100; RN checked pts BP manually and it was 88/32. ARDEN Galvez notified and ordered a one time 500cc bolus of LR. RN rechecked the pts BP after the bolus was finished per order and it was 90/32. ARDEN was notified once again and she ordered continuous LR fluids. RN will continue to monitor.
[2023-06-12] VITALS (13 sets, daily range): BP systolic 100–125; BP diastolic 34–59; PULSE 72–83; RESP 16–18; TEMP 37.1–37.7; O2SAT 92–96
[2023-06-12] MEDS: ONDANSETRON INJ 4 MG/2 ML VIAL IV PUSH ×6 (03:01→23:52)
[2023-06-12] MEDS: oxyCODONE/ACETAMINOPHEN (*CRX) 5-325 MG TABLET 1 TABLET PO ×2 (05:10→20:13)
--- NOTE | 2023-06-12 05:16 | PC.NURSE ---
pts BP was 112/50. Dr. Franco resumed the pts percocet and said it was okay to give it @0500.
[2023-06-12 07:19] LABS: Alanine Aminotransferase 9 U/L (6-35); Alkaline Phosphatase 43 U/L (38-126); Anion Gap 6 mmol/L (8-16); Aspartate Amino Transferase 17 U/L (14-36); Bilirubin,Total 0.3 mg/dL (0.2-1.3); Blood Urea Nitrogen 56 mg/dL (7-17); Calcium 9.2 mg/dL (8.4-10.2); Carbon Dioxide 20 mmol/L (22-30); Chloride 109 mmol/L (98-107); Estimated CRCL calculation 11 ml/min; Estimated Glomerular Filt Rate 14; Glucose 85 mg/dL (65-110); Potassium 4.8 mmol/L (3.4-5.0); Sodium 135 mmol/L (137-145)
[2023-06-12 07:35] LABS: Basophils Absolute Auto 0.1 K/mm3 (0.0-0.1); Basophils Percent Auto 0.6 % (0.2-1.2); Eosinophils Absolute Auto 0.7 K/mm3 (0-0.3); Eosinophils Percent Auto 6.8 % (0-4.4); Hematocrit 27.4 % (37.0-47.0); Immature Granulocyte Absolute 0.05 K/mm3 (0.00-0.031); Immature Granulocyte Percent A 0.5 % (0-0.5); Lymphocytes Absolute Auto 0.61 K/mm3 (0.9-3.2); Lymphocytes Percent Auto 5.6 % (18.3-44.2); Mean Corpuscular HGB Conc 29.2 g/dl (32-36); Mean Corpuscular Hemoglobin 32.1 pg (26-34); Mean Platelet Volume 11.6 fl (7.4-10.4); Monocytes Absolute Auto 0.6 K/mm3 (0.1-0.6); Monocytes Percent Auto 5.7 % (2.6-8.5); Neutrophils Absolute Auto 8.8 K/mm3 (1.3-6.7); Neutrophils Percent Auto 80.8 % (45.5-73.1); Platelet Count Result 185 k/mm3 (150-375); Red Blood Count 2.49 M/mm3 (4.2-5.4); Red Cell Distribution Width 15.3 % (11.5-14.5); White Blood Count 10.9 K/mm3 (4.5-10.0)
[2023-06-12 08:08] LABS: Anisocytosis 1+ (NORMAL); Burr Cells 1+ (NORMAL); Hypochromasia 1+ (NORMAL); Platelet Estimate Adequate (Adequate)
[2023-06-12 08:09] LABS: Macrocytosis 1+ (NORMAL); Schistocytes None Seen (NORMAL)
[2023-06-12] MEDS: DOCUSATE SODIUM 100 MG CAPSULE PO ×2 (08:48→17:29)
[2023-06-12] MEDS: FERROUS SULFATE 325 MG TABLET DR PO ×2 (08:48→17:29)
[2023-06-12] MEDS: CYANOCOBALAMIN 1,000 MCG TABLET 1000 MCG PO (08:48)
[2023-06-12] MEDS: SENNOSIDES 8.6 MG TABLET PO ×2 (08:48→17:29)
[2023-06-12] MEDS: TAMSULOSIN HCL 0.4 MG CAPSULE PO (08:48)
[2023-06-12] MEDS: PANTOPRAZOLE SODIUM IV 40 MG VIAL IV PUSH ×2 (08:49→22:03)
[2023-06-12] MEDS: IRON SUCROSE COMPLEX 500 MG in SODIUM CHLORIDE 0.9% IV 250 ML 78.57 MG IVPB (08:49)
[2023-06-12] MEDS: polyethylene glycoL 3350 17 GM POWD.PACK PO (08:49)
[2023-06-12] MEDS: ENOXAPARIN 30 MG/0.3 ML SYRINGE SUB-Q (08:49)
[2023-06-12] MEDS: droNABinol (*CRX) 2.5 MG CAPSULE PO ×2 (11:43→17:37)
[2023-06-12] MEDS: ALBUMIN HUMAN 25% 25 GM/100 ML 100 ML IVPB ×2 (12:54→17:30)
--- NOTE | 2023-06-12 13:03 | PM.CNNEP ---
Assessment and Plan Assessment and plan (1) Acute kidney injury: Code(s): N17.9 - Acute kidney failure, unspecified Status: Acute Assessment and Plan: initial improvement after admission with creatine down to 1.8mg/dl however, since 06/10/23, creatinine worsening again no improvement with IVFs trial of IV albumin initiated consider repeat imaging to rule out obstruction remains at risk for FIGURE SKATER/dialysis (although I have concerns how she would tolerate such an intervention) follow repeat labs and UOP (2) Chronic kidney disease, stage 4 (severe): Code(s): N18.4 - Chronic kidney disease, stage 4 (severe) Status: Chronic Assessment and Plan: baseline creatinine runs ~ 1.4 -2.0mg/dl in the last year presumably due to chronic obstruction, bladder cancer, hypertension, LARA, and age-related change (3) Hydronephrosis: Code(s): N13.30 - Unspecified hydronephrosis Status: Resolved Assessment and Plan: as noted on recent CT imaging resolved with blanchard catheter placement recurrence?? -- might explain recent worsening in creatinine consider repeat imaging (4) Bladder cancer: Code(s): C67.9 - Malignant neoplasm of bladder, unspecified Status: Chronic Assessment and Plan: followed by Urology here extensive history noted Hem/Onc following as well (5) Anemia: Code(s): D64.9 - Anemia, unspecified Status: Chronic Assessment and Plan: based on evaluation to date, due iron deficiency, CKD, and malignancy continue current therpy/interventions follow H/H I will continue to follow the patient with you while she remains hospitalized make further recommendations during her hospital course. Thank you for allowing me to participate in care this patient. History of Present Illness Reason for Consult Consult date: 06/12/23 Reason for consult: acute renal failure (on chronic kidney disease) Chief Complaint Chief complaint: Acute on Chronic Renal Failure/Hyperkalemia History of Present Illness Narrative: The patient is an 78-year-old female with a past medical history as outlined below who presented to [facility] due to abnormal labs. Prior to the discovery of the abnormal labs, the patient has been having several issues and problems over last few weeks. This includes nausea, vomiting, poor oral intake, decreased appetite, and generalized weakness in association with difficulty urinating over last several days if weeks. She is known to have bladder cancer with subsequent recurrence despite previous therapeutic interventions including bilateral ureteral stent placement. On her last office visit with Urology, it was recommended that she follow up with Oncology to discuss possible chemotherapy versus radiation if surgical intervention was not an option. Apparently, outpatient labs done demonstrated worsening renal function in association with hyperkalemia which prompted her visit to the ER for further assessment Workup and evaluation in the emergency room included repeat labs did the demonstrate elevated BUN and creatinine above her baseline in association with mild hyperkalemia and mild hyponatremia. Her VC BC was unremarkable other than chronic anemia. Subsequently a CT scan the abdomen pelvis was done which demonstrated her known malignant tumor at the posterior bladder space extending into the ureter 0 vesicular junction with prominent distention of the urinary bladder and bilateral hydronephrosis despite bilateral internal stents. A Blanchard catheter was subsequently placed and Urology was consulted who did not recommend surgical intervention at this time but a repeat renal ultrasound the following day to determine if the hydronephrosis was improving or if further intervention was required. Given her constellation of symptoms and laboratory and imaging studies, the patient was subsequently admitted to the hospital for further sanya
[2023-06-12 13:32] LABS: Creatinine Urine 33.6 mg/dL; Sodium Urine Random 71 meq/L
[2023-06-12 13:34] LABS: Creatinine Urine 33.6 mg/dL
--- NOTE | 2023-06-12 13:35 | PM.IMPN ---
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 She had stent placed in September of 2022. She was recently diagnosed in February of 2023 with muscle invasive bladder cancer that was removed completely and new stents were placed. At this time there was a small somewhat solid neoplastic looking growth at the right posterior lateral bladder wall and biopsies were taken. Pathology report revealed highly atypical degenerative tumor cells. Recent scan revealing a soft tissue mass likely malignant tumor at the base of the posterior bladder extending into the UVJ right greater than left. Being treated by Dr. Aby lopez and Dr. Nur for bladder cancer. Patient scheduled to see Oncology in approximately 2 weeks to determine if she is a candidate for chemo/radiation. Discussed with Urology and they have agreed to discuss further care with the patient. Plan for the patient to be seen by Oncology [facility]. (2) Acute kidney injury: Code(s): N17.9 - Acute kidney failure, unspecified Status: Acute Assessment and Plan: In the ER, patient is found to have elevated BUN and creatinine above baseline with creatinine of 2.7 Likely resulting from urinary retention, obstruction of progression of bladder cancer Catheter placed. Normal saline discontinued 06/11 06/12 UA negative for infection Nephrology consulted. Appears she has had work up by nephro in the past. BUN creatinine 56/3.1 with an albumin of 2. Will give albumin q.6 x4 Monitor labs (3) Nausea: Code(s): R11.0 - Nausea Status: Acute Assessment and Plan: Patient has had ongoing nausea for the past several days. Patient states she feels as if her food cannot go down and it gets stuck and then she ?vomits? it back up?. Much of what she describes sounds like regurgitation. She does well with liquids. Zofran and IV Protonix are not helping. GI consult and plan for EGD on 06/13 (4) Macrocytic anemia: Code(s): D53.9 - Nutritional anemia, unspecified Status: Acute Assessment and Plan: Patient with hemoglobin hematocrit of 7.9/26.9 and MCV of 109.3. Iron studies and B12 and folate ordered. Iron of 11, TIBC 135 and% saturation 8 Will give 3 days of 500 mg iron infusion. B12 at 260 and folate normal. B12 injection x1 then p.o. supplement daily thereafter (5) Hydronephrosis: Code(s): N13.30 - Unspecified hydronephrosis Status: Resolved Assessment and Plan: Likely resulting from bladder cancer. Patient has difficulty with urination, your urgency frequency CT shows soft tissue mass, likely malignant tumor at posterior bladder base extending to the UVJ, right greater than left with prominent distention of the urinary bladder and bilateral hydronephrosis despite bilateral internal stents Appreciated urologist consultation, urologist considers patient does not need surgical treatment currently Urinary catheter placed Follow urologist's recommendation Repeat renal ultrasound revealing no hydronephrosis (6) Hematuria: Qualifiers: Hematuria type: gross Qualified Code(s): R31.0 - Gross hematuria Code(s): R31.9 - Hematuria, unspecified Status: Chronic Assessment and Plan: Likely due to recurrent bladder cancer. (7) Electrolyte abnormality: Code(s): E87.8 - Other disorders of electrolyte and fluid balance, not elsewhere classified Status: Resolved Assessment and Plan: Patient found to have sodium of 130 with a potassium of 6.1 Patient received causing gluconate, albuterol nebulizer, normal saline in the ED, sodium bicarbonate 50 mg IV push once Lokelma p.r.n
--- NOTE | 2023-06-12 13:38 | WPDONCPN ---
Progress Note: A/P (1) Bladder cancer Code(s): C67.9 - Malignant neoplasm of bladder, unspecified Status: Acute Assessment and plan: Patient with history of non-muscle invasive bladder cancer first diagnosed via TURBT in 01/2020. She underwent resection on 02/20/20 followed by BCG treatments by Dr. Badillo, urologist. Since then she has suffered from recurrent problems with UTI and a cystoscopy on 11/2021 showed obstruction at right ureterovesical junction due to scarring and ureteral stricture. She underwent chronic indwelling ureteral stent placement on 11/2021. The ureteral stent was replaced 09/2022 and then on 03/02/23. During the cystoscopy on 03/02/23 noted was small somewhat solid neoplastic looking growth in the right posterior lateral bladder wall. This growth was resected in its entirety and the base and periphery was cauterized. See procedure report below. 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 Detrusor muscle was absent in the resected specimen. Patient was observed. 03/02/23 Cystoscopy- Description of Procedure by Dr. Nur Patient is brought the op suite she has prepped draped in routine sterile fashion while in dorsal lithotomy position after the uneventful induction of a general anesthetic. Cystoscopy is undertaken with a 21 F rigid cystoscope. The indwelling stent is grasped and removed with ease. There was minimal incrustation. Retrograde pyelogram was obtained with [place] catheter to ensure appropriate placement of the new stent. A new 6 F variable length double-J ureteral stent is positioned with the proximal coil in the renal pelvis and distal coil in the bladder. 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 She does have a . Using a loop brought road this is resected in its entirety with an attempt made to include some detrusor muscle for pathological evaluation of invasion. The base and periphery is cauterized. Scopes and wires removed she was taken recovery room good condition. 04/18/23- A PET/CT scan-. Mild right hydroureter extending proximally from a soft tissue density mass centered at the right ureterovesicular junction. There appears to be mild associated FDG uptake with a mass which appears to extend further from the ureteral stent in the lumen of the bladder but would be expected for excreted urinary activity and likely reflects to reported malignant bladder cancer. This was recurrent Bladder cancer. Patient was evaluated by urology and bladder resection surgery was not thought to be appropriate option given patient's age and extent of the surgery needed. Patient was referred to medical and radiation oncology for further management. she was to see her oncology team at [facility] but the facility is too far from the patient's assisted living facility. Patient is admitted for acute renal failure which is improving. A CT scan of abdomen and pelvis w/o contrast done 06/06/23 shows continued soft tissue mass, likely malignant tumor, at posterior bladder base, extending to the ureterovesical junctions, right greater than left, with prominent distention of the urinary bladder and bilateral hydronephrosis despite bilateral internal stents. she is requesting medical oncology and radiation oncology referral to [facility]. Patient's renal dysfunction would not allow cisplatin use with concurrent radiation. However low dose gemcitabine at 27mg/m2 on days 1,4,8,11, 15, 18, 22, and 25 can be tried with radiation. Patient's hospitalist team will need to refer her to outpatient radiation oncologist at [facility] to be evaluated NAOMI. I will talk to our nurses to get her outpatient clinic appointment with Dr. Franklin after radiation oncology appointment so final plans of chemotherapy can be formulated. She will also need PORT placement for chemotherapy infusion. (2) Macrocytic anemia Code(s): D53.9 - Nutritional anemia, unspecified Sta
[2023-06-12 13:50] LABS: Total Protein Urine Random 301 mg/dL; Ur Ttl Prot Creatinine Ratio 8.96 mg/mg (0-0.20)
--- NOTE | 2023-06-12 14:00 | WPDGIPROGNO ---
Progress Note: A&P Assessment and Plan (1) Dysphagia: Code(s): R13.10 - Dysphagia, unspecified Status: Acute Assessment and Plan: will assess tomorrow with egd (2) Severe protein-calorie malnutrition: Code(s): E43 - Unspecified severe protein-calorie malnutrition Status: Acute (3) Acute on chronic kidney failure: Code(s): N17.9 - Acute kidney failure, unspecified; N18.9 - Chronic kidney disease, unspecified Status: Acute Assessment and Plan: noted worsening renal failure also known bladder cancer (4) Macrocytic anemia: Code(s): D53.9 - Nutritional anemia, unspecified Status: Acute Assessment and Plan: stable hem-onc on board (5) Bladder cancer: Code(s): C67.9 - Malignant neoplasm of bladder, unspecified Status: Acute Subjective Date/time seen: 06/12/23 14:00 Interval history: no major changes, she is comfortable Review of Systems Review of Systems: All systems reviewed & are unremarkable except as noted in HPI and below Exam Const: General: comfortable HENMT: Face/Nose/Sinus: Normal nares present Eyes: Sclera: sclerae normal Neck: Neck: supple Resp: Effort & Inspection: normal respiratory effort Cardio: Rate: regular rate GI: GI Palp: Yes Soft to palpation and No Guarding due to palpation present (GI) Auscultation: normal bowel sounds Skin: General skin exam: normal color Neuro: Speech: normal speech Motor exam (neuro): 5/5 motor strength present throughout Extrem: General: normal to inspection Psych: Mental Status: mental status grossly normal Objective Data Vital Signs Vital Signs: Vital Signs - 24 hr 06/11/23 16:00 06/11/23 22:00 06/11/23 23:15 Temperature 97.9 F Pulse Rate 90 70 76 Respiratory Rate 16 Blood Pressure 87/25 L 90/30 L Pulse Oximetry 94 Oxygen Delivery 06/11/23 20:00 06/12/23 00:58 06/12/23 00:00 Temperature Pulse Rate 81 74 77 Respiratory Rate Blood Pressure 100/41 L Pulse Oximetry 96 Oxygen Delivery 06/12/23 03:51 06/12/23 04:00 06/12/23 06:00 Temperature 98.8 F Pulse Rate 79 79 72 Respiratory Rate 16 Blood Pressure 112/50 L 100/41 L Pulse Oximetry 92 Oxygen Delivery 06/12/23 08:00 Temperature Pulse Rate 72 Respiratory Rate 16 Blood Pressure Pulse Oximetry 92 Oxygen Delivery Room Air Intake/Output Intake/Output: Intake & Output 06/09/23 06/10/23 06/11/23 06/12/23 23:59 23:59 23:59 23:59 Intake Total 2816 2304 1849 1576 Output Total 850 650 250 350 Balance 1966 1654 1599 1226 Meds/Results Medications: Active Medications Generic Name Dose Route Start Last Admin Trade Name Freq PRN Reason Stop Dose Admin Cyanocobalamin 1,000 mcg 06/12/23 09:00 06/12/23 08:48 Cyanocobalamin 1,000 Mcg Tablet PO 1,000 mcg QAM VIOLET Administration Docusate Sodium 100 mg 06/07/23 17:00 06/12/23 08:48 Docusate Sodium 100 Mg Capsule PO 100 mg BID VIOLET Administration Dronabinol 2.5 mg 06/15/23 06:30 Dronabinol (*Crx) 2.5 Mg Capsule PO DAILY@0630 [facility] Dronabinol 2.5 mg 06/07/23 17:00 06/12/23 11:43 Dronabinol (*Crx) 2.5 Mg Capsule PO 06/14/23 18:00 2.5 mg 1200,1700 VIOLET Administration Enoxaparin Sodium 30 mg 06/07/23 09:00 06/12/23 08:49 Enoxaparin 30 Mg/0.3 Ml Syringe SUB-Q 30 mg DAILY VIOLET Administration Ferrous Sulfate 325 mg 06/07/23 17:00 06/12/23 08:48 Ferrous Sulfate [address] PO 07/07/23 16:59 325 mg BID VIOLET Administration Furosemide 20 mg 06/08/23 09:00 06/11/23 09:06 Furosemide 20 Mg Tablet PO 20 mg DAILY VIOLET Administration Dextrose/Lactated Ringer's 1,000 mls @ 75 mls/hr 06/10/23 09:20 06/10/23 22:08 Dextrose 5%/Lactated Ringers IV CONT 75 mls/hr .[id number] VIOLET Administration Iron Sucrose 500 mg/ Sodium 275 mls @ 78.571 mls/hr 06/11/23 11:55 06/12/23 08:49 Chloride IVPB 06/13/23 09:01 78.57 mls/hr DAILY SC
[2023-06-12 14:47] LABS: Eosinophil Urine Rare % (None Seen); Urine Eos QC 2nd Tech Confirmed
[2023-06-12] MEDS: LACTATED RINGERS 1,000 ML 100 ML IV CONT (20:22)
--- NOTE | 2023-06-12 23:42 | PC.NURSE ---
RN found a cup of pills at pts bedside during shift change. RN wasted the medication in the med room.
[2023-06-13] VITALS (10 sets, daily range): BP systolic 100–129; BP diastolic 48–60; PULSE 71–81; RESP 16–20; TEMP 36.3–36.8; O2SAT 93–94
[2023-06-13] MEDS: ALBUMIN HUMAN 25% 25 GM/100 ML 100 ML IVPB ×3 (00:07→17:22)
[2023-06-13] MEDS: ONDANSETRON INJ 4 MG/2 ML VIAL IV PUSH ×6 (03:43→23:07)
--- NOTE | 2023-06-13 04:49 | ECG_ITS ---
Measurements Intervals [place] Rate: 77 P: 37 [place]: 172 QRS: -17 QRSD: 114 T: 32 QT: 341 QTc: 388 Interpretive Statements SINUS RHYTHM VENTRICULAR BIGEMINY INCOMPLETE RIGHT BUNDLE BRANCH BLOCK ABNORMAL ECG COMPARED TO ECG 06/06/2023 11:53:43 NO SIGNIFICANT CHANGES Electronically Signed On 06-13-2023 7:07:26 CDT by Jesus Wilson D.O.
[2023-06-13 06:26] LABS: Hematocrit 25.8 % (37.0-47.0); Hemoglobin 7.7 g/dL (12.0-15.0); Mean Corpuscular HGB Conc 29.8 g/dl (32-36); Mean Corpuscular Hemoglobin 32.2 pg (26-34); Mean Corpuscular Volume 107.9 fl (80-100); Mean Platelet Volume 11.1 fl (7.4-10.4); Platelet Count Result 191 k/mm3 (150-375); Red Blood Count 2.39 M/mm3 (4.2-5.4); Red Cell Distribution Width 15.4 % (11.5-14.5); White Blood Count 8.9 K/mm3 (4.5-10.0)
[2023-06-13 06:35] LABS: Alanine Aminotransferase 7 U/L (6-35); Albumin Level 2.5 g/dL (3.5-5.1); Alkaline Phosphatase 43 U/L (38-126); Anion Gap 7 mmol/L (8-16); Aspartate Amino Transferase 15 U/L (14-36); Bilirubin,Total 0.3 mg/dL (0.2-1.3); Blood Urea Nitrogen 57 mg/dL (7-17); Calcium 9.3 mg/dL (8.4-10.2); Carbon Dioxide 19 mmol/L (22-30); Chloride 109 mmol/L (98-107); Estimated CRCL calculation 9 ml/min; Estimated Glomerular Filt Rate 12; Glucose 82 mg/dL (65-110); Potassium 4.5 mmol/L (3.4-5.0); Sodium 135 mmol/L (137-145)
[2023-06-13 06:49] LABS: Troponin I 0.047 ng/mL (0.000-0.034)
[2023-06-13] MEDS: LIDOCAINE HCL 2% VISC SOLN 15 ML UDC PO (07:06)
[2023-06-13] MEDS: LACTATED RINGERS 1,000 ML 100 ML IV CONT (10:05)
[2023-06-13] MEDS: IRON SUCROSE COMPLEX 500 MG in SODIUM CHLORIDE 0.9% IV 250 ML 78.57 MG IVPB (10:06)
[2023-06-13] MEDS: PANTOPRAZOLE SODIUM IV 40 MG VIAL IV PUSH ×2 (10:11→20:10)
[2023-06-13] MEDS: ENOXAPARIN 30 MG/0.3 ML SYRINGE SUB-Q (10:11)
[2023-06-13] MEDS: HYDROcodone/acetaminophen (*CRX) 5-325 MG TABLET 1 TAB PO ×2 (10:16→17:39)
[2023-06-13] MEDS: droNABinol (*CRX) 2.5 MG CAPSULE PO ×2 (10:16→17:39)
[2023-06-13] MEDS: FERROUS SULFATE 325 MG TABLET DR PO ×2 (10:18→17:39)
[2023-06-13] MEDS: SENNOSIDES 8.6 MG TABLET PO ×2 (10:18→17:39)
[2023-06-13] MEDS: DOCUSATE SODIUM 100 MG CAPSULE PO ×2 (10:18→17:39)
[2023-06-13] MEDS: TAMSULOSIN HCL 0.4 MG CAPSULE PO (10:18)
[2023-06-13] MEDS: CYANOCOBALAMIN 1,000 MCG TABLET 1000 MCG PO (10:19)
[2023-06-13 12:25] LABS: Troponin I 0.047 ng/mL (0.000-0.034)
--- NOTE | 2023-06-13 12:36 | WPDGIPROGNO ---
Progress Note: A&P Assessment and Plan (1) Dysphagia: Code(s): R13.10 - Dysphagia, unspecified Status: Acute Assessment and Plan: better to do EGD tomorrow since she had chest pain today but better now, also noted worsening renal failure no major changes (2) Severe protein-calorie malnutrition: Code(s): E43 - Unspecified severe protein-calorie malnutrition Status: Acute (3) Acute on chronic kidney failure: Code(s): N17.9 - Acute kidney failure, unspecified; N18.9 - Chronic kidney disease, unspecified Status: Acute Assessment and Plan: creatinine going up also known bladder cancer (4) Macrocytic anemia: Code(s): D53.9 - Nutritional anemia, unspecified Status: Acute Assessment and Plan: stable hem-onc on board (5) Bladder cancer: Code(s): C67.9 - Malignant neoplasm of bladder, unspecified Status: Acute Subjective Date/time seen: 06/13/23 12:36 Interval history: had episode of chest pain earlier, better now decided to hold off EGD today- had mild elevated troponin Review of Systems Review of Systems: All systems reviewed & are unremarkable except as noted in HPI and below Exam Const: General: comfortable HENMT: Face/Nose/Sinus: Normal nares present Eyes: Sclera: sclerae normal Neck: Neck: supple Resp: Effort & Inspection: normal respiratory effort Cardio: Rate: regular rate GI: GI Palp: Yes Soft to palpation and No Guarding due to palpation present (GI) Auscultation: normal bowel sounds Skin: General skin exam: normal color Neuro: Speech: normal speech Motor exam (neuro): 5/5 motor strength present throughout Extrem: General: normal to inspection Psych: Mental Status: mental status grossly normal Objective Data Vital Signs Vital Signs: Vital Signs - 24 hr 06/12/23 14:00 06/12/23 16:00 06/12/23 20:15 Temperature 99.9 F H Pulse Rate 76 77 83 Respiratory Rate 18 Blood Pressure 104/48 L 125/34 L Pulse Oximetry 94 06/12/23 20:25 06/12/23 23:58 06/12/23 20:00 Temperature 98.9 F Pulse Rate 73 74 80 Respiratory Rate 18 Blood Pressure 113/47 L 117/59 L Pulse Oximetry 94 06/13/23 00:00 06/13/23 04:00 06/13/23 05:29 Temperature 97.9 F Pulse Rate 74 81 80 Respiratory Rate 18 Blood Pressure 129/60 Pulse Oximetry 93 Intake/Output Intake/Output: Intake & Output 06/10/23 06/11/23 06/12/23 06/13/23 23:59 23:59 23:59 23:59 Intake Total 2304 1849 2051 1100 Output Total 650 250 600 175 Balance 1654 1599 1451 925 Meds/Results Medications: Active Medications Generic Name Dose Route Start Last Admin Trade Name Freq PRN Reason Stop Dose Admin Hydrocodone Bitart/Acetaminophen 1 tab 06/13/23 08:16 06/13/23 10:16 Hydrocodone/Acetaminophen (*Crx) 5-325 Mg Tablet PO 1 tab Q4H PRN Administration Pain Rated 4-6 Cyanocobalamin 1,000 mcg 06/12/23 09:00 06/13/23 10:19 Cyanocobalamin 1,000 Mcg Tablet PO 1,000 mcg QAM [facility] Administration Docusate Sodium 100 mg 06/07/23 17:00 06/13/23 10:18 Docusate Sodium 100 Mg Capsule PO 100 mg BID VIOLET Administration Dronabinol 2.5 mg 06/15/23 06:30 Dronabinol (*Crx) 2.5 Mg Capsule PO DAILY@0630 [facility] Dronabinol 2.5 mg 06/07/23 17:00 06/13/23 10:16 Dronabinol (*Crx) 2.5 Mg Capsule PO 06/14/23 18:00 2.5 mg 1200,1700 [facility] Administration Enoxaparin Sodium 30 mg 06/07/23 09:00 06/13/23 10:11 Enoxaparin 30 Mg/0.3 Ml Syringe SUB-Q 30 mg DAILY VIOLET Administration Ferrous Sulfate 325 mg 06/07/23 17:00 06/13/23 10:18 Ferrous Sulfate [address] PO 07/07/23 16:59 325 mg BID VIOLET Administration Folic Acid 1 mg 06/13/23 12:05 Folic Acid 1 Mg Tablet PO DAILY VIOLET Furosemide 20 mg 06/08/23 09:00 06/11/23 09:06 Furosemide 20 Mg Tablet PO 20 mg DAILY VIOLET Administration Hydromorphone HCl 1 mg 06/13/23 08:16 Hydromorphone Hcl Inj (*Crx) 1
--- NOTE | 2023-06-13 12:47 | P.PNIM_ITS ---
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 She had stent placed in September of 2022. She was recently diagnosed in February of 2023 with muscle invasive bladder cancer that was removed completely and new stents were placed. At this time there was a small somewhat solid neoplastic looking growth at the right posterior lateral bladder wall and biopsies were taken. Pathology report revealed highly atypical degenerative tumor cells. Recent scan revealing a soft tissue mass likely malignant tumor at the base of the posterior bladder extending into the UVJ right greater than left. Being treated by Dr. Aby lopez and Dr. Nur for bladder cancer. Patient scheduled to see Oncology in approximately 2 weeks to determine if she is a candidate for chemo/radiation. Plan for the patient to be seen by Oncology [facility] as an outpatient. (2) Acute kidney injury: Code(s): N17.9 - Acute kidney failure, unspecified Status: Acute Assessment and Plan: * In the ER, patient is found to have elevated BUN and creatinine above baseline with creatinine of 2.7 * Likely resulting from urinary retention, obstruction of progression of bladder cancer * Catheter placed. * Normal saline discontinued 06/11 * 06/12 UA negative for infection * Nephrology consulted. Appears she has had work up by nephro in the past. * BUN creatinine 56/3.1 with an albumin of 2. * 06/12 and 06/13 albumin q.6 x4 * Repeat CT abdomen and pelvis did not show any hydronephrosis or obstruction. Anasarca present although patient does not appear overly fluid overloaded. * Monitor labs (3) Nausea: Code(s): R11.0 - Nausea Status: Acute Assessment and Plan: Patient has had ongoing nausea for the past several days. Patient states she feels as if her food cannot go down and it gets stuck and then she ?vomits? it back up?. Much of what she describes sounds like regurgitation. She does well with liquids. * Zofran and IV Protonix are not helping. * GI consult and plan for EGD on 06/14 (4) Macrocytic anemia: Code(s): D53.9 - Nutritional anemia, unspecified Status: Acute Assessment and Plan: Patient with hemoglobin hematocrit of 7.9/26.9 and MCV of 109.3. Iron studies and B12 and folate ordered. * Iron of 11, TIBC 135 and% saturation 8 * Will give 3 days of 500 mg iron infusion. * B12 at 260 and folate normal. * B12 injection x1 then p.o. supplement daily thereafter (5) Hydronephrosis: Code(s): N13.30 - Unspecified hydronephrosis Status: Resolved Assessment and Plan: * Likely resulting from bladder cancer. * Patient has difficulty with urination, your urgency frequency * CT shows soft tissue mass, likely malignant tumor at posterior bladder base extending to the UVJ, right greater than left with prominent distention of the urinary bladder and bilateral hydronephrosis despite bilateral internal stents * Appreciated urologist consultation, urologist considers patient does not need surgical treatment currently * Urinary catheter placed * Follow urologist's recommendation * Repeat renal ultrasound revealing no hydronephrosis (6) Hematuria: Qualifiers: Hematuria type: gross Qualified Code(s): R31.0 - Gross hematuria Cod
--- NOTE | 2023-06-13 12:47 | PM.IMPN ---
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 She had stent placed in September of 2022. She was recently diagnosed in February of 2023 with muscle invasive bladder cancer that was removed completely and new stents were placed. At this time there was a small somewhat solid neoplastic looking growth at the right posterior lateral bladder wall and biopsies were taken. Pathology report revealed highly atypical degenerative tumor cells. Recent scan revealing a soft tissue mass likely malignant tumor at the base of the posterior bladder extending into the UVJ right greater than left. Being treated by Dr. Aby lopez and Dr. Nur for bladder cancer. Patient scheduled to see Oncology in approximately 2 weeks to determine if she is a candidate for chemo/radiation. Plan for the patient to be seen by Oncology [facility] as an outpatient. (2) Acute kidney injury: Code(s): N17.9 - Acute kidney failure, unspecified Status: Acute Assessment and Plan: In the ER, patient is found to have elevated BUN and creatinine above baseline with creatinine of 2.7 Likely resulting from urinary retention, obstruction of progression of bladder cancer Catheter placed. Normal saline discontinued 06/11 06/12 UA negative for infection Nephrology consulted. Appears she has had work up by nephro in the past. BUN creatinine 56/3.1 with an albumin of 2. 9/4 and 9/5 albumin q.[address] abdomen and pelvis did not show any hydronephrosis or obstruction. Anasarca present although patient does not appear overly fluid overloaded. Monitor labs (3) Nausea: Code(s): R11.0 - Nausea Status: Acute Assessment and Plan: Patient has had ongoing nausea for the past several days. Patient states she feels as if her food cannot go down and it gets stuck and then she ?vomits? it back up?. Much of what she describes sounds like regurgitation. She does well with liquids. Zofran and IV Protonix are not helping. GI consult and plan for EGD on 06/14 (4) Macrocytic anemia: Code(s): D53.9 - Nutritional anemia, unspecified Status: Acute Assessment and Plan: Patient with hemoglobin hematocrit of 7.9/26.9 and MCV of 109.3. Iron studies and B12 and folate ordered. Iron of 11, TIBC 135 and% saturation 8 Will give 3 days of 500 mg iron infusion. B12 at 260 and folate normal. B12 injection x1 then p.o. supplement daily thereafter (5) Hydronephrosis: Code(s): N13.30 - Unspecified hydronephrosis Status: Resolved Assessment and Plan: Likely resulting from bladder cancer. Patient has difficulty with urination, your urgency frequency CT shows soft tissue mass, likely malignant tumor at posterior bladder base extending to the UVJ, right greater than left with prominent distention of the urinary bladder and bilateral hydronephrosis despite bilateral internal stents Appreciated urologist consultation, urologist considers patient does not need surgical treatment currently Urinary catheter placed Follow urologist's recommendation Repeat renal ultrasound revealing no hydronephrosis (6) Hematuria: Qualifiers: Hematuria type: gross Qualified Code(s): R31.0 - Gross hematuria Code(s): R31.9 - Hematuria, unspecified Status: Chronic Assessment and Plan: Likely due to recurrent bladder cancer. (7) Electrolyte abnormality: Code(s): E87.8 - Other disorders of electrolyte and fluid balance, not elsewhere classified Status: Resolved Assessment and Plan: Patient found to have sodium of 130 with a potassium of 6.1 Patient received causing gluconate, albuterol osmar
--- NOTE | 2023-06-13 13:24 | PCNFU ---
Nutrition Follow-Up Complete: Severe Protein Calorie Malnutrition as related to inadequate energy intake with increased protein needs in setting of chronic diesase(cancer) as evidenced by minimal oral intake for 1-2 months and significant weight loss of 27 ibs (20%) in the past 9 months. Goal:Meet estimated nutritional needs Pt current nutrition is Soft and bite sized level 6. Nutrition recommendation: resume nutrition supplements Last recorded weight is 65 kg. Bowel Motility: No BM recorded at this time Labs Reviewed: Hgb:7.7, HCT:25.8, Alb:2.5, NA:135, GFR:12, BUN:57, Cr:3.6 Meds Noted: Lacted ringers, lovenox, lasix, protonix, miranol Skin: no skin issues noted Additional Notes: Pt was on a renal diet, nepro shakes BID, was NPO for a procedure today which was rescheduled. Soft and bite sized level 6 diet ordered. Recommend to resume supplements. Consider Ensure compact TID with meals. Will monitor weight, labs, oral intake,skin every 5 days.
--- NOTE | 2023-06-13 14:03 | PM.PNNEP ---
Progress Note: A&P Assessment and Plan (1) Acute kidney injury: Code(s): N17.9 - Acute kidney failure, unspecified Status: Acute Assessment and Plan: ongoing deterioration noted initial improvement after admission with creatine down to 1.8mg/dl however, since 06/10/23, creatinine has been worsening no improvement with IVFs trial of IV albumin with little effect repeat CT imaging without obstruction remains at risk for [employer]/dialysis (although I have concerns how she would tolerate such an intervention) follow repeat labs and UOP (2) Chronic kidney disease, stage 4 (severe): Code(s): N18.4 - Chronic kidney disease, stage 4 (severe) Status: Chronic Assessment and Plan: baseline creatinine runs ~ 1.4 -2.0mg/dl in the last year presumably due to chronic obstruction, bladder cancer, hypertension, LARA, and age-related change (3) Hydronephrosis: Code(s): N13.30 - Unspecified hydronephrosis Status: Resolved Assessment and Plan: as noted on recent CT imaging resolved with blanchard catheter placement (4) Bladder cancer: Code(s): C67.9 - Malignant neoplasm of bladder, unspecified Status: Chronic Assessment and Plan: followed by Urology here extensive history noted Hem/Onc following as well (5) Anemia: Code(s): D64.9 - Anemia, unspecified Status: Chronic Assessment and Plan: based on evaluation to date, due iron deficiency, CKD, and malignancy continue current therpy/interventions follow H/H Long extensive discussion (> 20 minutes) with the patient as well as family at bedside regarding her ongoing deteriorating renal dysfunction, declining urine output, and my concern that she may require renal replacement therapy/dialysis if her kidney function continues to worsen. I voiced my concerns to the patient that given her debilitated state and other chronic medical issues, she may not tolerate renal replacement therapy /dialysis but is difficult to know for sure. She will discuss this option with her family before making a final decision. Will continue to follow. Subjective Date/time seen: 06/13/23 14:03 Interval history: Follow-up for acute kidney injury/acute renal failure on chronic kidney disease. No significant improvement in renal function despite conservative therapy to date; more concerning is that her urine output has started to decline as well; appetite/oral intake still remains suboptimal as well; family at bedside and we discussed the situation. Exam Narrative: General: frail and elderly female in NAD Heart: normal S1 and S2; no rub Lungs: clear to auscultation Abdomen: soft, nontender, nondistended, positive bowel sounds Extremities: no cyanosis or clubbing; 1+ edema Skin: warm and dry Objective Data Vital Signs Vital Signs: Vital Signs Temp Pulse Resp BP Pulse Ox 06/13/23 14:00 97.4 F L 71 16 121/51 L 94 06/13/23 05:29 97.9 F 80 18 129/60 93 06/13/23 04:00 81 06/13/23 00:00 74 06/12/23 20:00 80 06/12/23 23:58 74 117/59 L 06/12/23 20:25 98.9 F 73 18 113/47 L 94 06/12/23 20:15 83 125/34 L Intake/Output Intake/Output: Intake & Output 06/10/23 06/11/23 06/12/23 06/13/23 23:59 23:59 23:59 23:59 Intake Total 2304 1849 2051 1100 Output Total 650 250 600 175 Balance 1654 1599 1451 925 Meds/Results Medications: Active Medications Generic Name Dose Route Start Last Admin Trade Name Freq PRN Reason Stop Dose Admin Hydrocodone Bitart/Acetaminophen 1 tab 06/13/23 08:16 06/13/23 10:16 Hydrocodone/Acetaminophen (*Crx) 5-325 Mg Tablet PO 1 tab Q4H PRN Administration Pain Rated 4-6 Cyanocobalamin 1,000 mcg 06/12/23 09:00 06/13/23 10:19 Cyanocobalamin 1,000 Mcg Tablet PO 1,000 mcg QAM VIOLET Administration Docusate Sodium 100 mg 06/07/23 17:00 06/13/23 10:18 Docusate Sodium 100 Mg Capsul
[2023-06-13] MEDS: FOLIC ACID 1 MG TABLET PO (17:39)
--- NOTE | 2023-06-13 19:11 | WPDONCPN ---
Progress Note: A/P (1) Bladder cancer Code(s): C67.9 - Malignant neoplasm of bladder, unspecified Status: Acute Assessment and plan: Patient with history of non-muscle invasive bladder cancer first diagnosed via TURBT in 01/2020. She underwent resection on 02/20/20 followed by BCG treatments by Dr. Badillo, urologist. Since then she has suffered from recurrent problems with UTI and a cystoscopy on 11/2021 showed obstruction at right ureterovesical junction due to scarring and ureteral stricture. She underwent chronic indwelling ureteral stent placement on 11/2021. The ureteral stent was replaced 09/2022 and then on 03/02/23. During the cystoscopy on 03/02/23 noted was small somewhat solid neoplastic looking growth in the right posterior lateral bladder wall. This growth was resected in its entirety and the base and periphery was cauterized. See procedure report below. 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 Detrusor muscle was absent in the resected specimen. Patient was observed. 03/02/23 Cystoscopy- Description of Procedure by Dr. Nur Patient is brought the op suite she has prepped draped in routine sterile fashion while in dorsal lithotomy position after the uneventful induction of a general anesthetic. Cystoscopy is undertaken with a 21 F rigid cystoscope. The indwelling stent is grasped and removed with ease. There was minimal incrustation. Retrograde pyelogram was obtained with Carlton catheter to ensure appropriate placement of the new stent. A new 6 F variable length double-J ureteral stent is positioned with the proximal coil in the renal pelvis and distal coil in the bladder. 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 She does have a . Using a loop brought road this is resected in its entirety with an attempt made to include some detrusor muscle for pathological evaluation of invasion. The base and periphery is cauterized. Scopes and wires removed she was taken recovery room good condition. 04/18/23- A PET/CT scan-. Mild right hydroureter extending proximally from a soft tissue density mass centered at the right ureterovesicular junction. There appears to be mild associated FDG uptake with a mass which appears to extend further from the ureteral stent in the lumen of the bladder but would be expected for excreted urinary activity and likely reflects to reported malignant bladder cancer. This was recurrent Bladder cancer. Patient was evaluated by urology and bladder resection surgery was not thought to be appropriate option given patient's age and extent of the surgery needed. Patient was referred to medical and radiation oncology for further management. she was to see her oncology team at [facility] but the facility is too far from the patient's assisted living facility. Patient is admitted for acute renal failure which is improving. A CT scan of abdomen and pelvis w/o contrast done 06/06/23 shows continued soft tissue mass, likely malignant tumor, at posterior bladder base, extending to the ureterovesical junctions, right greater than left, with prominent distention of the urinary bladder and bilateral hydronephrosis despite bilateral internal stents. she is requesting medical oncology and radiation oncology referral to [facility] [place]. Patient's renal dysfunction continues to worsen and would not allow cisplatin use with concurrent radiation. However low dose gemcitabine at 27mg/m2 on days 1,4,8,11, 15, 18, 22, and 25 can be tried with radiation. However, at this time her Performance status is worsening and not sure if she will be able to take chemo and radiation which is quite intense treatment. (2) Macrocytic anemia Code(s): D53.9 - Nutritional anemia, unspecified Status: Acute Assessment and plan: Patient with severe macrocytosis with anemia. Hospitalist team checked for usual causes of macrocytosis. B12 is at very low end of normal a
[2023-06-14] VITALS (17 sets, daily range): BP systolic 84–118; BP diastolic 34–62; PULSE 65–92; RESP 16–18; TEMP 36.3–37.3; O2SAT 94–99
[2023-06-14] MEDS: ALBUMIN HUMAN 25% 25 GM/100 ML 100 ML IVPB ×2 (00:33→05:35)
[2023-06-14] MEDS: ONDANSETRON INJ 4 MG/2 ML VIAL IV PUSH ×4 (03:01→17:44)
[2023-06-14] MEDS: HYDROcodone/acetaminophen (*CRX) 5-325 MG TABLET 1 TAB PO (05:39)
[2023-06-14 06:33] LABS: Hematocrit 26.9 % (37.0-47.0); Hemoglobin 7.8 g/dL (12.0-15.0); Mean Corpuscular Volume 110.2 fl (80-100); Platelet Count Result 223 k/mm3 (150-375); Red Blood Count 2.44 M/mm3 (4.2-5.4); Red Cell Distribution Width 15.5 % (11.5-14.5); White Blood Count 8.1 K/mm3 (4.5-10.0)
[2023-06-14 06:41] LABS: Alanine Aminotransferase 7 U/L (6-35); Alkaline Phosphatase 47 U/L (38-126); Anion Gap 13 mmol/L (8-16); Aspartate Amino Transferase 16 U/L (14-36); Bilirubin,Total 0.3 mg/dL (0.2-1.3); Blood Urea Nitrogen 63 mg/dL (7-17); Calcium 9.6 mg/dL (8.4-10.2); Carbon Dioxide 16 mmol/L (22-30); Chloride 108 mmol/L (98-107); Estimated CRCL calculation 8 ml/min; Estimated Glomerular Filt Rate 11; Glucose 72 mg/dL (65-110); Potassium 4.6 mmol/L (3.4-5.0); Sodium 137 mmol/L (137-145)
--- NOTE | 2023-06-14 07:59 | PM.IMPN ---
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 She had stent placed in September of 2022. She was recently diagnosed in February of 2023 with muscle invasive bladder cancer that was removed completely and new stents were placed. At this time there was a small somewhat solid neoplastic looking growth at the right posterior lateral bladder wall and biopsies were taken. Pathology report revealed highly atypical degenerative tumor cells. Recent scan revealing a soft tissue mass likely malignant tumor at the base of the posterior bladder extending into the UVJ right greater than left. Being treated by Dr. Aby lopez and Dr. Nur for bladder cancer. Patient scheduled to see Oncology in approximately 2 weeks to determine if she is a candidate for chemo/radiation. Plan for the patient to be seen by Oncology [facility] and as an outpatient. (2) Acute kidney injury: Code(s): N17.9 - Acute kidney failure, unspecified Status: Acute Assessment and Plan: In the ER, patient is found to have elevated BUN and creatinine above baseline with creatinine of 2.7 Likely resulting from urinary retention, obstruction of progression of bladder cancer Catheter placed. Normal saline discontinued 06/11 06/12 UA negative for infection Nephrology consulted. Appears she has had work up by nephro in the past. Decreased IV fluids from 100 ml to 75 ml per hour due to presence of anasarca seen on CT abdomen and rising Cr. Patient does not appear fluid overloaded. Add daily weights Strict I&Os. BUN creatinine 56/3.1 with an albumin of 2. 9/4 and 06/13 albumin q[address] abdomen and pelvis did not show any hydronephrosis or obstruction. Anasarca present although patient does not appear overly fluid overloaded. Monitor labs (3) Nausea: Code(s): R11.0 - Nausea Status: Acute Assessment and Plan: Patient has had ongoing nausea for the past several days. Patient states she feels as if her food cannot go down and it gets stuck and then she ?vomits? it back up?. Much of what she describes sounds like regurgitation. She does well with liquids. Zofran and IV Protonix are not helping. GI consult and plan for EGD on 06/14. Per nursing report EGD shows gastritis and gastric ulcer. Already on PPI BID. Added Carafate Ac/HS. (4) Macrocytic anemia: Code(s): D53.9 - Nutritional anemia, unspecified Status: Acute Assessment and Plan: Patient with hemoglobin hematocrit of 7.9/26.9 and MCV of 109.3. Iron studies and B12 and folate ordered. Iron of 11, TIBC 135 and% saturation 8 Will give 3 days of 500 mg iron infusion. B12 at 260 and folate normal. B12 injection x1 then p.o. supplement daily thereafter (5) Hydronephrosis: Code(s): N13.30 - Unspecified hydronephrosis Status: Resolved Assessment and Plan: Likely resulting from bladder cancer. Patient has difficulty with urination, your urgency frequency CT shows soft tissue mass, likely malignant tumor at posterior bladder base extending to the UVJ, right greater than left with prominent distention of the urinary bladder and bilateral hydronephrosis despite bilateral internal stents Appreciated urologist consultation, urologist considers patient does not need surgical treatment currently Urinary catheter placed Follow urologist's recommendation Repeat renal ultrasound revealing no hydronephrosis (6) Hematuria: Qualifiers: Hematuria type: gross Qualified Code(s): R31.0 - Gross hematuria Code(s): R31.9 - Hematuria, unspecified Status: Chronic Assessment and Plan: Likely due to recurrent bladder cancer. Resolve
--- NOTE | 2023-06-14 08:01 | ECG_ITS ---
Measurements Intervals [place] Rate: 73 P: 27 MN: 168 QRS: -21 QRSD: 114 T: 25 QT: 391 QTc: 432 Interpretive Statements SINUS RHYTHM VENTRICULAR BIGEMINY LOW QRS VOLTAGE IN PRECORDIAL LEADS INCOMPLETE RIGHT BUNDLE BRANCH BLOCK DELAYED PRECORDIAL R/S TRANSITION BASELINE ARTIFACT- I, II, III, AVR, AVL, AVF ABNORMAL ECG COMPARED TO ECG 06/13/2023 05:01:56 NO SIGNIFICANT CHANGES Electronically Signed On 06-14-2023 9:12:59 CDT by Jesus Wilson D.O.
[2023-06-14 08:39] LABS: Troponin I 0.045 ng/mL (0.000-0.034)
[2023-06-14] MEDS: LACTATED RINGERS 1,000 ML 150 ML IV CONT (10:16)
--- NOTE | 2023-06-14 10:27 | PCOTNOTE ---
The patient treatment was not able to be completed. Patient was in the GI lab. Will plan to continue treatment per plan of care.
--- NOTE | 2023-06-14 10:36 | WPDANESEPPF ---
Anes - Initial Pre Proc Eval Procedure: Operation Date: 06/14/23 13:00 Proposed Procedures p Esophagogastroduodenoscopy EGD - Tyrese Polanco MD Date/Time: 06/14/23 10:36 Surgeon: Ray Pelletier MD Pre Op Diagnosis: Acute on Chronic Renal Failure/Hyperkalemia Patient Data Age: 78 Gender: F Height: 1.57 m Weight: 63.9 kg Last Vital Signs Temp 98.2 F 06/14/23 10:10 Pulse 67 06/14/23 10:10 Resp 16 06/14/23 10:10 BP 105/40 L 06/14/23 10:10 Pulse Ox 94 06/14/23 10:10 O2 Del Method Room Air 06/14/23 10:10 Allergies Allergy/AdvReac Type Severity Reaction Status Date / Time morphine Allergy Severe Itching/throat Verified 06/14/23 10:10 tightness Sulfa (Sulfonamide Allergy Intermediate Hives, Verified 06/14/23 10:10 Antibiotics) itching nitrofurantoin AdvReac Mild Rash Verified 06/14/23 10:10 [From Macrobid] Home Medications Medication Instructions Recorded Confirmed Type triamcinolone acetonide 0.1 % 1 applic topical BID PRN Itching 02/20/23 06/06/23 History topical ointment docusate sodium 100 mg capsule 100 mg PO BID 06/06/23 06/06/23 History (Colace) dronabinol 2.5 mg capsule 2.5 mg PO BID 06/06/23 06/06/23 History dronabinol 2.5 mg capsule 2.5 mg PO DAILY 06/06/23 06/06/23 History ferrous sulfate 325 mg (65 mg 325 mg PO BID 06/06/23 06/06/23 History iron) tablet (FeroSul) furosemide 20 mg tablet 20 mg PO DAILY 06/06/23 06/06/23 History hydrocodone 5 mg-acetaminophen 325 1 tablet PO Q6H PRN Pain 06/06/23 06/06/23 History mg tablet nystatin 100,000 unit/mL oral 5 ml PO DAILY PRN THRUSH 06/06/23 06/06/23 History suspension ondansetron 4 mg disintegrating 4 mg PO Q6H PRN Nausea And Vomiting 06/06/23 06/06/23 History tablet polyethylene glycol 3350 17 gram 17 g PO DAILY 06/06/23 06/06/23 History oral powder packet sennosides 8.6 mg tablet (senna) 8.6 mg PO BID 06/06/23 06/06/23 History Laboratory Tests 06/13/23 06/14/23 06/14/23 11:42 06:08 06:11 WBC 8.1 K/mm3 (4.5-10.0) RBC 2.44 L M/mm3 (4.2-5.4) Hgb 7.8 L g/dL (12.0-15.0) Hct 26.9 L % (37.0-47.0) MCV 110.2 H fl (80-100) MCH 32.0 pg (26-34) MCHC 29.0 L g/dl (32-36) RDW 15.5 H % (11.5-14.5) Plt Count 223 k/mm3 (150-375) MPV 11.0 H fl (7.4-10.4) Sodium 137 mmol/L (137-145) Potassium 4.6 mmol/L (3.4-5.0) Chloride 108 H mmol/L (98-107) Carbon Dioxide 16 L mmol/L (22-30) Anion Gap 13 mmol/L (8-16) BUN 63 H mg/dL (7-17) Creatinine 4.00 H mg/dL (0.7-1.0) Estim Creat Clear Calc 8 ml/min Estimated GFR 11 L (59 - ) Glucose 72 mg/dL (65-110) Calcium 9.6 mg/dL (8.4-10.2) Total Bilirubin 0.3 mg/dL (0.2-1.3) AST 16 U/L (14-36) ALT 7 U/L (6-35) Alkaline Phosphatase 47 U/L (38-126) Troponin I 0.047 H* ng/mL 0.045 H* ng/mL (0.000-0.034) (0.000-0.034) Total Protein 6.0 L g/dL (6.3-8.2) Albumin 3.0 L g/dL (3.5-5.1) Patient hx anesthesia problems: none Family hx anesthesia problems: none Results Review: All pre-operative results and documents have been reviewed as part of the pre-operative evaluation. [facility] Past Medical History Medical History (Updated 06/11/23 @ 15:27 by Polly Oneill MD) Chronic kidney disease, stage 3 Chronic kidney disease, stage 3b Dysphagia Eosinophilia Gastroesophageal reflux disease Hypertension Macrocytic anemia Obstructive sleep apnea 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 Surgical History Surgical History (Updated 06/10/23 @ 13:47 by Polly Oneill MD) History of appendectomy History of bilateral knee replacemen
--- NOTE | 2023-06-14 11:24 | SUR.PHASEII ---
Patient responding well to IV fluids vital signs within normal limits, O2 at >95% on room air, patient returned to baseline orientation, Doctor Louie aware.
[2023-06-14] MEDS: LACTATED RINGERS 1,000 ML 75 ML IV CONT (11:30)
--- NOTE | 2023-06-14 12:09 | P.PNNP_ITS ---
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 (although I have concerns how she would tolerate such an intervention) * follow repeat labs and UOP (2) Chronic kidney disease, stage 4 (severe): Code(s): N18.4 - Chronic kidney disease, stage 4 (severe) Status: Chronic Assessment and Plan: * baseline creatinine runs ~ 1.4 -2.0mg/dl in the last year * presumably due to chronic obstruction, bladder cancer, hypertension, LARA, and age-related change (3) Hydronephrosis: Code(s): N13.30 - Unspecified hydronephrosis Status: Resolved Assessment and Plan: * as noted on recent CT imaging * resolved with blanchard catheter placement (4) Bladder cancer: Code(s): C67.9 - Malignant neoplasm of bladder, unspecified Status: Chronic Assessment and Plan: * followed by Urology here * extensive history noted * Hem/Onc following as well (5) Anemia: Code(s): D64.9 - Anemia, unspecified Status: Chronic Assessment and Plan: * based on evaluation to date, due iron deficiency, CKD, and malignancy * continue current therpy/interventions * follow H/H Will continue to follow. Subjective Date/time seen: 06/14/23 12:09 Interval history: Follow-up for acute kidney injury/acute renal failure on chronic kidney disease. Feels okay but still has dysphagia issues and chest discomfort with swallowing -- repeat troponins and EKG at the time this occurred earlier today was negative/unchanged from previous testing; she states she would be willing to pursue dialysis if needed as long as she has the option of stopping this if she wants. Exam 2 Narrative: General: frail and elderly female in NAD Heart: normal S1 and S2; no rub Lungs: clear to auscultation Abdomen: soft, nontender, nondistended, positive bowel sounds Extremities: no cyanosis or clubbing; 1+ edema Skin: warm and intact Objective Data Vital Signs Vital Signs: Vital Signs Temp Pulse Resp BP Pulse Ox O2 Del Method 06/14/23 08:00 71 06/14/23 11:19 97.4 F L 65 16 102/45 L 94 06/14/23 11:07 69 18 92/62 L 98 Room Air 06/14/23 10:57 70 18 87/40 L 99 Room Air 06/14/23 10:47 67 18 84/40 L 98 Room Air 06/14/23 10:10 98.2 F 67 16 105/40 L 94 Room Air 06/14/23 06:16 99.2 F 76 18 118/48 L 96 Room Air 06/14/23 04:00 76 06/14/23 05:29 99.2 F 76 18 118/48 L 96 06/14/23 00:00 76 06/13/23 20:00 72 06/13/23 21:00 98.2 F 76 20 100/48 L 93 06/13/23 16:00 80 Intake/Output Intake/Output: Intake & Output 06/11/23 06/12/23 06/13/23 06/14/23 23:59 23:59 23:59 23:59 Intake Total 1849 2051 1510 200 Output Total 250 600 300 250 Balance 1599 1451 1210 -50 Meds/Results Medications:
--- NOTE | 2023-06-14 12:09 | PM.PNNEP ---
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 (although I have concerns how she would tolerate such an intervention) follow repeat labs and UOP (2) Chronic kidney disease, stage 4 (severe): Code(s): N18.4 - Chronic kidney disease, stage 4 (severe) Status: Chronic Assessment and Plan: baseline creatinine runs ~ 1.4 -2.0mg/dl in the last year presumably due to chronic obstruction, bladder cancer, hypertension, LARA, and age-related change (3) Hydronephrosis: Code(s): N13.30 - Unspecified hydronephrosis Status: Resolved Assessment and Plan: as noted on recent CT imaging resolved with blanchard catheter placement (4) Bladder cancer: Code(s): C67.9 - Malignant neoplasm of bladder, unspecified Status: Chronic Assessment and Plan: followed by Urology here extensive history noted Hem/Onc following as well (5) Anemia: Code(s): D64.9 - Anemia, unspecified Status: Chronic Assessment and Plan: based on evaluation to date, due iron deficiency, CKD, and malignancy continue current therpy/interventions follow H/H Will continue to follow. Subjective Date/time seen: 06/14/23 12:09 Interval history: Follow-up for acute kidney injury/acute renal failure on chronic kidney disease. Feels okay but still has dysphagia issues and chest discomfort with swallowing -- repeat troponins and EKG at the time this occurred earlier today was negative/unchanged from previous testing; she states she would be willing to pursue dialysis if needed as long as she has the option of stopping this if she wants. Exam Narrative: General: frail and elderly female in NAD Heart: normal S1 and S2; no rub Lungs: clear to auscultation Abdomen: soft, nontender, nondistended, positive bowel sounds Extremities: no cyanosis or clubbing; 1+ edema Skin: warm and intact Objective Data Vital Signs Vital Signs: Vital Signs Temp Pulse Resp BP Pulse Ox O2 Del Method 06/14/23 08:00 71 06/14/23 11:19 97.4 F L 65 16 102/45 L 94 06/14/23 11:07 69 18 92/62 L 98 Room Air 06/14/23 10:57 70 18 87/40 L 99 Room Air 06/14/23 10:47 67 18 84/40 L 98 Room Air 06/14/23 10:10 98.2 F 67 16 105/40 L 94 Room Air 06/14/23 06:16 99.2 F 76 18 118/48 L 96 Room Air 06/14/23 04:00 76 06/14/23 05:29 99.2 F 76 18 118/48 L 96 06/14/23 00:00 76 06/13/23 20:00 72 06/13/23 21:00 98.2 F 76 20 100/48 L 93 06/13/23 16:00 80 Intake/Output Intake/Output: Intake & Output 06/11/23 06/12/23 06/13/23 06/14/23 23:59 23:59 23:59 23:59 Intake Total 1849 2051 1510 200 Output Total 250 600 300 250 Balance 1599 1451 1210 -50 Meds/Results Medications: Active Medications Generic Name Dose Route Start Last Admin Trade Name Freq PRN Reason Stop Dose Admin Hydrocodone Bitart/Acetaminophen 1 tab 06/13/23 08:16 06/14/23 05:39 Hydrocodone/Acetaminophen (*Crx) 5-325 Mg Tablet PO 1 tab Q4H PRN Administration Pain Rated 4-6 Cyanocobalamin 1,000 mcg 06/12/23 09:00 06/14/23 12:51 Cyanocobalamin 1,000 Mcg Tablet PO 1,000 mcg QAM [facility] Administration Docusate Sodium 100 mg 06/07/23 17:00 06/14/23 12:50 Docusate Sodium 100 Mg Capsule PO 100 mg BID [facility] Administration Dronabinol 2.5 mg 06/15/23 06:30 Dronabinol (*Crx) 2.5 Mg Capsule PO DAILY@0630 [facility] Dronabinol 2.5 mg 06/07/23 17:00 06/14/23 12:52 Dronabinol (*Crx) 2.5 Mg Capsule PO
[2023-06-14] MEDS: FERROUS SULFATE 325 MG TABLET DR PO ×2 (12:50→17:44)
[2023-06-14] MEDS: TAMSULOSIN HCL 0.4 MG CAPSULE PO (12:50)
[2023-06-14] MEDS: DOCUSATE SODIUM 100 MG CAPSULE PO ×2 (12:50→17:44)
[2023-06-14] MEDS: ENOXAPARIN 30 MG/0.3 ML SYRINGE SUB-Q (12:50)
[2023-06-14] MEDS: FOLIC ACID 1 MG TABLET PO (12:50)
[2023-06-14] MEDS: SENNOSIDES 8.6 MG TABLET PO ×2 (12:51→17:44)
[2023-06-14] MEDS: polyethylene glycoL 3350 17 GM POWD.PACK PO (12:51)
[2023-06-14] MEDS: CYANOCOBALAMIN 1,000 MCG TABLET 1000 MCG PO (12:51)
[2023-06-14] MEDS: PANTOPRAZOLE SODIUM IV 40 MG VIAL IV PUSH ×2 (12:51→21:05)
[2023-06-14] MEDS: droNABinol (*CRX) 2.5 MG CAPSULE PO ×2 (12:52→17:45)
[2023-06-14] MEDS: SUCRALFATE SUSP 100 MG/ML 10 ML UDC 1000 MG PO ×2 (17:52→21:04)
[2023-06-15] VITALS (14 sets, daily range): BP systolic 92–125; BP diastolic 40–77; PULSE 65–93; RESP 12–16; TEMP 36.6–37.1; O2SAT 93–97
[2023-06-15] MEDS: LACTATED RINGERS 1,000 ML 75 ML IV CONT (06:04)
[2023-06-15] MEDS: ONDANSETRON INJ 4 MG/2 ML VIAL IV PUSH ×3 (06:05→16:34)
[2023-06-15] MEDS: droNABinol (*CRX) 2.5 MG CAPSULE PO (06:05)
[2023-06-15] MEDS: SUCRALFATE SUSP 100 MG/ML 10 ML UDC 1000 MG PO ×4 (06:05→20:26)
[2023-06-15 06:50] LABS: Alanine Aminotransferase 6 U/L (6-35); Albumin Level 2.6 g/dL (3.5-5.1); Alkaline Phosphatase 48 U/L (38-126); Anion Gap 10 mmol/L (8-16); Aspartate Amino Transferase 14 U/L (14-36); Bilirubin,Total 0.3 mg/dL (0.2-1.3); Blood Urea Nitrogen 63 mg/dL (7-17); Calcium 9.3 mg/dL (8.4-10.2); Carbon Dioxide 17 mmol/L (22-30); Chloride 108 mmol/L (98-107); Estimated CRCL calculation 7 ml/min; Estimated Glomerular Filt Rate 9; Glucose 75 mg/dL (65-110); Magnesium 2.2 mg/dL (1.6-2.3); Phosphorus 3.1 mg/dL (2.5-4.5); Potassium 4.4 mmol/L (3.4-5.0); Sodium 135 mmol/L (137-145)
[2023-06-15 06:58] LABS: Basophils Percent Auto 0.4 % (0.2-1.2); Eosinophils Absolute Auto 0.5 K/mm3 (0-0.3); Hematocrit 23.7 % (37.0-47.0); Immature Granulocyte Absolute 0.03 K/mm3 (0.00-0.031); Immature Granulocyte Percent A 0.4 % (0-0.5); Lymphocytes Absolute Auto 0.96 K/mm3 (0.9-3.2); Lymphocytes Percent Auto 12.1 % (18.3-44.2); Mean Corpuscular HGB Conc 29.5 g/dl (32-36); Mean Corpuscular Hemoglobin 31.8 pg (26-34); Mean Corpuscular Volume 107.7 fl (80-100); Mean Platelet Volume 10.9 fl (7.4-10.4); Monocytes Absolute Auto 0.7 K/mm3 (0.1-0.6); Monocytes Percent Auto 8.9 % (2.6-8.5); Neutrophils Absolute Auto 5.7 K/mm3 (1.3-6.7); Neutrophils Percent Auto 72.2 % (45.5-73.1); Platelet Count Result 236 k/mm3 (150-375); Red Cell Distribution Width 15.6 % (11.5-14.5); White Blood Count 7.9 K/mm3 (4.5-10.0)
[2023-06-15 07:40] LABS: Platelet Estimate Adequate (Adequate)
[2023-06-15 07:41] LABS: Anisocytosis 1+ (NORMAL); Ovalocytes 1+ (NORMAL)
[2023-06-15 07:42] LABS: Burr Cells 1+ (NORMAL); Poikilocytosis 1+ (NORMAL); Schistocytes None Seen (NORMAL)
[2023-06-15 08:24] LABS: Hepatitis B Surface Antigen Negative (Negative)
[2023-06-15 08:42] LABS: Hepatitis B Surface Anti Res Negative
--- NOTE | 2023-06-15 09:11 | PM.IMPN ---
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 She had stent placed in September of 2022. She was recently diagnosed in February of 2023 with muscle invasive bladder cancer that was removed completely and new stents were placed. At this time there was a small somewhat solid neoplastic looking growth at the right posterior lateral bladder wall and biopsies were taken. Pathology report revealed highly atypical degenerative tumor cells. Recent scan revealing a soft tissue mass likely malignant tumor at the base of the posterior bladder extending into the UVJ right greater than left. Being treated by Dr. Aby lopez and Dr. Nur for bladder cancer. Patient scheduled to see Oncology in approximately 2 weeks to determine if she is a candidate for chemo/radiation. Plan for the patient to be seen by Oncology [facility] and as an outpatient. Could benefit from another discussion with oncology surrounding cancer trajectory as I feel she may have unrealistic expectations. (2) Acute kidney injury: Code(s): N17.9 - Acute kidney failure, unspecified Status: Acute Assessment and Plan: In the ER, patient is found to have elevated BUN and creatinine above baseline with creatinine of 2.7 Likely resulting from urinary retention, obstruction of progression of bladder cancer Catheter placed. Normal saline discontinued 06/11 06/12 UA negative for infection Nephrology consulted. Appears she has had work up by nephro in the past. Decreased IV fluids from 100 ml to 75 ml per hour due to presence of anasarca seen on CT abdomen and rising Cr. Patient does not appear fluid overloaded. Now with crackles to bilateral bases, dyspnea with deep inspiration, and trace pitting edema to BLE. Add daily weights Strict I&Os. UOP overnight was 100 ml BUN creatinine 63/4.5 with an albumin of 2.6 9/4 and 9/5 albumin q.[address] abdomen and pelvis did not show any hydronephrosis or obstruction. Anasarca present although patient does not appear overly fluid overloaded. Monitor labs (3) Nausea: Code(s): R11.0 - Nausea Status: Acute Assessment and Plan: Patient has had ongoing nausea for the past several days. Patient states she feels as if her food cannot go down and it gets stuck and then she ?vomits? it back up?. Much of what she describes sounds like regurgitation. She does well with liquids. Zofran and IV Protonix are not helping. GI consult and plan for EGD on 06/14. Per nursing report EGD shows gastritis and gastric ulcer. Already on PPI BID. Added Carafate Ac/HS. (4) Macrocytic anemia: Code(s): D53.9 - Nutritional anemia, unspecified Status: Acute Assessment and Plan: Patient with hemoglobin hematocrit of 7.9/26.9 and MCV of 109.3. Iron studies and B12 and folate ordered. Iron of 11, TIBC 135 and% saturation 8 Will give 3 days of 500 mg iron infusion. B12 at 260 and folate normal. B12 injection x1 then p.o. supplement daily thereafter Hgb 7.0/Hct 23.7 and blood pressures have been lower than normal 90/40's. Transfuse 1 unit of pRBC 06/15 (5) Hydronephrosis: Code(s): N13.30 - Unspecified hydronephrosis Status: Resolved Assessment and Plan: Likely resulting from bladder cancer. Patient has difficulty with urination, your urgency frequency CT shows soft tissue mass, likely malignant tumor at posterior bladder base extending to the UVJ, right greater than left with prominent distention of the urinary bladder and bilateral hydronephrosis despite bilateral internal stents Appreciated urologist consultation, urologist considers patient does not need surgical treatment currently Urinary cat
[2023-06-15] MEDS: TAMSULOSIN HCL 0.4 MG CAPSULE PO (09:35)
[2023-06-15] MEDS: FERROUS SULFATE 325 MG TABLET DR PO ×2 (09:35→16:35)
[2023-06-15] MEDS: FOLIC ACID 1 MG TABLET PO (09:35)
[2023-06-15] MEDS: CYANOCOBALAMIN 1,000 MCG TABLET 1000 MCG PO (09:35)
[2023-06-15] MEDS: ENOXAPARIN 30 MG/0.3 ML SYRINGE SUB-Q (09:35)
[2023-06-15] MEDS: SENNOSIDES 8.6 MG TABLET PO ×2 (09:35→16:35)
[2023-06-15] MEDS: DOCUSATE SODIUM 100 MG CAPSULE PO ×2 (09:35→16:35)
[2023-06-15] MEDS: polyethylene glycoL 3350 17 GM POWD.PACK PO (09:35)
[2023-06-15] MEDS: PANTOPRAZOLE SODIUM IV 40 MG VIAL IV PUSH ×2 (09:37→20:26)
--- NOTE | 2023-06-15 11:00 | PCOTNOTE ---
The patient treatment was not able to be completed. Patient with MD at the time. Will plan to continue treatment per plan of care.
--- NOTE | 2023-06-15 12:05 | PCOTNOTE ---
Attempted to see Patient at this time. Per RN, Patient is going to start getting blood at this time but would like for her to be checked back on this afternoon.
[2023-06-15] MEDS: SODIUM CHLORIDE 0.9% IV 250 ML 30 ML IV CONT (12:30)
[2023-06-15 13:07] LABS: Kappa\\Lambda Light Chains 1.57 (0.26-1.65); Lambda Light Chain 72.1 mg/L (5.7-26.3)
--- NOTE | 2023-06-15 13:40 | P.PNNP_ITS ---
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 (although I have concerns how she would tolerate such an intervention) * follow repeat labs and UOP (2) Chronic kidney disease, stage 4 (severe): Code(s): N18.4 - Chronic kidney disease, stage 4 (severe) Status: Chronic Assessment and Plan: * baseline creatinine runs ~ 1.4 -2.0mg/dl in the last year * presumably due to chronic obstruction, bladder cancer, hypertension, LARA, and age-related change (3) Hydronephrosis: Code(s): N13.30 - Unspecified hydronephrosis Status: Resolved Assessment and Plan: * as noted on recent CT imaging * resolved with blanchard catheter placement (4) Bladder cancer: Code(s): C67.9 - Malignant neoplasm of bladder, unspecified Status: Chronic Assessment and Plan: * followed by Urology here * extensive history noted * Hem/Onc following as well (5) Anemia: Code(s): D64.9 - Anemia, unspecified Status: Chronic Assessment and Plan: * based on evaluation to date, due iron deficiency, CKD, and malignancy * continue current therpy/interventions * follow H/H Will continue to follow. Subjective Date/time seen: 06/15/23 13:40 Interval history: Follow-up for acute kidney injury/acute renal failure on chronic kidney disease. Kidney function continues to worsen despite all conservative therapy to date; more concerning is her ongoing decline in urine output as well as signs of fluid retention/volume overload; no other issues/evetns overnight; discussed the issue of dialysis once again and the issues involved with this therapy/intervention. Exam Narrative: General: frail and elderly female in NAD Heart: normal S1 and S2; no rub Lungs: some bibasilar crackles Abdomen: soft, nontender, nondistended, positive bowel sounds Extremities: no cyanosis or clubbing; 1+ edema Skin: no rash Objective Data Vital Signs Vital Signs: Vital Signs Temp Pulse Resp BP Pulse Ox O2 Del Method 06/15/23 13:40 98.3 F 65 14 106/47 L 93 06/15/23 12:00 68 06/15/23 08:00 67 06/15/23 12:45 98.2 F 65 16 104/40 L 94 06/15/23 12:30 98.3 F 65 14 113/56 L 94 06/15/23 06:00 98.8 F 68 16 92/45 L 97 06/15/23 04:00 68 06/15/23 00:00 74 06/14/23 20:00 68 06/14/23 20:00 Room Air 06/14/23 23:03 96/38 L 06/14/23 22:38 96/34 L 06/14/23 22:00 99 F 69 16 97/36 L 97 06/14/23 16:00 72 Intake/Output Intake/Output: Intake & Output 06/12/23 06/13/23 06/14/23 06/15/23 23:59 23:59 23:59 23:59 Intake Total 2051 3756 697 1641 Output Total 600 300 550 100 Balance 1451 1210 -350 1459 Meds/Results Medications: Active Medications
--- NOTE | 2023-06-15 13:40 | PM.PNNEP ---
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 (although I have concerns how she would tolerate such an intervention) follow repeat labs and UOP (2) Chronic kidney disease, stage 4 (severe): Code(s): N18.4 - Chronic kidney disease, stage 4 (severe) Status: Chronic Assessment and Plan: baseline creatinine runs ~ 1.4 -2.0mg/dl in the last year presumably due to chronic obstruction, bladder cancer, hypertension, LARA, and age-related change (3) Hydronephrosis: Code(s): N13.30 - Unspecified hydronephrosis Status: Resolved Assessment and Plan: as noted on recent CT imaging resolved with blanchard catheter placement (4) Bladder cancer: Code(s): C67.9 - Malignant neoplasm of bladder, unspecified Status: Chronic Assessment and Plan: followed by Urology here extensive history noted Hem/Onc following as well (5) Anemia: Code(s): D64.9 - Anemia, unspecified Status: Chronic Assessment and Plan: based on evaluation to date, due iron deficiency, CKD, and malignancy continue current therpy/interventions follow H/H Will continue to follow. Subjective Date/time seen: 06/15/23 13:40 Interval history: Follow-up for acute kidney injury/acute renal failure on chronic kidney disease. Kidney function continues to worsen despite all conservative therapy to date; more concerning is her ongoing decline in urine output as well as signs of fluid retention/volume overload; no other issues/evetns overnight; discussed the issue of dialysis once again and the issues involved with this therapy/intervention. Exam Narrative: General: frail and elderly female in NAD Heart: normal S1 and S2; no rub Lungs: some bibasilar crackles Abdomen: soft, nontender, nondistended, positive bowel sounds Extremities: no cyanosis or clubbing; 1+ edema Skin: no rash Objective Data Vital Signs Vital Signs: Vital Signs Temp Pulse Resp BP Pulse Ox O2 Del Method 06/15/23 13:40 98.3 F 65 14 106/47 L 93 06/15/23 12:00 68 06/15/23 08:00 67 06/15/23 12:45 98.2 F 65 16 104/40 L 94 06/15/23 12:30 98.3 F 65 14 113/56 L 94 06/15/23 06:00 98.8 F 68 16 92/45 L 97 06/15/23 04:00 68 06/15/23 00:00 74 06/14/23 20:00 68 06/14/23 20:00 Room Air 06/14/23 23:03 96/38 L 06/14/23 22:38 96/34 L 06/14/23 22:00 99 F 69 16 97/36 L 97 06/14/23 16:00 72 Intake/Output Intake/Output: Intake & Output 06/12/23 06/13/23 06/14/23 06/15/23 23:59 23:59 23:59 23:59 Intake Total 2051 6099 775 5134 Output Total 600 300 550 100 Balance 1451 1210 -350 1459 Meds/Results Medications: Active Medications Generic Name Dose Route Start Last Admin Trade Name Freq PRN Reason Stop Dose Admin Hydrocodone Bitart/Acetaminophen 1 tab 06/13/23 08:16 06/14/23 05:39 Hydrocodone/Acetaminophen (*Crx) 5-325 Mg Tablet PO 1 tab Q4H PRN Administration Pain Rated 4-6 Cyanocobalamin 1,000 mcg 06/12/23 09:00 06/15/23 09:35 Cyanocobalamin 1,000 Mcg Tablet PO 1,000 mcg QAM [facility] Administration Docusate Sodium 100 mg 06/07/23 17:00 06/15/23 09:35 Docusate Sodium 100 Mg Capsule PO 100 mg BID [facility] Administration Dronabinol 2.5 mg 06/15/23 06:30 06/15/23 06:05 Dronabinol (*Crx) 2.5 Mg Capsule PO 2.5 mg DAILY@0630 [facility] Administration Enoxaparin Sodium 30 mg 06/07/23 09:00 06/15/23 09:35 Enoxaparin 30 Mg/0.3 Ml Syringe SUB-Q 30 mg ZEV
--- NOTE | 2023-06-15 13:40 | PCOTNOTE ---
Attempted again for the P.M. treatment session. Patient receiving blood at this time. Patient refused to participate at this time and complained of feeling exhausted and so tired. Patient declined services
[2023-06-15] MEDS: SODIUM CHLORIDE 0.9% IV 1,000 ML 30 ML IV CONT (16:41)
--- NOTE | 2023-06-15 16:50 | WPDGIPROGNO ---
Progress Note: A&P Assessment and Plan (1) Gastric ulcer: Code(s): K25.9 - Gastric ulcer, unspecified as acute or chronic, without hemorrhage or perforation Status: Acute Assessment and Plan: continue with ppi diet as tolerated, normal esophagus (2) Severe protein-calorie malnutrition: Code(s): E43 - Unspecified severe protein-calorie malnutrition Status: Acute (3) Acute on chronic kidney failure: Code(s): N17.9 - Acute kidney failure, unspecified; N18.9 - Chronic kidney disease, unspecified Status: Acute Assessment and Plan: noted worsening renal failure, nephrology on board (4) Urothelial carcinoma of bladder: Code(s): C67.9 - Malignant neoplasm of bladder, unspecified Status: Acute Subjective Date/time seen: 06/15/23 16:50 Interval history: egd with small gastric ulcer, normal esophagus no major changes, noted worsening renal failure Review of Systems Review of Systems: All systems reviewed & are unremarkable except as noted in HPI and below Exam Const: General: comfortable Other: generalized weakness HENMT: Face/Nose/Sinus: Normal nares present Eyes: Sclera: sclerae normal Neck: Neck: supple Resp: Effort & Inspection: normal respiratory effort Cardio: Rate: regular rate GI: GI Palp: Yes Soft to palpation and No Guarding due to palpation present (GI) Auscultation: normal bowel sounds Skin: General skin exam: normal color Neuro: Speech: normal speech Motor exam (neuro): 5/5 motor strength present throughout Extrem: General: normal to inspection Psych: Mental Status: mental status grossly normal Objective Data Vital Signs Vital Signs: Vital Signs - 24 hr 06/14/23 22:00 06/14/23 22:38 06/14/23 23:03 Temperature 99 F Pulse Rate 69 Respiratory Rate 16 Blood Pressure 97/36 L 96/34 L 96/38 L Pulse Oximetry 97 Oxygen Delivery 06/14/23 20:00 06/14/23 20:00 06/15/23 00:00 Temperature Pulse Rate 68 74 Respiratory Rate Blood Pressure Pulse Oximetry Oxygen Delivery Room Air 06/15/23 04:00 06/15/23 06:00 06/15/23 12:30 Temperature 98.8 F 98.3 F Pulse Rate 68 68 65 Respiratory Rate 16 14 Blood Pressure 92/45 L 113/56 L Pulse Oximetry 97 94 Oxygen Delivery 06/15/23 12:45 06/15/23 08:00 06/15/23 12:00 Temperature 98.2 F Pulse Rate 65 67 68 Respiratory Rate 16 Blood Pressure 104/40 L Pulse Oximetry 94 Oxygen Delivery 06/15/23 13:45 06/15/23 14:00 06/15/23 14:45 Temperature 98.3 F 97.9 F 98.1 F Pulse Rate 65 65 66 Respiratory Rate 14 12 16 Blood Pressure 106/47 L 114/50 L 119/66 Pulse Oximetry 93 95 94 Oxygen Delivery 06/15/23 14:50 Temperature 98 F Pulse Rate 65 Respiratory Rate 16 Blood Pressure 115/58 L Pulse Oximetry 94 Oxygen Delivery Intake/Output Intake/Output: Intake & Output 06/12/23 06/13/23 06/14/23 06/15/23 23:59 23:59 23:59 23:59 Intake Total 2051 8611 333 8426 Output Total 600 300 550 100 Balance 1451 1210 -350 1699 Meds/Results Medications: Active Medications Generic Name Dose Route Start Last Admin Trade Name Freq PRN Reason Stop Dose Admin Hydrocodone Bitart/Acetaminophen 1 tab 06/13/23 08:16 06/14/23 05:39 Hydrocodone/Acetaminophen (*Crx) 5-325 Mg Tablet PO 1 tab Q4H PRN Administration Pain Rated 4-6 Cyanocobalamin 1,000 mcg 06/12/23 09:00 06/15/23 09:35 Cyanocobalamin 1,000 Mcg Tablet PO 1,000 mcg QAM [facility] Administration Docusate Sodium 100 mg 06/07/23 17:00 06/15/23 16:35 Docusate Sodium 100 Mg Capsule PO 100 mg BID [facility] Administration Dronabinol 2.5 mg 06/15/23 06:30 06/15/23 06:05 Dronabinol (*Crx) 2.5 Mg Capsule PO 2.5 mg DAILY@0630 [facility] Administration Enoxaparin Sodium 30 mg 06/07/23 09:00 06/15/23 09:35 Enoxaparin 30 Mg/0.3 Ml Syringe SUB-Q 30 mg DAILY [facility] Administration Ferrous Sulfate 325 mg 06/07/23 17:00 06/15/23 16:35 F
[2023-06-15 17:10] LABS: Hematocrit 28.1 % (37.0-47.0); Hemoglobin 8.5 g/dL (12.0-15.0)
--- NOTE | 2023-06-15 19:15 | WPDONCPN ---
Progress Note: A/P (1) Bladder cancer Code(s): C67.9 - Malignant neoplasm of bladder, unspecified Status: Acute Assessment and plan: Patient with history of non-muscle invasive bladder cancer first diagnosed via TURBT in 01/2020. She underwent resection on 02/20/20 followed by BCG treatments by Dr. Badillo, urologist. Since then she has suffered from recurrent problems with UTI and a cystoscopy on 11/2021 showed obstruction at right ureterovesical junction due to scarring and ureteral stricture. She underwent chronic indwelling ureteral stent placement on 11/2021. The ureteral stent was replaced 09/2022 and then on 03/02/23. During the cystoscopy on 03/02/23 noted was small somewhat solid neoplastic looking growth in the right posterior lateral bladder wall. This growth was resected in its entirety and the base and periphery was cauterized. See procedure report below. 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 Detrusor muscle was absent in the resected specimen. Patient was observed. 03/02/23 Cystoscopy- Description of Procedure by Dr. Nur Patient is brought the op suite she has prepped draped in routine sterile fashion while in dorsal lithotomy position after the uneventful induction of a general anesthetic. Cystoscopy is undertaken with a 21 F rigid cystoscope. The indwelling stent is grasped and removed with ease. There was minimal incrustation. Retrograde pyelogram was obtained with [place] catheter to ensure appropriate placement of the new stent. A new 6 F variable length double-J ureteral stent is positioned with the proximal coil in the renal pelvis and distal coil in the bladder. 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 She does have a . Using a loop brought road this is resected in its entirety with an attempt made to include some detrusor muscle for pathological evaluation of invasion. The base and periphery is cauterized. Scopes and wires removed she was taken recovery room good condition. 04/18/23- A PET/CT scan-. Mild right hydroureter extending proximally from a soft tissue density mass centered at the right ureterovesicular junction. There appears to be mild associated FDG uptake with a mass which appears to extend further from the ureteral stent in the lumen of the bladder but would be expected for excreted urinary activity and likely reflects to reported malignant bladder cancer. This was recurrent Bladder cancer. Patient was evaluated by urology and bladder resection surgery was not thought to be appropriate option given patient's age and extent of the surgery needed. Patient was referred to medical and radiation oncology for further management. she was to see her oncology team at [place] but the facility is too far from the patient's assisted living facility. Patient is admitted for acute renal failure which is improving. A CT scan of abdomen and pelvis w/o contrast done 06/06/23 shows continued soft tissue mass, likely malignant tumor, at posterior bladder base, extending to the ureterovesical junctions, right greater than left, with prominent distention of the urinary bladder and bilateral hydronephrosis despite bilateral internal stents. she is requesting medical oncology and radiation oncology referral to [facility]. Patient's renal dysfunction continues to worsen and likely will need dialysis. Patient and her niece are deciding on dialysis. patient is very debilitated and continues to decline in performance status. At this time she is not a candidate for chemotherapy with gemcitabine. It is not due to renal function as we have given gemcitabine in dialysis patient, it is because of her declining performance status. (2) Macrocytic anemia Code(s): D53.9 - Nutritional anemia, unspecified Status: Acute - Time Spent With Patient Total time spent is greater than 50% in coordination of care (as documented) at patient's floor/unit an
[2023-06-16] VITALS: PULSE 102
[2023-06-16 04:00] VITALS: PULSE 103
[2023-06-16] MEDS: SUCRALFATE SUSP 100 MG/ML 10 ML UDC 1000 MG PO ×3 (05:56→17:16)
[2023-06-16] MEDS: droNABinol (*CRX) 2.5 MG CAPSULE PO (05:56)
[2023-06-16 06:00] VITALS: BP 122/53; PULSE 79; RESP 16; TEMP 36.7; O2SAT 93
[2023-06-16 06:20] LABS: Basophils Absolute Auto 0.1 K/mm3 (0.0-0.1); Basophils Percent Auto 0.6 % (0.2-1.2); Eosinophils Absolute Auto 0.9 K/mm3 (0-0.3); Hematocrit 29.9 % (37.0-47.0); Hemoglobin 9.2 g/dL (12.0-15.0); Immature Granulocyte Absolute 0.03 K/mm3 (0.00-0.031); Immature Granulocyte Percent A 0.4 % (0-0.5); Lymphocytes Absolute Auto 0.94 K/mm3 (0.9-3.2); Lymphocytes Percent Auto 11.4 % (18.3-44.2); Mean Corpuscular HGB Conc 30.8 g/dl (32-36); Mean Corpuscular Hemoglobin 31.7 pg (26-34); Mean Corpuscular Volume 103.1 fl (80-100); Mean Platelet Volume 10.2 fl (7.4-10.4); Monocytes Absolute Auto 0.6 K/mm3 (0.1-0.6); Monocytes Percent Auto 7.2 % (2.6-8.5); Neutrophils Absolute Auto 5.8 K/mm3 (1.3-6.7); Neutrophils Percent Auto 69.4 % (45.5-73.1); Platelet Count Result 304 k/mm3 (150-375); Red Cell Distribution Width 16.9 % (11.5-14.5); White Blood Count 8.3 K/mm3 (4.5-10.0)
[2023-06-16 06:23] LABS: Alanine Aminotransferase 7 U/L (6-35); Albumin Level 2.6 g/dL (3.5-5.1); Alkaline Phosphatase 50 U/L (38-126); Anion Gap 9 mmol/L (8-16); Aspartate Amino Transferase 15 U/L (14-36); Bilirubin,Total 0.4 mg/dL (0.2-1.3); Blood Urea Nitrogen 65 mg/dL (7-17); Calcium 9.4 mg/dL (8.4-10.2); Carbon Dioxide 16 mmol/L (22-30); Chloride 109 mmol/L (98-107); Estimated CRCL calculation 7 ml/min; Estimated Glomerular Filt Rate 9; Glucose 78 mg/dL (65-110); Potassium 4.3 mmol/L (3.4-5.0); Sodium 134 mmol/L (137-145)
[2023-06-16] MEDS: HYDROcodone/acetaminophen (*CRX) 5-325 MG TABLET 1 TAB PO (06:44)
[2023-06-16] MEDS: ONDANSETRON INJ 4 MG/2 ML VIAL IV PUSH ×3 (06:44→17:16)
--- NOTE | 2023-06-16 07:22 | PM.IMPN ---
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 She had stent placed in September of 2022. She was recently diagnosed in February of 2023 with muscle invasive bladder cancer that was removed completely and new stents were placed. At this time there was a small somewhat solid neoplastic looking growth at the right posterior lateral bladder wall and biopsies were taken. Pathology report revealed highly atypical degenerative tumor cells. Recent scan revealing a soft tissue mass likely malignant tumor at the base of the posterior bladder extending into the UVJ right greater than left. Being treated by Dr. Aby lopez and Dr. Nur for bladder cancer. Patient scheduled to see Oncology in approximately 2 weeks to determine if she is a candidate for chemo/radiation. Plan for the patient to be seen by Oncology [facility] and as an outpatient. Could benefit from another discussion with oncology surrounding cancer trajectory as I feel she may have unrealistic expectations. (2) Comfort measures only status: Code(s): Z51.5 - Encounter for palliative care Status: Acute Plan Comfort measures Care coordination consult for hospice eval, family request Vitas Feeding:regular diet + nepro between meals Analgesia:norco Thromboembolic prophylaxis: lovenox Ulcer prophylaxis: PPI Glycemic control: Not indicated, blood glucose on BMP 74 Bowel regimen: miralax and colace Lines: PIV Antibiotics:None Subjective Date/time seen: 06/16/23 07:22 Interval history: HPI obtained from chart, 78 years old lady with history of bladder cancer, present ED with a chief complaint of abnormal lab.? Patient has been having nausea vomiting anorexia and possibly more days, and the patient has difficulty with urination in past 2 weeks, patient has urinary urgency frequency. She has bladder cancer, bilateral stents placed with a known bladder tumor that is re-current. She saw Dr. Badillo recently in our office who determined she would need to proceed with surgical intervention for her recurrent bladder tumor or see oncology to determine if chemo/radiation would be necessary.? She follows with oncology in the next two weeks to determine if radiation or chemo is an option before proceeding with any surgery.? Patient comes ED evaluation, CT shows s or?oft tissue mass, likely malignant tumor, at posterior bladder base, extending to the ureterovesical junctions, right greater than left, with prominent distention of the urinary bladder and bilateral hydronephrosis despite bilateral internal stents. Creatinine is elevated from baseline to 2.7. WBC is 9.0, NA+ is 130 and K+ is 6.1. She is being admitted for hyperkalemia and hyponatremia. A blanchard catheter is to be placed.? ER physician also consulted urologist, urologist considers the patient does not need surgical intervention and need repeat renal ultrasound to determine hydronephrosis improving 06/14: Patient seen today immediately postop from her EGD. I am told by nursing that they have found gastritis and a gastric ulcer, but I have not seen the report from GI yet. Patient is drowsy from procedure but she does open her eyes and follows commands. She is alert and oriented x4 with intermittent confusion with use of p.r.n. narcotics for pain. Apparently last night she had some [place] and it made her ?loopy?. She is happy that they were able to find the ulcer as she is hopes that and treating this her swallowing will improve. Her creatinine continues to increase despite IV fluids. Today it is 4.0. She does not appear fluid overloaded. I spoke with her about dialysis and she says she is agreeable should Nephrology recommend this. She just wanted to make sure th
[2023-06-16 08:00] VITALS: PULSE 70
[2023-06-16] MEDS: polyethylene glycoL 3350 17 GM POWD.PACK PO (08:49)
[2023-06-16] MEDS: ENOXAPARIN 30 MG/0.3 ML SYRINGE SUB-Q (08:49)
[2023-06-16] MEDS: SENNOSIDES 8.6 MG TABLET PO ×2 (08:50→17:16)
[2023-06-16] MEDS: FOLIC ACID 1 MG TABLET PO (08:50)
[2023-06-16] MEDS: CYANOCOBALAMIN 1,000 MCG TABLET 1000 MCG PO (08:50)
[2023-06-16] MEDS: DOCUSATE SODIUM 100 MG CAPSULE PO ×2 (08:50→17:16)
[2023-06-16] MEDS: PANTOPRAZOLE SODIUM IV 40 MG VIAL IV PUSH (08:50)
[2023-06-16] MEDS: TAMSULOSIN HCL 0.4 MG CAPSULE PO (08:50)
[2023-06-16] MEDS: FERROUS SULFATE 325 MG TABLET DR PO (08:50)
--- NOTE | 2023-06-16 12:15 | PM.DS ---
DS: Admitting Diagnosis Discharge Date June 16, 2023 Admitting Diagnosis Acute bilateral obstructive uropathy DS: Discharge Diagnosis Discharge Diagnosis (1) Bladder cancer: Code(s): C67.9 - Malignant neoplasm of bladder, unspecified Status: Acute Assessment and Plan: Patient originally diagnosed with T1 high-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 She had stent placed in September of 2022. She was recently diagnosed in February of 2023 with muscle invasive bladder cancer that was removed completely and new stents were placed. At this time there was a small somewhat solid neoplastic looking growth at the right posterior lateral bladder wall and biopsies were taken. Pathology report revealed highly atypical degenerative tumor cells. Recent scan revealing a soft tissue mass likely malignant tumor at the base of the posterior bladder extending into the UVJ right greater than left. Being treated by Dr. Aby lopez and Dr. Nur for bladder cancer. Patient scheduled to see Oncology in approximately 2 weeks to determine if she is a candidate for chemo/radiation. Plan for the patient to be seen by Oncology [facility] and as an outpatient. Could benefit from another discussion with oncology surrounding cancer trajectory as I feel she may have unrealistic expectations. (2) Comfort measures only status: Code(s): Z51.5 - Encounter for palliative care Status: Acute Plan Comfort measures Care coordination consult for hospice eval, family request Vitas Feeding:regular diet + nepro between meals Analgesia:norco Thromboembolic prophylaxis: lovenox Ulcer prophylaxis: PPI Glycemic control: Not indicated, blood glucose on BMP 74 Bowel regimen: miralax and colace Lines: PIV Antibiotics:None DS: Summary Hospital Course Hospital Course: 78 years old lady with history of bladder cancer, present ED with a chief complaint of abnormal lab.? Patient has been having nausea vomiting anorexia and possibly more days, and the patient has difficulty with urination in past 2 weeks, patient has urinary urgency frequency. She has bladder cancer, bilateral stents placed with a known bladder tumor that is re-current. She saw Dr. Badillo recently in our office who determined she would need to proceed with surgical intervention for her recurrent bladder tumor or see oncology to determine if chemo/radiation would be necessary.? She follows with oncology in the next two weeks to determine if radiation or chemo is an option before proceeding with any surgery.? Patient comes ED evaluation, CT shows s or?oft tissue mass, likely malignant tumor, at posterior bladder base, extending to the ureterovesical junctions, right greater than left, with prominent distention of the urinary bladder and bilateral hydronephrosis despite bilateral internal stents. Creatinine is elevated from baseline to 2.7. WBC is 9.0, NA+ is 130 and K+ is 6.1. She is being admitted for hyperkalemia and hyponatremia. A blanchard catheter is to be placed.? ER physician also consulted urologist, urologist considers the patient does not need surgical intervention and need repeat renal ultrasound to determine hydronephrosis improving 06/14:? Patient seen today immediately postop from her EGD.? I am told by nursing that they have found gastritis and a gastric ulcer, but I have not seen the report from GI yet.? Patient is drowsy from procedure but she does open her eyes and follows commands.? She is alert and oriented x4 with intermittent confusion with use of p.r.n. narcotics for pain.? Apparently last night she had some [place] and it made her ?loopy?.? She is happy that they were able to find the ulcer as she is hopes that and treating this her swallowing will improve.? Her creatinine continues to increase despite IV fluids.? Today it is 4.0.? She does not appear fluid overloaded. I spoke with her about dialysis and she says she is a
[2023-06-16 14:00] VITALS: BP 118/38; PULSE 71; RESP 18; TEMP 36.7; O2SAT 96
[2023-06-19 03:14] LABS: Hepatitis B Core Ab Total Nonreactive (Nonreactive)
== END 2023-06-16 17:45 | disposition hospice, home (50) | DRG 686 ==
LOC: ANHED 13:42 → ANHIMU 17:27 → ANH3MEDSUR 06-08 02:14
PROVIDERS: Hospitalist; Internal Medicine; Internal Medicine Critical Care Medicine; Internal Medicine Gastroenterology; Internal Medicine Nephrology; Physician Assistant; Admitting Provider Internal Medicine; Emergency Provider General Practice; PCP Family Medicine; Visit Provider Nurse Practitioner Acute Care
PROC: 0DJ08ZZ Inspection of Upper Intestinal Tract, Via Natural or Artificial Opening Endoscopic (ICD-10-PCS; CPT 43235; principal; 2023-06-14 13:00)
DX: C67.9 Malignant neoplasm of bladder, unspecified (principal); E43 Unspecified severe protein-calorie malnutrition; E87.1 Hypo-osmolality and hyponatremia; Z68.1 Body mass index [BMI] 19.9 or less, adult; N13.30 Unspecified hydronephrosis; N17.9 Acute kidney failure, unspecified; R31.0 Gross hematuria; R13.10 Dysphagia, unspecified; D53.9 Nutritional anemia, unspecified; E83.52 Hypercalcemia; E87.5 Hyperkalemia; G47.33 Obstructive sleep apnea (adult) (pediatric); I12.9 Hypertensive chronic kidney disease with stage 1 through stage 4 chronic kidney disease, or unspecified chronic kidney disease; K25.9 Gastric ulcer, unspecified as acute or chronic, without hemorrhage or perforation; K29.70 Gastritis, unspecified, without bleeding; K21.9 Gastro-esophageal reflux disease without esophagitis; N18.32 Chronic kidney disease, stage 3b; R77.8 Other specified abnormalities of plasma proteins; Z90.49 Acquired absence of other specified parts of digestive tract; Z96.0 Presence of urogenital implants; Z96.653 Presence of artificial knee joint, bilateral; Z96.612 Presence of left artificial shoulder joint; Z90.710 Acquired absence of both cervix and uterus; Z87.891 Personal history of nicotine dependence
CPT/HCPCS: 36415; 36430; 51702; 70450; 71045; 74176; 76775; 80048; 80053; 81001; 82570; 82607; 82728; 82746; 82948; 83540; 83550; 83735; 83880; 83883; 84100; 84132; 84156; 84300; 84443; 84484; 85014; 85018; 85025; 85027; 85046; 85999; 86334; 86704; 86706; 86850; 86900; 86901; 86923; 87086; 87340; 88305; 93005; 94640; 96365; 96366; 96375; 97110; 97161; 97166; 97530; 99285; A9270; C9113; J0612; J1650; J1756; J1940; J2405; J2704; J3420; J7030; J7050; J7120; J7121; P9016; P9047